=== PATIENT | male | born 1980 | race Hispanic/Latino ===

== ENCOUNTER 2016-09-24 12:17 | Emergency (ER) | payer OTHER ==
[~2016-09-24] VITALS: Ht 175.3 cm; Wt 88.6 kg
[~2016-09-24 12:17] MED LIST: AMLO5TAB2 PO; METO25TA6 PO; ONDA-53 PO; OXYC5TAB72 PO
[2016-09-24 12:22] VITALS: BP 158/100; PULSE 118; RESP 22; O2SAT 95
[2016-09-24] MEDS ORDERED: 0.9% Sodium Chloride 1,000 ML IV ONE (12:29)
[2016-09-24] MEDS ORDERED: Ondansetron 2 mg/mL 2 mL Inj IVPUSH ONE ×2 (12:30→12:55)
[2016-09-24] MEDS ORDERED: Thiamine Inj 100 MG, Folic Acid Inj 1 MG, Magnesium Sulfate 50% Inj 2 GM, Multivitamins... IV ONE ×5 (12:30)
--- NOTE | 2016-09-24 12:39 | ED.REPORT ---
HPI-General Illness Date of Service Sep 24, 2016 ED Provider: Cindy Martinez MD 35 y/o male with Hx of alcoholism and Pancreatitis presents to the ER with severe upper abdominal pain with radiation to the back, onset yesterday. Pt reports not having drank in 2 days. Pt claims to be in "withdrawal." Pt reports dizziness, chills, diarrhea, nausea, and 10 episodes of vomiting with "flecks" of red blood. Pt denies seizures, fever, cough, cold, and chest pain. Nursing Notes Stated Complaint: PANCREATITIS/WITHDRAWLS Chief Complaint: Male Abdominal Pain Nursing Notes Reviewed: Yes Allergies: Coded Allergies: No Known Allergies (Verified Allergy, Unknown, 09/24/16) Scheduled Amlodipine (Amlodipine) 5 Mg Tablet 5 MG PO DAILY Metoprolol Tartrate (Metoprolol Tartrate) 25 Mg Tablet 12.5 MG PO BID Scheduled PRN Ondansetron (Ondansetron) 4 Mg Tablet 4 MG PO PRN For Nausea oxyCODONE (oxyCODONE) 5 Mg Tablet 5-10 MG PO Q3 PRN PRN For Moderate Pain General Time Seen by MD: 12:28 Chief Complaint Abdominal pain Hx Obtained From: Patient Arrived By: Walk-in Onset Occurred: Yesterday Symptom Duration: Since onset Location: : Abdomen Quality: Painful Radiation: : Back Severity: Current: Severe Associated with: Reports: Abdominal pain, Dizziness, Nausea, Vomiting, Denies: Chest pain, Cough, Fever Exacerbated by: Drinking Context Related History: Reports Drug use/abuse suspected Similar Sx Previous: Yes Past Medical History Past Medical History Notes: Multiple ED visits for ETOH pancreatitis in 2015, Admit x2 in 01/2016 and 08/2016 for pancreatitis Past Medical History Multiple episodes of pancreatitis secondary to alcohol use Alcohol dependence and abuse Prior history of withdrawal Chronic mild left hydronephrosis, persistent since February 2012. Reports: Hypertension Reports: Pancreatitis Past Surgical History None reported Family History Noncontributory Smoking History Never Smoker Social History Relapse on 04/15/16 and 04/08/16 Alcohol Use: >5 per day Drug Use: Denies drug use Other Social History: Good social support, , Local resident Ambulatory Status Independent Review of Systems Full Review of Systems Constitutional: Reports: Chills, Denies: Fever Respiratory: Denies: Shortness of breath Cardiovascular: Denies: Chest pain GI: Reports: Abdominal pain, Diarrhea, Nausea, Vomiting (10 times) Musculoskeletal: Reports: Back pain Neurologic: Reports: Dizziness Complete sys rev & neg: except as marked. Physical Exam CIWA score 12 Vital Signs Vital Signs Date Time Temp Pulse Resp B/P Pulse Ox O2 Delivery O2 Flow Rate FiO2 09/24/16 12:22 36.6 118 22 158/100 95 Room Air Initial VS: Reviewed General/Constitutional: Well-developed, Well-nourished Head / Eyes: Atraumatic, Normocephalic, PERRL ENT: Conjunctiva normal, No scleral icterus Neck: Full range of motion Extremities: Vascular intact, Neuro intact Skin: Warm, Dry, No cyanosis Respiratory / Chest: Breath sounds NL, No respiratory distress, No rales, No rhonchi, No wheezing Cardiovascular: Regular rhythm, Heart sounds NL, Cap refill not delayed, Peripheral circulation NL Heart Rate / Rhythm: Positive: Tachycardia Abdomen: Atraumatic, Soft Tenderness/Guarding/Rebound: Positive: Tender LUQ... (mild) Neurologic: Oriented X3, Speech NL Tremor present Interpretation & Diagnostics Lab Results Interpretation Result Diagram: 09/24/16 1250 09/24/16 1250 Test 09/24/16 12:50 09/24/16 13:21 White Blood Count 7.8th/mm3 (3.8-10.1) Red Blood Count 4.41mil/mm3 (4.40-5.80) Hemoglobin 14.1g/dL (13.8-17.2) Hematocrit 41.0% (41.0-50.0) Mean Corpuscular Volume 93.0fL (81-100) Mean Corpuscular Hemoglobin 32.0pg (27.0-35.0) Mean Corpuscular Hemoglobin Concent 34.4% (32.0-37.0) Red Cell Distribution Width 12.1% (12.3-15.4) Platelet Count 214bil/L (150-400) Neutrophils (%) (Auto) 78.9% (40-74) Lymphocytes (%) (Auto) 13.8% (14-46) Monocytes (%) (Auto) 6.2% (4-12) Eosinophils (%) (Auto) 0.6% (0-5) Basophils (%) (Auto) 0.1% (0-3) Prothrombin Time 11.6sec (8.1-12.5) Prothromb Time International Ratio 1.08ratio Sodium Level 136mEq/L (134-144) Potassium Level 3.7mEq/L (3.5-5.2) Chloride Level 98mEq/L (97-108) Carbon Dioxide Level 22mmol/L (18-29) Blood Urea Nitrogen 10mg/dL (6-20) Creatinine 0.75mg/dL (0.76-1.27) Estimat Glomerular Filtration Rate 125mL/min (>59) Glucose Level 124mg/dL (60-99) Calcium Level 8.9mg/dL (8.5-10.1) Magnesium Level 1.9mg/dL (1.6-2.6) Total Bilirubin 1.2mg/dL (0.0-1.2) Aspartate Amino Transf (AST/SGOT) 156U/L (0-50) Alanine Aminotransferase (ALT/SGPT) 105U/L (0-44) Alkaline Phosphatase 88U/L (25-150) Total Protein 8.2g/dL (6.4-8.4) Albumin 4.1g/dL (3.4-5.0) Lipase 36U/L (13-60) Hold Urine Received (Received) General Lab Results Interp 1: Labs reviewed Re-Eval/Medical Decision Med Decision/Clinical Course Moderate alcohol withdrawal now 48 hours after last drink. acute alcoholic hepatitis but no evidence of pancreatitis and no evidence of acute bleeding. Does not meet criteria for needing hospitalization. No detox beds available. Has a stable home environment and apparently can help with Ativan taper. Home with Ativan taper Time of Eval: 13:31 Re-Evaluation/Progress Note: Pt was offered detox. Patient Status: Condition improved Re-Evaluation/Progress Note: discused options home with ativan taper Counseled Regarding: Diagnosis, Lab results Discharge & Departure Primary Impression: Alcoholism Additional Impressions: Alcoholic hepatitis Ascites presence: without ascites Qualified Code: K70.10 - Alcoholic hepatitis without ascites Alcohol withdrawal Complication of substance-induced condition: with unspecified complication Qualified Code: F10.239 - Alcohol dependence with withdrawal, unspecified Ruled Out: Pancreatitis Disposition: Home Discharge Condition All VS Reviewed: Yes Condition: Improved Patient Instructions: Alcohol Withdrawal (ED) Additional Instructions: To help you detox from your recent alcohol binge: Ativan 2mg every 8 hours for 1 day then 2mg every 12 hours for 1 day then 1mg (1/2 pill) every 8 hours for 1 day then 1mg every 12 hours for 1 day then 1mg and stop You will benefit from alcohol rehab as an inpatient. Please consider getting to AA meetings and [facility] Referrals: [facility] (PCP) Loc Attestation Portions of this note were transcribed by Tom Person and Nohemi Fritz. I, Dr. Martinez personally performed the history, physical exam and medical decision -making; I reviewed and confirmed the accuracy of the information in the transcribed note. Signed by: Loc Briceno, 09/24/16 and 1331 Cindy Martinez MD Sep 24, 2016 12:39 Tom Person Sep 24, 2016 12:56 Nohemi Fritz Sep 24, 2016 13:32
[2016-09-24 13:02] LABS: BASOPHILS % (AUTO) 0.1 % (0-3); EOSINOPHILS % (AUTO) 0.6 % (0-5); MONOCYTES % (AUTO) 6.2 % (4-12); NEUTROPHILS % (AUTO) 78.9 % (40-74); Platelet Count 214 bil/L (150-400)
[2016-09-24 13:17] LABS: INR 1.08 ratio
[2016-09-24 13:26] LABS: Magnesium 1.9 mg/dL (1.6-2.6)
[2016-09-24] MEDS ORDERED: LORA2TAB PO (16:01)
[2016-09-24 16:23] VITALS: BP 131/80; PULSE 88; RESP 15; O2SAT 99
[2016-09-24 16:54] VITALS: BP 123/79; PULSE 93; RESP 16; O2SAT 97
[2016-09-24 16:58] VITALS: BP 123/79; PULSE 93; O2SAT 97
== END 2016-09-24 16:58 | disposition home or self-care (01) ==
LOC: SED 12:17
DX: K70.10 Alcoholic hepatitis without ascites (principal); F10.239 Alcohol dependence with withdrawal, unspecified; R42 Dizziness and giddiness; R68.83 Chills (without fever); R19.7 Diarrhea, unspecified; R11.2 Nausea with vomiting, unspecified; I10 Essential (primary) hypertension
CPT/HCPCS: 36415; 80053; 82075; 83690; 83735; 85025; 85610; 90791; 96361; 96374; 96375; 96376; 99285; J2405; J3360; J3475; J7030

== ENCOUNTER 2016-10-13 08:57 | Emergency (ER) | payer OTHER ==
[~2016-10-13] VITALS: Ht 175.3 cm; Wt 86.4 kg
[~2016-10-13 08:57] MED LIST changes: +LORA2TAB PO
[2016-10-13 09:06] VITALS: BP 128/93; PULSE 81; RESP 18; O2SAT 99
--- NOTE | 2016-10-13 09:12 | ED.REPORT ---
HPI-Extremity Problem Lower Date of Service Oct 13, 2016 ED Provider: Deep Camargo MD The patient is a 35 year old male who presents to the emergency department complaining of a right great toe injury that occurred a few days ago. The patient states he kicked a "hard" ball while he was intoxicated. He is unsure if he felt pain immediately. The pain has worsened over the last few days. He is able to walk. His pain is worse with movement or weight bearing. He denies any other injuries or trauma. His mother has history of gout. He drinks alcohol regularly. His last drink was 3 days ago and he has noticed some alcohol withdrawal symptoms, including: nausea and vomiting. He denies severe abdominal pain, hematemesis, dark/tarry stools or bloody stools. Nursing Notes Stated Complaint: RT BIG TOE INJURY Chief Complaint: General Complaint Nursing Notes Reviewed: Yes Allergies: Coded Allergies: No Known Allergies (Verified Allergy, Unknown, 09/24/16) Scheduled Amlodipine (Amlodipine) 5 Mg Tablet 5 MG PO DAILY Metoprolol Tartrate (Metoprolol Tartrate) 25 Mg Tablet 12.5 MG PO BID Scheduled PRN Lorazepam (Lorazepam) 2 Mg Tablet 2 MG PO TID PRN PRN For Anxiety Ativan 2mg every 8 hours for 1 day then 2mg every 12 hours for 1 day then 1mg (1/2 pill) every 8 hours for 1 day then 1mg every 12 hours for 1 day then 1mg and stop Ondansetron (Ondansetron) 4 Mg Tablet 4 MG PO PRN For Nausea oxyCODONE (oxyCODONE) 5 Mg Tablet 5-10 MG PO Q3 PRN PRN For Moderate Pain General Time Seen by MD: 09:10 Chief Complaint Toe injury right 1 Hx Obtained From: Patient Arrived By: Walk-in Onset Occurred: 3 days ago Symptom Duration: Since onset Location: : Toe right 1 Quality: Painful Severity: Current: Moderate Severity: Maximum: Severe Exacerbated by: Range of motion, Movement Recent Healthcare: No recent doctor visit, No recent hospitalization Similar Sx Previous: No Past Medical History Past Medical History Notes: Multiple ED visits for ETOH pancreatitis in 2015, Admit x2 in 01/2016 and 08/2016 for pancreatitis Past Medical History Multiple episodes of pancreatitis secondary to alcohol use Alcohol dependence and abuse Prior history of withdrawal Chronic mild left hydronephrosis, persistent since February 2012. Reports: Hypertension Reports: Pancreatitis Past Surgical History None reported Family History Noncontributory Smoking History Never Smoker Social History Alcohol Use: >5 per day Drug Use: Denies drug use Other Social History: Good social support, , Local resident Ambulatory Status Independent Review of Systems Review of Systems Note: +right great toe pain Musculoskeletal: Denies: Back pain, Neck pain Complete sys rev & neg: except as marked. GI: Reports: Nausea, Vomiting, Denies: Bloody/tarry stool, Hematemesis, Hematochezia Physical Exam Initial Vital Signs Vital Signs (First) Date Time Temp Pulse Resp B/P Pulse Ox O2 Delivery O2 Flow Rate FiO2 10/13/16 09:06 36.8 81 18 128/93 99 Initial VS: Reviewed Head / Eyes: Atraumatic, Normocephalic, PERRL ENT: Mucous membranes moist, Conjunctiva normal, No scleral icterus Neck: Supple, Non-tender, Full range of motion Respiratory: Breath sounds normal, Clear to auscultation, No respiratory distress Cardiovascular: Regular rate & rhythm, Heart sounds normal, Intact distal pulses Abdomen / GI: Soft, Non-tender, No guarding, No rebound, No distention Lymphatic: No lymphadenopathy Upper Extremities: Vascular intact, Neuro intact, No swelling, No tenderness Skin: Warm, Dry, No cyanosis Neurologic: Alert, Oriented, Nonfocal Psychiatric: Mood/affect normal, Behavior normal, Normal thought content Lower Extremity / Pelvis / MS: Neurologic intact, Vascular intact Ankle / Foot: Neurologic intact, Vascular intact Right great toes: Dense redness and exquisite tenderness of first MTP joint. General/Constitutional: Awake, Alert, No acute distress Interpretation & Diagnostics X-Ray Interpretation Xray Interpretation: IMPRESSION: No fracture. No osseous lesion. If symptoms and/or clinical suspicion for pathology persists, further assessment with repeat radiographs or advanced imaging (e.g. CT, MRI or bone scan) may be helpful for further assessment. Dictated by: Isabelle Pratt MD, PhD on 10/13/2016 at 10:05 X-Ray Ordered: Foot right Interpretation / Wet Read by: Interpret - Radiologist Re-Eval/Medical Decision Source of Hx: Old records Re-Evaluation/Progress : Time of Eval: 09:58 Re-Evaluation/Progress Note: Rechecked the patient. Discussed x-ray results, diagnosis, and plan for discharge. All questions were addressed. Counseled Regarding: Diagnosis, Need for follow-up, When/why to return to ED Discharge & Departure Impression: Primary Impression: Acute gouty arthritis Additional Impression: Alcohol withdrawal Disposition: Home Discharge Condition All VS Reviewed: Yes Condition: Stable Patient Instructions: Acute Gouty Arthritis (ED) Additional Instructions: Thank you for entrusting us with your care today. Your x-ray today is negative, there is no evidence of any fractures. The most likely diagnosis is gout for which the colchicine should be exceedingly effective. In addition to that you could take ibuprofen 800 mg every 8 hours. Follow-up in the clinic in 2 days if not significantly improved. Of course, I recommend you not drink alcohol at all, as this will certainly exacerbate all of your medical problems. Followup with your regular doctor in the next few days if your pain is not improving. Return to the emergency department for any new or concerning symptoms. Referrals: [facility] (PCP) Scribe Attestation Portions of this note were transcribed by Ann Gambino. I, Dr. Camargo personally performed the history, physical exam and medical decision-making; I reviewed and confirmed the accuracy of the information in the transcribed note. Signed by:Loc Lowe, 10/13/2016and 1022. copies to: [facility] Deep Camargo MD Oct 13, 2016 09:12 Ann Gambino Oct 13, 2016 09:19
[2016-10-13] MEDS ORDERED: LORazepam 2 mg Tablet PO ONE (09:20)
--- NOTE | 2016-10-13 10:07 | DRSVH ---
PROCEDURE: X-RAY RIGHT FOOT COMPLETE, MINIMUM THREE VIEWS ([id number]) INDICATIONS: trauma TECHNIQUE: 3 views of the foot were acquired. COMPARISON: None. FINDINGS: Bones: No fractures or dislocations. No suspicious bony lesions. Soft tissues: No tibiotalar joint effusion. Achilles tendon appears normal. IMPRESSION: No fracture. No osseous lesion. If symptoms and/or clinical suspicion for pathology pers ists, further assessment with repeat radiographs or advanced imaging (e.g. CT, MRI or bone scan) may be helpful for further assessment. Dictated by: Isabelle Pratt MD, PhD on 10/13/2016 at 10:05 Approved by: Isabelle Pratt MD, PhD on 10/13/2016 at 10:06
[2016-10-13 10:46] VITALS: BP 136/97; PULSE 88; RESP 16; O2SAT 100
== END 2016-10-13 10:47 | disposition home or self-care (01) ==
LOC: SED 08:57
DX: M10.071 Idiopathic gout, right ankle and foot (principal); F10.239 Alcohol dependence with withdrawal, unspecified; I10 Essential (primary) hypertension; Z87.19 Personal history of other diseases of the digestive system

== ENCOUNTER 2016-10-17 10:45 | Emergency (ER) | payer OTHER ==
[~2016-10-17] VITALS: Ht 175.3 cm; Wt 86.4 kg
[2016-10-17 10:48] VITALS: BP 144/105; PULSE 99; RESP 16; O2SAT 95
--- NOTE | 2016-10-17 11:23 | ED.REPORT ---
HPI-Abd Pain M Under 40 Date of Service Oct 17, 2016 ED Provider: London Brownlee MD Pt is a 35 y/o male w/ a hx of alcohol abuse, recurrent alcoholic pancreatitis, alcoholic gastritis, gout, HTN, presenting to the ED c/o epigastric abdominal pain onset today. The patient drank a large amount (6x 10% beers) of alcohol last night and believes this episode of abdominal pain is similar to prior episodes of acute alcoholic pancreatitis. He drinks about 6 10% beers/day. He c/ o associated nausea, vomiting x5, small flakes of hematemesis, headache, shaking which he attributes to withdrawal. He denies CP, SOB, fever, chills, bloody stool. His pain is exacerbated by eating. He has experienced 1 seizure related to alcohol in Fall of 2015. He is also complaining of pain in his right toe which he attributes to gout. His gout is untreated at this time. Nursing Notes Stated Complaint: alcohol withdrawal/abd pain Chief Complaint: Male Abdominal Pain Nursing Notes Reviewed: Yes Allergies: Coded Allergies: No Known Allergies (Verified Allergy, Unknown, 09/24/16) Scheduled Amlodipine (Amlodipine) 5 Mg Tablet 5 MG PO DAILY Metoprolol Tartrate (Metoprolol Tartrate) 25 Mg Tablet 12.5 MG PO BID Scheduled PRN Lorazepam (Lorazepam) 2 Mg Tablet 2 MG PO TID PRN PRN For Anxiety Ativan 2mg every 8 hours for 1 day then 2mg every 12 hours for 1 day then 1mg (1/2 pill) every 8 hours for 1 day then 1mg every 12 hours for 1 day then 1mg and stop Ondansetron (Ondansetron) 4 Mg Tablet 4 MG PO PRN For Nausea oxyCODONE (oxyCODONE) 5 Mg Tablet 5-10 MG PO Q3 PRN PRN For Moderate Pain General Time Seen by MD: 10:52 Chief Complaint Abdominal pain Hx Obtained From: Patient Arrived By: Walk-in Sudden in Onset?: No Onset Occurred: 5 - 8 hours ago Symptom Duration: Since onset Progression since Onset: Gradually worsening Location: : Epigastric Quality: Painful Severity: Current: Moderate Severity: Maximum: Moderate Context Related History: Reports: Alcohol abuse Recent Healthcare: Previous diagnosis Similar Sx Previous: Yes Past Medical History Past Medical History Notes: Multiple ED visits for ETOH pancreatitis in 2015, Admit x2 in 01/2016 and 08/2016 for pancreatitis Past Medical History Multiple episodes of pancreatitis secondary to alcohol use Alcohol dependence and abuse Prior history of withdrawal Chronic mild left hydronephrosis, persistent since February 2012. Hypertension Alcoholic seizure x1 Past Surgical History None reported Family History Noncontributory Smoking History Never Smoker Social History Alcohol Use: >5 per day Drug Use: Denies drug use Other Social History: Good social support, , Local resident Ambulatory Status Independent Review of Systems Constitutional: Denies: Chills, Fever Respiratory: Denies: Non-productive cough, Shortness of breath Cardiovascular: Denies: Chest pain GI: Reports: Abdominal pain, Hematemesis, Nausea, Vomiting, Denies: Bloody/tarry stool Musculoskeletal: Reports: Extremity pain Complete sys rev & neg: except as marked. Neurologic: Reports: Headache, Shaking Physical Exam Initial Vital Signs Vital Signs (First) Date Time Temp Pulse Resp B/P Pulse Ox O2 Delivery O2 Flow Rate FiO2 10/17/16 10:48 36.4 99 16 144/105 95 Room Air Initial VS: Reviewed, Vital signs normal Head / Eyes: Atraumatic, Normocephalic, PERRL ENT: Mucous membranes moist, Conjunctiva normal, No scleral icterus Neck: Supple, Full range of motion Extremities: Vascular intact, Neuro intact, No swelling, No tenderness Skin: Warm, Dry, No cyanosis Psychiatric: Mood/affect normal, Behavior normal, Normal thought content General/Constitutional: Awake, Alert, Cooperative, Not toxic appearing Mildly agitated Respiratory / Chest: Atraumatic, Breath sounds NL, Breath sounds = bilat, No respiratory distress, No rales, No rhonchi, No wheezing, No retractions, No stridor, No chest tenderness, No chest wall deformity, No crepitus Cardiovascular: Regular rhythm, Heart sounds NL, No gallop, No murmurs, No rubs , Cap refill not delayed, Peripheral circulation NL Heart Rate / Rhythm: Positive: Tachycardia (mild) Abdomen: Atraumatic, Soft, No palpable mass Tenderness/Guarding/Rebound: Positive: Tender diffuse (mild), Tender epigastric (moderate) Back: Full range of motion, Painless range of motion Neurologic: Oriented X3, Speech NL, No motor deficits, No sensory deficits Mild tremor Interpretation & Diagnostics Lab Results Interpretation Result Diagram: 10/17/16 1200 10/17/16 1200 Test 10/17/16 12:00 10/17/16 12:05 10/17/16 13:08 White Blood Count 6.8th/mm3 (3.8-10.1) Red Blood Count 4.48mil/mm3 (4.40-5.80) Hemoglobin 14.3g/dL (13.8-17.2) Hematocrit 41.7% (41.0-50.0) Mean Corpuscular Volume 93.1fL (81-100) Mean Corpuscular Hemoglobin 31.9pg (27.0-35.0) Mean Corpuscular Hemoglobin Concent 34.3% (32.0-37.0) Red Cell Distribution Width 11.9% (12.3-15.4) Platelet Count 233bil/L (150-400) Neutrophils (%) (Auto) 73.0% (40-74) Lymphocytes (%) (Auto) 14.8% (14-46) Monocytes (%) (Auto) 10.7% (4-12) Eosinophils (%) (Auto) 1.3% (0-5) Basophils (%) (Auto) 0.1% (0-3) Sodium Level 140mEq/L (134-144) Potassium Level 4.0mEq/L (3.5-5.2) Chloride Level 99mEq/L (97-108) Carbon Dioxide Level 25mmol/L (18-29) Blood Urea Nitrogen 14mg/dL (6-20) Creatinine 0.96mg/dL (0.76-1.27) Estimat Glomerular Filtration Rate 94mL/min (>59) Glucose Level 121mg/dL (60-99) Calcium Level 9.2mg/dL (8.5-10.1) Total Bilirubin 0.5mg/dL (0.0-1.2) Aspartate Amino Transf (AST/SGOT) 56U/L (0-50) Alanine Aminotransferase (ALT/SGPT) 68U/L (0-44) Alkaline Phosphatase 80U/L (25-150) Total Protein 8.1g/dL (6.4-8.4) Albumin 4.2g/dL (3.4-5.0) Lipase 25U/L (13-60) Hold Doll Top Tube Received (Received) Hold Urine Received (Received) Re-Eval/Medical Decision Med Decision/Clinical Course Pt is a 35 y/o male w/ a hx of alcohol abuse, recurrent alcoholic pancreatitis, alcoholic gastritis, gout, HTN, presenting to the ED c/o epigastric abdominal pain onset today. The patient drank a large amount (6x 10% beers) of alcohol last night and believes this episode of abdominal pain is similar to prior episodes of acute alcoholic pancreatitis. He drinks about 6 10% beers/day. Upon arrival the patient is borderline tachycardic though otherwise afebrile with stable vital signs. As a precaution he was placed on Cipro protocol. We administered antiemetics and IV fluids. His tachycardia resolved. Labs notable as below: CBC: Unremarkable CMP: Mildly elevated transaminases, lipase normal, otherwise unremarkable Patient was seen and evaluated by emergency department social sciences chair. At this time no detox beds are available. I reviewed the patient's laboratory studies as above and at this time he has mildly elevated transaminases consistent with alcohol abuse though there is no evidence of pancreatitis. He has stable vital signs and is tolerating PO. Abdominal examination is benign and there are no findings at this time suggest an acute surgical intra-abdominal process. Patient has been provided with extensive community resources and at this time demonstrates no evidence of florid alcohol withdrawal. He has been advised to taper off his alcohol slowly when he is ready to stop drinking. I discussed the risks of quitting cold turkey including alcohol withdrawal/seizures. The patient was advised to return immediately for any new or worsening symptoms or signs of alcohol withdrawal. He was discharged in stable condition. He verbalized understanding and agreement with the follow-up and return precautions provided. Re-Evaluation/Progress #1: Time of Eval: 12:54 Re-Evaluation/Progress Note: Medically clear at this time. Will consult social work for alcohol rehab placement. Re-Evaluation/Progress #2: Time of Eval: 12:57 Re-Evaluation/Progress Note: He has no overt signs of withdrawal at this point and is appropriate for discharge. Informed pt of plan for treatment. Pt understands and agrees with plan for treatment. F/U instructions and RTER warnings given. All questions addressed. Consultation : Consulted With: painting trades worker Call Returned at: 12:54 Machine Operator Hop Worker: Will see patient, Agrees with eval, Agrees with plan Note: There are no detox beds available at this moment. Counseled Regarding: Diagnosis, Lab results, Need for follow-up, When/why to return to ED Patient Discharge & Departure Primary Impression: Alcohol abuse Additional Impressions: Abdominal pain Abdominal location: epigastric Qualified Code: R10.13 - Epigastric pain Nausea and vomiting Vomiting type: unspecified Vomiting Intractability: unspecified Qualified Code: R11.2 - Nausea with vomiting, unspecified History of pancreatitis Alcohol withdrawal Complication of substance-induced condition: with unspecified complication Qualified Code: F10.239 - Alcohol dependence with withdrawal, unspecified Disposition: Home Discharge Condition All VS Reviewed: Yes Condition: Stable Patient Instructions: Abuse of Alcohol (ED) Additional Instructions: Thank you for seeking care at emergency room. It is difficult for us to make definitive diagnoses in the ED but we believe that you are experiencing generalized abdominal pain. Our primary goal today in the ED was to evaluate you for any life-threatening conditions. Your evaluation was reassuring. There was no sign of pancreatitis. You should follow-up with your primary doctor in the next week. You should return to the ED immediately if you develop seizures, hallucinations , tremors, racing heart, anxiety, or any other concerning signs or symptoms. Thank you for letting us partake in your care today. Referrals: [facility] (PCP) Scribe Attestation Portions of this note were transcribed by Aden Price. I, Dr. Brownlee personally performed the history, physical exam and medical decision-making; I reviewed and confirmed the accuracy of the information in the transcribed note. Signed by Loc Guo, 10/17/16 1230 copies to: [facility] London Brownlee MD Oct 17, 2016 11:23 ADEN PRICE Oct 17, 2016 11:27
[2016-10-17] MEDS ORDERED: 0.9% Sodium Chloride 1,000 ML IV ONE ×2 (11:37)
[2016-10-17] MEDS ORDERED: Ondansetron 2 mg/mL 2 mL Inj IVPUSH ONE (11:40)
[2016-10-17] MEDS ORDERED: HYDROmorphone 0.5 mg/0.5 mL iSecure Syringe IVPUSH PRN (11:40)
[2016-10-17] MEDS ORDERED: Pantoprazole 4 mg/mL 10 mL Inj IVPUSH ONE (11:40)
[2016-10-17 12:07] LABS: BASOPHILS % (AUTO) 0.1 % (0-3); EOSINOPHILS % (AUTO) 1.3 % (0-5); MONOCYTES % (AUTO) 10.7 % (4-12); Mean Corpuscular Hemoglobin 31.9 pg (27.0-35.0); Mean Corpuscular Volume 93.1 fL (81-100); Platelet Count 233 bil/L (150-400)
[2016-10-17 12:51] VITALS: BP 132/92; PULSE 76; RESP 16; O2SAT 96
[2016-10-17 14:19] VITALS: BP 128/88; PULSE 85; RESP 16; O2SAT 98
== END 2016-10-17 14:20 | disposition home or self-care (01) ==
LOC: SED 10:45
DX: R10.13 Epigastric pain (principal); R11.2 Nausea with vomiting, unspecified; F10.239 Alcohol dependence with withdrawal, unspecified; I10 Essential (primary) hypertension; Z87.19 Personal history of other diseases of the digestive system; Z87.448 Personal history of other diseases of urinary system
CPT/HCPCS: 36415; 80053; 83690; 85025; 96361; 96374; 96375; 96376; 99285; J1170; J2405; J3360; J7030

== ENCOUNTER 2016-10-21 20:57 | Emergency (ER) | payer OTHER ==
[~2016-10-21] VITALS: Ht 175.3 cm; Wt 86.4 kg
[2016-10-21 21:23] VITALS: BP 121/78; PULSE 112; RESP 18; O2SAT 97
[2016-10-21 21:58] LABS: BASOPHILS % (AUTO) 0.3 % (0-3); EOSINOPHILS % (AUTO) 1.6 % (0-5); MONOCYTES % (AUTO) 6.8 % (4-12); Mean Corpuscular Hemoglobin 32.5 pg (27.0-35.0); Mean Corpuscular Volume 92.1 fL (81-100); NEUTROPHILS % (AUTO) 62.7 % (40-74); Platelet Count 299 bil/L (150-400)
[2016-10-21 22:18] LABS: Magnesium 1.5 mg/dL (1.6-2.6)
--- NOTE | 2016-10-22 | ED.REPORT ---
HPI-General Illness Date of Service Oct 22, 2016 ED Provider: Romie Donovan MD Pt is a 35 y.o. male with a hx of pancreatitis and ETOH abuse who presents to the ED c/o LUQ pain onset 8 hours prior to arrival. Pt reports associated nausea , vomiting, diarrhea, anxiety, and shaking. Pt reports that he is currently withdrawing from ETOH, today he only consumed 1 beer when her typically consumes 12. He states that he is attempting to get inpatient treatment through [facility]. He also states he is interested in going to [facility] if a bed is available. Pt reports a hx of alcoholic seizure. Nursing Notes Stated Complaint: PANCREATIC PAIN ETOH WITHDRAWAL Chief Complaint: Male Abdominal Pain Nursing Notes Reviewed: Yes Allergies: Coded Allergies: No Known Allergies (Verified Allergy, Unknown, 10/21/16) Scheduled Amlodipine (Amlodipine) 5 Mg Tablet 5 MG PO DAILY Metoprolol Tartrate (Metoprolol Tartrate) 25 Mg Tablet 12.5 MG PO BID Omeprazole (Omeprazole) 20 Mg Tablet.dr 20 MG PO BID Scheduled PRN Lorazepam (Lorazepam) 2 Mg Tablet 2 MG PO TID PRN PRN For Anxiety Ativan 2mg every 8 hours for 1 day then 2mg every 12 hours for 1 day then 1mg (1/2 pill) every 8 hours for 1 day then 1mg every 12 hours for 1 day then 1mg and stop Ondansetron (Ondansetron) 4 Mg Tablet 4 MG PO PRN For Nausea oxyCODONE (oxyCODONE) 5 Mg Tablet 5-10 MG PO Q3 PRN PRN For Moderate Pain General Time Seen by MD: 23:59 Chief Complaint Abdominal pain Hx Obtained From: Patient Arrived By: Walk-in Sudden in Onset?: Yes Onset Occurred: 5 - 8 hours ago Context of Onset: EtOH use Symptom Duration: Since onset Location: : Abdomen Quality: Painful Severity: Current: Severe Past Medical History Past Medical History Notes: Multiple ED visits for ETOH pancreatitis in 2015, Admit x2 in 01/2016 and 08/2016 for pancreatitis Past Medical History Multiple episodes of pancreatitis secondary to alcohol use Alcohol dependence and abuse Prior history of withdrawal Chronic mild left hydronephrosis, persistent since February 2012. Hypertension Alcoholic seizure x1 Past Surgical History None reported Family History Noncontributory Smoking History Never Smoker Social History Alcohol Use: >5 per day Drug Use: Denies drug use Other Social History: Good social support, , Local resident Ambulatory Status Independent Review of Systems ETOH withdrawal Full Review of Systems GI: Reports: Abdominal pain, Diarrhea, Nausea, Vomiting Neurologic: Reports: Shaking Psychiatric: Reports: Anxiety Complete sys rev & neg: except as marked. Physical Exam Vital Signs Vital Signs Date Time Temp Pulse Resp B/P Pulse Ox O2 Delivery O2 Flow Rate FiO2 10/22/16 03:32 36.9 100 18 132/90 95 Room Air 10/21/16 21:23 37.2 112 18 121/78 97 Initial VS: Reviewed Head / Eyes: Atraumatic, Normocephalic Extremities: Vascular intact, Neuro intact Neurologic: Alert, Oriented, Nonfocal Psychiatric: Mood/affect normal, Behavior normal, Normal thought content General/Constitutional: Awake, Alert, No acute distress, Well appearing, Well developed, Well hydrated, Well nourished, Not toxic appearing Tremulous Respiratory / Chest: Atraumatic, Breath sounds NL, Breath sounds = bilat, No respiratory distress, No rales, No rhonchi, No wheezing, No retractions, No stridor Cardiovascular: Regular rhythm, Heart sounds NL, No gallop, No murmurs, No rubs , Peripheral circulation NL Heart Rate / Rhythm: Positive: Tachycardia Abdomen: Atraumatic, Soft, No guarding, No rebound, No distention Tenderness/Guarding/Rebound: Positive: Tender epigastric Skin: Atraumatic, Color NL, Warm, Intact Color / Condition: Positive: Diaphoresis present Interpretation & Diagnostics Lab Results Interpretation Result Diagram: 10/21/16215010/21/16 215 Test 10/21/16 21:51 10/22/16 01:20 White Blood Count 7.5th/mm3 (3.8-10.1) Red Blood Count 4.67mil/mm3 (4.40-5.80) Hemoglobin 15.2g/dL (13.8-17.2) Hematocrit 43.0% (41.0-50.0) Mean Corpuscular Volume 92.1fL (81-100) Mean Corpuscular Hemoglobin 32.5pg (27.0-35.0) Mean Corpuscular Hemoglobin Concent 35.3% (32.0-37.0) Red Cell Distribution Width 11.8% (12.3-15.4) Platelet Count 299bil/L (150-400) Neutrophils (%) (Auto) 62.7% (40-74) Lymphocytes (%) (Auto) 28.5% (14-46) Monocytes (%) (Auto) 6.8% (4-12) Eosinophils (%) (Auto) 1.6% (0-5) Basophils (%) (Auto) 0.3% (0-3) Sodium Level 139mEq/L (134-144) Potassium Level 3.7mEq/L (3.5-5.2) Chloride Level 97mEq/L (97-108) Carbon Dioxide Level 24mmol/L (18-29) Blood Urea Nitrogen 13mg/dL (6-20) Creatinine 0.84mg/dL (0.76-1.27) Estimat Glomerular Filtration Rate 110mL/min (>59) Glucose Level 132mg/dL (60-99) Calcium Level 8.9mg/dL (8.5-10.1) Magnesium Level 1.5mg/dL (1.6-2.6) Total Bilirubin 0.4mg/dL (0.0-1.2) Aspartate Amino Transf (AST/SGOT) 100U/L (0-50) Alanine Aminotransferase (ALT/SGPT) 63U/L (0-44) Alkaline Phosphatase 85U/L (25-150) Total Protein 8.5g/dL (6.4-8.4) Albumin 4.3g/dL (3.4-5.0) Lipase 133U/L (13-60) Hold Doll Top Tube Received (Received) Hold Urine Received (Received) BMP / CMP Interpretation ALT (SGPT) elevated, AST (SGOT) elevated, Lipase elevated Re-Eval/Medical Decision Med Decision/Clinical Course 35-year-old with chronic alcoholism and intermittent alcoholic pancreatitis, presents now two days out from last alcohol ingestion with tremor and tachycardia in obvious withdrawal. He desires to go to crisis. Bed is available later this morning. He has been given Ativan IV and by mouth here with control of his symptoms. Zofran for nausea. Omeprazole to deal with his GI issues. No narcotics planned for his chronic low-grade pancreatitis. Transport via taxicab with prepacks for standard detox protocol. Source of Hx: Old records Time of Eval: 00:27 Re-Evaluation/Progress Note: Pt rechecked. Pt states that Crisis has a bed for him tomorrow morning at 0900. Time of Eval: 05:50 Re-Evaluation/Progress Note: Pt rechecked. Pt is tremulous, will administer Ativan. Discussed plan for discharge to Crisis, pt understands and agrees with plan. Counseled Regarding: Diagnosis, Lab results, Need for follow-up, When/why to return to ED Discharge & Departure Shift Change Sign-Out Response to Therapy: Improved Primary Impression: Alcohol withdrawal Additional Impression: Alcoholic pancreatitis Disposition: Home Discharge Condition All VS Reviewed: Yes Condition: Stable Referrals: [facility] (PCP) Loc Attestation Portions of this note were transcribed by Ailyn Fierro. I, Dr. Donovan personally performed the history, physical exam and medical decision-making; I reviewed and confirmed the accuracy of the information in the transcribed note. Signed by: Loc Freeman, 10/22/16 and [id number]. copies to: [facility] ; [facility] Romie Donovan MD Oct 22, 2016 00:00 AILYN FIERRO Oct 22, 2016 00:12
[2016-10-22] MEDS ORDERED: Multivitamin w/Vit K Inj 10 ML, Thiamine Inj 100 MG, Folic Acid Inj 1 MG, Magnesium Sul... IV ONE ×5 (00:12)
[2016-10-22] MEDS ORDERED: Pantoprazole 4 mg/mL 10 mL Inj IVPUSH ONE (00:15)
[2016-10-22 03:32] VITALS: BP 132/90; PULSE 100; RESP 18; O2SAT 95
[2016-10-22] MEDS ORDERED: LORazepam 2 mg Tablet PO ONE (05:50)
[2016-10-22] MEDS ORDERED: _Ondansetron ODT 4 mg Tablet PO PRN (05:55)
[2016-10-22] MEDS ORDERED: _LORazepam 2 MG Tablet PO SCH (05:55)
[2016-10-22] MEDS ORDERED: OMEP20TA86 PO (06:13)
[2016-10-22 06:54] VITALS: BP 140/94; PULSE 96; RESP 20; O2SAT 95
[2016-10-22 09:29] VITALS: PULSE 68; RESP 14; O2SAT 100
== END 2016-10-22 09:29 | disposition home or self-care (01) ==
LOC: SED 20:57
DX: F10.239 Alcohol dependence with withdrawal, unspecified (principal); K85.20 Alcohol induced acute pancreatitis without necrosis or infection; I10 Essential (primary) hypertension
CPT/HCPCS: 36415; 80053; 82075; 83690; 83735; 85025; 90791; 96361; 96372; 96374; 96375; 99284; J2060; J3475; J7030

== ENCOUNTER 2016-10-24 00:15 | Emergency (ER) | payer OTHER ==
[~2016-10-24] VITALS: Ht 175.3 cm; Wt 86.4 kg
[~2016-10-24 00:15] MED LIST changes: +OMEP20TA86 PO
[2016-10-24 00:18] VITALS: BP 139/97; PULSE 98; RESP 16; O2SAT 98
[2016-10-24] MEDS ORDERED: Ondansetron 2 mg/mL 2 mL Inj IVPUSH ONE (00:25)
[2016-10-24] MEDS ORDERED: 0.9% Sodium Chloride 1,000 ML IV ONE (00:25)
[2016-10-24] MEDS ORDERED: Pantoprazole 4 mg/mL 10 mL Inj IVPUSH ONE (00:25)
--- NOTE | 2016-10-24 00:26 | ED.REPORT ---
HPI-Abd Pain M Under 40 Date of Service Oct 24, 2016 ED Provider: Romie Donovan MD Patient is a 35 year old male with a history of alcohol abuse with alcoholic pancreatitis who presents to the ED from [facility] with worsening abdominal pain over the past 2 days. Patient states that he is unable to eat or drink due to the pain and nausea that he is experiencing. He reports radiation into his back. Patient was seen in the ED on 10/22/16 for alcohol withdrawal and was cleared for [facility]. The patient last an alcoholic beverage earlier that day. The patient had low-grade pancreatitis at that time, with a lipase of 133. He did not receive pain medication for this during his previous visit, but requests pain medication at this time. Patient also states that the prescribed Zofran and Ativan are not adequate for controlling his withdrawal symptoms. He has also been taking Ibuprofen and Amlodipine, but denies taking Omeprazole. He would like to return to [facility] after evaluation today and states that he is committed to becoming sober. Patient also states that his left arm has become tingly. He denies a fever. Nursing Notes Stated Complaint: ABDOMINAL PAIN Chief Complaint: Male Abdominal Pain Nursing Notes Reviewed: Yes Allergies: Coded Allergies: No Known Allergies (Verified Allergy, Unknown, 10/24/16) Scheduled Amlodipine (Amlodipine) 5 Mg Tablet 5 MG PO DAILY Metoprolol Tartrate (Metoprolol Tartrate) 25 Mg Tablet 12.5 MG PO BID Omeprazole (Omeprazole) 20 Mg Tablet.dr 20 MG PO BID Omeprazole (Omeprazole) 20 Mg Tablet.dr 20 MG PO BID Scheduled PRN Lorazepam (Lorazepam) 2 Mg Tablet 2 MG PO TID PRN PRN For Anxiety Ativan 2mg every 8 hours for 1 day then 2mg every 12 hours for 1 day then 1mg (1/2 pill) every 8 hours for 1 day then 1mg every 12 hours for 1 day then 1mg and stop Ondansetron (Ondansetron) 4 Mg Tablet 4 MG PO PRN For Nausea Ondansetron ODT (Ondansetron ODT) 8 Mg Tab.rapdis 8 MG PO QID PRN PRN For Nausea oxyCODONE (oxyCODONE) 5 Mg Tablet 5-10 MG PO Q3 PRN PRN For Moderate Pain General Time Seen by MD: 00:24 Chief Complaint Abdominal pain Hx Obtained From: Patient Arrived By: Walk-in Sudden in Onset?: No Onset Occurred: 3 days ago Symptom Duration: Since onset Progression since Onset: Gradually worsening Location: : Epigastric Quality: Painful Severity: Current: Moderate Severity: Maximum: Severe Recent Healthcare: No recent hospitalization, Recent doctor visit Similar Sx Previous: Yes Past Medical History Past Medical History Notes: Multiple ED visits for ETOH pancreatitis in 2015, Admit x2 in 01/2016 and 08/2016 for pancreatitis Past Medical History Multiple episodes of pancreatitis secondary to alcohol use Alcohol dependence and abuse Prior history of withdrawal with withdrawal seizure x1 Chronic mild left hydronephrosis, persistent since February 2012. Hypertension Past Surgical History None reported Family History Noncontributory Smoking History Never Smoker Social History Alcohol Use: >5 per day Drug Use: Denies drug use Other Social History: Good social support, , Local resident Ambulatory Status Independent Review of Systems Constitutional: Denies: Fever GI: Reports: Abdominal pain, Nausea Musculoskeletal: Reports: Back pain Complete sys rev & neg: except as marked. Neurologic: Reports: Numbness (left arm tingling) Psychiatric: Reports: Anxiety Physical Exam Initial Vital Signs Vital Signs (First) Date Time Temp Pulse Resp B/P Pulse Ox O2 Delivery O2 Flow Rate FiO2 10/24/16 00:18 36.4 98 16 139/97 98 Room Air Initial VS: Reviewed Head / Eyes: Atraumatic, Normocephalic, PERRL ENT: Conjunctiva normal, No scleral icterus Neck: Supple, Full range of motion Extremities: Vascular intact, Neuro intact Skin: Warm, Dry, No cyanosis Neurologic: Alert, Oriented, Nonfocal Psychiatric: Mood/affect normal, Behavior normal, Normal thought content General/Constitutional: Awake, Alert, No acute distress not tremulous Respiratory / Chest: Breath sounds NL, Breath sounds = bilat, No respiratory distress, No rales, No rhonchi, No wheezing Cardiovascular: Heart rate NL, Regular rhythm, No murmurs Abdomen: Soft Tenderness/Guarding/Rebound: Positive: Tender epigastric (midepigastrium) Back: did not examine Interpretation & Diagnostics Lab Results Interpretation Result Diagram: 10/24/16 0125 10/24/16 0125 Test 10/24/16 00:20 10/24/16 01:25 Urine Color Straw (YELLOW) Urine Appearance Clear (CLEAR,HAZY) Urine pH 6.5 (5.0-8.0) Urine Specific [place] 1.003 (1.003-1.035) Urine Protein Negativemg/dL (NEG,TRACE) Urine Glucose (UA) Negativemg/dL (NEGATIVE) Urine Ketones Negativemg/dL (NEGATIVE) Urine Occult Blood Negative (NEGATIVE) Urine Nitrite Negative (NEGATIVE) Urine Bilirubin Negative (NEGATIVE) Urine Urobilinogen Normalmg/dL (NORMAL) Urine Leukocyte Esterase Negative (NEGATIVE) Urine RBC 0-2/hpf (0-2) Urine WBC 0-5/hpf (0-5) Urine Epithelial Cells Occasional/hpf (NONE-MOD) Urine Crystals None seen (NONE SEEN) Urine Bacteria None/hpf (NONE-FEW) Urine Hyaline Casts None/lpf (NONE) Urine Granular Casts None seen (NONE SEEN) Urine Waxy Casts None seen (NONE SEEN) Urine Red Blood Cell Casts None seen (NONE SEEN) Urine White Blood Cell Casts None seen (NONE SEEN) Urine Mucus None seen (None Seen) Urine Trichomonas None seen (NONE SEEN) Urine Yeast None (NONE SEEN) Urine Culture Reflexed Not indicated White Blood Count 7.5th/mm3 (3.8-10.1) Red Blood Count 4.20mil/mm3 (4.40-5.80) Hemoglobin 13.6g/dL (13.8-17.2) Hematocrit 38.4% (41.0-50.0) Mean Corpuscular Volume 91.4fL (81-100) Mean Corpuscular Hemoglobin 32.4pg (27.0-35.0) Mean Corpuscular Hemoglobin Concent 35.4% (32.0-37.0) Red Cell Distribution Width 11.5% (12.3-15.4) Platelet Count 214bil/L (150-400) Neutrophils (%) (Auto) 68.6% (40-74) Lymphocytes (%) (Auto) 21.8% (14-46) Monocytes (%) (Auto) 6.8% (4-12) Eosinophils (%) (Auto) 2.4% (0-5) Basophils (%) (Auto) 0.1% (0-3) Sodium Level 138mEq/L (134-144) Potassium Level 3.4mEq/L (3.5-5.2) Chloride Level 103mEq/L (97-108) Carbon Dioxide Level 23mmol/L (18-29) Blood Urea Nitrogen 8mg/dL (6-20) Creatinine 0.66mg/dL (0.76-1.27) Estimat Glomerular Filtration Rate 145mL/min (>59) Glucose Level 106mg/dL (60-99) Calcium Level 8.7mg/dL (8.5-10.1) Magnesium Level 1.9mg/dL (1.6-2.6) Total Bilirubin 0.8mg/dL (0.0-1.2) Aspartate Amino Transf (AST/SGOT) 116U/L (0-50) Alanine Aminotransferase (ALT/SGPT) 72U/L (0-44) Alkaline Phosphatase 73U/L (25-150) Total Protein 7.9g/dL (6.4-8.4) Albumin 4.3g/dL (3.4-5.0) Lipase 33U/L (13-60) ECG Interpretation Time: 00:33 Interpreted by: ED physician Normal ECG Interpretation: Normal ECG w/ rate of... (82), No acute ischemic changes Re-Eval/Medical Decision Med Decision/Clinical Course 35-year-old in treatment for alcohol withdrawal, complaining of persistent abdominal pain. It low grade pancreatitis on presentation here several days ago, and is actually improved his lipase normal. His abdominal pain is likely secondary to alcoholic gastritis. No indication for narcotic pain relievers in a detox setting. Will extend and renew his Ativan for use at the detox center. Zofran for nausea. Omeprazole twice a day, which was apparently omitted at the Center despite the original order. He is discharged in stable condition. Source of Hx: Old records Re-Evaluation/Progress : Time of Eval: 02:34 Patient Status: Condition improved Re-Evaluation/Progress Note: Rechecked the patient, who was informed that his lipase was now normal. His symptoms are likely due to gastritis. Patient will be discharged with additional Zofran and Omeprazole. Patient states that he is anxious. His dose of Ativan will be increased. Patient understands and agrees with the plan to be discharged home. Discharge instructions and follow-up discussed. All questions were addressed. Return to the ED warnings given. Counseled Regarding: Diagnosis, Lab results, Need for follow-up, When/why to return to ED Patient Discharge & Departure Primary Impression: Alcoholic gastritis Additional Impressions: Alcohol withdrawal Complication of substance-induced condition: uncomplicated Qualified Code: F10.230 - Alcohol dependence with withdrawal, uncomplicated Abdominal pain Abdominal location: epigastric Qualified Code: R10.13 - Epigastric pain History of pancreatitis Disposition: Home Discharge Condition All VS Reviewed: Yes Condition: Stable Patient Instructions: Alcohol Withdrawal (ED) Additional Instructions: Your low-grade pancreatitis is resolving by the labs. Your pain is likely due to alcoholic gastritis. You need to be on omeprazole twice daily, and I have reordered that for you and relayed that to the staff. Continue Ativan taper, which we will increase the dose and extend. Zofran if needed for nausea up to four times daily. Referrals: [facility] (PCP) Loc Attestation Portions of this note were transcribed by Shea Markham. I, Dr. Donovan personally performed the history, physical exam and medical decision-making; I reviewed and confirmed the accuracy of the information in the transcribed note. Signed by: Loc Hurt, 10/24/2016 [id number] copies to: [facility] Romie Donovan MD Oct 24, 2016 00:26 Shea Markham Oct 24, 2016 01:03
[2016-10-24] MEDS ORDERED: 0.9% Sodium Chloride 1,000 ML IV SCH (01:05)
[2016-10-24 01:14] LABS: APPEARANCE,URINE CLEAR (CLEAR,HAZY); COLOR,URINE STRAW (YELLOW); OCCULT BLOOD,URINE NEGATIVE (NEGATIVE); PH,URINE 6.5 (5.0-8.0); UROBILINOGEN,URINE NORMAL (NORMAL)
[2016-10-24 01:42] LABS: BASOPHILS % (AUTO) 0.1 % (0-3); EOSINOPHILS % (AUTO) 2.4 % (0-5); MONOCYTES % (AUTO) 6.8 % (4-12); Mean Corpuscular Hemoglobin 32.4 pg (27.0-35.0); Mean Corpuscular Volume 91.4 fL (81-100); NEUTROPHILS % (AUTO) 68.6 % (40-74); Platelet Count 214 bil/L (150-400)
[2016-10-24 02:08] LABS: Magnesium 1.9 mg/dL (1.6-2.6)
[2016-10-24] MEDS ORDERED: Alum-Mag Hydrox-Simeth 30 mL Suspension PO ONE (02:20)
[2016-10-24] MEDS ORDERED: _LORazepam 2 MG Tablet PO SCH (02:40)
[2016-10-24] MEDS ORDERED: LORazepam 2 mg Tablet PO ONE (02:40)
[2016-10-24 02:49] VITALS: BP 129/87; PULSE 96; RESP 20; O2SAT 96
[2016-10-24] MEDS ORDERED: OMEP20TA86 PO (03:22)
[2016-10-24] MEDS ORDERED: ONDA8TAB10 PO (03:23)
[2016-10-24 05:09] VITALS: BP 129/87; PULSE 96; RESP 20; O2SAT 96
== END 2016-10-24 05:18 | disposition home or self-care (01) ==
LOC: SED 00:15
DX: K29.20 Alcoholic gastritis without bleeding (principal); F10.230 Alcohol dependence with withdrawal, uncomplicated; I10 Essential (primary) hypertension; F17.200 Nicotine dependence, unspecified, uncomplicated; Z87.19 Personal history of other diseases of the digestive system
CPT/HCPCS: 36415; 80053; 81000; 83690; 83735; 85025; 93005; 96361; 96374; 96375; 99285; J2405; J7030

== ENCOUNTER 2016-10-27 15:30 | Emergency (ER) | payer OTHER ==
[~2016-10-27 15:30] MED LIST changes: +ONDA8TAB10 PO
[2016-10-27 15:51] VITALS: BP 144/105; PULSE 103; RESP 22; O2SAT 95
[2016-10-27] MEDS ORDERED: 0.9% Sodium Chloride 1,000 ML IV ONE (16:26)
[2016-10-27] MEDS ORDERED: Ondansetron 2 mg/mL 2 mL Inj IVPUSH ONE (16:30)
[2016-10-27] MEDS ORDERED: Thiamine Inj 100 MG, Folic Acid Inj 1 MG, Magnesium Sulfate 50% Inj 2 GM, Multivitamins... IV ONE ×10 (16:30→17:50)
--- NOTE | 2016-10-27 16:48 | ED.REPORT ---
HPI-Abd Pain M Under 40 Date of Service Oct 27, 2016 ED Provider: Deep Camargo MD History of Present Illness: Patient is a 35 y.o. M which past medical history of chronic ETOH abuse 12 beers per day 12% ABV, multiple episodes of ETOH pancreatitis, HTN. Presents to ED with moderate to severe abdominal pain since 0800 this morning. Pain rated 8/10 located on left side and epigastrum with radiation to back. Assocaited symptoms of nausea, vomiting x 4 some blood in vomitg, chills, diarrhea no change in stool color, dysuria, headache. Patient stated that he has tried to eat today but has not been able to keep food down, is able to keep water down. Patient stated his last drink was approximatley 1200 today, is now feeling like he is going into withdrawal, symptoms of tremors, diaphroesis, chest pain, visual hallucinations, itching. Patient has tried taking tylenol 1,000 mg and Ibuprofen 600 mg without relief. Patient went to [facility] ED yesterday blood work done "numbers were high" and discharged with PO Ativan and zofran. Patient stated he is motivated to quit drinking but has been unable to do so on his own. He is scheduled to enter an inpatient alcohol dextox program this Thursday. Denies Fever, conspitation, auditory hallucinations, loss of visions, falls, syncope. Nursing Notes Stated Complaint: pancreatitis/withdrawal Chief Complaint: Substance Abuse Allergies: Coded Allergies: No Known Allergies (Verified Allergy, Unknown, 10/27/16) Scheduled Amlodipine (Amlodipine) 5 Mg Tablet 5 MG PO DAILY Metoprolol Tartrate (Metoprolol Tartrate) 25 Mg Tablet 12.5 MG PO BID Omeprazole (Omeprazole) 20 Mg Tablet.dr 20 MG PO BID Omeprazole (Omeprazole) 20 Mg Tablet.dr 20 MG PO BID Scheduled PRN Lorazepam (Lorazepam) 2 Mg Tablet 2 MG PO TID PRN PRN For Anxiety Ativan 2mg every 8 hours for 1 day then 2mg every 12 hours for 1 day then 1mg (1/2 pill) every 8 hours for 1 day then 1mg every 12 hours for 1 day then 1mg and stop Ondansetron (Ondansetron) 4 Mg Tablet 4 MG PO PRN For Nausea Ondansetron ODT (Ondansetron ODT) 8 Mg Tab.rapdis 8 MG PO QID PRN PRN For Nausea Ondansetron ODT (Zofran ODT) 4 Mg Tablet 4 MG PO Q4H PRN PRN For Nausea Ondansetron ODT (Zofran ODT) 4 Mg Tablet 4 MG PO Q4H PRN PRN For Nausea oxyCODONE (oxyCODONE) 5 Mg Tablet 5-10 MG PO Q3 PRN PRN For Moderate Pain General Time Seen by MD: 16:20 Chief Complaint Abdominal pain, Other (ETOH withdrawal) Hx Obtained From: Patient Arrived By: Walk-in Sudden in Onset?: No Onset Occurred: 5 - 8 hours ago Context of Onset: EtOH use Symptom Duration: Constant Location: : Epigastric: LUQ Quality: Aching, Itching, Painful, Stabbing Radiation: : Back Severity: Current: Pain level 8 out of 10 Severity: Maximum: Pain level 8 out of 10 Associated with: Reports: Anorexia, Chest pain, Chills, Diarrhea, Dysuria, Shortness of breath Exacerbated by: Drinking alcohol, Eating Context Related History: Reports: Alcohol abuse, Pancreatitis Recent Healthcare: No recent doctor visit, Prior workup (Yesterday visited ED at [facility], blood work done DC with given Zofran and ativan.) Similar Sx Previous: Yes Past Medical History Past Medical History Notes: Multiple ED visits for ETOH pancreatitis in 2015, Admit x2 in 01/2016 and 08/2016 for pancreatitis Past Medical History Multiple episodes of pancreatitis secondary to alcohol use Alcohol dependence and abuse Prior history of withdrawal with withdrawal seizure x1 Chronic mild left hydronephrosis, persistent since February 2012. Hypertension Reports: Depression Past Surgical History None reported Family History Noncontributory Smoking History Never Smoker Social History Alcohol Use: >5 per day Drug Use: Denies drug use Other Social History: Good social support, , Local resident Ambulatory Status Independent Review of Systems Constitutional: Reports: Chills, Fatigue Respiratory: Reports: Dyspnea on exertion Cardiovascular: Reports: Chest pain, Palpitations, Denies: Orthopnea, Syncope GI: Reports: Abdominal pain, Anorexia, Diarrhea, Nausea, Vomiting Male: Reports Dysuria, Reports Flank pain Complete sys rev & neg: except as marked. Physical Exam Initial Vital Signs Vital Signs (First) Date Time Temp Pulse Resp B/P Pulse Ox O2 Delivery O2 Flow Rate FiO2 10/27/16 15:51 37.2 103 22 144/105 95 Room Air General/Constitutional: Awake, Alert, Well appearing, Well nourished Distress / Hydration: Positive: Distress mild Respiratory / Chest: Atraumatic, Breath sounds NL Cardiovascular: Heart rate NL, Regular rhythm, Heart sounds NL Abdomen: Atraumatic, Soft Tenderness/Guarding/Rebound: Positive: Guarding voluntary, Tender RUQ... ( Moderate), Tender epigastric Trauma - Abdomen Specific: Negative: [place]'s sign, Doll Sparks's sign multiple spider angiomas present on chest and abdomen Interpretation & Diagnostics Lab Results Interpretation Result Diagram: 10/27/16 1657 10/27/16 1657 Test 10/27/16 16:57 10/27/16 18:05 White Blood Count 7.6th/mm3 (3.8-10.1) Red Blood Count 4.32mil/mm3 (4.40-5.80) Hemoglobin 13.9g/dL (13.8-17.2) Hematocrit 39.6% (41.0-50.0) Mean Corpuscular Volume 91.7fL (81-100) Mean Corpuscular Hemoglobin 32.2pg (27.0-35.0) Mean Corpuscular Hemoglobin Concent 35.1% (32.0-37.0) Red Cell Distribution Width 11.6% (12.3-15.4) Platelet Count 200bil/L (150-400) Neutrophils (%) (Auto) 75.2% (40-74) Lymphocytes (%) (Auto) 17.5% (14-46) Monocytes (%) (Auto) 6.0% (4-12) Eosinophils (%) (Auto) 1.1% (0-5) Basophils (%) (Auto) 0.1% (0-3) Prothrombin Time 11.7sec (8.1-12.5) Prothromb Time International Ratio 1.09ratio Activated Partial Thromboplast Time 27.7sec (22.8-33.0) Sodium Level 133mEq/L (134-144) Potassium Level 3.2mEq/L (3.5-5.2) Chloride Level 93mEq/L (97-108) Carbon Dioxide Level 23mmol/L (18-29) Blood Urea Nitrogen 8mg/dL (6-20) Creatinine 0.63mg/dL (0.76-1.27) Estimat Glomerular Filtration Rate 153mL/min (>59) Glucose Level 117mg/dL (60-99) Calcium Level 8.2mg/dL (8.5-10.1) Magnesium Level 1.4mg/dL (1.6-2.6) Total Bilirubin 0.6mg/dL (0.0-1.2) Aspartate Amino Transf (AST/SGOT) 83U/L (0-50) Alanine Aminotransferase (ALT/SGPT) 78U/L (0-44) Alkaline Phosphatase 84U/L (25-150) Ammonia 67ug/dL (18-53) Total Protein 8.1g/dL (6.4-8.4) Albumin 4.0g/dL (3.4-5.0) Lipase 20U/L (13-60) Hold Doll Top Tube Received (Received) Alcohol, Quantitative < 10mg/dL (0-10) Hold Urine Received (Received) Lab Results Interpretation: Recent seen at [facility] 10/26/16 for similar symptoms lipase 151 AST 111 ALT 122 By comparison patient's lipase and LFTs are improved from yesterday. Ammonia level is elevated from prior visits at 67 ECG Interpretation Time: 16:43 Interpreted by: ED physician Normal ECG Interpretation: Normal ECG w/ rate of... (85), Normal rate, Normal sinus rhythm, No acute ischemic changes, Normal QRS, Normal axis, No change from prior ECGs, Adequate tracing Re-Eval/Medical Decision Med Decision/Clinical Course Patient is a 35 y.o. M which past medical history of chronic ETOH abuse 12 beers per day 12% ABV, multiple episodes of ETOH pancreatitis, HTN. Presented to ED for 8-12 hours of epigastric pain, ETOH withdrawal, tremor, nausea, vomiting. Last vist to [facility] for ETOH pancreatitis 09/05/16 CT scan showed: Mild pancreatitis, Hepatic steatosis, thickening of the colon, no sign of gallstone, stable left hydronephrosis. Recent seen at [facility] 10/26/16 for similar symptoms lipase 151 (this is within the normal range for their laboratory) AST 111 ALT 122 DDx EOTH withdrawal, alocholic pancreatitis, gallstone pancreatitis, gastroenteritis. CBC, CMP, Lipase ordered, ABV, UA, tox screen ordered. Re-Evaluation/Progress : )( Re-Eval Abdomen: BS normoactive, No distention, Guarding Patient Status: Condition unchanged Patient Discharge & Departure Shift Change Sign-Out Response to Therapy: Unchanged Primary Impression: Withdrawal symptoms, alcohol Complication of substance-induced condition: uncomplicated Qualified Code: F10.230 - Alcohol dependence with withdrawal, uncomplicated Disposition: Home Patient Instructions: Alcohol Intoxication (GEN), Alcohol Withdrawal (DC) Referrals: [facility] (PCP) Attending Statement The patient was seen and examined together with Dr. Reyes on 10/27/16 and I have added additional information to the note above. copies to: [facility] ДМИТРИЙ REYES DO Oct 27, 2016 16:48 Deep Camargo MD Oct 27, 2016 19:52
[2016-10-27] MEDS: HYDROmorphone 0.5 mg/0.5 mL iSecure Syringe IVPUSH PRN ×3 (16:53→19:46)
[2016-10-27 17:00] VITALS: BP 147/97; PULSE 91; RESP 15; O2SAT 97
[2016-10-27 17:08] LABS: BASOPHILS % (AUTO) 0.1 % (0-3); EOSINOPHILS % (AUTO) 1.1 % (0-5); Mean Corpuscular Hemoglobin 32.2 pg (27.0-35.0); Mean Corpuscular Volume 91.7 fL (81-100); NEUTROPHILS % (AUTO) 75.2 % (40-74); Platelet Count 200 bil/L (150-400)
[2016-10-27 17:25] LABS: INR 1.09 ratio
[2016-10-27 17:30] LABS: Magnesium 1.4 mg/dL (1.6-2.6)
[2016-10-27 17:31] LABS: Ammonia 67 ug/dL (18-53)
[2016-10-27] MEDS ORDERED: 0.9% Sodium Chloride 1,000 ML IV SCH (17:50)
[2016-10-27 17:52] VITALS: BP 138/90; PULSE 86; RESP 17; O2SAT 95
[2016-10-27] MEDS ORDERED: Ondansetron 8 mg ODT Tablet PO PRN (19:05)
[2016-10-27] MEDS ORDERED: ONDA4TAB9 PO ×2 (20:02→20:20)
== END 2016-10-27 20:28 | disposition home or self-care (01) ==
LOC: SED 15:30
DX: F10.230 Alcohol dependence with withdrawal, uncomplicated (principal); R10.13 Epigastric pain; R10.32 Left lower quadrant pain; R10.11 Right upper quadrant pain; R11.2 Nausea with vomiting, unspecified; R51 Headache; R19.7 Diarrhea, unspecified; R30.0 Dysuria; I10 Essential (primary) hypertension
CPT/HCPCS: 36415; 80053; 82075; 82140; 83690; 83735; 85025; 85610; 85730; 90791; 93005; 96361; 96374; 96375; 96376; 99285; G0480; J1170; J2405; J3360; J3475; J7030

== ENCOUNTER 2016-11-03 08:31 | Inpatient (IN) | payer OTHER ==
[2016-11-03] VITALS (15 sets, daily range): BP systolic 116–153; BP diastolic 70–107; PULSE 83–109; RESP 13–19; O2SAT 95–99
[~2016-11-03] VITALS: Ht 175.3 cm; Wt 90.3 kg
[~2016-11-03 08:31] MED LIST changes: +ONDA4TAB9 PO
[2016-11-03] MEDS ORDERED: Ondansetron 2 mg/mL 2 mL Inj IVPUSH ONE (09:20)
[2016-11-03] MEDS ORDERED: 0.9% Sodium Chloride 1,000 ML IV ONE ×2 (09:20→09:30)
--- NOTE | 2016-11-03 09:20 | ED.REPORT ---
HPI-General Illness Date of Service Nov 03, 2016 ED Provider: London Brownlee MD 35 year old male with a history of alcohol abuse and alcoholic pancreatitis presents to the ER complaining of abdominal pain and vomiting secondary to alcohol abuse vs withdrawal onset at 01:00 this morning. He reports trace blood in his emesis. Patient states that the pain is similar to that associated with a recent bout of pancreatitis. Last drink was 18:00 yesterday, 1 beer. Typically he drinks six 24oz 8% ABV beers daily but has lately been attempting to detox in anticipation of checking in to crisis respite. Nursing Notes Stated Complaint: PANCREATITIS PAIN,ALCOHOL WITHDRAWAL,VOMITING Chief Complaint: Male Abdominal Pain Nursing Notes Reviewed: Yes Allergies: Coded Allergies: No Known Allergies (Verified Allergy, Unknown, 11/03/16) Scheduled Amlodipine (Amlodipine) 5 Mg Tablet 5 MG PO DAILY Scheduled PRN Ondansetron ODT (Zofran ODT) 4 Mg Tablet 4 MG PO Q4H PRN PRN For Nausea General Time Seen by MD: 09:18 Chief Complaint Abdominal pain, Vomiting Hx Obtained From: Patient Arrived By: Walk-in Sudden in Onset?: No Onset Occurred: 4 days ago Symptom Duration: Since onset Location: : Abdomen Quality: Painful Severity: Current: Moderate Severity: Maximum: Moderate Similar Sx Previous: Yes Past Medical History Past Medical History Notes: Multiple ED visits for ETOH pancreatitis in 2015, Admit x2 in 01/2016 and 08/2016 for pancreatitis Past Medical History Multiple episodes of pancreatitis secondary to alcohol use Alcohol dependence and abuse Prior history of withdrawal with withdrawal seizure x1 Chronic mild left hydronephrosis, persistent since February 2012. Hypertension Reports: Depression Past Surgical History None reported Family History Noncontributory Smoking History Never Smoker Social History Alcohol Use: >5 per day Drug Use: Denies drug use Other Social History: Good social support, , Local resident Ambulatory Status Independent Review of Systems Full Review of Systems Constitutional: Denies: Chills, Fever Respiratory: Denies: Non-productive cough, Shortness of breath Cardiovascular: Denies: Chest pain GI: Reports: Abdominal pain, Hematemesis, Nausea, Vomiting Male: Denies Dysuria, Denies Flank pain, Denies Hematuria Complete sys rev & neg: except as marked. Physical Exam Vital Signs Vital Signs Date Time Temp Pulse Resp B/P Pulse Ox O2 Delivery O2 Flow Rate FiO2 11/03/16 16:00 89 13 140/93 97 Room Air 11/03/16 15:00 88 15 132/95 97 Room Air 11/03/16 14:00 89 13 140/93 97 Room Air 11/03/16 13:00 91 19 135/88 99 Room Air 11/03/16 12:30 94 16 132/80 97 Room Air 11/03/16 12:00 91 15 130/70 96 Room Air 11/03/16 11:30 109 16 125/80 98 Room Air 11/03/16 11:00 88 16 116/77 96 Room Air 11/03/16 10:30 89 18 133/86 95 Room Air 11/03/16 08:53 36.2 105 15 139/107 97 Room Air Initial VS: Reviewed General/Constitutional: Well-developed, Well-nourished Head / Eyes: Atraumatic, Normocephalic Neck: Supple, Non-tender, Full range of motion Respiratory: Breath sounds normal, Clear to auscultation, No respiratory distress Cardiovascular: Regular rate & rhythm, Heart sounds normal, Intact distal pulses Extremities: Vascular intact, Neuro intact, No swelling, No tenderness Skin: Warm, Dry, No cyanosis Neurologic: Alert, Oriented, Nonfocal Psychiatric: Mood/affect normal, Behavior normal, Normal thought content Abdomen: Soft, No guarding, No rebound, No distention Tenderness/Guarding/Rebound: Positive: Tender epigastric Interpretation & Diagnostics Lab Results Interpretation Result Diagram: 11/03/1627 11/03/16 0927 Test 11/03/16 09:27 White Blood Count 5.8th/mm3 (3.8-10.1) Red Blood Count 4.73mil/mm3 (4.40-5.80) Hemoglobin 15.0g/dL (13.8-17.2) Hematocrit 42.6% (41.0-50.0) Mean Corpuscular Volume 90.1fL (81-100) Mean Corpuscular Hemoglobin 31.7pg (27.0-35.0) Mean Corpuscular Hemoglobin Concent 35.2% (32.0-37.0) Red Cell Distribution Width 11.9% (12.3-15.4) Platelet Count 233bil/L (150-400) Neutrophils (%) (Auto) 64.2% (40-74) Lymphocytes (%) (Auto) 22.1% (14-46) Monocytes (%) (Auto) 11.9% (4-12) Eosinophils (%) (Auto) 1.4% (0-5) Basophils (%) (Auto) 0.2% (0-3) Sodium Level 135mEq/L (134-144) Potassium Level 3.5mEq/L (3.5-5.2) Chloride Level 94mEq/L (97-108) Carbon Dioxide Level 21mmol/L (18-29) Blood Urea Nitrogen 10mg/dL (6-20) Creatinine 0.85mg/dL (0.76-1.27) Estimat Glomerular Filtration Rate 108mL/min (>59) Glucose Level 118mg/dL (60-99) Calcium Level 8.1mg/dL (8.5-10.1) Magnesium Level 1.6mg/dL (1.6-2.6) Total Bilirubin 1.1mg/dL (0.0-1.2) Aspartate Amino Transf (AST/SGOT) 122U/L (0-50) Alanine Aminotransferase (ALT/SGPT) 96U/L (0-44) Alkaline Phosphatase 90U/L (25-150) Total Protein 8.1g/dL (6.4-8.4) Albumin 4.2g/dL (3.4-5.0) Lipase 60U/L (13-60) Hold Doll Top Tube Received (Received) Re-Eval/Medical Decision Med Decision/Clinical Course 35 year old male with a history of alcohol abuse and alcoholic pancreatitis presents to the ER complaining of abdominal pain and vomiting secondary to alcohol abuse vs withdrawal onset at 01:00 this morning. He reports trace blood in his emesis. Patient states that the pain is similar to that associated with a recent bout of pancreatitis. Last drink was 18:00 yesterday, 1 beer. Typically he drinks six 24oz 8% ABV beers daily but has lately been attempting to detox in anticipation of checking in to crisis respite. Patient afebrile with stable vital signs and abdominal examination audible only for mild epigastric tenderness. Patient treated with the below medications: IV fluids Zofran Dilaudid GI cocktail Patient reported symptom improvement though he remained somewhat agitated and tremulous. Serial abdominal examinations remained benign. Placed on CIWA. Laboratory studies obtained as below: CBC normal Transaminases mildly elevated 90s to 120s Lipase WNL Renal function WNL No significant electrolyte abnormalities At this time, suspect alcoholic gastritis and alcohol withdrawal. No evidence of pancreatitis or acute surgical intra-abdominal process. I do not feel that further workup or imaging studies are indicated. Multiple attempts were made to place the patient in detox however we were unsuccessful. He cannot go to crisis respite until tomorrow. He requires ongoing doses of benzodiazepines and has been placed on CIWA protocol. Patient was admitted to hospitalist service for further management of his acute alcohol withdrawal. Time of Eval: 12:45 Re-Evaluation/Progress Note: Discussed lab results and plan of care. Consultation : Referral / Consult Name: Cira Mae MD Consulted With: Hospitalist Call Returned at: 15:39 Research/Program Director: Agrees with eval, Agrees with plan, Accepts admit Counseled Regarding: Diagnosis, Lab results, Need for admission Discharge & Departure Primary Impression: Alcohol abuse Additional Impressions: Alcohol withdrawal Complication of substance-induced condition: with unspecified complication Qualified Code: F10.239 - Alcohol dependence with withdrawal, unspecified Epigastric pain Alcoholic gastritis Jeanine-Richardson syndrome Disposition: ADMITTED TO HOSPITAL Discharge Condition All VS Reviewed: Yes Condition: Stable Referrals: [facility] (PCP) Crit Care Except Billable Proc Time Spent: 105-134 minutes Services Performed: Patient management by me, Time spent at bedside, Reviewing test results, Reviewing imaging, Discussing patient care, Documentation in record, Time with fam/surrogate Critical Care Notes: Management of acute alcohol withdrawal, attempts to place the patient in medical detox and conversations with admitting physician and medical social consultantGarrett Monterroso Attestation Portions of this note were transcribed by Jose Cruz. I, Dr. Brownlee, personally performed the history, physical exam and medical decision-making; I reviewed and confirmed the accuracy of the information in the transcribed note. Signed by: Loc Leon, 11/03/2016 and 15:40 copies to: [facility] London Brownlee MD Nov 03, 2016 09:20 JOSE CRUZ Nov 03, 2016 09:22
[2016-11-03] MEDS ORDERED: Thiamine Inj 100 MG, Folic Acid Inj 1 MG, Magnesium Sulfate 50% Inj 2 GM, Multivitamins... IV ONE ×5 (09:30)
[2016-11-03 09:36] LABS: BASOPHILS % (AUTO) 0.2 % (0-3); EOSINOPHILS % (AUTO) 1.4 % (0-5); MONOCYTES % (AUTO) 11.9 % (4-12); Mean Corpuscular Hemoglobin 31.7 pg (27.0-35.0); Mean Corpuscular Volume 90.1 fL (81-100); NEUTROPHILS % (AUTO) 64.2 % (40-74); Platelet Count 233 bil/L (150-400)
[2016-11-03] MEDS: HYDROmorphone 0.5 mg/0.5 mL iSecure Syringe IVPUSH PRN ×2 (09:37→16:10)
[2016-11-03 10:00] LABS: Magnesium 1.6 mg/dL (1.6-2.6)
[2016-11-03] MEDS ORDERED: Alum-Mag Hydrox-Simeth 30 mL Suspension PO ONE (12:50)
[2016-11-03] MEDS ORDERED: Alum-Mag Hydrox-Simeth 30 mL Suspension PO PRN ×2 (15:10→18:00)
[2016-11-03] MEDS ORDERED: Ondansetron 2 mg/mL 2 mL Inj IVPUSH PRN (15:10)
--- NOTE | 2016-11-03 17:50 | NUR ---
Admission Patient arrived on unit via gurney. Patient alert and oriented on arrival. No noticeable tremor, able to make needs known. Chest x ray, and ultra sound done immediately on arrival.
--- NOTE | 2016-11-03 18:27 | PCM.HPMED ---
Subjective Date of Service Nov 03, 2016 Primary Provider: Admitting Physician: Cira Mae MD Primary Care Physician: [facility] Attending Physician: Cira Mae MD Admit Status: From the Emergency Department, Full Admit, Remote Telemetry Chief Complaint: Upper abdominal pain History of Present Illness: This is a 35-year-old male who has a history of alcohol abuse along with a recent diagnosis of alcoholic pancreatitis which has been improving by enzymes. His lipase today is normal he is continuing to complain of some abdominal pain and nausea vomiting. He notes no bloody or black vomitus or bowel movements. He typically drinks 12 pack of 8% alcoholic beers daily but last drink was last night. ER M.D. he is also going through some alcohol withdrawal with anxiety tremors which did respond to oral benzodiazepine. He has not been able to keep anything down orally. He denies any fevers chills. He did have one loose light brown stool today. Review of Systems: All other review of systems are reviewed and are negative except for as in history of present illness. Allergies Coded Allergies: No Known Allergies (Verified Allergy, Unknown, 11/03/16) Home Medications Scheduled Amlodipine (Amlodipine) 5 Mg Tablet 5 MG PO DAILY Metoprolol Tartrate (Metoprolol Tartrate) 25 Mg Tablet 12.5 MG PO BID Omeprazole (Omeprazole) 20 Mg Tablet.dr 20 MG PO BID Omeprazole (Omeprazole) 20 Mg Tablet.dr 20 MG PO BID Scheduled PRN Lorazepam (Lorazepam) 2 Mg Tablet 2 MG PO TID PRN PRN For Anxiety Ativan 2mg every 8 hours for 1 day then 2mg every 12 hours for 1 day then 1mg (1/2 pill) every 8 hours for 1 day then 1mg every 12 hours for 1 day then 1mg and stop Ondansetron (Ondansetron) 4 Mg Tablet 4 MG PO PRN For Nausea Ondansetron ODT (Ondansetron ODT) 8 Mg Tab.rapdis 8 MG PO QID PRN PRN For Nausea Ondansetron ODT (Zofran ODT) 4 Mg Tablet 4 MG PO Q4H PRN PRN For Nausea Ondansetron ODT (Zofran ODT) 4 Mg Tablet 4 MG PO Q4H PRN PRN For Nausea oxyCODONE (oxyCODONE) 5 Mg Tablet 5-10 MG PO Q3 PRN PRN For Moderate Pain PMH Past Medical History Notes: Multiple ED visits for ETOH pancreatitis in 2015, Admit x2 in 01/2016 and 08/2016 for pancreatitis Past Medical History Multiple episodes of pancreatitis secondary to alcohol use Alcohol dependence and abuse Prior history of withdrawal with withdrawal seizure x1 Chronic mild left hydronephrosis, persistent since February 2012. Hypertension Reports: Depression Past Surgical History None reported Family History Denies any family history of alcohol abuse Social History Hx Alcohol Use: Yes (last drink last night ) Hx Substance Use: No Hx Tobacco Use: No Smoking Status: Never Smoker Living Arrangement: with Family Exam Vital Signs Vital Sign - Last Date Time Temp Pulse Resp B/P Pulse Ox O2 Delivery O2 Flow Rate FiO2 11/03/16 17:00 86 15 132/89 96 Room Air 11/03/16 08:53 36.2 Exam Constitutional: Middle-aged male in moderate pain distress Head: Normocephalic/atraumatic Eyes: PERRLA GC EOMI Mouth: No lesions Neck: No adenopathy Chest: Clear to auscultation Cor: Regular rate and rhythm S1-S2 without murmur Abdomen: Soft tender in the epigastrium no rebound no guarding bowel sounds are present Extremities: No pedal edema Psych: Appears slightly anxious Skin: No rashes Neuro alert and oriented 3, motor strength is intact bilaterally Lab and Diagnostics Labs Laboratory Tests 72 Hours Test 11/03/16 09:27 White Blood Count 5.8th/mm3 (3.8-10.1) Red Blood Count 4.73mil/mm3 (4.40-5.80) Hemoglobin 15.0g/dL (13.8-17.2) Hematocrit 42.6% (41.0-50.0) Mean Corpuscular Volume 90.1fL (81-100) Mean Corpuscular Hemoglobin 31.7pg (27.0-35.0) Mean Corpuscular Hemoglobin Concent 35.2% (32.0-37.0) Red Cell Distribution Width 11.9% (12.3-15.4) Platelet Count 233bil/L (150-400) Neutrophils (%) (Auto) 64.2% (40-74) Lymphocytes (%) (Auto) 22.1% (14-46) Monocytes (%) (Auto) 11.9% (4-12) Eosinophils (%) (Auto) 1.4% (0-5) Basophils (%) (Auto) 0.2% (0-3) Sodium Level 135mEq/L (134-144) Potassium Level 3.5mEq/L (3.5-5.2) Chloride Level 94mEq/L (97-108) Carbon Dioxide Level 21mmol/L (18-29) Blood Urea Nitrogen 10mg/dL (6-20) Creatinine 0.85mg/dL (0.76-1.27) Estimat Glomerular Filtration Rate 108mL/min (>59) Glucose Level 118mg/dL (60-99) Calcium Level 8.1mg/dL (8.5-10.1) Magnesium Level 1.6mg/dL (1.6-2.6) Total Bilirubin 1.1mg/dL (0.0-1.2) Aspartate Amino Transf (AST/SGOT) 122U/L (0-50) Alanine Aminotransferase (ALT/SGPT) 96U/L (0-44) Alkaline Phosphatase 90U/L (25-150) Total Protein 8.1g/dL (6.4-8.4) Albumin 4.2g/dL (3.4-5.0) Lipase 60U/L (13-60) Hold Doll Top Tube Received (Received) Result Diagram: 11/03/1692611/03/16926 Assessment & Plan # Acute alcohol withdrawal, present on admission Will place on alcohol CIWA protocol IV fluid hydration By mouth multiple vitamin with folate and by mouth thiamine Check urine drug screen # Epigastric pain, subacute, present on admission We will place on Protonix 40 mg by mouth twice a day for possible alcoholic gastritis Zofran when necessary Check chest x-ray and abdominal ultrasound to further investigate As mentioned lipase is normal Stool guaiacs # DVT prophylaxis Placed on SCDs We will not give subcutaneous anticoagulant given history of EtOH abuse and acute epigastric pain Check PT/PTT # CODE STATUS Patient is full code Pain Evaluation: Pain not Controlled VTE Prophylaxis: SCDs Resuscitation Status: CPR: Attempt Resuscitation Time spent 60 minutes Cira Mae MD Nov 03, 2016 18:27
--- NOTE | 2016-11-03 19:51 | DRSVH ---
PROCEDURE: US ABDOMEN ([id number]) INDICATIONS: epigastric pain TECHNIQUE: Real-time scanning was performed of the abdominal and retroperitoneal organs, with image documentatio n. COMPARISON: [facility], US, US ABDOMEN, 04/13/2016, 11:39. FINDINGS: Liver: Liver is increased in echogenicity compatible with fatty infiltration. Gallbladder: No gallstones, gallbladder wall thickening, or pericholecystic fluid. Biliary ducts: Intrahepatic bile ducts are non-dilated. Extrahepatic bile duct caliber measures 3-4 mm. Normal is 6-7 mm or less in diameter, or 10 mm or less post-cholecystectomy. Pancreas: Not well-visualized. Spleen: Spleen is normal in size and homogeneous in echotexture. Kidneys: Right kidney measures 12.1 cm long; left kidney measures 12.6 cm long. There is mild right renal pelviectasis. Mild left hydronephrosis is also redemonstrated. Aorta: Visualized aorta is normal in caliber at less than 3 cm. The proximal and mid aorta are not w ell seen. Iliacs: Proximal common iliac arteries are normal in caliber at less than 2.5 cm. IVC: Intrahepatic inferior vena cava is patent. Miscellaneous: No free abdominal fluid. IMPRESSION: 1. Increased hepatic echogenicity compatible with steatosis. 2. Mild left hydronephrosis redemonstrated as well as mild right renal pelviectasis. Dictated by: Bob Briseno M.D. on 11/03/2016 at 19:46 Approved by: Bob Briseno M.D. on 11/03/2016 at 19:50
[2016-11-03] MEDS: 0.9% Sodium Chloride 1,000 ML IV SCH (20:23)
--- NOTE | 2016-11-03 21:01 | DRSVH ---
PROCEDURE: X-RAY CHEST ONE VIEW, PORTABLE ([id number]) INDICATIONS: epigastric pain TECHNIQUE: One view of the chest was acquired. COMPARISON: [facility], , CHEST 1VW (PORTABLE), 07/03/2011, 15:40. [facility], CR, CHEST 1VW (PORTABLE), 06/24/2014, 12:21. FINDINGS: Surgical changes and devices: None. Lungs and pleura: No pleural effusions or pneumothorax. Lungs are clear. Mediastinum: Mediastinal contours appear normal. Heart size is normal. Bones and chest wall: No suspicious bony lesions. Overlying soft tissues appear unremarkable. IMPRESSION: 1. No acute cardiopulmonary disease. Dictated by: Bob Briseno M.D. on 11/03/2016 at 20:58 Approved by: Bob Briseno M.D. on 11/03/2016 at 20:59
--- NOTE | 2016-11-03 23:25 | NUR ---
Dayshift extension Admission interventions completed. Pt reports pain of 9/10 in abdomen r/t pancreatitis. Given IV Morphine. Pain reduced to 5/10. Pt continues to request pain relief with medication. Instructed pt about medication tx regimen. Pt cooperative with plan of care. Willing to wait for next dose availability even.
[2016-11-04] VITALS (8 sets, daily range): BP systolic 135–160; BP diastolic 91–107; PULSE 77–116; RESP 18; O2SAT 94–98
[2016-11-04 01:32] LABS: APPEARANCE,URINE CLEAR (CLEAR,HAZY); COLOR,URINE DARK YELLOW (YELLOW); OCCULT BLOOD,URINE NEGATIVE (NEGATIVE); PH,URINE 6.5 (5.0-8.0); UROBILINOGEN,URINE NORMAL (NORMAL)
[2016-11-04] MEDS: 0.9% Sodium Chloride 1,000 ML IV SCH ×3 (02:14→19:24)
[2016-11-04 06:28] LABS: BASOPHILS % (AUTO) 0.2 % (0-3); EOSINOPHILS % (AUTO) 3.9 % (0-5); MONOCYTES % (AUTO) 8.3 % (4-12); Mean Corpuscular Hemoglobin 32.1 pg (27.0-35.0); Mean Corpuscular Volume 91.7 fL (81-100); NEUTROPHILS % (AUTO) 55.4 % (40-74); Platelet Count 188 bil/L (150-400)
[2016-11-04] MEDS: Multivit-Miner-Folic Acid-Iron Tablet PO SCH (08:55)
[2016-11-04] MEDS: Pantoprazole 40 mg ER24 Tablet PO SCH ×2 (08:55→18:02)
--- NOTE | 2016-11-04 16:25 | PCM.PNMED ---
Subjective Date of Service Nov 04, 2016 Subjective reports right great toe gout pain. also reports abdominal pain and some tremors Vital Signs Vital Sign - Last Date Time Temp Pulse Resp B/P Pulse Ox O2 Delivery O2 Flow Rate FiO2 11/04/16 14:08 36.7 92 18 135/91 96 Room Air Intake and Output 11/03/16 11/03/16 11/04/16 Cumulative From/Thru 15:00 23:00 07:00 11/03/16 08:53 - 11/04/16 06:34 Intake Total 2000 ml 300 ml 2300 ml Output Total 950 ml 375 ml 1325 ml Balance 1050 ml -75 ml 975 ml Intake Oral 300 ml 300 ml IV Total 2000 ml 2000 ml Output Urine Total 950 ml 375 ml 1325 ml General: Alert, Oriented X3, Cooperative, No Acute Distress Head: Normal Eyes: Scleral Anicteric Mouth: Mucous Membr Moist/[place] Neck: Supple Chest & Lungs: Chest Wall Normal, Clear to auscultation & percussion Cardiovascular: Regular Rate/Rhythm Abdomen: Tender, Non-distended, Normoactive bowel tones, Soft Extremities: No cyanosis/clubbing/edma bilat, Other (mild erythema at the right MTP joint) Neurological: Grossly Neurologically Intact, Normal Speech, Other (mild resting tremor of hands) Lab and Diagnostics Result Diagram: 11/04/1659911/03/161937 Exam Vital Signs Vital Sign - Last Date Time Temp Pulse Resp B/P Pulse Ox O2 Delivery O2 Flow Rate FiO2 11/04/16 14:08 36.7 92 18 135/91 96 Room Air Intake and Output 11/03/16 11/03/16 11/04/16 Cumulative From/Thru 15:00 23:00 07:00 11/03/16 08:53 - 11/04/16 06:34 Intake Total 2000 ml 300 ml 2300 ml Output Total 950 ml 375 ml 1325 ml Balance 1050 ml -75 ml 975 ml Intake Oral 300 ml 300 ml IV Total 2000 ml 2000 ml Output Urine Total 950 ml 375 ml 1325 ml IVs and Medications Medications Reviewed: Medications were reviewed in detail Lab and Diagnostics Result Diagram: 11/04/1659911/03/161937 Assessment & Plan 35-year-old male who has a history of alcohol abuse along with a recent diagnosis of alcoholic pancreatitis which has been improving by enzymes presenting with abdominal pain and nausea vomiting. last drink was night before presentation. In ED with evidence of alcohol withdrawal with anxiety tremors which did respond to oral benzodiazepine # Acute alcohol withdrawal, present on admission. ongoing - c/w CIWA protocol - By multiple vitamin, folate and thiamine # Epigastric pain, subacute, present on admission - c/w Protonix 40 mg by mouth twice a day for possible alcoholic gastritis Zofran when necessary - Abd U/S 11/04/16: " Increased hepatic echogenicity compatible with steatosis." - lipase is normal - consider CT abd # Possible acute gout of right foot. poa - start Colchicine and f/u Dispo: 3-4 days VTE Prophylaxis: SCDs Resuscitation Status: CPR: Attempt Resuscitation Dillon Arevalo Nov 04, 2016 16:25
[2016-11-04] MEDS: Ondansetron 2 mg/mL 2 mL Inj IVPUSH PRN (19:24)
--- NOTE | 2016-11-04 19:39 | NUR ---
GOUT Pt c/o increasing pain over shift in proximal knuckle of R big toe. MD aware. Pain level increased to a maximum of 10/10. Visually toe getting dark red and swelling. New orders placed for Colchicine. Pain meds given PRN allowable schedule, pt reports no pain relief in foot. MD notified.
[2016-11-05] VITALS (7 sets, daily range): BP systolic 141–163; BP diastolic 79–107; PULSE 89–110; RESP 18–20; O2SAT 96–99
[2016-11-05] MEDS ORDERED: Ketorolac 15 mg/mL Inj IVPUSH ONE (01:10)
--- NOTE | 2016-11-05 01:48 | NUR ---
Gout/foot pain Pt complaining of increasing foot pain. Morphine minimally relieving pain. Md notified and gave order for toradol. Toradol and Tylenol given with excellent relief. Pain decrease from 10/10 to 3/10
[2016-11-05] MEDS: 0.9% Sodium Chloride 1,000 ML IV SCH ×3 (03:40→19:49)
[2016-11-05] MEDS: Ondansetron 2 mg/mL 2 mL Inj IVPUSH PRN ×4 (04:18→19:48)
[2016-11-05 07:54] LABS: BASOPHILS % (AUTO) 0.2 % (0-3); EOSINOPHILS % (AUTO) 3.6 % (0-5); MONOCYTES % (AUTO) 7.1 % (4-12); Mean Corpuscular Hemoglobin 32.6 pg (27.0-35.0); Mean Corpuscular Volume 91.5 fL (81-100); NEUTROPHILS % (AUTO) 60.8 % (40-74); Platelet Count 157 bil/L (150-400)
[2016-11-05 08:14] LABS: INR 1.08 ratio
[2016-11-05] MEDS: Pantoprazole 40 mg ER24 Tablet PO SCH ×2 (09:05→18:10)
[2016-11-05] MEDS: Multivit-Miner-Folic Acid-Iron Tablet PO SCH (09:05)
--- NOTE | 2016-11-05 10:08 | NUR ---
Social Work CD assessment and Screen Note: SW met with patient at bedside to discuss discharge plan. Patient is a 35 year old male admitted on 11/03/16 for alcohol withdrawal. Patient payer as [employer]. Patient states having no intermediate manager disability nor VA benefits. Patient follows up at [facility]. Patient states residing with parents in [place]. Patient pharmacy of choice as [facility]. Patient has no previous HHC or SNF history. Patient has no AD and declined completion on form. Patient states being independent with needs at baseline and states having no identified discharge needs at this time. SW discussed Alohol use with patient. Patient states that his drink of choice as "211 beer". Patient states he consumes 10-12 beers a day. Hx of substance use. Patient reports first alcohol use at the age of [age] years old. Patient states after breaking up with his fiance of 5 years he increased his alcohol intake. Patient states that alcohol helped him alleviate his pain from the break up and allowed him to escape. Patient states he and his ex-fiance broke up 8 months ago and he has resided with parents since break up. Hx of treatment programs: Patient affiliated with [facility]. Patient states he plans to attend the [facility] program in [facility] for AA abuse assistance. Patient states wanting assistance and will work with [facility] bottle caser to finalize treatment into the [facility] program. Hx of w/d symptoms and hx of sobriety: Patient states he experiences "shakes" and sweats as a result to no alcohol intake. Patient states he has been sober for 65 days in the past but relapsed. Family hx: Patient reports no family history of drug use. Patient states that his parents do not enjoy his frequent alcohol consumption and persuade him from refraining from such use Consequences for use: Patient states being recently fired from job as a result to frequent alcohol use. Suicide Risk: Patient denied any current or past suicidal ideations or thoughts of harming himself or others Motivation: Patient appears to be motivated for treatment. SW provided patient with contact information to [facility] for admittance independently to [facility] treatment program PLAN: Home with parents via POV and follow up at [facility] treatment program following discharge. SW to [facility]jas. Qamar SHANKAR
--- NOTE | 2016-11-05 14:33 | DRSVH ---
PROCEDURE: CT ABDOMEN AND PELVIS WITH CONTRAST ([id number]) INDICATIONS: abd pain TECHNIQUE: After the administration of oral and intravenous contrast, 5 mm thick sections acquired from the diap hragms to the symphysis. 5 mm thick coronal and sagittal reformats were performed. For radiation do se reduction, the following was used: automated exposure control, adjustment of mA and/or kV accordi ng to patient size. COMPARISON: [facility], CT, CT ABD PELVIS W CON, 09/05/2016, 10:39. [facility], CT, CT ABD PELVIS W CON, 02/14/2016, 12:14. [facility], CT, CT ABD PELVIS W CON, 12/2014, 20:44. FINDINGS: Image quality: Excellent. ABDOMEN: Lung bases: Lung bases are clear. Heart size is normal. Solid organs: Ill-defined low density within the right/left hepatic lobe junction is not significant ly changed, consistent with focal fatty infiltration. Liver and spleen are otherwise normal in size a nd enhancement. Gallbladder is within normal limits. Biliary system is non-dilated. No change in f ocal atrophy of the pancreatic body/neck junction. There is new mild prominence of the pancreatic darya t within the pancreatic tail, with a maximal diameter of roughly 4 mm. Pancreas otherwise enhances no rmally. No adrenal nodules. Kidneys are normal in size and enhancement, without hydronephrosis. Peritoneum and bowel: There is thickening of the gastric antrum, which may indicate nondistention, ve rsus peptic ulcer disease. Small bowel is within normal limits. Appendix is normal. Colon is nondiste nded. Mild diffuse thickening of the sigmoid colon is unchanged. No free fluid or air. Normal append ix. Nodes and vessels: No retroperitoneal or mesenteric adenopathy. Aorta and inferior vena cava are no rmal in caliber. Miscellaneous: No ventral hernias. PELVIS: Genitourinary: Bladder wall thickness is normal. Miscellaneous: No inguinal hernias or adenopathy. Bones: No suspicious bony lesions. No vertebral body compression fractures. IMPRESSION: 1. Mild nonspecific thickening of the gastric antrum, possibly related to peptic ulcer disease. This could be further assessed with endoscopy, if clinically indicated. 2. No change in ill-defined low-density within the right/left hepatic lobe junction, consistent with fatty infiltration. 3. Normal appendix. 4. No change in focal mid pancreatic atrophy. There is new mild prominence of the pancreatic duct wit hin the pancreatic tail, suggestive of underlying stricture, which could be benign or malignant. This could be further assessed with ERCP, if clinically indicated. 5. No change in mild diffuse sigmoid colon thickening. Dictated by: Ayana Cabral M.D. on 11/05/2016 at 14:13 Approved by: Ayana Cabral M.D. on 11/05/2016 at 14:31
--- NOTE | 2016-11-05 17:18 | PCM.PNMED ---
Subjective Date of Service Nov 05, 2016 Subjective reports continued abdominal pain. says toe pain much improved after Colchicine last night Exam Vital Signs Vital Sign - Last Date Time Temp Pulse Resp B/P Pulse Ox O2 Delivery O2 Flow Rate FiO2 11/05/16 14:38 36.6 93 18 141/97 97 Room Air Intake and Output 11/04/16 11/04/16 11/05/16 Cumulative From/Thru 15:00 23:00 07:00 11/03/16 08:53 - 11/05/16 06:43 Intake Total 640 ml 4602 ml 7542 ml Output Total 2000 ml 1725 ml 5050 ml Balance -1360 ml 2877 ml 2492 ml Intake Oral 640 ml 518 ml 1458 ml IV Total 4084 ml 6084 ml Output Urine Total 2000 ml 1725 ml 5050 ml Exam General: Alert, Oriented X3, Cooperative, No Acute Distress Head: Normal Eyes: Scleral Anicteric Mouth: Mucous Membr Moist/[place] Neck: Supple Chest & Lungs: Chest Wall Normal, Clear to auscultation bilat Cardiovascular: Regular Rate/Rhythm Abdomen: Tender, Non-distended, Normoactive bowel tones, Soft Extremities: No cyanosis/clubbing/edema bilat Neurological: Grossly Neurologically Intact, Normal Speech, Other (mild resting tremor of hands) IVs and Medications Medications Reviewed: Medications were reviewed in detail Lab and Diagnostics Result Diagram: 11/05/1630 11/05/16 0730 Assessment & Plan 35-year-old male who has a history of alcohol abuse along with a recent diagnosis of alcoholic pancreatitis which has been improving by enzymes presenting with abdominal pain and nausea vomiting. last drink was night before presentation. In ED with evidence of alcohol withdrawal with anxiety tremors which did respond to oral benzodiazepine # Acute alcohol withdrawal, present on admission. ongoing - c/w CIWA protocol # Epigastric pain, subacute, present on admission - c/w Protonix 40 mg by mouth twice a day for possible alcoholic gastritis Zofran when necessary - Abd U/S 11/04/16: " Increased hepatic echogenicity compatible with steatosis." - lipase is normal - check CT abd today and consider GI consult in am if pain persist # Possible acute gout of right foot. poa. improved - started Colchicine on 11/04/16 # Acute hypokalemia. - replete and f/u Dispo: 2-3 days VTE Prophylaxis: SCDs Resuscitation Status: CPR: Attempt Resuscitation Time spent 25 min Dillon Arevalo Nov 05, 2016 17:18
[2016-11-05] MEDS ORDERED: KCl 40 mEq/D5W 500 mL 40 MEQ in IV Premix 500 EACH IV ONE (17:20)
[2016-11-05] MEDS: Polyethylene Glycol (PEG) 17 Gm Powder PO PRN (18:10)
--- NOTE | 2016-11-05 18:30 | NUR ---
CIWA /abdominal pain: Patients CIWA is 5 now. He has recieved Valium x2 today and IV morphine 3 times today and he rates his pain at 8-10 on 1-10 scale before the med with his pain decreasing to 5 after receiving the pain med. Patient has tolerated his clear liquid diet and has been upgraded. he stated that his nausea is mild and he has received IV Zofran x2 with good relief.
[2016-11-06] VITALS (7 sets, daily range): BP systolic 139–156; BP diastolic 95–107; PULSE 88–95; RESP 18–19; O2SAT 95–97
[2016-11-06] MEDS: Ondansetron 2 mg/mL 2 mL Inj IVPUSH PRN ×4 (00:33→18:07)
[2016-11-06] MEDS: 0.9% Sodium Chloride 1,000 ML IV SCH ×3 (01:16→18:04)
--- NOTE | 2016-11-06 05:50 | NUR ---
CIWA Pt CIWA score was 19 this evening, Valium x 2, Morphine x2, and zofran x2, all with good results. Last CIWA score of 2. Pt resting watching TV. Pt pleasant and cooperative. Pt chose to remain on a liquid diet for the night due to nausea, states he will try breakfast this morning. Left room with call light at bedside.
[2016-11-06 06:41] LABS: BASOPHILS % (AUTO) 0.2 % (0-3); EOSINOPHILS % (AUTO) 2.2 % (0-5); MONOCYTES % (AUTO) 6.6 % (4-12); Mean Corpuscular Hemoglobin 32.2 pg (27.0-35.0); Mean Corpuscular Volume 90.8 fL (81-100); Platelet Count 148 bil/L (150-400)
[2016-11-06] MEDS: Pantoprazole 40 mg ER24 Tablet PO SCH ×2 (07:45→17:51)
[2016-11-06] MEDS: Multivit-Miner-Folic Acid-Iron Tablet PO SCH (07:46)
[2016-11-06 08:33] LABS: Magnesium 1.9 mg/dL (1.6-2.6)
--- NOTE | 2016-11-06 11:30 | PCM.PNMED ---
Subjective Date of Service Nov 06, 2016 Subjective Abdominal pain is his main complaint today. Not well controlled with current PRNs. Still most pronounced in right upper quadrant. Appetite is OK, but limited due to pain, so he eats small portions. Withdrawal symptoms still present, but well controlled with CIWA protocol, scoring between 11-14 overnight and this morning as per nursing. Exam Vital Signs Vital Sign - Last Date Time Temp Pulse Resp B/P Pulse Ox O2 Delivery O2 Flow Rate FiO2 11/06/16 11:02 37.1 88 18 139/95 96 Room Air Intake and Output 11/05/16 11/05/16 11/06/16 Cumulative From/Thru 14:59 22:59 06:59 11/03/16 08:53 - 11/06/16 05:23 Intake Total 2486 ml 01495 ml Output Total 2050 ml 7100 ml Balance 436 ml 2928 ml Intake Oral 1145 ml 2603 ml IV Total 1341 ml 7425 ml Output Urine Total 2050 ml 7100 ml # Bowel Movements 1 1 Exam General: Alert, Oriented X3, Cooperative, No Acute Distress Head: Normal Eyes: Scleral Anicteric Mouth: Mucous Membranes Moist/[place] Neck: Supple Chest & Lungs: Chest Wall Normal, Clear to auscultation bilat Cardiovascular: Regular Rate/Rhythm Abdomen: Tenderness of RUQ noted, without guarding. Non-distended, Normoactive bowel tones, Soft Extremities: No cyanosis/clubbing/edema bilat Neurological: Grossly Neurologically Intact, Normal Speech, Other (mild resting tremor of hands) IVs and Medications Medications Reviewed: Medications were reviewed in detail Lab and Diagnostics Result Diagram: 11/06/1660911/06/16609 Assessment & Plan 35-year-old male who has a history of alcohol abuse along with a recent diagnosis of alcoholic pancreatitis which has been improving by enzymes presenting with abdominal pain and nausea vomiting. last drink was night before presentation. In ED with evidence of alcohol withdrawal with anxiety tremors which did respond to oral benzodiazepine # Acute alcohol withdrawal, present on admission. ongoing - c/w CIWA protocol - Plan for DC to in patient rehabilitation once medically stable. # Epigastric pain, subacute, present on admission - c/w Protonix 40 mg by mouth twice a day for possible alcoholic gastritis Zofran when necessary - Abd U/S 11/04/16: " Increased hepatic echogenicity compatible with steatosis." - lipase is normal - check CT abd today and consider GI consult in am if pain persist # Possible acute gout of right foot. poa. improved - started Colchicine on 11/04/16 # Acute hypokalemia. - replete and f/u #Abdominal pain; - - Likely secondary to liver injury / inflammation related to alcohol toxicity - continue to monitor LFTs, Morphine PRN for pain, taper as tolerated. Dispo: 2-3 days Pain Evaluation: Adequate Pain Control VTE Prophylaxis: SCDs Resuscitation Status: CPR: Attempt Resuscitation Time spent 25 minutes Kai Varma DO Nov 06, 2016 11:30
[2016-11-07] VITALS (8 sets, daily range): BP systolic 131–170; BP diastolic 89–108; PULSE 76–93; RESP 16–18; O2SAT 95–98
[2016-11-07] MEDS: Ondansetron 2 mg/mL 2 mL Inj IVPUSH PRN ×4 (00:27→20:28)
[2016-11-07] MEDS: 0.9% Sodium Chloride 1,000 ML IV SCH ×4 (02:15→20:28)
--- NOTE | 2016-11-07 03:59 | NUR ---
Anxiety/CIWA Patient scoring 20 on the CIWA scale at the beginning of the shift, able to score down to a 5 on the CIWA scale, and then back up to a 20. After 0230 administration of diazepam, patient is able to rest calmly. Patient states that he is full of anxiety and has had racing thoughts throughout the night. Spending some time talking with the patient seemed to help calm him down. Will continue to monitor CIWA score and medicate as needed.
[2016-11-07 06:28] LABS: BASOPHILS % (AUTO) 0.1 % (0-3); EOSINOPHILS % (AUTO) 2.4 % (0-5); MONOCYTES % (AUTO) 6.1 % (4-12); Mean Corpuscular Hemoglobin 32.3 pg (27.0-35.0); NEUTROPHILS % (AUTO) 65.6 % (40-74); Platelet Count 170 bil/L (150-400)
[2016-11-07] MEDS: Pantoprazole 40 mg ER24 Tablet PO SCH ×2 (07:52→17:00)
[2016-11-07] MEDS: Multivit-Miner-Folic Acid-Iron Tablet PO SCH (07:52)
--- NOTE | 2016-11-07 10:26 | NUR ---
Mentation: Pt a/o x3, VSS, tele SR/ST 80s-100s, heart rate up to 150s with activity. CIWA score 8, pt c/o feeling a large amount of anxiety. Discussed plan of care and pt's plans for treatment, appears less anxious. Care ongoing.
--- NOTE | 2016-11-07 12:56 | PCM.PNMED ---
Subjective Date of Service Nov 07, 2016 Subjective Patient notes still experiencing significant abdominal pain overnight and through this morning, though he does note it is slightly improved from yesterday. He believes eating a very fatty meal containing biscuits and gravy may have set off his abdominal pain yesterday so he has been more cautious while eating today consuming smaller portions and less fatty foods. He believes this male offered some benefit. He still experiencing significant symptoms of withdrawal as well including elevated anxiety and tremulousness, this is also mildly improved from one day prior and well treated with current when necessary medications. He has no other acute complaints at this time. Exam Vital Signs Vital Sign - Last Date Time Temp Pulse Resp B/P Pulse Ox O2 Delivery O2 Flow Rate FiO2 11/07/16 08:50 36.4 83 16 131/89 96 Room Air Intake and Output 11/06/16 11/06/16 11/07/16 Cumulative From/Thru 15:00 23:00 07:00 11/03/16 08:53 - 11/07/16 06:28 Intake Total 620 ml 1891 ml 2436 ml 20138 ml Output Total 750 ml 700 ml 2000 ml 86902 ml Balance -130 ml 1191 ml 436 ml 4425 ml Intake Oral 620 ml 1120 ml 400 ml 4743 ml IV Total 771 ml 2036 ml 42445 ml Output Urine Total 750 ml 700 ml 2000 ml 89802 ml # Bowel Movements 0 1 General: Alert, Oriented X3, Cooperative, Mild Distress Eyes: EOMI Mouth: Mucous Membr Moist/[place] Chest & Lungs: Clear to auscultation & percussion Cardiovascular: Regular Rate/Rhythm Abdomen: Tender, Other (abdomen is diffusely tender most pronounced in left upper quadrant. Also appears mildly distended however no overt fluid wave is noted. No guarding is noted. No hepatomegaly noted on palpation or percussion. Bowel sounds are normoactive. ) Extremities: No cyanosis/clubbing/edma bilat Neurological: Grossly Neurologically Intact IVs and Medications Medications Reviewed: Medications were reviewed in detail Lab and Diagnostics Result Diagram: 11/07/1660911/07/16609 Assessment & Plan 35-year-old male who has a history of alcohol abuse along with a recent diagnosis of alcoholic pancreatitis which has been improving by enzymes presenting with abdominal pain and nausea vomiting. last drink was night before presentation. In ED with evidence of alcohol withdrawal with anxiety tremors which did respond to oral benzodiazepine # Acute alcohol withdrawal, present on admission. ongoing - c/w [facility] protocol - Plan for DC to in patient rehabilitation once medically stable. # Epigastric pain, subacute, present on admission - c/w Protonix 40 mg by mouth twice a day for possible alcoholic gastritis Zofran when necessary - Abd U/S 11/04/16: " Increased hepatic echogenicity compatible with steatosis." - lipase is normal, LFTs downward trending. - Consider pain medications which have been effective in controlling symptoms, may consider reimaging showed condition not improve as expected by tomorrow, or sooner should condition worsen. # Possible acute gout of right foot. poa. improved - started Colchicine on 11/04/16 # Acute hypokalemia. - repleted and continuing to follow #Abdominal pain; - See above epigastric pain - Likely secondary to liver injury / inflammation related to alcohol toxicity - continue to monitor LFTs continue to be downward trending, Morphine PRN for pain, taper as tolerated. Dispo: 2-3 days Pain Evaluation: Adequate Pain Control VTE Prophylaxis: SCDs Resuscitation Status: CPR: Attempt Resuscitation Time spent 30 minutes Kai Varma DO Nov 07, 2016 12:56
[2016-11-08] VITALS (8 sets, daily range): BP systolic 137–146; BP diastolic 84–95; PULSE 64–83; RESP 16–18; O2SAT 62–97
[2016-11-08] MEDS: Ondansetron 2 mg/mL 2 mL Inj IVPUSH PRN ×4 (00:37→21:44)
--- NOTE | 2016-11-08 06:13 | NUR ---
CIWA and discussion about treatment PT scoring anywhere between 8-15 this night with one score in the evening at 21. Able to get morning scores closer to 10 towards morning. Pt noted to hold his arm up out in front of him for scanning of armband barcode without any shaking but then asks when he can next have "valium" and states " i feel shaky". Then asked to hold both arms out and pt began shaking his arms with this. With further questions about CIWA pt stating "I have hallucinations and visual sensitivity and hear voice" Then asked about nausea and if zofran had helped. He states "no still very nauseous" Then asked "Are you itching at all from zofran?" He states yes itching ALL over. "are you allergic to zofran?" then he replies "its one of the withdrawel symptoms" and then follows up saying when can I have the valium for my withdrawels? its not healthy for me to be like this. Discussed in detail with pt his alcohol dependence and provided therapeutic listening, encouraged to seek help at discharge and to stop this repeating "cycle".Pt states "i plan on going to a treatment place in [place]". A previous note says he had told social work that he plans on going to [place].
[2016-11-08 08:16] LABS: BASOPHILS % (AUTO) 0.2 % (0-3); EOSINOPHILS % (AUTO) 3.2 % (0-5); MONOCYTES % (AUTO) 7.2 % (4-12); Mean Corpuscular Hemoglobin 32.3 pg (27.0-35.0); Mean Corpuscular Volume 91.8 fL (81-100); NEUTROPHILS % (AUTO) 63.2 % (40-74); Platelet Count 171 bil/L (150-400)
[2016-11-08] MEDS: 0.9% Sodium Chloride 1,000 ML IV SCH ×2 (08:29→14:43)
[2016-11-08] MEDS: Pantoprazole 40 mg ER24 Tablet PO SCH ×2 (08:51→16:53)
[2016-11-08] MEDS: Multivit-Miner-Folic Acid-Iron Tablet PO SCH (08:51)
--- NOTE | 2016-11-08 11:51 | NUR ---
Pain/Nausea/CIWA: Patient complained of abdominal pain 8/10 on pain scale. Oxycodone administered. Will follow. Complained of vomiting early this am, however nursing staff did not witness. Zofran administered. Will continue to follow. Patient asking for Valium for alcohol withdraw symptoms. CIWA score 6. Does not meet criteria for Valium. MD aware of concerns. Addendum: 11/08/16 at 1211 by TITI BANUELOS RN On reassessment, abdominal pain decrease to 3/10 on pain scale, Nausea relieved.
--- NOTE | 2016-11-08 13:55 | PCM.PNMED ---
Subjective Date of Service Nov 08, 2016 Subjective Patient continues to suffer from abdominal pain now essentially located only on the left upper quadrant. Its it is worsened with eating or even drinking water. I have noted he eats most of his meals and bed indefinitely in a more recumbent position, and he confirms this to be the case. As a nausea or vomiting however, and does limited amount of food he is able to eat. Anxiety is the main complaint he has during our interview. He admits it was present prior to even his alcohol dependency, believes there was an element of self- medication and is drinking. He sees drinking he has no means of control his anxiety states it is worse than it had been previous. . Exam Vital Signs Vital Sign - Last Date Time Temp Pulse Resp B/P Pulse Ox O2 Delivery O2 Flow Rate FiO2 11/08/16 13:24 36.7 64 18 146/84 95 Room Air Intake and Output 11/07/16 11/07/16 11/08/16 Cumulative From/Thru 15:00 23:00 07:00 11/03/16 08:53 - 11/08/16 06:31 Intake Total 2626 ml 2519 ml 21089 ml Output Total 2300 ml 2400 ml 93826 ml Balance 326 ml 119 ml 4870 ml Intake Oral 640 ml 520 ml 5903 ml IV Total 1986 ml 1999 ml 23913 ml Output Urine Total 2300 ml 2400 ml 80837 ml # Bowel Movements 0 1 General: Alert, Oriented X3, Cooperative, Mild Distress, Other (lying in bed eating a piece of chocolate cake) Mouth: Mucous Membr Moist/[place] Chest & Lungs: Chest Wall Normal Abdomen: Non-distended, Normoactive bowel tones, Other (no guarding noted but there is significant tenderness on deep palpation of left upper quadrant without organomegaly detected) Extremities: No cyanosis/clubbing/edma bilat Neurological: Grossly Neurologically Intact, Other (no tremor or other neurologic values noted during my examination) IVs and Medications Medications Reviewed: Medications were reviewed in detail Lab and Diagnostics Result Diagram: 11/08/16 0735 11/08/16 0735 X-Rays, CTs and MRIs CT Abdomen: IMPRESSION: 1. Mild nonspecific thickening of the gastric antrum, possibly related to peptic ulcer disease. This could be further assessed with endoscopy, if clinically indicated. 2. No change in ill-defined low-density within the right/left hepatic lobe junction, consistent with fatty infiltration. 3. Normal appendix. 4. No change in focal mid pancreatic atrophy. There is new mild prominence of the pancreatic duct within the pancreatic tail, suggestive of underlying stricture, which could be benign or malignant. This could be further assessed with ERCP, if clinically indicated. 5. No change in mild diffuse sigmoid colon thickening. Assessment & Plan 35-year-old male who has a history of alcohol abuse along with a recent diagnosis of alcoholic pancreatitis which has been improving by enzymes presenting with abdominal pain and nausea vomiting. last drink was night before presentation. In ED with evidence of alcohol withdrawal with anxiety tremors which did respond to oral benzodiazepine # Acute alcohol withdrawal, present on admission. ongoing - c/w [facility] protocol - Plan for DC to in patient rehabilitation once medically stable. # Epigastric pain, subacute, present on admission #Abdominal pain; - c/w Protonix 40 mg by mouth twice a day for possible alcoholic gastritis Zofran when necessary - Abd U/S 11/04/16: " Increased hepatic echogenicity compatible with steatosis." _ Abd CT on 11/05 also demonstrated "Mild nonspecific thickening of the gastric antrum, possibly related to peptic ulcer disease.", in addition to, "No change in focal mid pancreatic atrophy. There is new mild prominence of the pancreatic duct within the pancreatic tail, suggestive of underlying stricture," - The setting of alcohol abuse gastritis or gastric ulcer disease is a possibility especially in the setting of patient's mild anemia initially presumed to be due to vitamin deficiency alone. - We will initiate a proton pump inhibitor at this time, and evaluate what effect that has on controlling symptoms. - Should stool guaiacs returned positive for blood, his anemia proved progressive, symptoms not improve with above therapy, GI consultation will be considered. Additionally may discuss the pancreatic findings, located in the tail of pancreas which would also correlate with left-sided pain should patient' s pain prove refractive. - lipase is normal, LFTs downward trending. #Anxiety - Likely underlying mood disorder, that had been asked by alcohol dependence. - We will trial Neurontin 300 mg by mouth daily for treatment of anxiety, also offer additional benefit in alcohol withdrawal given its moderation of KALA receptors. # Possible acute gout of right foot. poa. improved - started Colchicine on 11/04/16 # Acute hypokalemia. - repleted and continuing to follow Dispo: 2 days Pain Evaluation: Adequate Pain Control VTE Prophylaxis: SCDs Resuscitation Status: CPR: Attempt Resuscitation Time spent 30 minutes Kai Varma DO Nov 08, 2016 13:55
[2016-11-08] MEDS ORDERED: Pantoprazole 40 mg ER24 Tablet PO SCH (16:30)
[2016-11-09 01:05] VITALS: BP 141/97; PULSE 84; RESP 16; O2SAT 94
--- NOTE | 2016-11-09 02:46 | NUR ---
Behavior Pt continues to try getting Valium. Explained to pt that gabapentin and oxycodone and tylenol is all that he can have. Stating that he wants to shower---supplies given and pt showered. Then saying he wants valium again, again reminded him that gabapentin is all that he can have. States "im having hallucinations and hearing voices so I need something to put me out". MD notified and advised to tell pt that if continues to have the hallucinations that he can have a psych evaluation in the morning. When nurse told pt this he became angry and again states " can't you give me something to just put me out? then adds "this is from the withdrawels". Provided therepeutic listening and again told pt what the plan was. At 0100-nurse was notified by mental health unit that pt was trying to call over there through the switchboard and stating that he is hallucinating and nobody is paying attention to him. When nurse went to check on pt he was asleep. Will continue to monitor.
[2016-11-09 05:54] VITALS: BP 158/109; PULSE 66; RESP 18; O2SAT 95
[2016-11-09 06:37] VITALS: PULSE 66
[2016-11-09 07:33] LABS: BASOPHILS % (AUTO) 0.2 % (0-3); MONOCYTES % (AUTO) 6.3 % (4-12); Mean Corpuscular Volume 92.1 fL (81-100); NEUTROPHILS % (AUTO) 60.4 % (40-74); Platelet Count 196 bil/L (150-400)
[2016-11-09] MEDS: Multivit-Miner-Folic Acid-Iron Tablet PO SCH (09:33)
[2016-11-09] MEDS: Pantoprazole 40 mg ER24 Tablet PO SCH ×2 (09:33→16:27)
[2016-11-09 09:59] VITALS: BP 135/95; PULSE 74; RESP 18; O2SAT 96
[2016-11-09] MEDS: Ondansetron 2 mg/mL 2 mL Inj IVPUSH PRN ×3 (10:13→23:02)
--- NOTE | 2016-11-09 10:27 | NUR ---
Pain/Nausea/Anxiety: Patient complained of abdominal pain 9/10 on pain scale. Oxycodone administered. On reassessment, patient states pain continues to be 9/10 "hasn't started working yet, the pills take too long, that's why I like the IV stuff". Will continue to reassess Zofran administered for complaints of nausea. Asking for something for anxiety. Reminded patient of conversation with this RN and MD yesterday regarding anxiety medications. Scheduled Neurontin had been administered. Encouraged patient to be OOB to chair or ambulating in hallways to help alleviate anxiety. Patient states that he needs to take a nap first because he did not sleep all last night.
--- NOTE | 2016-11-09 16:35 | NUR ---
Social Work: Readiness for d/c Data: Pt is on day 6 of hospitalization. EMR reviewed, pt discussed in rounds. states pt likely ready for d/c tomorrow, 11/10/16. Pt will d/c either home with family or to inpt treatment, either [place] or [facility] if bed is available on day of d/c. Carlos from [facility] is working on a bed date for pt. [employer] DES[employer]INE[employer] will continue to follow. Assessment: Pt who is independent at baseline. Plan: Pt will d/c either home with family or to inpt treatment, either [place] or [facility] if bed is available on day of d/c. ANTENNA DESIGN ENGINEER will continue to follow. VONNIE Rivers
--- NOTE | 2016-11-09 16:56 | PCM.PNMED ---
Subjective Date of Service Nov 09, 2016 Subjective Patient noted difficult time sleeping last night, every spent more morning in bed as a result. Note still feeling fatigued around noon during my examination. Nurse notes he seems to be sleeping comfortably however on awaking is continued to ask for pain medication for abdominal pain. He has been removed from [facility] protocol given 8 days of abstinence in this demonstrating stable vital signs though still describes some symptoms of alcohol withdrawal most namely anxiety, subjective tremor. Appetite is still adequate, he is unsure if proton pump inhibitor started yesterday for possible reflux is been helpful, certainly abdominal pain has become no worse. Exam Vital Signs Vital Sign - Last Date Time Temp Pulse Resp B/P Pulse Ox O2 Delivery O2 Flow Rate FiO2 11/09/16 09:59 36.8 74 18 135/95 96 Room Air Intake and Output 11/08/16 11/08/16 11/09/16 Cumulative From/Thru 15:00 23:00 07:00 11/03/16 08:53 - 11/09/16 06:11 Intake Total 2404 ml 800 ml 64200 ml Output Total 1355 ml 700 ml 14091 ml Balance 1049 ml 100 ml 6019 ml Intake Oral 1036 ml 800 ml 7739 ml IV Total 1368 ml 17597 ml Output Urine Total 1355 ml 700 ml 65454 ml # Voids 1 1 # Bowel Movements 0 1 Exam General: Alert, Oriented X3, Cooperative, in no acute Distress, lying in bed comfortably. Mouth: Mucous Membranes Moist/[place] Eyes: Pupils round reactive to light and accommodation. Chest & Lungs: Chest Wall Normal Abdomen: Non-distended, Normoactive bowel tones, no guarding noted but there is mild tenderness on deep palpation of left upper quadrant without organomegaly detected Extremities: No cyanosis/clubbing/edema bilaterally. Neurological: Grossly Neurologically Intact, no tremor or other neurologic values noted during my examination Skin: No diaphoresis, sweats, or other abnormality. IVs and Medications Medications Reviewed: Medications were reviewed in detail Lab and Diagnostics Result Diagram: 11/09/1661911/09/16619 X-Rays, CTs and MRIs CT Abdomen: IMPRESSION: 1. Mild nonspecific thickening of the gastric antrum, possibly related to peptic ulcer disease. This could be further assessed with endoscopy, if clinically indicated. 2. No change in ill-defined low-density within the right/left hepatic lobe junction, consistent with fatty infiltration. 3. Normal appendix. 4. No change in focal mid pancreatic atrophy. There is new mild prominence of the pancreatic duct within the pancreatic tail, suggestive of underlying stricture, which could be benign or malignant. This could be further assessed with ERCP, if clinically indicated. 5. No change in mild diffuse sigmoid colon thickening. Assessment & Plan 35-year-old male who has a history of alcohol abuse along with a recent diagnosis of alcoholic pancreatitis which has been improving by enzymes presenting with abdominal pain and nausea vomiting. last drink was night before presentation. In ED with evidence of alcohol withdrawal with anxiety tremors which did respond to oral benzodiazepine # Acute alcohol withdrawal, present on admission. ongoing - Given duration since last drink and normal vital signs, patient has been discontinued from formal [facility] protocol. He will continue to be monitored closely by nursing, routine vitals taken as well has a general evaluation for possible signs of refractory withdrawal. None however have been noted at this time, there was some concern given patient's familiarity with criteria for benzodiazepine administration that he was adjusting his responses accordingly to receive more of these medications. Nonetheless since discontinuation aside from anxiety he has demonstrated no evidence of a severe withdrawal and appears to have passed through the worst of acute detox.. - Plan for DC to in patient rehabilitation tomorrow if patient remains medically stable. . # Epigastric pain, subacute, present on admission #Abdominal pain; - c/w Protonix 40 mg by mouth twice a day for possible alcoholic gastritis, in addition to Zofran when necessary - Abd U/S 11/04/16: " Increased hepatic echogenicity compatible with steatosis." _ Abd CT on 11/05 also demonstrated "Mild nonspecific thickening of the gastric antrum, possibly related to peptic ulcer disease.", in addition to, "No change in focal mid pancreatic atrophy. There is new mild prominence of the pancreatic duct within the pancreatic tail, suggestive of underlying stricture," - The setting of alcohol abuse gastritis or gastric ulcer disease is a possibility especially in the setting of patient's mild anemia initially presumed to be due to vitamin deficiency alone. - We will initiate a proton pump inhibitor at this time, and evaluate what effect that has on controlling symptoms. - Should stool guaiacs returned positive for blood, his anemia proved progressive (currently hemoglobin levels are climbing), symptoms not improve with above therapy, GI consultation will be considered. Additionally may discuss the pancreatic findings, located in the tail of pancreas which would also correlate with left-sided pain should patient's pain prove refractive. - lipase is normal, LFTs downward trending. #Anxiety - Likely underlying mood disorder, that had been asked by alcohol dependence. - We will trial Neurontin 300 mg by mouth daily for treatment of anxiety, also offer additional benefit in alcohol withdrawal given its moderation of KALA receptors. # Possible acute gout of right foot. poa. improved - started Colchicine on 11/04/16 # Acute hypokalemia. - repleted and continuing to follow #Insomnia - Patient's daytime sleeping , in addition to minimal physical activity is certainly not helping his nighttime sleeping pattern. - Trial of melatonin will be provided tonight in an attempt to restore circadian rhythm and better nocturnal sleeping habits. - In addition is recommended patient attempt to get out of bed more during the day, and also sees watching television other stimulating activities hours before bedtime. Dispo: Likely discharge tomorrow to acute rehabilitation/alcohol treatment facility. Patient has noted areas bed and appears to have been successfully detoxed from medical standpoint. Pain Evaluation: Adequate Pain Control GI Prophylaxis: Proton Pump Inhibitor VTE Prophylaxis: SCDs Resuscitation Status: CPR: Attempt Resuscitation Time spent 30 minutes Kai Varma DO Nov 09, 2016 16:56
--- NOTE | 2016-11-09 18:03 | NUR ---
Activity: After much encouragement, patient was OOB to chair then ambulated two laps around hallway. Tolerated well. Continuing encouragement for activity.
[2016-11-09] MEDS: Polyethylene Glycol (PEG) 17 Gm Powder PO PRN (20:36)
[2016-11-09 22:16] VITALS: BP 120/80; PULSE 81; RESP 18; O2SAT 92
[2016-11-10] MEDS: Ondansetron 2 mg/mL 2 mL Inj IVPUSH PRN ×2 (05:19→10:45)
[2016-11-10 05:32] VITALS: BP 134/91; PULSE 68; RESP 18; O2SAT 96
[2016-11-10] MEDS: Polyethylene Glycol (PEG) 17 Gm Powder PO PRN (06:32)
[2016-11-10] MEDS: Multivit-Miner-Folic Acid-Iron Tablet PO SCH (07:33)
[2016-11-10] MEDS: Pantoprazole 40 mg ER24 Tablet PO SCH (07:34)
[2016-11-10] MEDS: 0.9% Sodium Chloride 1,000 ML IV SCH (07:46)
[2016-11-10 08:18] LABS: BASOPHILS % (AUTO) 0.4 % (0-3); EOSINOPHILS % (AUTO) 4.8 % (0-5); MONOCYTES % (AUTO) 9.3 % (4-12); Mean Corpuscular Hemoglobin 32.2 pg (27.0-35.0); NEUTROPHILS % (AUTO) 56.1 % (40-74); Platelet Count 202 bil/L (150-400)
--- NOTE | 2016-11-10 11:06 | PCM.DIMED ---
Discharge Instructions Date of Service Nov 10, 2016 Dates of Hospitalization Nov 03, 2016 at 16:35 Discharge Diagnosis Discharge Diagnosis # Acute alcohol withdrawal, present on admission. ongoing # Epigastric pain due to suspected peptic ulcer disease , subacute, present on admission #Abdominal pain; #Anxiety # Possible acute gout of right foot. poa. improved - started Colchicine on 11/04/16 # Acute hypokalemia. #Insomnia Diet Low fat, Low Sodium Activity Limited until seen by PCP Call your provider Fever or Chills, Shortness of breath, Bleeding, Chest pain, Vomitting, Excessive diarrhea, Weakness (unilateral) Patient Instructions You were hospitalized due to alcohol withdrawal. You had abdominal pain due suspected peptic ulcer disease. Please take omeprazole 20 mg daily . Please follow up with GI and PCP . You may need endoscopy if symptoms/pain persists .Drinking alcohol with make it worse . Please follow up with inpatient rehab for alcohol detox . Please continue colchicine for suspected gout attack. Follow-up plan Please follow up with PCP in 1 week Follow-up Provider: Count includes the [facility] Follow-up with PCP in: 1 week Dayo Dewitt MD Nov 10, 2016 11:06
[2016-11-10] MEDS ORDERED: GABA300C PO (11:08)
[2016-11-10] MEDS ORDERED: COLC0.6T52 PO (11:08)
[2016-11-10] MEDS ORDERED: MELA5TAB14 PO (11:08)
[2016-11-10] MEDS ORDERED: PANT20TA2 PO (11:08)
[2016-11-10] MEDS ORDERED: OXYC5TAB72 PO (11:08)
--- NOTE | 2016-11-10 11:41 | NUR ---
Social Work Discharge: SW met with patient at bedside to discuss discharge plan. Plan is home vs coordination at [place] or [facility] via [facility], . HEENA contacted and left voice mail message for [facility] rep Carlos advising him of discharge today and need for follow up at patient's home residence for further admission to facility. HEEAN also contacted [facility] and spoke to rep who states that no one available at this time due to holiday. Patient aware and in agreement to discharge home via transport assistance from brother and he to follow up with ed case manager Carlos via [facility] at home upon discharge. No other needs PLAN: Home via [facility] POV and follow up with [facility] Services ed case manager for treatment program Qamar SHANKAR
--- NOTE | 2016-11-10 14:09 | NUR ---
Discharge: Patient discharged to home @ approx 1400. IV d/c'd intact, personal belongings accompanied patient. Reviewed new prescriptions, d/c instructions, home medications and follow up appointment and alcohol rehab center. Verbalized understanding. Ambulated to main entrance. No apparent distress at time of discharge.
--- NOTE | 2016-11-10 14:28 | PCM.DC.MED ---
Discharge Summary Date of Service Nov 10, 2016 Dates of Hospitalization Date of Hospital Admission Nov 03, 2016 at 16:35 Date of Discharge: Nov 10, 2016 Providers: Admitting Physician: Cira Mae MD [facility] Attending Physician: Cira Mae MD Diagnosis at Time of Discharge Diagnosis at Time of Discharge # Acute alcohol withdrawal, present on admission. ongoing # Epigastric pain due to suspected peptic ulcer disease , subacute, present on admission #Abdominal pain; #Anxiety # Possible acute gout of right foot. poa. improved - started Colchicine on 11/04/16 # Acute hypokalemia. #Insomnia Consultations none Procedures XRay, CTs & MRIs CT Abdomen: IMPRESSION: 1. Mild nonspecific thickening of the gastric antrum, possibly related to peptic ulcer disease. This could be further assessed with endoscopy, if clinically indicated. 2. No change in ill-defined low-density within the right/left hepatic lobe junction, consistent with fatty infiltration. 3. Normal appendix. 4. No change in focal mid pancreatic atrophy. There is new mild prominence of the pancreatic duct within the pancreatic tail, suggestive of underlying stricture, which could be benign or malignant. This could be further assessed with ERCP, if clinically indicated. 5. No change in mild diffuse sigmoid colon thickening. Brief History as per HPI performed by Dr Dillard on 11/03/16 This is a 35-year-old male who has a history of alcohol abuse along with a recent diagnosis of alcoholic pancreatitis which has been improving by enzymes. His lipase today is normal he is continuing to complain of some abdominal pain and nausea vomiting. He notes no bloody or black vomitus or bowel movements. He typically drinks 12 pack of 8% alcoholic beers daily but last drink was last night. ER M.D. he is also going through some alcohol withdrawal with anxiety tremors which did respond to oral benzodiazepine. He has not been able to keep anything down orally. He denies any fevers chills. He did have one loose light brown stool today. Hospital Course 35-year-old male who has a history of alcohol abuse along with a recent diagnosis of alcoholic pancreatitis which has been improving by enzymes presenting with abdominal pain and nausea vomiting. last drink was night before presentation. In ED with evidence of alcohol withdrawal with anxiety tremors which did respond to oral benzodiazepine # Acute alcohol withdrawal, present on admission. Resolved - Given duration since last drink and normal vital signs, patient has been discontinued from formal [facility] protocol. He will continue to be monitored closely by nursing, routine vitals taken as well has a general evaluation for possible signs of refractory withdrawal. None however have been noted at this time, there was some concern given patient's familiarity with criteria for benzodiazepine administration that he was adjusting his responses accordingly to receive more of these medications. Nonetheless since discontinuation aside from anxiety he has demonstrated no evidence of a severe withdrawal and appears to have passed through the worst of acute detox.. - Plan for DC to in patient rehabilitation. Inpatient rehabilitation closed today due to holiday. Will be discharged home. He will report inpatient rehabilitation tomorrow #Abdominal pain due to suspected PUD,chronic - treated with Protonix 40 mg by mouth twice a day for possible alcoholic gastritis, - Abd U/S 11/04/16: " Increased hepatic echogenicity compatible with steatosis." _ Abd CT on 11/05 also demonstrated "Mild nonspecific thickening of the gastric antrum, possibly related to peptic ulcer disease.", in addition to, "No change in focal mid pancreatic atrophy. There is new mild prominence of the pancreatic duct within the pancreatic tail, suggestive of underlying stricture," - The setting of alcohol abuse gastritis or gastric ulcer disease is a possibility especially in the setting of patient's mild anemia initially presumed to be due to vitamin deficiency alone. - We will initiate a proton pump inhibitor at this time, symptoms controlled. -Reinforced the need to stop drinking -May need referral to GI for endoscopy if symptoms worsen/continue #Anxiety - Likely underlying mood disorder, that had been asked by alcohol dependence. - We will trial Neurontin 300 mg by mouth daily for treatment of anxiety, also offer additional benefit in alcohol withdrawal given its moderation of KALA receptors. # Possible acute gout of right foot. poa. improved - started Colchicine on 11/04/16 # Acute hypokalemia. Resolved #Insomnia - Patient's daytime sleeping , in addition to minimal physical activity is certainly not helping his nighttime sleeping pattern. - Trial of melatonin will be provided tonight in an attempt to restore circadian rhythm and better nocturnal sleeping habits. - In addition is recommended patient attempt to get out of bed more during the day, and also sees watching television other stimulating activities hours before bedtime. Dispo: Discharged home, to inpatient rehabilitation tomorrow Exam Vital Signs (Last) Date Time Temp Pulse Resp B/P Pulse Ox O2 Delivery O2 Flow Rate FiO2 11/10/16 05:32 36.5 68 18 134/91 96 Room Air Exam General: Alert, Oriented X3, Cooperative, in no acute Distress, lying in bed comfortably. Mouth: Mucous Membranes Moist/[place] Eyes: Pupils round reactive to light and accommodation. Chest & Lungs: Chest Wall Normal Abdomen: Non-distended, Normoactive bowel tones, no guarding noted but there is mild tenderness on deep palpation of left upper quadrant without organomegaly detected Extremities: No cyanosis/clubbing/edema bilaterally. Neurological: Grossly Neurologically Intact, no tremor or other neurologic values noted during my examination Skin: No diaphoresis, sweats, or other abnormality. Test 11/03/16 09:27 11/04/16 01:01 11/05/16 07:30 11/06/16 06:10 Hold Doll Top Tube Received (Received) Urine Color Dark yellow (YELLOW) Urine Appearance Clear (CLEAR,HAZY) Urine pH 6.5 (5.0-8.0) Urine Specific [place] 1.020 (1.003-1.035) Urine Protein Negativemg/dL (NEG,TRACE) Urine Glucose (UA) Negativemg/dL (NEGATIVE) Urine Ketones Negativemg/dL (NEGATIVE) Urine Occult Blood Negative (NEGATIVE) Urine Nitrite Negative (NEGATIVE) Urine Bilirubin Negative (NEGATIVE) Urine Urobilinogen Normalmg/dL (NORMAL) Urine Leukocyte Esterase Negative (NEGATIVE) Urine RBC 0-2/hpf (0-2) Urine WBC 0-5/hpf (0-5) Urine Epithelial Cells Occasional/hpf (NONE-MOD) Urine Crystals None seen (NONE SEEN) Urine Bacteria None/hpf (NONE-FEW) Urine Hyaline Casts None/lpf (NONE) Urine Granular Casts None seen (NONE SEEN) Urine Waxy Casts None seen (NONE SEEN) Urine Red Blood Cell Casts None seen (NONE SEEN) Urine White Blood Cell Casts None seen (NONE SEEN) Urine Mucus None seen (None Seen) Urine Trichomonas None seen (NONE SEEN) Urine Yeast None (NONE SEEN) Urine Culture Reflexed Not indicated Urine Opiates Screen Negative Urine Methadone Screen Negative Urine Barbiturates Screen Negative Urine Amphetamines Screen Negative Urine Benzodiazepines Screen Positive Urine Cocaine Metabolite Screen Negative Urine Cannabinoids Screen Negative Prothrombin Time 11.6sec (8.1-12.5) Prothromb Time International Ratio 1.08ratio Activated Partial Thromboplast Time 28.6sec (22.8-33.0) Lipase 49U/L (13-60) Magnesium Level 1.9mg/dL (1.6-2.6) Test 11/10/16 07:35 White Blood Count 5.6th/mm3 (3.8-10.1) Red Blood Count 4.35mil/mm3 (4.40-5.80) Hemoglobin 14.0g/dL (13.8-17.2) Hematocrit 39.6% (41.0-50.0) Mean Corpuscular Volume 91.0fL (81-100) Mean Corpuscular Hemoglobin 32.2pg (27.0-35.0) Mean Corpuscular Hemoglobin Concent 35.4% (32.0-37.0) Red Cell Distribution Width 12.5% (12.3-15.4) Platelet Count 202bil/L (150-400) Neutrophils (%) (Auto) 56.1% (40-74) Lymphocytes (%) (Auto) 28.0% (14-46) Monocytes (%) (Auto) 9.3% (4-12) Eosinophils (%) (Auto) 4.8% (0-5) Basophils (%) (Auto) 0.4% (0-3) Sodium Level 138mEq/L (134-144) Potassium Level 3.7mEq/L (3.5-5.2) Chloride Level 99mEq/L (97-108) Carbon Dioxide Level 22mmol/L (18-29) Blood Urea Nitrogen 6mg/dL (6-20) Creatinine 0.69mg/dL (0.76-1.27) Estimat Glomerular Filtration Rate 138mL/min (>59) Glucose Level 93mg/dL (60-99) Calcium Level 9.2mg/dL (8.5-10.1) Total Bilirubin 0.6mg/dL (0.0-1.2) Aspartate Amino Transf (AST/SGOT) 82U/L (0-50) Alanine Aminotransferase (ALT/SGPT) 62U/L (0-44) Alkaline Phosphatase 73U/L (25-150) Total Protein 7.6g/dL (6.4-8.4) Albumin 3.9g/dL (3.4-5.0) Discharge Medications Discharge Medications Amlodipine (Amlodipine) 5 Mg Tablet 5 MG PO DAILY Prescribed by: CAROLYN BOYCE MD Colchicine (Colcrys) 0.6 Mg Tablet 0.6 MG PO BID Prescribed by: DAYO DEWITT MD Gabapentin (Neurontin) 300 Mg Capsule 300 MG PO TID Prescribed by: DAYO DEWITT MD Pantoprazole DR (Pantoprazole DR) 20 Mg Tablet.dr 20 MG PO DAILY Prescribed by: DAYO DEWITT MD As needed Melatonin (Melatonin) 5 Mg Tablet 5 MG PO HS PRN PRN Insomnia Prescribed by: DAYO DEWITT MD Ondansetron ODT (Zofran ODT) 4 Mg Tablet 4 MG PO Q4H PRN PRN For Nausea Prescribed by: ДМИТРИЙ REYES DO oxyCODONE (oxyCODONE) 5 Mg Tablet 5 MG PO Q6H PRN PRN For Moderate Pain Prescribed by: DAYO DEWITT MD Followup Plan Disposition: he will be admitted to inpatient rehab tomorrow,home today Follow-up plan Please follow up with PCP in 1 week Discharge Diet: Low fat, Low Sodium Discharge Activity: Limited until seen by PCP Patient Instructions You were hospitalized due to alcohol withdrawal. You had abdominal pain due suspected peptic ulcer disease. Please take omeprazole 20 mg daily . Please follow up with GI and PCP . You may need endoscopy if symptoms/pain persists .Drinking alcohol with make it worse . Please follow up with inpatient rehab for alcohol detox . Please continue colchicine for suspected gout attack. Follow-up Provider: [facility] Follow-up with PCP in: 1 week Time spent 35 minutes coordinating discharge copies to: [facility] Dayo Dewitt MD Nov 10, 2016 14:28
== END 2016-11-10 13:53 | disposition home or self-care (01) | DRG 897 ==
LOC: SED 08:31 → MPC 16:35
PROVIDERS: ADMIT Specialist; ATTEND Specialist
DX: F10.239 Alcohol dependence with withdrawal, unspecified (principal); K27.7 Chronic peptic ulcer, site unspecified, without hemorrhage or perforation; R10.13 Epigastric pain; M10.9 Gout, unspecified; E87.6 Hypokalemia; F41.9 Anxiety disorder, unspecified; G47.00 Insomnia, unspecified

== ENCOUNTER 2016-11-25 09:07 | Inpatient (IN) | payer OTHER ==
[~2016-11-25] VITALS: Ht 175.3 cm; Wt 92.4 kg
[2016-11-25] VITALS (7 sets, daily range): BP systolic 122–157; BP diastolic 78–112; PULSE 76–105; RESP 13–20; O2SAT 94–99
[~2016-11-25 09:07] MED LIST changes: +COLC0.6T52 PO; +GABA300C PO; -LORA2TAB PO; +MELA5TAB14 PO; -METO25TA6 PO; -OMEP20TA86 PO; -ONDA-53 PO; -ONDA8TAB10 PO; +PANT20TA2 PO
--- NOTE | 2016-11-25 09:36 | ED.REPORT ---
HPI-General Illness Date of Service Nov 25, 2016 ED Provider: Molina Marcelino MD The patient is a 36 year old male with history of alcohol abuse, pancreatitis due to alcohol use, peptic ulcer disease, and hypertension who presents to the emergency department complaining of abdominal pain. He was admitted to the hospital from 11/03-11/10 for alcohol withdrawal and abuse. He was discharged home with omeprazole 20 mg daily and a followup with GI. They also recommended inpatient rehab for alcohol detox. He relapsed on alcohol about 10 days ago. He normally drinks about 12 beers (8%) per day. His last drink was 3 days ago and he had about 8 beers that day. Over the last 2 days he has experienced withdrawal symptoms that include "sharp" abdominal pain, nausea, vomiting, decreased PO intake, diarrhea, and hallucinations. The abdominal pain is located to his epigastric region and radiates to the left side and through to his back. His last episode of vomiting was this morning around 0200 and he noticed bright red blood in his emesis. He took Tylenol this morning at 0200 with no improvement. His last bowel movement was 2 days ago. He denies bloody stools, melena, fever, chest pain, shortness of breath or cough. He has history of previous alcohol withdrawal seizures. He denies history of DTs. He smokes marijuana occasionally but denies any other illicit drug use. Nursing Notes Stated Complaint: PANCRETITIS PAIN/ALCOHOL WITHDRAWAL Chief Complaint: Substance Abuse Nursing Notes Reviewed: Yes Allergies: Coded Allergies: No Known Allergies (Verified Allergy, Unknown, 11/25/16) Scheduled Amlodipine (Amlodipine) 5 Mg Tablet 5 MG PO DAILY Esomeprazole Magnesium (Esomeprazole Magnesium) 20 Mg Capsule.dr 20 MG PO DAILY Gabapentin (Neurontin) 300 Mg Capsule 300 MG PO TID Scheduled PRN Ondansetron ODT (Zofran ODT) 4 Mg Tablet 4 MG PO Q4H PRN PRN For Nausea oxyCODONE (oxyCODONE) 5 Mg Tablet 5 MG PO Q6H PRN PRN For Moderate Pain General Time Seen by MD: 09:17 Chief Complaint Abdominal pain Hx Obtained From: Patient Arrived By: Walk-in Sudden in Onset?: Yes Onset Occurred: 2 days ago Symptom Duration: Since onset Location: : Abdomen Quality: Painful, Sharp Radiation: : Back Severity: Current: Pain level 9 out of 10 Severity: Maximum: Severe Recent Healthcare: Recent doctor visit, Recent hospitalization Similar Sx Previous: Yes Past Medical History Past Medical History Notes: Past Medical History Multiple episodes of pancreatitis secondary to alcohol use Alcohol dependence and abuse Prior history of withdrawal with withdrawal seizure x1 Chronic mild left hydronephrosis, persistent since February 2012. Hypertension Reports: Depression Past Surgical History None reported Family History Noncontributory Smoking History Unknown if Ever Smoker Social History Alcohol Use: >5 per day Drug Use: Denies drug use Other Social History: Good social support, , Local resident Ambulatory Status Independent Review of Systems Full Review of Systems Constitutional: Denies: Fever Respiratory: Denies: Non-productive cough, Shortness of breath Cardiovascular: Denies: Chest pain GI: Reports: Abdominal pain, Anorexia, Diarrhea, Hematemesis, Nausea, Vomiting , Denies: Bloody/tarry stool, Constipation, Hematochezia, Melena Musculoskeletal: Reports: Back pain Psychiatric: Reports: Hallucinations, auditory, Hallucinations, visual Complete sys rev & neg: except as marked. Physical Exam Vital Signs Vital Signs Date Time Temp Pulse Resp B/P Pulse Ox O2 Delivery O2 Flow Rate FiO2 11/25/16 15:08 77 14 128/98 94 Room Air 11/25/16 12:10 95 13 137/91 96 Room Air 11/25/16 09:46 95 18 155/110 97 Room Air 11/25/16 09:11 36.2 105 18 157/112 99 Room Air Initial VS: Reviewed Head / Eyes: Atraumatic, Normocephalic, PERRL ENT: Mucous membranes moist, Conjunctiva normal, No scleral icterus Neck: Supple, Non-tender, Full range of motion Lymphatic: No lymphadenopathy Extremities: Vascular intact, Neuro intact, No swelling, No tenderness Skin: Warm, Dry, No cyanosis Psychiatric: Mood/affect normal, Behavior normal, Normal thought content General/Constitutional: Awake, Alert, Cooperative Respiratory / Chest: Atraumatic, Breath sounds NL, Breath sounds = bilat, No respiratory distress, No rales, No rhonchi, No wheezing Cardiovascular: Regular rhythm, Heart sounds NL, No murmurs, No rubs, Peripheral circulation NL, Pulses = bilaterally, No gross BP differential Heart Rate / Rhythm: Positive: Tachycardia Abdomen: Soft, No guarding, No rebound, BS normoactive, No distention, No hernia, No palpable mass, No pulsatile mass Tenderness/Guarding/Rebound: Positive: Tender epigastric (moderate) Rectum / Perineum: Patient refused exam Neurologic: Oriented X3, Speech NL Movement Abnormality: Positive: Tremor Interpretation & Diagnostics Lab Results Interpretation Result Diagram: 11/25/16 1010 11/25/16 1029 Test 11/25/16 10:10 11/25/16 10:20 11/25/16 10:29 White Blood Count 5.3th/mm3 (3.8-10.1) Red Blood Count 4.62mil/mm3 (4.40-5.80) Hemoglobin 14.7g/dL (13.8-17.2) Hematocrit 41.9% (41.0-50.0) Mean Corpuscular Volume 90.7fL (81-100) Mean Corpuscular Hemoglobin 31.8pg (27.0-35.0) Mean Corpuscular Hemoglobin Concent 35.1% (32.0-37.0) Red Cell Distribution Width 12.1% (12.3-15.4) Platelet Count 221bil/L (150-400) Neutrophils (%) (Auto) 55.2% (40-74) Lymphocytes (%) (Auto) 29.0% (14-46) Monocytes (%) (Auto) 12.9% (4-12) Eosinophils (%) (Auto) 2.5% (0-5) Basophils (%) (Auto) 0.2% (0-3) Lactic Acid Level 1.2mmol/L (0.4-2.0) Urine Color Yellow (YELLOW) Urine Appearance Clear (CLEAR,HAZY) Urine pH 7.0 (5.0-8.0) Urine Specific [place] 1.010 (1.003-1.035) Urine Protein Negativemg/dL (NEG,TRACE) Urine Glucose (UA) Negativemg/dL (NEGATIVE) Urine Ketones Negativemg/dL (NEGATIVE) Urine Occult Blood Negative (NEGATIVE) Urine Nitrite Negative (NEGATIVE) Urine Bilirubin Negative (NEGATIVE) Urine Urobilinogen Normalmg/dL (NORMAL) Urine Leukocyte Esterase Negative (NEGATIVE) Urine RBC 0-2/hpf (0-2) Urine WBC 0-5/hpf (0-5) Urine Epithelial Cells Occasional/hpf (NONE-MOD) Urine Crystals None seen (NONE SEEN) Urine Bacteria None/hpf (NONE-FEW) Urine Hyaline Casts None/lpf (NONE) Urine Granular Casts None seen (NONE SEEN) Urine Waxy Casts None seen (NONE SEEN) Urine Red Blood Cell Casts None seen (NONE SEEN) Urine White Blood Cell Casts None seen (NONE SEEN) Urine Mucus None seen (None Seen) Urine Trichomonas None seen (NONE SEEN) Urine Yeast None (NONE SEEN) Urinalysis Comment None Urine Culture Reflexed Not indicated Urine Opiates Screen Negative Urine Methadone Screen Negative Urine Barbiturates Screen Negative Urine Amphetamines Screen Negative Urine Benzodiazepines Screen Positive Urine Cocaine Metabolite Screen Negative Urine Cannabinoids Screen Positive Prothrombin Time 11.1sec (8.1-12.5) Prothromb Time International Ratio 1.04ratio Sodium Level 137mEq/L (134-144) Potassium Level 3.2mEq/L (3.5-5.2) Chloride Level 98mEq/L (97-108) Carbon Dioxide Level 22mmol/L (18-29) Blood Urea Nitrogen 5mg/dL (6-20) Creatinine 0.65mg/dL (0.76-1.27) Estimat Glomerular Filtration Rate 147mL/min (>59) Glucose Level 110mg/dL (60-99) Calcium Level 8.5mg/dL (8.5-10.1) Magnesium Level 1.6mg/dL (1.6-2.6) Total Bilirubin 0.9mg/dL (0.0-1.2) Aspartate Amino Transf (AST/SGOT) 87U/L (0-50) Alanine Aminotransferase (ALT/SGPT) 54U/L (0-44) Alkaline Phosphatase 73U/L (25-150) Total Protein 7.6g/dL (6.4-8.4) Albumin 4.3g/dL (3.4-5.0) Lipase 12U/L (13-60) ECG Interpretation ECG Interpretation: Sinus rhythm with a rate of [address] T changes Time: 11:36 Interpreted by: ED physician CT Abd / Pelvis Interpretation IMPRESSION: 1. No inflammatory changes or free fluid noted adjacent to the pancreas on the current study. 2. 2 cm focus of subtle decreased enhancement in the uncinate process of the pancreas. Recommend MRI of the pancreas to exclude malignancy. 3. Focal atrophy involving the body of the pancreas is stable compared to prior examinations. 4. Hepatic steatosis. Dictated by: Isabelle Prtat MD, PhD on 11/25/2016 at 13:34 Study type: Abdominal CT IV contrast Interpretation / Wet Read by: Interpret - Radiologist, Discussed w radiologist Re-Eval/Medical Decision Med Decision/Clinical Course 36-year-old male history of alcohol abuse and chronic pancreatitis presenting with abdominal pain and alcohol which all. Last drink was 2 days ago. He normally drinks 12 8% beers per day. History of withdrawal seizures in the past. He is tremulous here. Improved with 2 mg Ativan though persisted. Lipase is normal. CT abdomen and pelvis shows decreased contrast uptake in the pancreas no evidence of pancreatitis though cannot rule out malignancy. Radiology recommends MR pancreatic protocol. Patient will be admitted for alcohol withdrawal and abdominal pain. He was given a banana bag and started develop hives therefore stopped. Started on CIWA protocol. Source of Hx: Old records Time of Eval: 10:46 Re-Evaluation/Progress Note: Rechecked the patient. Time of Eval: 11:41 Re-Evaluation/Progress Note: The patient has developed some hives to his right upper extremity. He denies throat swelling, tongue swelling, difficulty swallowing or difficulty breathing. Will administer Benadryl and discontinue current meds. Time of Eval: 13:53 Re-Evaluation/Progress Note: Rechecked the patient. Discussed plan for admission. All questions were addressed. Consultation #1: Call Returned at: 13:52 Note: Spoke with the radiologist about the patient's CT. Recommends ordering an MR. Consultation #2: Referral / Consult Name: Kai Varma DO Consulted With: Hospitalist Requested Call at: 13:53 Call Returned at: 14:25 Hand Picker: Will see patient, Agrees with eval, Agrees with plan, Accepts admit Counseled Regarding: Diagnosis, Lab results, Need for admission Discharge & Departure Primary Impression: Alcohol withdrawal Complication of substance-induced condition: uncomplicated Qualified Code: F10.230 - Alcohol dependence with withdrawal, uncomplicated Disposition: ADMITTED TO HOSPITAL Discharge Condition All VS Reviewed: Yes Condition: Stable Referrals: [facility] (PCP) Crit Care Except Billable Proc Time Spent: 30-74 minutes Services Performed: Patient management by me, Time spent at bedside, Reviewing test results, Reviewing imaging, Discussing patient care, Documentation in record Scribe Attestation Portions of this note were transcribed by Ann Gambino. I, Dr. Marcelino personally performed the history, physical exam and medical decision-making; I reviewed and confirmed the accuracy of the information in the transcribed note. Signed by: Loc Lowe, 11/25/2016 at 1430. copies to: [facility] Molina Marcelino MD Nov 25, 2016 09:36 Ann Gambino Nov 25, 2016 09:43
[2016-11-25] MEDS ORDERED: 0.9% Sodium Chloride 1,000 ML IV ONE (09:41)
[2016-11-25] MEDS ORDERED: Thiamine Inj 100 MG, Folic Acid Inj 1 MG, Magnesium Sulfate 50% Inj 2 GM, Multivitamins... IV ONE ×5 (09:45)
[2016-11-25 10:18] LABS: BASOPHILS % (AUTO) 0.2 % (0-3); EOSINOPHILS % (AUTO) 2.5 % (0-5); MONOCYTES % (AUTO) 12.9 % (4-12); Mean Corpuscular Hemoglobin 31.8 pg (27.0-35.0); Mean Corpuscular Volume 90.7 fL (81-100); NEUTROPHILS % (AUTO) 55.2 % (40-74); Platelet Count 221 bil/L (150-400)
[2016-11-25] MEDS: Ondansetron 2 mg/mL 2 mL Inj IVPUSH PRN ×2 (10:20→15:06)
[2016-11-25 10:49] LABS: APPEARANCE,URINE CLEAR (CLEAR,HAZY); COLOR,URINE YELLOW (YELLOW)
[2016-11-25 10:53] LABS: OCCULT BLOOD,URINE NEGATIVE (NEGATIVE); UROBILINOGEN,URINE NORMAL (NORMAL)
[2016-11-25 11:14] LABS: INR 1.04 ratio
[2016-11-25 11:22] LABS: Magnesium 1.6 mg/dL (1.6-2.6)
[2016-11-25] MEDS ORDERED: LidocaineVisc 2%:Antacid 1:1 10 mL Syringe PO ONE (12:40)
--- NOTE | 2016-11-25 13:52 | DRSVH ---
PROCEDURE: CT ABDOMEN AND PELVIS WITH CONTRAST ([id number]) INDICATIONS: abd pain h/o pancreatitis TECHNIQUE: After the administration of intravenous contrast, 5 mm thick sections acquired from the diaphragm to the symphysis. 5 mm coronal and sagittal reformats were acquired. For radiation dose reduction, the following was used: automated exposure control, adjustment of mA and/or kV according to patient siz e. COMPARISON: [facility], CT, CT ABD PELVIS W CON, 06/24/2015, 20:44. [facility], CT, ABD/PELVIS W/CON (PNL), 07/09/2011, 11:52. [facility], CT, CT ABD PELVIS W CON, 11/05/2016, 13:47. [facility], CT, CT ABD PELVIS W CON, 02/14/2016, 12:14. FINDINGS: Image quality: Excellent. ABDOMEN: Lung bases: Lung bases are clear. Heart size is normal. Solid organs: Liver and spleen are normal in size and enhancement. Fatty attrition of the liver is n oted. Gallbladder is within normal limits. Biliary system is non dilated. Small focus of slightly de creased postcontrast enhancement measuring approximately 2 cm in diameter noted in the posterior dennis in of the uncinate process of the pancreas (series 2, image 32). Atrophy in the mid body of the pancr eas is stable compared to prior examinations. Slight prominence of the pancreatic duct in the tail of pancreas is stable compared to prior examinations. No inflammatory changes or free fluid noted adjac ent to the pancreas. No adrenal nodules. Kidneys demonstrate normal size and enhancement, without hy dronephrosis. Peritoneum and bowel: Bowel loops demonstrate normal wall thickness and caliber. No free fluid or a ir. Scattered diverticula noted in the colon without evidence of diverticulitis. The appendix is norm al. Nodes and vessels: No retroperitoneal or mesenteric adenopathy by size criteria. Aorta and inferior vena cava are normal in size. Miscellaneous: No ventral hernias. PELVIS: Genitourinary: Bladder wall thickness is normal. Miscellaneous: No inguinal hernias or adenopathy. Bones: No suspicious bony lesions. No vertebral body compression fractures. IMPRESSION: 1. No inflammatory changes or free fluid noted adjacent to the pancreas on the current study. 2. 2 cm focus of subtle decreased enhancement in the uncinate process of the pancreas. Recommend MRI of the pancreas to exclude malignancy. 3. Focal atrophy involving the body of the pancreas is stable compared to prior examinations. 4. Hepatic steatosis. Dictated by: Isabelle Pratt MD, PhD on 11/25/2016 at 13:34 Approved by: Isabelle Pratt MD, PhD on 11/25/2016 at 13:51
[2016-11-25] MEDS ORDERED: HYDROmorphone 0.5 mg/0.5 mL iSecure Syringe IVPUSH PRN (14:05)
--- NOTE | 2016-11-25 14:25 | NUR ---
Admit pt arrived to [facility] from ED in wheelchair. VS: BP 144/93, P 81, Sp02 99%, RR 20. CIWA score 14 for moderate hand tremors, mod to severe RAMSEY 8/10, nausea, anxiety; administered 10 Valium per protocol. Patient stated he had left upper quadrant pain 8/10, administered 0.5mg Dilaudid. Last drink was on Thursday at 0400. pt had a seizure during withdrawals in September, seizure pads in place. Fall risk signs in place and bed alarm. Pt is alert and oriented X3 at time of assessment. Wait for banana from pharmacy. Med rec complete
[2016-11-25] MEDS ORDERED: ESOM20CA39 PO (15:23)
[2016-11-25] MEDS: Thiamine Inj 100 MG in 0.9% Sodium Chloride 100 ML IV SCH (16:00)
[2016-11-25] MEDS ORDERED: HYDROmorphone 1 mg/mL Inj IVPUSH PRN (16:30)
[2016-11-25] MEDS: HYDROmorphone 0.5 mg/0.5 mL iSecure Syringe IVPUSH PRN (17:28)
[2016-11-25] MEDS: 0.9% Sodium Chloride 1,000 ML IV SCH (17:29)
[2016-11-25] MEDS: Heparin 5,000 Unit/mL Inj SUBQ SCH (17:46)
--- NOTE | 2016-11-25 17:50 | PCM.HPMED ---
Subjective Date of Service Nov 25, 2016 Primary Provider: Admitting Physician: Kai Varma DO Primary Care Physician: [facility] Attending Physician: Kai Varma DO Admit Status: From the Emergency Department Chief Complaint: "abdominal pain" History of Present Illness: Mr. Guero Ling is a 36 year old man with history of alcohol withdrawal seizures , chronic pancreatitis, depression, and gout who presented today to the emergency department for 2 days of vomiting, left upper quadrant abdominal pain , shaking, and decreased appetite. The abdominal pain is mainly in his left upper quadrant and radiates around to the back. It is a severe pain. He gets better with pain medication. His vomiting had bright red blood and he states that it was a small amount of blood. He intentionally stopped drinking alcohol about 2-1/2 days ago. He had been drinking a 12 pack of 8% alcohol beer daily for the past 9 months since his left him. He has not had anything to eat for the past 2 days. He is starting to hear his name being called and is shaking. His right great toe hurts and it is red and swollen. He has been coordinating with [facility] services to be placed in an inpatient rehabilitation for alcohol withdrawal. He reports that he has been seeing a therapist and is ready to make changes and address an underlying depression. He reports that he had a seizure in September 2016 after he stopped drinking alcohol. In the emergency department, he was given 2 mg of lorazepam and a GI cocktail. CT abdomen and pelvis showed a 2 cm focus of subtle decreased enhancement in the uncinate process of the pancreas with the recommendation of the MRI of the pancreas to exclude malignancy; focal atrophy involving the body of the pancreas is stable compared to prior exams; and hepatic steatosis. After he was given morphine, he broke out in hives on his right arm without tongue or throat swelling. He was given Benadryl with improvement. Review of Systems: A comprehensive review of systems was conducted with the patient and found to be negative except as above in the History of Present Illness. Allergies Coded Allergies: No Known Allergies (Verified Allergy, Unknown, 11/25/16) Home Medications Amlodipine 5 mg once daily Esomeprazole 20 mg once daily Gabapentin 300 mg 3 times a day Zofran 4 mg every 4 hours as needed for nausea Oxycodone 5 mg every 6 hours as needed for pain PMH Chronic pancreatitis Alcohol dependence Alcohol withdrawal seizure once Chronic left hydronephrosis Hypertension Depression Gout Surgical History Patient denies any surgeries. Family History Father and brothers alcoholism Social History Hx Alcohol Use: Yes (12 pack of beer per day, last drink 2.5 days ago) Hx Substance Use: No Hx Tobacco Use: No Smoking Status: Never Smoker Exam Vital Signs Vital Sign - Last Date Time Temp Pulse Resp B/P Pulse Ox O2 Delivery O2 Flow Rate FiO2 11/25/16 16:24 76 11/25/16 16:23 36.4 20 144/93 99 Room Air Exam General: Mild distress secondary to abdominal discomfort, well-developed, well- nourished, appropriately interactive HEENT: Normocephalic, atraumatic. External ears without defect. Pupils equal, round, and reactive to light and accommodation. Anicteric sclerae, moist conjunctivae, and no lid lag. Oropharynx free of erythema and cobble stoning with moist mucosa. Neck: Supple with full range of motion. No jugular venous distension. No bruits. No lymphadenopathy or thyromegaly. Cardiovascular: Regular rate and rhythm with no murmurs, rubs, or gallops appreciated Pulmonary: Clear to auscultation bilaterally with no crackles, wheezes, or rhonchi. Normal respiratory effort with no use of accessory muscles. Abdomen: Bilateral upper quadrant tenderness. Bowel tones present. Soft, nondistended. No hepatosplenomegaly or masses appreciated. Extremities: Right metatarsal phalangeal joint with erythema, edema, and tenderness to palpation. No clubbing, cyanosis, edema, or lymphadenopathy appreciated. Skin: Normal temperature, turgor, and texture; no rash, ulcers, or subcutaneous nodules appreciated. Neurological: Bilateral tremor. Cranial nerves grossly intact. Normal muscle strength, tone, and bulk. Reflexes, coordination, and sensory function within normal limits. No known gait impairment. Psychiatric: Restless and anxious. Normal affect. Alert and oriented to person , place, and time. Lab and Diagnostics Result Diagram: 11/25/16 1010 11/25/16 1029 X-Rays, CTs and MRIs PROCEDURE: CT ABDOMEN AND PELVIS WITH CONTRAST IMPRESSION: 1. No inflammatory changes or free fluid noted adjacent to the pancreas on the current study. 2. 2 cm focus of subtle decreased enhancement in the uncinate process of the pancreas. Recommend MRI of the pancreas to exclude malignancy. 3. Focal atrophy involving the body of the pancreas is stable compared to prior examinations. 4. Hepatic steatosis. Approved by: Isabelle Pratt MD, PhD on 11/25/2016 at 13:51 Assessment & Plan Mr. Guero Ling is a 36 year old man with history of alcohol withdrawal seizures , chronic pancreatitis, depression, and gout who presented today to the emergency department for 2 days of vomiting, left upper quadrant abdominal pain , shaking, and decreased appetite. 1. Alcohol withdrawal, acute, present on admission. Active -Patient intentionally stopped drinking alcohol 2 days ago. -He reports shaking and hearing his name being called. He has a history of alcohol withdrawal seizure. -Liver enzymes mildly elevated -CIWA protocol, fall risk protocol, and seizure precautions in place. -Monitor on telemetry -Famotidine for GI prophylaxis -Thiamine replacement initiated. -Daily multivitamin starting tomorrow morning. -Diazepam 10 mg by mouth 3 times a day and diazepam 5-10 mg IV pushes as needed per CIIA protocol. Will monitor patient and likely decrease to diazepam 5 mg 3 times a day tomorrow. 2. Acute on chronic pancreatitis, present on admission. Active -Likely secondary to patient's alcohol dependence -CT scan showed a 2 cm focus of subtle decreased enhancement in the uncinate process of the pancreas and recommended an MRI of the pancreas to exclude malignancy. -Lipase was not elevated -Hydromorphone 0.5 mg IV every 4 hours as needed for pain -Ondansetron 4-8 mg every 4 hours as needed for nausea and vomiting -Diet: nothing by mouth and normal saline at 150 mL per hour. If patient's appetite returns, will slowly increase his diet as tolerated. -Monitor patient's pain control, temperature, white blood cell count, and lipase 3. Acute on chronic gout, present on admission. Active. -Colchicine 0.6 mg twice a day 4. Hypertension, chronic. -Resumed patient's home medication of amlodipine 5 mg once daily -Continue to monitor Other chronic conditions: GERD, hold as omeprazole as patient is receiving famotidine while in the hospital Chronic pain, resumed patient's home medication of oxycodone 5 mg by mouth every 6 hours as needed for pain and gabapentin 300 mg 3 times a day Bowel regimen Senna and MiraLAX as needed for constipation. VTE Prophylaxis: Sub-Q Heparin (Unfractionated), SCDs Resuscitation Status: CPR: Attempt Resuscitation Time spent 45 minutes Attending Statement I have seen and evaluated patient at bedside in addition to directly supervising care provided by resident physician. I agree with above documentation. Blanca Anand DO Nov 25, 2016 16:31 Kai Varma DO Nov 26, 2016 08:07
[2016-11-26] VITALS (8 sets, daily range): BP systolic 120–141; BP diastolic 81–98; PULSE 70–93; RESP 18–20; O2SAT 96–100
[2016-11-26] MEDS: 0.9% Sodium Chloride 1,000 ML IV SCH ×4 (00:07→20:57)
[2016-11-26] MEDS: Heparin 5,000 Unit/mL Inj SUBQ SCH ×3 (00:08→17:48)
[2016-11-26] MEDS: HYDROmorphone 0.5 mg/0.5 mL iSecure Syringe IVPUSH PRN ×3 (02:30→10:43)
[2016-11-26] MEDS: Ondansetron 2 mg/mL 2 mL Inj IVPUSH PRN ×3 (05:45→20:34)
--- NOTE | 2016-11-26 05:50 | NUR ---
CIWA Patient has maintained a 12 or less over night for ciwa score and was able sleep most of the night. Continues to c/o abdominal pain and nausea, treated with dilaudid and zofran. Continuing to monitor.
[2016-11-26 06:05] LABS: BASOPHILS % (AUTO) 0.2 % (0-3); EOSINOPHILS % (AUTO) 3.1 % (0-5); MONOCYTES % (AUTO) 9.5 % (4-12); Mean Corpuscular Hemoglobin 31.9 pg (27.0-35.0); Mean Corpuscular Volume 92.9 fL (81-100); NEUTROPHILS % (AUTO) 59.7 % (40-74); Platelet Count 170 bil/L (150-400)
[2016-11-26] MEDS: Multivit-Miner-Folic Acid-Iron Tablet PO SCH (08:28)
[2016-11-26] MEDS: Polyethylene Glycol (PEG) 17 Gm Powder PO PRN (08:42)
[2016-11-26] MEDS: Thiamine Inj 100 MG in 0.9% Sodium Chloride 100 ML IV SCH (10:43)
--- NOTE | 2016-11-26 13:21 | PCM.PNMED ---
Subjective Date of Service Nov 26, 2016 Subjective Mr. Guero Lign is a 36 year old man with history of alcohol withdrawal seizures , chronic pancreatitis, depression, and gout who presented today to the emergency department for 2 days of vomiting, left upper quadrant abdominal pain , shaking, and decreased appetite. Overnight: CIWA score 12 or less Mr. Ling states that this morning he continues to have abdominal pain. He has tremors, diaphoresis, nausea, and anxiety. Exam Vital Signs Vital Sign - Last Date Time Temp Pulse Resp B/P Pulse Ox O2 Delivery O2 Flow Rate FiO2 11/26/16 12:40 70 11/26/16 10:33 36.6 20 141/98 97 Room Air Intake and Output 11/25/16 11/25/16 11/26/16 Cumulative From/Thru 15:00 23:00 07:00 11/25/16 09:11 - 11/26/16 06:30 Intake Total 1500 ml 0 ml 1895 ml 3395 ml Output Total 0 ml 2000 ml 2000 ml Balance 1500 ml 0 ml -105 ml 1395 ml Intake Oral 0 ml 350 ml 350 ml IV Total 1500 ml 1545 ml 3045 ml Output Urine Total 0 ml 2000 ml 2000 ml # Bowel Movements 0 0 Exam General: No acute distress, well-developed, well-nourished, appropriately interactive HEENT: Normocephalic, atraumatic. External ears without defect. Pupils equal, round, and reactive to light and accommodation. Anicteric sclerae, moist conjunctivae, and no lid lag. Oropharynx free of erythema and cobble stoning with moist mucosa. Neck: Supple with full range of motion. No jugular venous distension. No bruits. No lymphadenopathy or thyromegaly. Cardiovascular: Regular rate and rhythm with no murmurs, rubs, or gallops appreciated Pulmonary: Clear to auscultation bilaterally with no crackles, wheezes, or rhonchi. Normal respiratory effort with no use of accessory muscles. Abdomen: Bilateral upper quadrant tenderness. Bowel tones present. Soft, nondistended. No hepatosplenomegaly or masses appreciated. Extremities: Right metatarsal phalangeal joint with erythema, edema, and tenderness to palpation. No clubbing, cyanosis, edema, or lymphadenopathy appreciated. Skin: Normal temperature, turgor, and texture; no rash, ulcers, or subcutaneous nodules appreciated. Neurological: Bilateral tremor. Cranial nerves grossly intact. Normal muscle strength, tone, and bulk. Reflexes, coordination, and sensory function within normal limits. No known gait impairment. Psychiatric: Restless and anxious. Normal affect. Alert and oriented to person , place, and time. IVs and Medications Medications Reviewed: Medications were reviewed in detail Lab and Diagnostics Result Diagram: 11/26/16 0500 11/26/16 0530 X-Rays, CTs and MRIs PROCEDURE: CT ABDOMEN AND PELVIS WITH CONTRAST IMPRESSION: 1. No inflammatory changes or free fluid noted adjacent to the pancreas on the current study. 2. 2 cm focus of subtle decreased enhancement in the uncinate process of the pancreas. Recommend MRI of the pancreas to exclude malignancy. 3. Focal atrophy involving the body of the pancreas is stable compared to prior examinations. 4. Hepatic steatosis. Approved by: Isabelle Pratt MD, PhD on 11/25/2016 at 13:51 Assessment & Plan Mr. Guero Ling is a 36 year old man with history of alcohol withdrawal seizures , chronic pancreatitis, depression, and gout who presented today to the emergency department for 2 days of vomiting, left upper quadrant abdominal pain , shaking, and decreased appetite. 1. Alcohol withdrawal, acute, present on admission. Active -Patient intentionally stopped drinking alcohol 2 days ago. -He reports shaking and hearing his name being called. He has a history of alcohol withdrawal seizure. -Liver enzymes mildly increased today -CIWA protocol, fall risk protocol, and seizure precautions in place. -Monitor on telemetry -Famotidine for GI prophylaxis -Thiamine replacement initiated. -Daily multivitamin starting tomorrow morning. -Diazepam decreased to 5 mg by mouth 3 times a day and diazepam 5-10 mg IV pushes as needed per CIWA protocol. 2. Acute on chronic pancreatitis, present on admission. Active -Likely secondary to patient's alcohol dependence -CT scan showed a 2 cm focus of subtle decreased enhancement in the uncinate process of the pancreas and recommended an MRI of the pancreas to exclude malignancy. -Lipase continues to not be elevated -Ondansetron 4-8 mg every 4 hours as needed for nausea and vomiting -Diet: clear liquids Will slowly increase his diet as tolerated. -Monitor patient's pain control, temperature, white blood cell count, and lipase -MRCP today. 3. Acute on chronic gout, present on admission. Active. -Colchicine 0.6 mg twice a day 4. Hypertension, chronic. -Resumed patient's home medication of amlodipine 5 mg once daily -Continue to monitor Other chronic conditions: GERD, hold as omeprazole as patient is receiving famotidine while in the hospital Chronic pain, resumed patient's home medication of oxycodone 5 mg by mouth every 6 hours as needed for pain and gabapentin 300 mg 3 times a day Bowel regimen Senna and MiraLAX as needed for constipation. VTE Prophylaxis: Sub-Q Heparin (Unfractionated), SCDs VTE Mechanical Devices: Intermittant Pneumatic CD Resuscitation Status: CPR: Attempt Resuscitation Time spent 20 minutes Attending Statement I have seen and evaluated patient at bedside in addition to directly supervising care provided by resident physician. I agree with above documentation. Blanca Anand DO Nov 26, 2016 13:21 Kai Varma DO Nov 26, 2016 14:18
--- NOTE | 2016-11-26 14:45 | NUR ---
IV \/Mentation/ Diet Patient right hand IV was noted to be red and slightly puffy. Pt reports tenderness. IV removed and new IV restarted by IV therapy on left forearm. Primary RN attempted X2 with no success. Mentation: Pt cooperative with care. CLAUDIA this afternoon 17. Seizure precautions in place. Pt call light within reach. Diet to be advanced as tolerated. Pt has hyperactive bowels. Clear liquids tolerated OK, pt reported stomach discomfort, however still wanted to try some jello. MRI results of abdomen pending.
--- NOTE | 2016-11-26 15:37 | NUR ---
Social Work-assessment/CD assessment: Data:EMR Reviewed. Pt is a 36 y/o male who was admitted on 11/25/16 for alcohol withdrawal per H&P. Pt's insurance is [employer] and PCP is [facility]. EMR reviewed. Pt's readmission score is 4-high risk. SW met with pt to discuss discharge planning and complete CD assessment. Pt has been residing with his parents and is independent at baseline. SW discussed DPOA/ advanced directive, pt confirms that he has not completed this paperwork and is not interested in any information. SW discussed pt's current ETOH use, pt states that he has already [facility] and states that he is just waiting on a beddate. Pt states he is hoping to go to [facility] at discharge and has already spoken and completed screening. Pt states that he has already spoke with his [facility] worker also. SW encouraged pt to continue to work on this. Pt declining any other resources. SW will continue to follow. Plan:Pt to likely discharge home or to [facility] if bed available. Pt has already done pre screening with [facility]. Pt already has assessment done with [facility] and is awaiting a beddate. SW will continue to follow. VONNIE Cadet
--- NOTE | 2016-11-26 16:12 | DRSVH ---
PROCEDURE: MRI ABDOMEN WITH AND WITHOUT CONTRAST ([id number]) INDICATIONS: WORSENING TRANSAMINITIS TECHNIQUE: Coronal HASTE, axial 2D FLASH in- and [id number]; axial breath-hold T2 FSE. Dynamic axial VIBE dur ing the administration of contrast; post-contrast coronal VIBE or 2D FLASH with fat saturation from t he hepatic dome to the iliac crests. Optional diffusion weighted imaging and ADC may be performed. COMPARISON: [facility], CT, CT ABD PELVIS W CON, 11/25/2016, 12:50. FINDINGS: Image quality: Excellent. Lung bases: No basal pleural effusions. Heart size is normal. Solid organs: Liver and spleen are normal in size and enhancement. A 3 mm diameter cystic lesion is present within the right hepatic lobe. Gallbladder is unremarkable. Biliary system is non dilated. No adrenal nodules. Both kidneys demonstrate normal size and enhancement, without hydronephrosis. The body of the pancreas demonstrates mild to moderate fatty atrophy. There is an ill-defined 2.0 x 3 .9 cm mass at the head of the pancreas best visualized on the arterial axial views (series 18, image 25). This corresponds with the CT findings from the comparison study dated 11/25/16. This lesion demon strates homogeneous enhancement on the portal venous and delayed phase images. There is no intrahepatic biliary ductal dilatation. The common bile duct is not well characterized. T here is limited visualization of the pancreatic duct which has a normal appearance. Nodes and vessels: No retroperitoneal or mesenteric adenopathy by size criteria. Aorta and inferior vena cava are normal in size. Bowel and peritoneum: Unenhanced bowel loops are normal in caliber. No free fluid. Bones and soft tissues: No ventral hernias. Bone marrow is normal in overall signal. IMPRESSION: 1. Ill-defined mass at the pancreatic head visualized only on arterial phase. This lesion demonstrate s homogeneous enhancement to the pancreas on the portal venous and delayed phase images. There is als o moderate atrophy in the body of the pancreas. Differential considerations include normal appearing pancreatic tissue in the setting of fatty atrophy of the pancreatic body. Given the patient age, fatt y atrophy of the pancreas is unlikely. 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 Given the location adjacent to the first portion of the duodenum, gastroenterology co nsult and possible EUS is recommended. 2. No findings to suggest biliary or pancreatic ductal obstruction. Dictated by: Sadia Garza M.D. on 11/26/2016 at 15:45 Approved by: Sadia Garza M.D. on 11/26/2016 at 16:10
--- NOTE | 2016-11-26 18:10 | NUR ---
MENTATION/PAIN P-Patient requesting pain medication and anxiety medication. I- Patient assessed and appears calm, without tremors, LOC x3, and no visible signs of pain. Patient informed next pain and anxiety medication due in two hours. E-Patient appears to accept above information. MD made aware and wishes to continue plan of care.
[2016-11-26] MEDS: diphenhydrAMINE 25 mg Capsule PO PRN (20:57)
[2016-11-27] VITALS (7 sets, daily range): BP systolic 120–159; BP diastolic 82–107; PULSE 73–85; RESP 18; O2SAT 93–98
[2016-11-27] MEDS: Heparin 5,000 Unit/mL Inj SUBQ SCH ×3 (00:46→16:52)
[2016-11-27] MEDS: 0.9% Sodium Chloride 1,000 ML IV SCH ×4 (03:41→23:33)
[2016-11-27 05:33] LABS: BASOPHILS % (AUTO) 0.2 % (0-3); EOSINOPHILS % (AUTO) 2.8 % (0-5); MONOCYTES % (AUTO) 8.6 % (4-12); Mean Corpuscular Volume 90.5 fL (81-100); NEUTROPHILS % (AUTO) 59.8 % (40-74); Platelet Count 205 bil/L (150-400)
[2016-11-27] MEDS: diphenhydrAMINE 25 mg Capsule PO PRN (05:40)
[2016-11-27] MEDS: Multivit-Miner-Folic Acid-Iron Tablet PO SCH (08:14)
[2016-11-27] MEDS: Thiamine Inj 100 MG in 0.9% Sodium Chloride 100 ML IV SCH (09:08)
[2016-11-27] MEDS: Polyethylene Glycol (PEG) 17 Gm Powder PO PRN ×2 (09:17→20:19)
[2016-11-27] MEDS: Ondansetron 2 mg/mL 2 mL Inj IVPUSH PRN ×2 (10:08→17:19)
--- NOTE | 2016-11-27 14:16 | PCM.PNMED ---
Subjective Date of Service Nov 27, 2016 Subjective Mr. Guero Ling is a 36 year old man with history of alcohol withdrawal seizures , chronic pancreatitis, depression, and gout who presented today to the emergency department for 2 days of vomiting, left upper quadrant abdominal pain , shaking, and decreased appetite. Overnight: CIWA score 5-8 This morning, Mr. Ling reports that he continues to have abdominal pain which is not relieved with pain medication. He states that his pain gets worse after eating and the pain medication only last 2 hours. He continues to have visual hallucinations, nausea, tremor, and trouble sleeping. Exam Vital Signs Vital Sign - Last Date Time Temp Pulse Resp B/P Pulse Ox O2 Delivery O2 Flow Rate FiO2 11/27/16 06:58 85 11/27/16 05:23 36.6 120/82 97 Room Air 11/27/16 01:22 18 Intake and Output 11/26/16 11/26/16 11/27/16 Cumulative From/Thru 15:00 23:00 07:00 11/25/16 09:11 - 11/27/16 06:25 Intake Total 2207 ml 2250 ml 7852 ml Output Total 800 ml 600 ml 3400 ml Balance 1407 ml 1650 ml 4452 ml Intake Oral 600 ml 400 ml 1350 ml IV Total 1607 ml 1850 ml 6502 ml Output Urine Total 800 ml 600 ml 3400 ml # Voids 1 1 # Bowel Movements 0 0 Exam General: No acute distress, well-developed, well-nourished, appropriately interactive HEENT: Normocephalic, atraumatic. External ears without defect. Pupils equal, round, and reactive to light and accommodation. Anicteric sclerae, moist conjunctivae, and no lid lag. Neck: Supple with full range of motion. Cardiovascular: Regular rate and rhythm with no murmurs, rubs, or gallops appreciated Pulmonary: Clear to auscultation bilaterally with no crackles, wheezes, or rhonchi. Normal respiratory effort with no use of accessory muscles. Abdomen: Diffuse abdominal tenderness. Bowel tones present. Soft, nondistended. No hepatosplenomegaly or masses appreciated. Extremities: Right metatarsal phalangeal joint with erythema, edema, and tenderness to palpation. No clubbing, cyanosis, or edema. Skin: Normal temperature, turgor, and texture; no rash, ulcers, or subcutaneous nodules appreciated. Neurological: Bilateral tremor. Cranial nerves grossly intact. Normal muscle strength, tone, and bulk. Reflexes, coordination, and sensory function within normal limits. No known gait impairment. Psychiatric: Normal mood and affect. Alert and oriented to person, place, and time. IVs and Medications Medications Reviewed: Medications were reviewed in detail Lab and Diagnostics Result Diagram: 11/27/1652411/27/16524 X-Rays, CTs and MRIs PROCEDURE: CT ABDOMEN AND PELVIS WITH CONTRAST IMPRESSION: 1. No inflammatory changes or free fluid noted adjacent to the pancreas on the current study. 2. 2 cm focus of subtle decreased enhancement in the uncinate process of the pancreas. Recommend MRI of the pancreas to exclude malignancy. 3. Focal atrophy involving the body of the pancreas is stable compared to prior examinations. 4. Hepatic steatosis. Approved by: Isabelle Pratt MD, PhD on 11/25/2016 at 13:51 PROCEDURE: MRI ABDOMEN WITH AND WITHOUT CONTRAST IMPRESSION: 1. Ill-defined mass at the pancreatic head visualized only on arterial phase. This lesion demonstrates homogeneous enhancement to the pancreas on the portal venous and delayed phase images. There is also moderate atrophy in the body of the pancreas. Differential considerations include normal appearing pancreatic tissue in the setting of fatty atrophy of the pancreatic body. Given the patient age, fatty atrophy of the pancreas is unlikely. Thus, these findings are suspicious for a hypervascular pancreatic head mass. Given the location adjacent to the first portion of the duodenum, gastroenterology consult and possible EUS is recommended. 2. No findings to suggest biliary or pancreatic ductal obstruction. Approved by: Sadia Garza M.D. on 11/26/2016 at 16:10 Assessment & Plan Mr. Guero Ling is a 36 year old man with history of alcohol withdrawal seizures , chronic pancreatitis, depression, and gout who presented today to the emergency department for 2 days of vomiting, left upper quadrant abdominal pain , shaking, and decreased appetite. 1. Alcohol withdrawal, acute, present on admission. Active -Patient intentionally stopped drinking alcohol 2 days ago. -He reports shaking and hearing his name being called. He has a history of alcohol withdrawal seizure. -Liver enzymes mildly increased today -CIWA protocol, fall risk protocol, and seizure precautions in place. -Monitor on telemetry -Famotidine for GI prophylaxis -Thiamine replacement initiated. -Daily multivitamin starting tomorrow morning. -Diazepam 5 mg by mouth 2 times a day and discontinued diazepam 5-10 mg IV pushes as needed per [facility] protocol. 2. Pancreatic mass, present on admission. Active -CT scan showed a 2 cm focus of subtle decreased enhancement in the uncinate process of the pancreas. MRI showed a hypervascular pancreatic mass at the head of the pancreas. -Lipase was not elevated -Ondansetron 4-8 mg every 4 hours as needed for nausea and vomiting -Will slowly increase his diet as tolerated. -Monitor patient's pain control, temperature, white blood cell count, and lipase -Gastroenterology consulted and following. Their time and recommendations are appreciated. Recommend outpatient follow up for EUS. 3. Acute on chronic gout, present on admission. Active. -Colchicine 0.6 mg twice a day -Indomethacin added 4. Hypertension, chronic. -Resumed patient's home medication of amlodipine 5 mg once daily -Continue to monitor Other chronic conditions: GERD, hold as omeprazole as patient is receiving famotidine while in the hospital Chronic pain, resumed patient's home medication of oxycodone 5 mg by mouth every 6 hours as needed for pain and gabapentin 300 mg 3 times a day Bowel regimen Senna and MiraLAX as needed for constipation. VTE Prophylaxis: Sub-Q Heparin (Unfractionated), SCDs VTE Mechanical Devices: Intermittant Pneumatic CD Resuscitation Status: CPR: Attempt Resuscitation Time spent 30 minutes Attending Statement I have seen and evaluated patient at bedside in addition to directly supervising care provided by resident physician. I agree with above documentation. Blanca Anand DO Nov 27, 2016 09:55 Kai Varma DO Nov 28, 2016 07:51
--- NOTE | 2016-11-27 14:59 | PCM.CHPMED ---
Subjective Date of Service: Nov 27, 2016 Provider requesting consult: Blanca Anand DO Primary Physician: Admitting Physician: Kai Varma DO Primary Care Physician: [facility] Attending Physician: Kai Varma DO Chief Complaint: Chief Complaint: REASON FOR GI CONSULT: Acute on chronic pancreatitis with abnormal imaging findings suspicious for pancreatic malignancy History of Present Illness: GASTROENTEROLOGY CONSULTATION NOTE Mr. Ling is a pleasant 36 year old gentleman with history of alcohol- associated chronic pancreatitis, alcohol withdrawal-associated seizures, depression, and gout, that presented to [facility] 11/26 with a two-day history of nausea, vomiting, LUQ pain with radiation to back, tremors, and decreased appetite and intake. He was admitted for evaluation and treatment of alcohol withdrawal with seizure precaution, acute on chronic pancreatitis, and gout. Initial imaging included an MRCP that revealed an ill-defined mass of pancreatic head suspicious for a hypervascular pancreatic head mass, in addition to the pancreatic body atrophy. GI was consulted to evaluate this abnormal finding, and determine the best course of care for this patient. He states that he has been experiencing pancreatitis since he was approx aged 31 , but recently x9 months prior to this admission, he has increased his daily alcohol intake to 1-2 12pks high-alcohol content beers. He states that he has been extremely depressed since his fiancee left him, and he was using alcohol as a coping mechanism. States he has tried to quit in the past, and experienced a seizure. He also notes a history of gout, and his right first MTP joint is painful and swollen. He endorses that he is ready to quit alcohol. Last alcohol intake 2 days prior to admission date. Currently on CIWA with seizure precautions. Denies any tobacco use; states his n/v is currently controlled with medication. Abdominal pain of epigastric/LUQ region with radiation to back still present, but less severe compared to admission. PMH Past Medical History Chronic pancreatitis Alcohol dependence Alcohol withdrawal seizure once Chronic left hydronephrosis Hypertension Depression Gout Surgical History Denies any history of procedures Home Medications Amlodipine 5 mg once daily Esomeprazole 20 mg once daily Gabapentin 300 mg 3 times a day Zofran 4 mg every 4 hours as needed for nausea Oxycodone 5 mg every 6 hours as needed for pain Allergies: Coded Allergies: No Known Allergies (Verified Allergy, Unknown, 11/25/16) Family History Family History Strong family history alcohol use disorder Social History Occupation: [employer] Alcohol Use: Yes (12 pack of beer per day, last drink 2.5 days ago)Hx Substance Use: NoHx Tobacco Use: No Smoking Status: Never Smoker Exam Vital Signs Vital Sign - Last Date Time Temp Pulse Resp B/P Pulse Ox O2 Delivery O2 Flow Rate FiO2 11/27/16 09:50 36.7 84 18 131/91 93 Room Air Intake and Output 11/26/16 11/26/16 11/27/16 Cumulative From/Thru 15:00 23:00 07:00 11/25/16 09:11 - 11/27/16 06:25 Intake Total 2207 ml 2250 ml 7852 ml Output Total 800 ml 600 ml 3400 ml Balance 1407 ml 1650 ml 4452 ml Intake Oral 600 ml 400 ml 1350 ml IV Total 1607 ml 1850 ml 6502 ml Output Urine Total 800 ml 600 ml 3400 ml # Voids 1 1 # Bowel Movements 0 0 General: Alert, Oriented X3, Cooperative, No Acute Distress Eyes: EOMI, Scleral Anicteric Nose: Mucous Membr Moist/Farina Mouth: Mucous Membr Moist/Farina Chest & Lungs: Clear to auscultation & percussion, No adventitious breath sounds Cardiovascular: Regular Rate/Rhythm, No Murmurs/Rubs/Gallops Pulses: Radial (Equal and bilateral) Abdomen: Tender (Epigastric/LUQ), Non-distended, Soft Musculoskeletal: Unremarkable (Ambulates without assistance), Normal Range of Motion Extremities: No cyanosis/clubbing/edma bilat Neurological: Grossly Neurologically Intact, Cranial Nerves 2-12 Intact, Normal Speech Lab and Diagnostics Result Diagram: 11/27/1652411/27/16 0525 Assessment & Plan Assessment GASTROENTEROLOGY CONSULTATION NOTE Mr. Ling is a pleasant 36 year old gentleman with history of alcohol- associated chronic pancreatitis, alcohol withdrawal-associated seizures, depression, and gout, that presented to [facility] 11/26 with a two-day history of nausea, vomiting, LUQ pain with radiation to back, tremors, and decreased appetite and intake. He was admitted for evaluation and treatment of alcohol withdrawal with seizure precaution, acute on chronic pancreatitis, and gout. Initial imaging included an MRCP that revealed an ill-defined mass of pancreatic head suspicious for a hypervascular pancreatic head mass, in addition to the pancreatic body atrophy. GI was consulted to evaluate this abnormal finding, and determine the best course of care for this patient. CT A/P w/con 11/25: 2cm focus of decreased enhancement of uncinate process of pancreas, stable focal atrophy of pancreatic body, hepatic steatosis; no free fluid or inflammation was noted to be adjacent to pancreas. MRCP 11/26: Ill-defined mass measuring 2.0x3.9cm at pancreatic head suspicious for hypervascular pancreatic malignancy, moderate atrophy of pancreatic body; no findings to suggest biliary or pancreatic duct obstruction; 3mm cystic lesion of right hepatic lobe also noted. Assessments - Acute on chronic pancreatitis secondary to alcohol use - Alcohol withdrawal associated seizures - Abnormal imaging of pancreas suggestive of malignancy Plan - Advance diet as tolerated; if pain persists, switch back to clears or NPO - Increase fluids to 200cc/hr - CA 19-9 ordered - Agree with need for EUS, this can be completed as outpatient when patient is stable and w/d sx are resolved Outpatient Recommendations - Prompt FU with PCP for further evaluation and FU CA 19-9 if not resulted by time of discharge - EUS - Alcohol cessation/abstinence Lengthy conversation was had with patient regarding the importance of alcohol cessation. Patient states he is worried about malignancy, and endorses that he is ready to stop drinking. Thank you for this interesting consult. If you have any additional questions or concerns, please do not hesitate to contact us. Total time: 45 minutes Problems: Pain Evaluation: Adequate Pain Control VTE Prophylaxis: Sub-Q Heparin (Unfractionated), SCDs VTE Mechanical Devices: Intermittant Pneumatic CD Resuscitation Status: CPR: Attempt Resuscitation Attending Statement Pt seen and examined with resident physician agree with her history and physical he does not have pancreatitis by criteria as he only has pain no imaging or elevated lipase. The mass seen in the pancreatic needs to be evaluated, however this can be done as an outpatient after his ETOH withdrawal and acute gout attack are treated. Details of imaging test and plan discussed with patient and he was agreeable. Recommended outpatient referral to [place] for further evaluation as we do not have pancreatic surgeons here. Ariella Banuelos DO Nov 27, 2016 14:59 Brett Ferrari MD Nov 27, 2016 22:34
[2016-11-27] MEDS: Indomethacin 25 mg Capsule PO PRN (16:04)
--- NOTE | 2016-11-27 16:40 | NUR ---
Pain/CIWA Pt c/o of pain in right great toe and abdomen, given oxycodone with moderate relief, later pt received Indocin to help with pain in great toe. Will continue to monitor. CIWA has been 6-7 most of the day, when entering room pt starts to have hand tremors, but when asked questions and redirection, tremors stop. Will continue to monitor.
--- NOTE | 2016-11-27 16:50 | NUR ---
Care Care turned over to Miguel Gimenez RN at this time.
[2016-11-28] MEDS: Heparin 5,000 Unit/mL Inj SUBQ SCH ×3 (00:30→17:50)
[2016-11-28] MEDS: 0.9% Sodium Chloride 1,000 ML IV SCH ×5 (01:16→21:16)
[2016-11-28] MEDS: Indomethacin 25 mg Capsule PO PRN ×3 (01:51→21:19)
[2016-11-28 04:57] VITALS: BP 138/95; PULSE 59; RESP 18; O2SAT 98
[2016-11-28] MEDS: diphenhydrAMINE 25 mg Capsule PO PRN ×2 (06:11→17:50)
[2016-11-28 08:10] LABS: BASOPHILS % (AUTO) 0.2 % (0-3); MONOCYTES % (AUTO) 7.5 % (4-12); Mean Corpuscular Hemoglobin 31.5 pg (27.0-35.0); Mean Corpuscular Volume 89.9 fL (81-100); NEUTROPHILS % (AUTO) 63.9 % (40-74); Platelet Count 177 bil/L (150-400)
[2016-11-28] MEDS: Ondansetron 2 mg/mL 2 mL Inj IVPUSH PRN ×2 (11:44→21:05)
--- NOTE | 2016-11-28 13:25 | NUR ---
Patient provided AKHIL for referral to [facility]. Alise Oliveros LMSW, ACM
[2016-11-28 14:40] VITALS: BP 123/83; PULSE 77; RESP 19; O2SAT 98
--- NOTE | 2016-11-28 15:26 | NUR ---
Patient currently being seen by Shelbi Liz from [facility]. Alise Oliveros, LILLIAN, ACM
--- NOTE | 2016-11-28 15:57 | PCM.PNMED ---
Subjective Date of Service Nov 28, 2016 Subjective Mr. Guero Ling is a 36 year old man with history of alcohol withdrawal seizures , chronic pancreatitis, depression, and gout who presented today to the emergency department for 2 days of vomiting, left upper quadrant abdominal pain , shaking, and decreased appetite. Last CIWA scores 6 and 7. Today, he reports anxiety about the pancreatic mass. He has not reached out to family or friends yet. He also has a history of depression but denies current suicidal ideation. He continues to have abdominal pain that is mildly improved. He continues to have right great toe pain that is worse than his abdominal pain. Exam Vital Signs Vital Sign - Last Date Time Temp Pulse Resp B/P Pulse Ox O2 Delivery O2 Flow Rate FiO2 11/28/16 14:40 36.8 77 19 123/83 98 Room Air Intake and Output 11/27/16 11/27/16 11/28/16 Cumulative From/Thru 15:00 23:00 07:00 11/25/16 09:11 - 11/28/16 06:36 Intake Total 2456 ml 750 ml 74790 ml Output Total 650 ml 1150 ml 5200 ml Balance 1806 ml -400 ml 5858 ml Intake Oral 820 ml 750 ml 2920 ml IV Total 1636 ml 8138 ml Output Urine Total 650 ml 1150 ml 5200 ml # Voids 1 # Bowel Movements 1 1 Exam General: No acute distress, well-developed, well-nourished, appropriately interactive HEENT: Normocephalic, atraumatic. External ears without defect. Pupils equal, round, and reactive to light and accommodation. Anicteric sclerae, moist conjunctivae, and no lid lag. Neck: Supple with full range of motion. Cardiovascular: Regular rate and rhythm with no murmurs, rubs, or gallops appreciated Pulmonary: Clear to auscultation bilaterally with no crackles, wheezes, or rhonchi. Normal respiratory effort with no use of accessory muscles. Abdomen: Diffuse abdominal tenderness. Bowel tones present. Soft, nondistended. No hepatosplenomegaly or masses appreciated. Extremities: Right metatarsal phalangeal joint with mild erythema and edema with tenderness to palpation. No clubbing, cyanosis, or edema. Skin: Normal temperature, turgor, and texture; no rash, ulcers, or subcutaneous nodules appreciated. Neurological: Cranial nerves grossly intact. Normal muscle strength, tone, and bulk. Reflexes, coordination, and sensory function within normal limits. No known gait impairment. Psychiatric: Normal mood and affect. Alert and oriented to person, place, and time. IVs and Medications Medications Reviewed: Medications were reviewed in detail Lab and Diagnostics Result Diagram: 11/28/16 0755 11/28/16 0755 X-Rays, CTs and MRIs PROCEDURE: CT ABDOMEN AND PELVIS WITH CONTRAST IMPRESSION: 1. No inflammatory changes or free fluid noted adjacent to the pancreas on the current study. 2. 2 cm focus of subtle decreased enhancement in the uncinate process of the pancreas. Recommend MRI of the pancreas to exclude malignancy. 3. Focal atrophy involving the body of the pancreas is stable compared to prior examinations. 4. Hepatic steatosis. Approved by: Isabelle Pratt MD, PhD on 11/25/2016 at 13:51 PROCEDURE: MRI ABDOMEN WITH AND WITHOUT CONTRAST IMPRESSION: 1. Ill-defined mass at the pancreatic head visualized only on arterial phase. This lesion demonstrates homogeneous enhancement to the pancreas on the portal venous and delayed phase images. There is also moderate atrophy in the body of the pancreas. Differential considerations include normal appearing pancreatic tissue in the setting of fatty atrophy of the pancreatic body. Given the patient age, fatty atrophy of the pancreas is unlikely. Thus, these findings are suspicious for a hypervascular pancreatic head mass. Given the location adjacent to the first portion of the duodenum, gastroenterology consult and possible EUS is recommended. 2. No findings to suggest biliary or pancreatic ductal obstruction. Approved by: Sadia Garza M.D. on 11/26/2016 at 16:10 Assessment & Plan Mr. Guero Ling is a 36 year old man with history of alcohol withdrawal seizures , chronic pancreatitis, depression, and gout who presented today to the emergency department for 2 days of vomiting, left upper quadrant abdominal pain , shaking, and decreased appetite. 1. Alcohol withdrawal, acute, present on admission. Active -Patient intentionally stopped drinking alcohol 2 days prior to admission. -He has a history of an alcohol withdrawal seizure. -Liver enzymes mildly increased -Monitor on telemetry -Famotidine for GI prophylaxis -Thiamine replacement initiated. -Daily multivitamin -Diazepam 5 mg by mouth 2 times a day today -Patient is being assessed by an inpatient rehabilitation program today 2. Pancreatic mass, present on admission. Active -CT scan showed a 2 cm focus of subtle decreased enhancement in the uncinate process of the pancreas. MRI showed a hypervascular pancreatic mass at the head of the pancreas. -Lipase was not elevated, CA19-9 was within normal limits -Ondansetron 4-8 mg every 4 hours as needed for nausea and vomiting -Monitor patient's pain control, temperature, white blood cell count, and lipase -Gastroenterology consulted and following. Their time and recommendations are appreciated. Recommend outpatient follow up for EUS and evaluation by a pancreatic specialist in [place] prior to patient's inpatient rehabilitation for alcohol dependence. Will attempt to coordinate referral by PCP for GI in [place] and inpatient rehabilitation program. 3. Acute on chronic gout, present on admission. Active. -Colchicine 0.6 mg twice a day -Indomethacin 25 mg three times a day as needed for moderate pain -Increased home oxycodone dose to 5-10 mg every 6 hours as needed for severe pain 4. Hypertension, chronic. -Resumed patient's home medication of amlodipine 5 mg once daily -Continue to monitor 5. Depression and anxiety, acute on chronic -Increased gabapentin to 600 mg 3 times a day. Other chronic conditions: GERD, hold as omeprazole as patient is receiving famotidine while in the hospital Chronic pain, resumed patient's home medication of oxycodone as needed for pain and gabapentin Bowel regimen Senna and MiraLAX as needed for constipation. Disposition: Likely, discharge tomorrow to inpatient rehabilitation with close follow up with GI in [place], coordinated by his PCP, for further assessment of pancreatic mass. VTE Prophylaxis: Sub-Q Heparin (Unfractionated), SCDs VTE Mechanical Devices: Intermittant Pneumatic CD Resuscitation Status: CPR: Attempt Resuscitation Time spent 25 minutes Attending Statement I have seen and evaluated patient at bedside in addition to directly supervising care provided by resident physician. I agree with above documentation. Blanca Anand DO Nov 28, 2016 15:57 Kai Varma DO Nov 29, 2016 15:38
--- NOTE | 2016-11-28 18:26 | NUR ---
Pain Patient is alert and oriented X3. Stable mod. Able to make needs known. Stable vital signs. C/o pain and anxiety. patient aware last pain medication given 4 hours ago and states," pain 8/10". No visible sign and symptoms of pain noted, patient is watching TV and finished his dinner. Notified patient next pain medication due in 2 hours and agrees. No tremors noted. c/o itching, PRN Benadryl given as ordered with effective results. [facility] here at bed side in the afternoon and per patient she will be back. Offered non pharmacological methods. Doctor at bed side and aware r/t abdominal pain and anxiety. Call light with in reach for safety. Continue to monitor abdominal and right toe pain, vital signs, safety, and mood.
[2016-11-28] MEDS: Polyethylene Glycol (PEG) 17 Gm Powder PO PRN (21:19)
[2016-11-28 21:41] VITALS: BP 120/81; PULSE 69; RESP 18; O2SAT 93
[2016-11-29] MEDS: Heparin 5,000 Unit/mL Inj SUBQ SCH ×3 (00:30→17:18)
[2016-11-29] MEDS: 0.9% Sodium Chloride 1,000 ML IV SCH ×2 (01:49→05:58)
--- NOTE | 2016-11-29 04:46 | NUR ---
PAIN At start of shift, pt rated pain in abdomen and Right great toe "9". PRN and scheduled po pain medications administered. Upon reassessment, pt states pain decreased. Later in night, pt states, "I don't have pain in my toe right now, only when it flares up, it's really bad." Pt continues to have c/o abdominal pain, states, "it goes from one side of my stomach to the other." Pt has denied any nausea or emesis. Continue to monitor. Call light in reach. Intentional rounding.
[2016-11-29 05:53] VITALS: BP 131/90; PULSE 79; RESP 18; O2SAT 98
[2016-11-29] MEDS: Ondansetron 2 mg/mL 2 mL Inj IVPUSH PRN ×5 (05:59→22:10)
[2016-11-29] MEDS: Indomethacin 25 mg Capsule PO PRN ×3 (06:08→22:32)
[2016-11-29] MEDS: diphenhydrAMINE 25 mg Capsule PO PRN ×2 (06:20→17:18)
[2016-11-29 09:10] VITALS: BP 147/88; PULSE 62; RESP 16; O2SAT 98
--- NOTE | 2016-11-29 09:33 | PCM.PNMED ---
Subjective Date of Service Nov 29, 2016 Subjective Still having some discomfort in toe, perhaps slightly improved, certain not wrose. Also endorses shakes this morning, he believes his related ti withdrawal. Some abdominal pain also noted, this is stable and unchanged from yesterday. Talked with a different rehab program yesterday over phone, believes this group will accept him which he is optimistic about. Denies fever/chills. Denies nausea/vomiting, eating/drinking well. No dizziness, blurry vision or headache. Exam Vital Signs Vital Sign - Last Date Time Temp Pulse Resp B/P Pulse Ox O2 Delivery O2 Flow Rate FiO2 11/29/16 09:10 36.3 62 16 147/88 98 Room Air Intake and Output 11/28/16 11/28/16 11/29/16 Cumulative From/Thru 15:00 23:00 07:00 11/25/16 09:11 - 11/29/16 06:26 Intake Total 2294 ml 1600 ml 2275 ml 46059 ml Output Total 2360 ml 2075 ml 9635 ml Balance 2294 ml -760 ml 200 ml 7592 ml Intake Oral 1600 ml 600 ml 5120 ml IV Total 2294 ml 1675 ml 59065 ml Output Urine Total 2360 ml 2075 ml 9635 ml # Voids 1 # Bowel Movements 1 Exam General: No acute distress, well-developed, well-nourished, appropriately interactive HEENT: PERRLA, EOMI Cardiovascular: Regular rate and rhythm with no murmurs, rubs, or gallops appreciated Abdomen: Diffuse abdominal tenderness. Bowel tones present. Soft, nondistended. No hepatosplenomegaly or masses appreciated. Extremities: No clubbing, cyanosis, or edema. Skin: Normal temperature, turgor, and texture; no rash, ulcers, or subcutaneous nodules appreciated. (+)erythema of right great toes, slightly improved from previous. Neurological: Cranial nerves grossly intact. Normal muscle strength, tone, and bulk. Reflexes, coordination, and sensory function within normal limits. No known gait impairment. Psychiatric: Normal mood and affect. Alert and oriented to person, place, and time. IVs and Medications Medications Reviewed: Medications were reviewed in detail Lab and Diagnostics Result Diagram: 11/28/16 0755 11/28/16 0755 X-Rays, CTs and MRIs PROCEDURE: CT ABDOMEN AND PELVIS WITH CONTRAST IMPRESSION: 1. No inflammatory changes or free fluid noted adjacent to the pancreas on the current study. 2. 2 cm focus of subtle decreased enhancement in the uncinate process of the pancreas. Recommend MRI of the pancreas to exclude malignancy. 3. Focal atrophy involving the body of the pancreas is stable compared to prior examinations. 4. Hepatic steatosis. Approved by: Isabelle Pratt MD, PhD on 11/25/2016 at 13:51 PROCEDURE: MRI ABDOMEN WITH AND WITHOUT CONTRAST IMPRESSION: 1. Ill-defined mass at the pancreatic head visualized only on arterial phase. This lesion demonstrates homogeneous enhancement to the pancreas on the portal venous and delayed phase images. There is also moderate atrophy in the body of the pancreas. Differential considerations include normal appearing pancreatic tissue in the setting of fatty atrophy of the pancreatic body. Given the patient age, fatty atrophy of the pancreas is unlikely. Thus, these findings are suspicious for a hypervascular pancreatic head mass. Given the location adjacent to the first portion of the duodenum, gastroenterology consult and possible EUS is recommended. 2. No findings to suggest biliary or pancreatic ductal obstruction. Approved by: Sadia Garza M.D. on 11/26/2016 at 16:10 Assessment & Plan Mr. Guero Ling is a 36 year old man with history of alcohol withdrawal seizures , chronic pancreatitis, depression, and gout who presented today to the emergency department for 2 days of vomiting, left upper quadrant abdominal pain , shaking, and decreased appetite. 1. Alcohol withdrawal, acute, present on admission. Active -Patient intentionally stopped drinking alcohol 2 days prior to admission. -He has a history of an alcohol withdrawal seizure. -Liver enzymes mildly increased -Monitor on telemetry -Famotidine for GI prophylaxis -Thiamine replacement initiated. -Daily multivitamin -Diazepam 5 mg by mouth 2 times a day today due to continued trembling, however plan to provide one additional tomorrow AM then DC. -Patient is being assessed by another rehab program, awaiting recommendation following yesterdays interview. 2. Pancreatic mass, present on admission. Active -CT scan showed a 2 cm focus of subtle decreased enhancement in the uncinate process of the pancreas. MRI showed a hypervascular pancreatic mass at the head of the pancreas. -Lipase was not elevated, CA19-9 was within normal limits -Ondansetron 4-8 mg every 4 hours as needed for nausea and vomiting -Monitor patient's pain control, temperature, white blood cell count, and lipase -Gastroenterology consulted and following. Their time and recommendations are appreciated. Recommend outpatient follow up for EUS and evaluation by a pancreatic specialist in [place] prior to patient's inpatient rehabilitation for alcohol dependence. Will attempt to coordinate referral by PCP for GI in [place] on discharge. 3. Acute on chronic gout, present on admission. Active. -Colchicine 0.6 mg twice a day -Indomethacin 25 mg three times a day as needed for moderate pain -Increased home oxycodone dose decreased to to 5 mg every 6 hours as needed for severe pain 4. Hypertension, chronic. -Resumed patient's home medication of amlodipine 5 mg once daily -Continue to monitor 5. Depression and anxiety, acute on chronic -Continue Gabapentin to 600 mg 3 times a day, appears to be offering some benefit. Other chronic conditions: GERD, hold as omeprazole as patient is receiving famotidine while in the hospital Chronic pain, resumed patient's home medication of oxycodone as needed for pain and gabapentin Bowel regimen Senna and MiraLAX as needed for constipation. Disposition: Discharge tomorrow with hopeful coordination of rehabilitation with close follow up with GI in [place], coordinated by his PCP, for further assessment of pancreatic mass. Pain Evaluation: Adequate Pain Control VTE Prophylaxis: Sub-Q Heparin (Unfractionated), SCDs VTE Mechanical Devices: Intermittant Pneumatic CD Resuscitation Status: CPR: Attempt Resuscitation Time spent 20 minutes Kai Varma DO Nov 29, 2016 09:33
[2016-11-29 12:21] LABS: BASOPHILS % (AUTO) 0.1 % (0-3); EOSINOPHILS % (AUTO) 1.6 % (0-5); MONOCYTES % (AUTO) 5.9 % (4-12); Mean Corpuscular Hemoglobin 31.3 pg (27.0-35.0); Mean Corpuscular Volume 88.7 fL (81-100); NEUTROPHILS % (AUTO) 74.3 % (40-74); Platelet Count 195 bil/L (150-400)
[2016-11-29 13:37] VITALS: BP 142/92; PULSE 88; RESP 20; O2SAT 95
--- NOTE | 2016-11-29 13:57 | NUR ---
MEDICATION/PLAN P-Need to taper pain medications in anticipation of discharge. I- MD has decreased Oxycodone to 5mg Q6, Valium Q12 no more CIWA. E- Patient is not happy about medication change but shows no sign of ETOH withdrawal.
--- NOTE | 2016-11-29 14:23 | NUR ---
Social Work-readiness for discharge: Data:EMR reviewed. PT is on day 4 of hospitalization for alcohol per H&P. Pt is not medically stable anticipate tomorrow or the next day. Per RN notes, pt has been up independent in his room. Pt met with Shelbi from [facility] yesterday. Shelbi informed SW that pt will have to discharge home and then follow up outpt for bed date. Shelbi states she will call pt and provide update. Shelbi states pt is interested in information about medicaid transport. SW provided pt with printout about medicaid transport. No other discharge needs identified. SW will continue to follow if needs arise. Assessment:Pt who is independent at baseline. Plan:Pt to discharge home when medically stable via POV. No other discharge needs identified. SW will continue to follow if needs arise. VONNIE Cadet
[2016-11-29] MEDS: Polyethylene Glycol (PEG) 17 Gm Powder PO PRN (17:25)
[2016-11-29 21:04] VITALS: BP 115/76; PULSE 74; RESP 18; O2SAT 96
[2016-11-30] MEDS: Heparin 5,000 Unit/mL Inj SUBQ SCH ×4 (01:03→23:31)
[2016-11-30] MEDS: Ondansetron 2 mg/mL 2 mL Inj IVPUSH PRN ×5 (04:34→23:51)
[2016-11-30 05:23] VITALS: BP 125/85; PULSE 57; RESP 16; O2SAT 97
--- NOTE | 2016-11-30 06:37 | NUR ---
Pain Pt complains of pain on his right toe due to gout. Administered PRN roxicodone and indometacin for goutry pain. Pt denies chest pain, sob. Pt would complain of mild nausea, zofran administered PRN. HS meds administered as scheduled. VSS, and pt has been afebrile overnight.
[2016-11-30] MEDS: Indomethacin 25 mg Capsule PO PRN ×2 (08:35→23:25)
[2016-11-30 11:07] VITALS: BP 130/97; PULSE 72; RESP 18; O2SAT 95
[2016-11-30] MEDS: diphenhydrAMINE 25 mg Capsule PO PRN ×2 (11:12→23:25)
--- NOTE | 2016-11-30 11:16 | NUR ---
Pain/anxiety/itching Pt c/o abdominal pain 04/30, "feels itchy all over". Pt reports is feeling very anxious about "tumor on pancreas". RX offered for pain and itch. PO Benadryl and Roxicodone given as ordered. Call light within [facility], will continue to monitor. Addendum: 11/30/16 at 1232 by CRISTAL FORD RN pt reports pain and itching have decreased however is "feeling nauseated" Requesting IV Zofran. Pt advised too soon for next dose of zofran Maalox offered and administered. Call light with in [facility], will continue to monitor
[2016-11-30] MEDS: Alum-Mag Hydrox-Simeth 30 mL Suspension PO PRN (12:14)
--- NOTE | 2016-11-30 14:26 | PCM.PNMED ---
Subjective Date of Service Nov 30, 2016 Subjective Mr. Guero Ling is a 36 year old man with history of alcohol withdrawal seizures , chronic pancreatitis, depression, and gout who presented today to the emergency department for 2 days of vomiting, left upper quadrant abdominal pain , shaking, and decreased appetite. Overnight: He continued to have right great toe pain and nausea. Today, he reports continued anxiety about the pancreatic mass. He reports a strong desire to abstain from alcohol after discharge from the hospital. He reports continued pain in his abdomen and right great toe but both have improved over his hospital stay. He also has diffuse itching. He does not have nausea or vomiting. Exam Vital Signs Vital Sign - Last Date Time Temp Pulse Resp B/P Pulse Ox O2 Delivery O2 Flow Rate FiO2 11/30/16 11:07 37.1 72 18 130/97 95 Room Air Intake and Output 11/29/16 11/29/16 11/30/16 Cumulative From/Thru 15:00 23:00 07:00 11/25/16 09:11 - 11/30/16 05:23 Intake Total 1000 ml 1075 ml 940 ml 94324 ml Output Total 500 ml 16385 ml Balance 1000 ml 575 ml 940 ml 21211 ml Intake Oral 1075 ml 940 ml 7135 ml IV Total 1000 ml 75158 ml Output Urine Total 500 ml 29826 ml # Voids 5 7 13 # Bowel Movements 0 1 Exam General: Anxious, well-developed, well-nourished, appropriately interactive HEENT: Normocephalic, atraumatic. Pupils equal, round, and reactive to light and accommodation. Anicteric sclerae, moist conjunctivae, and no lid lag. Neck: Supple with full range of motion. Cardiovascular: Regular rate and rhythm with no murmurs, rubs, or gallops appreciated Pulmonary: Clear to auscultation bilaterally with no crackles, wheezes, or rhonchi. Abdomen: Diffuse abdominal tenderness. Bowel tones present. Soft, nondistended. No hepatosplenomegaly or masses appreciated. Extremities: Tender right metatarsal phalangeal joint with mild erythema and edema. Skin: Normal temperature, turgor, and texture; no rash, ulcers, or subcutaneous nodules appreciated. Neurological: No tremor. Cranial nerves grossly intact. Normal muscle strength , tone, and bulk. Psychiatric: Anxious and tearful. Normal affect. Alert and oriented to person, place, and time. IVs and Medications Medications Reviewed: Medications were reviewed in detail Lab and Diagnostics Result Diagram: 11/29/16 0910 11/30/16 0900 X-Rays, CTs and MRIs PROCEDURE: CT ABDOMEN AND PELVIS WITH CONTRAST IMPRESSION: 1. No inflammatory changes or free fluid noted adjacent to the pancreas on the current study. 2. 2 cm focus of subtle decreased enhancement in the uncinate process of the pancreas. Recommend MRI of the pancreas to exclude malignancy. 3. Focal atrophy involving the body of the pancreas is stable compared to prior examinations. 4. Hepatic steatosis. Approved by: Isabelle Pratt MD, PhD on 11/25/2016 at 13:51 PROCEDURE: MRI ABDOMEN WITH AND WITHOUT CONTRAST IMPRESSION: 1. Ill-defined mass at the pancreatic head visualized only on arterial phase. This lesion demonstrates homogeneous enhancement to the pancreas on the portal venous and delayed phase images. There is also moderate atrophy in the body of the pancreas. Differential considerations include normal appearing pancreatic tissue in the setting of fatty atrophy of the pancreatic body. Given the patient age, fatty atrophy of the pancreas is unlikely. Thus, these findings are suspicious for a hypervascular pancreatic head mass. Given the location adjacent to the first portion of the duodenum, gastroenterology consult and possible EUS is recommended. 2. No findings to suggest biliary or pancreatic ductal obstruction. Approved by: Sadia Garza M.D. on 11/26/2016 at 16:10 Assessment & Plan Mr. Guero Ling is a 36 year old man with history of alcohol withdrawal seizures , chronic pancreatitis, depression, and gout who presented today to the emergency department for 2 days of vomiting, left upper quadrant abdominal pain , shaking, and decreased appetite. 1. Alcohol withdrawal, acute, present on admission. Active -Patient intentionally stopped drinking alcohol 2 days prior to admission. -He has a history of an alcohol withdrawal seizure. -Liver enzymes mildly elevated -Monitor on telemetry -Famotidine for GI prophylaxis -Thiamine replacement was given -Daily multivitamin -Diazepam 5 mg by mouth once daily today.Will keep patient overnight to continue to monitor him 24 hours off of benzodiazepines as patient is high risk due to history of an alcohol withdrawal seizure. -Patient has pending placement at rehab on Thursday. 2. Pancreatic mass, present on admission. Active -CT scan showed a 2 cm focus of subtle decreased enhancement in the uncinate process of the pancreas. MRI showed a hypervascular pancreatic mass at the head of the pancreas. -Lipase was not elevated, CA19-9 was within normal limits -Ondansetron 4-8 mg every 4 hours as needed for nausea and vomiting -Monitor patient's pain control, temperature, white blood cell count, and lipase -Gastroenterology consulted and followed. Their time and recommendations were appreciated. Recommended outpatient follow up for EUS and evaluation by a pancreatic specialist in [place] prior to patient's inpatient rehabilitation for alcohol dependence. Will attempt to coordinate referral by PCP for GI in [place] on discharge. 3. Acute on chronic gout, present on admission. Active. -Colchicine 0.6 mg twice a day -Indomethacin 25 mg three times a day as needed for moderate pain -Oxycodone dose decreased to 5 mg every 6 hours as needed for severe pain 4. Hypertension, chronic. -Resumed patient's home medication of amlodipine 5 mg once daily -Continue to monitor 5. Depression and anxiety, acute on chronic -Continue Gabapentin to 600 mg 3 times a day, appears to be offering some benefit. Other chronic conditions: GERD, hold as omeprazole as patient is receiving famotidine while in the hospital Chronic pain, resumed patient's home medication of oxycodone as needed for pain and gabapentin Bowel regimen Senna and MiraLAX as needed for constipation. Disposition: Discharge tomorrow with hopeful coordination of rehabilitation with close follow up with GI in [place], coordinated by his PCP, for further assessment of pancreatic mass. VTE Prophylaxis: Sub-Q Heparin (Unfractionated), SCDs VTE Mechanical Devices: Intermittant Pneumatic CD Resuscitation Status: CPR: Attempt Resuscitation Time spent 30 minutes Attending Statement I have seen and evaluated patient at bedside in addition to directly supervising care provided by resident physician. I agree with above documentation. Blanca Anand DO Nov 30, 2016 12:45 Kai Varma DO Nov 30, 2016 16:38
[2016-11-30] MEDS: Polyethylene Glycol (PEG) 17 Gm Powder PO PRN (15:37)
[2016-11-30 22:30] VITALS: BP 116/76; PULSE 69; RESP 16; O2SAT 96
[2016-12-01] MEDS: Ondansetron 2 mg/mL 2 mL Inj IVPUSH PRN ×3 (03:30→14:09)
[2016-12-01 05:42] VITALS: BP 114/73; PULSE 64; RESP 16; O2SAT 97
--- NOTE | 2016-12-01 07:19 | NUR ---
Pain Pt c/o upper abdominal pain 8/10, Oxycodone 5mg q6hx2 given per pt requests, Gabapentin and Indomethacin 25mg, warm pack for additional pain control. Pain down to 4/10 and pt sleeping comfortably overnight.
[2016-12-01] MEDS: diphenhydrAMINE 25 mg Capsule PO PRN ×2 (08:40→14:08)
[2016-12-01] MEDS: Heparin 5,000 Unit/mL Inj SUBQ SCH (08:40)
[2016-12-01] MEDS: Polyethylene Glycol (PEG) 17 Gm Powder PO PRN (08:41)
[2016-12-01] MEDS: Indomethacin 25 mg Capsule PO PRN ×2 (08:41→14:08)
[2016-12-01 10:09] LABS: BASOPHILS % (AUTO) 0.3 % (0-3); EOSINOPHILS % (AUTO) 2.7 % (0-5); MONOCYTES % (AUTO) 9.1 % (4-12); Mean Corpuscular Hemoglobin 31.2 pg (27.0-35.0); Mean Corpuscular Volume 88.9 fL (81-100); NEUTROPHILS % (AUTO) 65.8 % (40-74); Platelet Count 204 bil/L (150-400)
--- NOTE | 2016-12-01 10:51 | PCM.DIMED ---
Discharge Instructions Date of Service Dec 01, 2016 Dates of Hospitalization Nov 25, 2016 at 15:23 Discharge Diagnosis Discharge Diagnosis 1. Alcohol withdrawal 2. Pancreatic mass 3. Acute on chronic gout 4. Hypertension, chronic. 5. Depression and anxiety Diet No restrictions Activity Limited until seen by PCP Patient Instructions Avoid being around alcohol to help with your sobriety. [facility]. Continue therapy. Continue gabapentin 600 mg three times per day. Continue colchicine 0.6 mg twice per day until your gout flare improves and at that point, you can continue 0.6 mg once daily to prevent another gout flare. You can also take indomethacin 25 mg every 8 hours as needed for moderate pain. Follow up with your primary care provider in order to discuss the status of your referral to a gastroenterology (pancreas) specialist in [place] for further evaluation of the pancreatic mass. We have contacted your primary care office and they are working on the referral. You can continue to take ondansetron 4 mg every 4 hours as needed for nausea/vomiting. I also recommend discussing possibly starting a medication for depression and anxiety. You have an appointment on 12/05/[address] Hay at 10: 30 AM at the [facility] to follow up for your hospital stay. Follow-up Provider: Yahir Hay MD Follow-up with PCP in: Other (12/05/16 at 10:30 AM) [facility] Follow-up in: Other (as soon as possible for pancreatic mass) Blanca Anand DO Nov 30, 2016 09:56 Blanca Anand DO Nov 30, 2016 09:56
[2016-12-01] MEDS ORDERED: COLC0.6T52 PO (10:57)
[2016-12-01] MEDS ORDERED: INDO25CA PO (10:57)
[2016-12-01] MEDS ORDERED: GABA600T2 PO (10:57)
[2016-12-01] MEDS ORDERED: ONDA4TAB9 PO (10:57)
[2016-12-01] MEDS: Alum-Mag Hydrox-Simeth 30 mL Suspension PO PRN (11:35)
--- NOTE | 2016-12-01 13:38 | NUR ---
Social Work-discharge: Data:EMR reviewed. Pt is on day 6 of hospitalization for ETOH withdrawal per H&P. Pt is medically stable for discharge. HEENA spoke with pt who states he is hopeful to go to [facility]. HEENA called and spoke with Donell who states pt will need to complete pre-screening. HEENA called [facility] from pt's room and provided him with phone to complete screening. HEENA called back and spoke with Donell, Donell states they will need clinicals faxed over. HEENA had pt sign AK[facility]IL and faxed this with information to [facility]. HEENA received a call back from [facility] who state they are willing to accept pt today and can accept him at 1600 this afternoon. [facility] would like RX sent to [facility]. HEENA faxed discharge information to [facility] and RX to [facility] in [place]. HEENA arranged transport via [facility] at 1545. HEENA updated MD, pt, and RN, all agreeable. All updated and agreeable to plan. Assessment:pt who would benefit from [facility]. Plan:Pt to discharge to [facility] today via [facility] at 1545. All discharge information has been faxed and RX has been sent to [facility]. All updated and agreeable to plan. VONNIE Cadet
[2016-12-01 14:15] VITALS: BP 114/81; PULSE 79; RESP 18; O2SAT 95
--- NOTE | 2016-12-01 15:46 | NUR ---
Discharge Pt discharged at this time. All belongings gathered and returned to pt. IV D/Cd intact. VSS. No complains of increased pain. Discharge packet printed and reviewed with pt. Hard copies of scripts given to pt to transfer to [facility]. Pt taken from [facility] by MELINDA in wheelchair, to front entrance to await ride [facility].
--- NOTE | 2016-12-01 18:42 | PCM.DC.MED ---
Discharge Summary Date of Service Dec 01, 2016 Dates of Hospitalization Date of Hospital Admission Nov 25, 2016 at 15:23 Date of Discharge: Dec 01, 2016 Providers: Admitting Physician: Kai Varma DO Primary Care Physician: [facility] Attending Physician: Kai Varma DO Diagnosis at Time of Discharge Diagnosis at Time of Discharge 1. Alcohol withdrawal 2. Pancreatic mass 3. Acute on chronic gout 4. Hypertension, chronic. 5. Depression and anxiety Procedures XRay, CTs & MRIs PROCEDURE: CT ABDOMEN AND PELVIS WITH CONTRAST IMPRESSION: 1. No inflammatory changes or free fluid noted adjacent to the pancreas on the current study. 2. 2 cm focus of subtle decreased enhancement in the uncinate process of the pancreas. Recommend MRI of the pancreas to exclude malignancy. 3. Focal atrophy involving the body of the pancreas is stable compared to prior examinations. 4. Hepatic steatosis. Approved by: Isabelle Pratt MD, PhD on 11/25/2016 at 13:51 PROCEDURE: MRI ABDOMEN WITH AND WITHOUT CONTRAST IMPRESSION: 1. Ill-defined mass at the pancreatic head visualized only on arterial phase. This lesion demonstrates homogeneous enhancement to the pancreas on the portal venous and delayed phase images. There is also moderate atrophy in the body of the pancreas. Differential considerations include normal appearing pancreatic tissue in the setting of fatty atrophy of the pancreatic body. Given the patient age, fatty atrophy of the pancreas is unlikely. Thus, these findings are suspicious for a hypervascular pancreatic head mass. Given the location adjacent to the first portion of the duodenum, gastroenterology consult and possible EUS is recommended. 2. No findings to suggest biliary or pancreatic ductal obstruction. Approved by: Sadia Garza M.D. on 11/26/2016 at 16:10 Brief History From the history and physical performed by Dr. Blanca Anand on 11/25/2016: Mr. Guero Ling is a 36 year old man with history of alcohol withdrawal seizures , chronic pancreatitis, depression, and gout who presented today to the emergency department for 2 days of vomiting, left upper quadrant abdominal pain , shaking, and decreased appetite. The abdominal pain is mainly in his left upper quadrant and radiates around to the back. It is a severe pain. He gets better with pain medication. His vomiting had bright red blood and he states that it was a small amount of blood. He intentionally stopped drinking alcohol about 2-1/2 days ago. He had been drinking a 12 pack of 8% alcohol beer daily for the past 9 months since his left him. He has not had anything to eat for the past 2 days. He is starting to hear his name being called and is shaking. His right great toe hurts and it is red and swollen. He has been coordinating with [facility] services to be placed in an inpatient rehabilitation for alcohol withdrawal. He reports that he has been seeing a therapist and is ready to make changes and address an underlying depression. He reports that he had a seizure in September 2016 after he stopped drinking alcohol. In the emergency department, he was given 2 mg of lorazepam and a GI cocktail. CT abdomen and pelvis showed a 2 cm focus of subtle decreased enhancement in the uncinate process of the pancreas with the recommendation of the MRI of the pancreas to exclude malignancy; focal atrophy involving the body of the pancreas is stable compared to prior exams; and hepatic steatosis. After he was given morphine, he broke out in hives on his right arm without tongue or throat swelling. He was given Benadryl with improvement. Hospital Course Mr. Guero Ling is a 36 year old man with history of alcohol withdrawal seizures , chronic pancreatitis, depression, and gout who presented today to the emergency department for 2 days of vomiting, left upper quadrant abdominal pain , shaking, and decreased appetite. 1. Alcohol withdrawal, acute, present on admission. Improved. -Patient intentionally stopped drinking alcohol 2 days prior to admission. -He has a history of an alcohol withdrawal seizure. -Liver enzymes mildly elevated -Monitored on telemetry -Famotidine given for GI prophylaxis -Thiamine replacement was given -Diazepam taper given. Watched patient overnight to monitor him 24 hours off of benzodiazepines as patient was high risk due to history of an alcohol withdrawal seizure. -Patient discharged and went directly to [facility] for further rehabilitation. 2. Pancreatic mass, present on admission. Active. -CT scan showed a 2 cm focus of subtle decreased enhancement in the uncinate process of the pancreas. MRI showed a hypervascular pancreatic mass at the head of the pancreas. -Lipase was not elevated, CA19-9 was within normal limits -Ondansetron was give 4-8 mg every 4 hours as needed for nausea and vomiting -Gastroenterology consulted and followed. Their time and recommendations were appreciated. They recommended outpatient follow up for EUS and evaluation by a pancreatic specialist in [place]. 3. Acute on chronic gout, present on admission. Active. -Colchicine 0.6 mg twice a day started on 11/25/16 -Indomethacin 25 mg three times a day as needed for moderate pain -Recommend possibly decreasing colchicine 0.6 mg once daily if patient's symptoms improve 4. Hypertension, chronic. -Resumed patient's home medication of amlodipine 5 mg once daily -Continue to monitor 5. Depression and anxiety, acute on chronic -Increased Gabapentin to 600 mg 3 times a day -Consider possibly adding a SSRI to patient's medication regimen Exam Vital Signs (Last) Date Time Temp Pulse Resp B/P Pulse Ox O2 Delivery O2 Flow Rate FiO2 12/01/16 14:15 36.7 79 18 114/81 95 Room Air Exam General: Anxious, well-developed, well-nourished, appropriately interactive HEENT: Normocephalic, atraumatic. Pupils equal, round, and reactive to light and accommodation. Anicteric sclerae, moist conjunctivae, and no lid lag. Neck: Supple with full range of motion. Cardiovascular: Regular rate and rhythm with no murmurs, rubs, or gallops appreciated Pulmonary: Clear to auscultation bilaterally with no crackles, wheezes, or rhonchi. Abdomen: Diffuse abdominal tenderness. Bowel tones present. Soft, nondistended. No hepatosplenomegaly or masses appreciated. Extremities: Tender right metatarsal phalangeal joint with trace edema. Skin: Normal temperature, turgor, and texture; no rash, ulcers, or subcutaneous nodules appreciated. Neurological: No tremor. Cranial nerves grossly intact. Normal muscle strength , tone, and bulk. Psychiatric: Anxious. Normal affect. Alert and oriented to person, place, and time. Test 11/25/16 10:10 11/25/16 10:20 11/25/16 10:29 11/25/16 18:40 Lactic Acid Level 1.2mmol/L (0.4-2.0) Urine Color Yellow (YELLOW) Urine Appearance Clear (CLEAR,HAZY) Urine pH 7.0 (5.0-8.0) Urine Specific [place] 1.010 (1.003-1.035) Urine Protein Negativemg/dL (NEG,TRACE) Urine Glucose (UA) Negativemg/dL (NEGATIVE) Urine Ketones Negativemg/dL (NEGATIVE) Urine Occult Blood Negative (NEGATIVE) Urine Nitrite Negative (NEGATIVE) Urine Bilirubin Negative (NEGATIVE) Urine Urobilinogen Normalmg/dL (NORMAL) Urine Leukocyte Esterase Negative (NEGATIVE) Urine RBC 0-2/hpf (0-2) Urine WBC 0-5/hpf (0-5) Urine Epithelial Cells Occasional/hpf (NONE-MOD) Urine Crystals None seen (NONE SEEN) Urine Bacteria None/hpf (NONE-FEW) Urine Hyaline Casts None/lpf (NONE) Urine Granular Casts None seen (NONE SEEN) Urine Waxy Casts None seen (NONE SEEN) Urine Red Blood Cell Casts None seen (NONE SEEN) Urine White Blood Cell Casts None seen (NONE SEEN) Urine Mucus None seen (None Seen) Urine Trichomonas None seen (NONE SEEN) Urine Yeast None (NONE SEEN) Urinalysis Comment None Urine Culture Reflexed Not indicated Urine Opiates Screen Negative Urine Methadone Screen Negative Urine Barbiturates Screen Negative Urine Amphetamines Screen Negative Urine Benzodiazepines Screen Positive Urine Cocaine Metabolite Screen Negative Urine Cannabinoids Screen Positive Prothrombin Time 11.1sec (8.1-12.5) Prothromb Time International Ratio 1.04ratio Magnesium Level 1.6mg/dL (1.6-2.6) Ammonia 93ug/dL (18-53) Vitamin B12 Level 472pg/mL (211-946) Test 11/26/16 05:30 11/27/16 14:35 12/01/16 06:46 12/01/16 09:57 Lipase 12U/L (13-60) CA 19-9 Antigen 11U/mL (0-35) Sodium Level 139mEq/L (134-144) Potassium Level 4.3mEq/L (3.5-5.2) Chloride Level 102mEq/L (97-108) Carbon Dioxide Level 22mmol/L (18-29) Blood Urea Nitrogen 9mg/dL (6-20) Creatinine 0.87mg/dL (0.76-1.27) Estimat Glomerular Filtration Rate 105mL/min (>59) Glucose Level 101mg/dL (60-99) Calcium Level 9.1mg/dL (8.5-10.1) Total Bilirubin 0.4mg/dL (0.0-1.2) Aspartate Amino Transf (AST/SGOT) 66U/L (0-50) Alanine Aminotransferase (ALT/SGPT) 54U/L (0-44) Alkaline Phosphatase 66U/L (25-150) Total Protein 7.7g/dL (6.4-8.4) Albumin 4.1g/dL (3.4-5.0) White Blood Count 7.1th/mm3 (3.8-10.1) Red Blood Count 4.78mil/mm3 (4.40-5.80) Hemoglobin 14.9g/dL (13.8-17.2) Hematocrit 42.5% (41.0-50.0) Mean Corpuscular Volume 88.9fL (81-100) Mean Corpuscular Hemoglobin 31.2pg (27.0-35.0) Mean Corpuscular Hemoglobin Concent 35.1% (32.0-37.0) Red Cell Distribution Width 12.7% (12.3-15.4) Platelet Count 204bil/L (150-400) Neutrophils (%) (Auto) 65.8% (40-74) Lymphocytes (%) (Auto) 21.4% (14-46) Monocytes (%) (Auto) 9.1% (4-12) Eosinophils (%) (Auto) 2.7% (0-5) Basophils (%) (Auto) 0.3% (0-3) Discharge Medications Discharge Medications Amlodipine (Amlodipine) 5 Mg Tablet 5 MG PO DAILY Prescribed by: CAROLYN BOYCE MD Colchicine (Colcrys) 0.6 Mg Tablet 0.6 MG PO BID Prescribed by: BLANCA ANAND DO Esomeprazole Magnesium (Esomeprazole Magnesium) 20 Mg Capsule.dr 20 MG PO DAILY (Reported) Gabapentin (Gabapentin) 600 Mg Tablet 600 MG PO TID Prescribed by: BLANCA ANAND DO As needed Indomethacin (Indomethacin) 25 Mg Capsule 25 MG PO TID PRN PRN For Moderate Pain Prescribed by: BLANCA ANAND DO Ondansetron ODT (Zofran ODT) 4 Mg Tablet 4 MG PO Q4H PRN PRN For Nausea Prescribed by: BLANCA ANAND DO oxyCODONE (oxyCODONE) 5 Mg Tablet 5 MG PO Q6H PRN PRN For Moderate Pain Prescribed by: MARILEE DUQUE MD Followup Plan Discharge Diet: No restrictions Discharge Activity: Limited until seen by PCP Patient Instructions Avoid being around alcohol to help with your sobriety. You are being transferred to [facility]. Continue therapy. Continue gabapentin 600 mg three times per day. Continue colchicine 0.6 mg twice per day until your gout flare improves and at that point, you can continue 0.6 mg once daily to prevent another gout flare. You can also take indomethacin 25 mg every 8 hours as needed for moderate pain. Follow up with your primary care provider in order to discuss the status of your referral to a gastroenterology (pancreas) specialist in [place] for further evaluation of the pancreatic mass. We have contacted your primary care office and they are working on the referral. You can continue to take ondansetron 4 mg every 4 hours as needed for nausea/vomiting. I also recommend discussing possibly starting a medication for depression and anxiety. You have an appointment on 12/05/[address] Hay at 10: 30 AM at the [facility] in [facility] to follow up for your hospital stay. Follow-up Provider: Yahir Hay MD Follow-up with PCP in: Other (12/05/16 at 10:30 AM) [facility] Follow-up in: Other (as soon as possible for pancreatic mass) Time spent 35 min Attending Statement The patient was seen and examined together with Resident/House-staff on 12/01/16 and I agree with the history, exam and plan as outlined in the note above. Blanca Anand DO Dec 01, 2016 18:42 Dillon Arevalo Dec 02, 2016 18:04
== END 2016-12-01 16:01 | disposition home or self-care (01) | DRG 896 ==
LOC: SED 09:07 → MPC 15:23 → OBSVTOIN 15:23 → MPC 16:07
PROVIDERS: ADMIT Family Medicine; ATTEND Family Medicine
DX: F10.239 Alcohol dependence with withdrawal, unspecified (principal); K85.20 Alcohol induced acute pancreatitis without necrosis or infection; K86.0 Alcohol-induced chronic pancreatitis; F10.20 Alcohol dependence, uncomplicated; M10.9 Gout, unspecified; I10 Essential (primary) hypertension; G89.29 Other chronic pain; F32.9 Major depressive disorder, single episode, unspecified; F41.9 Anxiety disorder, unspecified; K86.89 Other specified diseases of pancreas

== ENCOUNTER 2016-12-20 10:53 | Emergency (ER) | payer OTHER ==
[~2016-12-20] VITALS: Ht 175.3 cm; Wt 86.4 kg
[~2016-12-20 10:53] MED LIST changes: +ESOM20CA39 PO; -GABA300C PO; +GABA600T2 PO; +INDO25CA PO; -MELA5TAB14 PO; -PANT20TA2 PO
[2016-12-20 10:56] VITALS: BP 158/116; PULSE 106; RESP 18; O2SAT 97
--- NOTE | 2016-12-20 11:08 | ED.REPORT ---
HPI-General Illness Date of Service Dec 20, 2016 ED Provider: Cindy Martinez MD Pt is a 36 y.o. male who is a frequent ED visitor for pancreatitis secondary to alcohol use with a hx of ETOH abuse who presents to the ED c/o abdominal pain onset 3 days ago. Pt reports associated vomiting, black stool, and chest pain. He denies hematemesis. Pt states that he was recently 16 days sober from ETOH then relapsed and went on a "week-long binge". He reports being sober for the past 2 days and is now experiencing withdrawal symptoms. Pt had an endoscopic ultrasound of his pancreas performed at yesterday, it showed chronic pancreatitis with no masses or cysts. Nursing Notes Stated Complaint: CHRONIC PANCREATITIS PAIN,ALCOHOL WITHDRAWAL,CP Chief Complaint: Male Abdominal Pain Nursing Notes Reviewed: Yes Allergies: Coded Allergies: No Known Allergies (Verified Allergy, Unknown, 11/25/16) Scheduled Amlodipine (Amlodipine) 5 Mg Tablet 5 MG PO DAILY Colchicine (Colcrys) 0.6 Mg Tablet 0.6 MG PO BID Esomeprazole Magnesium (Esomeprazole Magnesium) 20 Mg Capsule.dr 20 MG PO DAILY Gabapentin (Gabapentin) 600 Mg Tablet 600 MG PO TID Scheduled PRN Indomethacin (Indomethacin) 25 Mg Capsule 25 MG PO TID PRN PRN For Moderate Pain Lorazepam (Lorazepam) 2 Mg Tablet 2 MG PO TID PRN PRN For Anxiety Ondansetron ODT (Zofran ODT) 4 Mg Tablet 4 MG PO Q4H PRN PRN For Nausea oxyCODONE (oxyCODONE) 5 Mg Tablet 5 MG PO Q6H PRN PRN For Moderate Pain General Time Seen by MD: 11:02 Chief Complaint Abdominal pain Hx Obtained From: Patient Arrived By: Walk-in Sudden in Onset?: Yes Onset Occurred: 3 days ago Symptom Duration: Since onset Location: : Abdomen Quality: Painful Severity: Current: Moderate Severity: Maximum: Severe Recent Healthcare: Recent hospitalization Similar Sx Previous: Yes Past Medical History Past Medical History Multiple episodes of pancreatitis secondary to alcohol use Alcohol dependence and abuse Prior history of withdrawal with withdrawal seizure x1 Chronic mild left hydronephrosis, persistent since February 2012. Hypertension Reports: Depression Past Surgical History None reported Family History Noncontributory Smoking History Never Smoker Social History Alcohol Use: >5 per day Drug Use: Denies drug use Other Social History: Good social support, Frequent ED visitor, , Local resident Ambulatory Status Independent Review of Systems ETOH withdrawal Full Review of Systems Cardiovascular: Reports: Chest pain GI: Reports: Abdominal pain, Bloody/tarry stool (black), Nausea, Vomiting, Denies: Hematemesis Complete sys rev & neg: except as marked. Physical Exam Vital Signs Vital Signs Date Time Temp Pulse Resp B/P Pulse Ox O2 Delivery O2 Flow Rate FiO2 12/20/16 13:45 86 16 147/90 98 Room Air 12/20/16 12:32 87 17 146/93 98 Room Air 12/20/16 11:52 98 20 142/96 98 Room Air 12/20/16 10:56 36.8 106 18 158/116 97 Room Air Initial VS: Reviewed Head / Eyes: Atraumatic, Normocephalic Extremities: Vascular intact, Neuro intact Skin: Warm, Dry, No cyanosis Neurologic: Alert, Oriented, Nonfocal Psychiatric: Mood/affect normal, Behavior normal, Normal thought content General/Constitutional: Awake, Alert, Well appearing, Well developed, Well hydrated, Well nourished, Not toxic appearing Respiratory / Chest: Atraumatic, Breath sounds NL, Breath sounds = bilat, No respiratory distress Cardiovascular: Heart rate NL, Regular rhythm, Heart sounds NL, Peripheral circulation NL Abdomen: Atraumatic, Soft, Non-tender, No distention Interpretation & Diagnostics 12/19/16 Endoscopic US of Pancreas at : Hyperechoic foci with shadowing of pancreas consistent with pancreatitis No masses, cysts, or tumors. This ultrasound was done in response to abdominal MRI that suggested possible pancreatic lesion. IMPRESSION: 1. Ill-defined mass at the pancreatic head visualized only on arterial phase. This lesion demonstrates homogeneous enhancement to the pancreas on the portal venous and delayed phase images. There is also moderate atrophy in the body of the pancreas. Differential considerations include normal appearing pancreatic tissue in the setting of fatty atrophy of the pancreatic body. Given the patient age, fatty atrophy of the pancreas is unlikely. Thus, these findings are suspicious for a hypervascular pancreatic head mass. Given the location adjacent to the first portion of the duodenum, gastroenterology consult and possible EUS is recommended. 2. No findings to suggest biliary or pancreatic ductal obstruction. Dictated by: Sadia Garza M.D. on 11/26/2016 at 15:45 Lab Results Interpretation Result Diagram: 12/20/16 1120 12/20/16 1120 Test 12/20/16 10:20 12/20/16 11:20 Hold Doll Top Tube Received (Received) White Blood Count 10.0th/mm3 (3.8-10.1) Red Blood Count 4.80mil/mm3 (4.40-5.80) Hemoglobin 15.0g/dL (13.8-17.2) Hematocrit 41.8% (41.0-50.0) Mean Corpuscular Volume 87.1fL (81-100) Mean Corpuscular Hemoglobin 31.3pg (27.0-35.0) Mean Corpuscular Hemoglobin Concent 35.9% (32.0-37.0) Red Cell Distribution Width 11.8% (12.3-15.4) Platelet Count 271bil/L (150-400) Neutrophils (%) (Auto) 78.8% (40-74) Lymphocytes (%) (Auto) 16.7% (14-46) Monocytes (%) (Auto) 4.2% (4-12) Eosinophils (%) (Auto) 0.1% (0-5) Basophils (%) (Auto) 0% (0-3) Sodium Level 137mEq/L (134-144) Potassium Level 3.7mEq/L (3.5-5.2) Chloride Level 98mEq/L (97-108) Carbon Dioxide Level 20mmol/L (18-29) Blood Urea Nitrogen 8mg/dL (6-20) Creatinine 0.69mg/dL (0.76-1.27) Estimat Glomerular Filtration Rate 137mL/min (>59) Glucose Level 127mg/dL (60-99) Calcium Level 9.4mg/dL (8.5-10.1) Total Bilirubin 0.8mg/dL (0.0-1.2) Aspartate Amino Transf (AST/SGOT) 38U/L (0-50) Alanine Aminotransferase (ALT/SGPT) 36U/L (0-44) Alkaline Phosphatase 86U/L (25-150) Total Protein 8.9g/dL (6.4-8.4) Albumin 4.6g/dL (3.4-5.0) Lipase 66U/L (13-60) ECG Interpretation ECG Interpretation: No ischemia Time: 11:17 Interpreted by: ED physician Normal ECG Interpretation: Normal ECG w/ rate of... (92), Normal rate, Normal sinus rhythm Re-Eval/Medical Decision Med Decision/Clinical Course If she certainly Presents after alcohol binge with similar similar complaints to previously withdrawal symptoms and acute abdominal pain. He is actually been sober now for 3 days is doing quite well with his overall detox. He is given a dose of IV Valium in the emergency department. A banana bag and labs are drawn. He is not giving any narcotics. He has a slightly elevated lipase, which is consistent with all previous findings. Endoscopic ultrasound of the pancreas that was done yesterday at the [facility] does not suggest masses or tumors and is consistent with chronic pancreatitis. He is sent home with additional Ativan to help with withdrawal symptoms. He is not interested in crisis respite at this point. Continues to complain of abdominal pain we discussed the chronic pancreatitis portion and the fact that I am still not able to give him narcotics for chronic pain. Source of Hx: Old records Time of Eval: 13:49 Patient Status: No relief Re-Evaluation/Progress Note: Pt rechecked. Pt is still in pain, but will not be administered Narcotics and instead will be given 2 extra-strength Tylenol/ Discussed lab results and plan for discharge. Counseled Regarding: Diagnosis, Lab results, Need for follow-up, When/why to return to ED Discharge & Departure Primary Impression: Chronic pancreatitis Pancreatitis type: alcohol induced Qualified Code: K86.0 - Alcohol-induced chronic pancreatitis Additional Impressions: Alcoholism Chronic pain Disposition: Home Discharge Condition All VS Reviewed: Yes Patient Instructions: Abuse of Alcohol (ED), Alcohol Withdrawal (ED), Pancreatitis (ED) Additional Instructions: Thank you for entrusting us with your care today. You were seen here today for your chronic pancreatitis and alcohol withdrawal. Ibuprofen will make your abdominal pain worse and you should not consume Aspirin. You can take 2 extra strength Tylenol twice a day for pain at most. I will prescribe you Ativan I recommend you follow-up with your primary care provider regarding your chronic pancreatitis to discuss further treatment options. I wish you the best of luck with your recovery! Referrals: [facility] (PCP) Scribe Attestation Portions of this note were transcribed by Ailyn Fierro. I, Dr. Martinez personally performed the history, physical exam and medical decision-making; I reviewed and confirmed the accuracy of the information in the transcribed note. Signed by: Loc Freeman, 12/20/16 and 1354 copies to: [facility] Cindy Martinez MD Dec 20, 2016 11:08 AILYN FIERRO Dec 20, 2016 11:16
[2016-12-20] MEDS ORDERED: Thiamine Inj 100 MG, Folic Acid Inj 1 MG, Magnesium Sulfate 50% Inj 2 GM, Multivitamins... IV ONE ×5 (11:10)
[2016-12-20 11:50] LABS: BASOPHILS % (AUTO) 0 % (0-3); EOSINOPHILS % (AUTO) 0.1 % (0-5); MONOCYTES % (AUTO) 4.2 % (4-12); Mean Corpuscular Hemoglobin 31.3 pg (27.0-35.0); Mean Corpuscular Volume 87.1 fL (81-100); NEUTROPHILS % (AUTO) 78.8 % (40-74); Platelet Count 271 bil/L (150-400)
[2016-12-20 11:52] VITALS: BP 142/96; PULSE 98; RESP 20; O2SAT 98
[2016-12-20] MEDS: Ondansetron 2 mg/mL 2 mL Inj IVPUSH PRN ×2 (11:59→13:51)
[2016-12-20 12:32] VITALS: BP 146/93; PULSE 87; RESP 17; O2SAT 98
[2016-12-20 13:45] VITALS: BP 147/90; PULSE 86; RESP 16; O2SAT 98
[2016-12-20] MEDS ORDERED: LORA2TAB PO (13:59)
[2016-12-20 14:23] VITALS: BP 134/83; PULSE 76; RESP 15; O2SAT 98
== END 2016-12-20 14:30 | disposition home or self-care (01) ==
LOC: SED 10:58
DX: K86.0 Alcohol-induced chronic pancreatitis (principal); F10.239 Alcohol dependence with withdrawal, unspecified; G89.29 Other chronic pain; R07.9 Chest pain, unspecified; I10 Essential (primary) hypertension; Z87.448 Personal history of other diseases of urinary system
CPT/HCPCS: 36415; 80053; 83690; 85025; 90791; 93005; 96365; 96375; 99285; J2405; J3360; J3475; J7030

== ENCOUNTER 2016-12-30 09:44 | Emergency (ER) | payer OTHER ==
[~2016-12-30 09:44] MED LIST changes: +LORA2TAB PO
[2016-12-30 10:06] VITALS: BP 155/114; PULSE 108; RESP 20; O2SAT 97
--- NOTE | 2016-12-30 10:42 | ED.REPORT ---
HPI-Overdose/Alcohol Toxicity Date of Service Dec 30, 2016 ED Provider: Yasmany Del Rosario DO History of Present Illness: wants to go to detox for alcohol, chronic pancreatitis pain. primary care is syed. drinking for 7 days. per his report. Nursing Notes Stated Complaint: ALCOHOL WD,ABD PAIN Chief Complaint: Substance Abuse Nursing Notes Reviewed: Yes Allergies: Coded Allergies: No Known Allergies (Verified Allergy, Unknown, 11/25/16) Scheduled Amlodipine (Amlodipine) 5 Mg Tablet 5 MG PO DAILY Colchicine (Colcrys) 0.6 Mg Tablet 0.6 MG PO BID Esomeprazole Magnesium (Esomeprazole Magnesium) 20 Mg Capsule.dr 20 MG PO DAILY Gabapentin (Gabapentin) 600 Mg Tablet 600 MG PO TID Scheduled PRN Indomethacin (Indomethacin) 25 Mg Capsule 25 MG PO TID PRN PRN For Moderate Pain Lorazepam (Lorazepam) 2 Mg Tablet 2 MG PO TID PRN PRN For Anxiety Ondansetron ODT (Zofran ODT) 4 Mg Tablet 4 MG PO Q4H PRN PRN For Nausea oxyCODONE (oxyCODONE) 5 Mg Tablet 5 MG PO Q6H PRN PRN For Moderate Pain General Time Seen by Provider: 11:20 Chief Complaint Intoxicated, alcohol Hx Obtained From: Patient Risk-Overdose/Alcohol Tox )( Suicide Risk Stratification : Alcohol use: Substance abuseNo: Access to firearms, Close associate suicide, Family Hx of Suicide, Previous attempt, Prior psych admission RF Statements: Risk factors reviewed Past Medical History Past Medical History Multiple episodes of pancreatitis secondary to alcohol use Alcohol dependence and abuse Prior history of withdrawal with withdrawal seizure x1 Chronic mild left hydronephrosis, persistent since February 2012. Hypertension Denies: Asthma Reports: Depression Past Surgical History chronic pancreatisic Family History Noncontributory Smoking History Never Smoker Social History Alcohol Use: >5 per day Drug Use: Denies drug use Other Social History: Good social support, Frequent ED visitor, Local resident Occupation lives with parents, no work or school 12/30/2016 Ambulatory Status Independent Review of Systems Basic Review of Systems : No dysuria, No frequency Allergy / Immune: No allergy Physical Exam Initial Vital Signs Vital Signs (First) Date Time Temp Pulse Resp B/P Pulse Ox O2 Delivery O2 Flow Rate FiO2 12/30/16 10:06 37 108 20 155/114 97 Room Air Initial VS: Reviewed, Vital signs abnormal Head / Eyes: Atraumatic, Normocephalic, PERRL Lymphatic: No lymphadenopathy Skin: Warm, Dry, No cyanosis General/Constitutional: Awake, Alert, No acute distress, Well appearing, Well developed, Well hydrated Respiratory / Chest: Atraumatic, Breath sounds NL, Breath sounds = bilat, No respiratory distress Cardiovascular: Heart rate NL, Regular rhythm, Heart sounds NL Abdomen: Atraumatic, Soft, Non-tender, McBurney's non-tender Neurologic: Oriented X3, Speech NL, No motor deficits Psychiatric: Affect NL, Mood NL, Not suicidal Interpretation & Diagnostics Lab Results Interpretation Result Diagram: 12/30/16 1105 12/30/16 1105 Test 12/30/16 11:05 12/30/16 11:47 White Blood Count 7.1th/mm3 (3.8-10.1) Red Blood Count 4.76mil/mm3 (4.40-5.80) Hemoglobin 14.9g/dL (13.8-17.2) Hematocrit 42.7% (41.0-50.0) Mean Corpuscular Volume 89.7fL (81-100) Mean Corpuscular Hemoglobin 31.3pg (27.0-35.0) Mean Corpuscular Hemoglobin Concent 34.9% (32.0-37.0) Red Cell Distribution Width 12.4% (12.3-15.4) Platelet Count 236bil/L (150-400) Neutrophils (%) (Auto) 67.5% (40-74) Lymphocytes (%) (Auto) 22.4% (14-46) Monocytes (%) (Auto) 8.4% (4-12) Eosinophils (%) (Auto) 1.5% (0-5) Basophils (%) (Auto) 0.1% (0-3) Sodium Level 138mEq/L (134-144) Potassium Level 3.8mEq/L (3.5-5.2) Chloride Level 99mEq/L (97-108) Carbon Dioxide Level 22mmol/L (18-29) Blood Urea Nitrogen 9mg/dL (6-20) Creatinine 0.93mg/dL (0.76-1.27) Estimat Glomerular Filtration Rate 97mL/min (>59) Glucose Level 105mg/dL (60-99) Calcium Level 9.4mg/dL (8.5-10.1) Total Bilirubin 0.6mg/dL (0.0-1.2) Aspartate Amino Transf (AST/SGOT) 47U/L (0-50) Alanine Aminotransferase (ALT/SGPT) 42U/L (0-44) Alkaline Phosphatase 64U/L (25-150) Total Protein 8.7g/dL (6.4-8.4) Albumin 4.4g/dL (3.4-5.0) Lipase 12U/L (13-60) Hold Doll Top Tube Received (Received) Hold Urine Received (Received) Lab Results Interpretation: u tox positive for benzo's and TCA Re-Eval/Medical Decision Med Decision/Clinical Course 36 year old male with long hx of etoh abuse. REquesting detox at crisis center, Crisis center declines to accept him at this time due to not good isaiah. Patient is uspset and no one is willing to take care of him. Wants medication any meds, pain med, benzo's. Advised patient that primary care is the best place to obtain that type of medication. Not happy with response. Patient with signs of personality disorder and ETOH abuse. No sign of active WD at this time. Discharge & Departure Impression: Primary Impression: Alcohol abuse Patient Instructions: Abuse of Alcohol (ED) Additional Instructions: At this point in time, there are no beds available at Crisis. Your labs are looking great. Your white count is normal and your lipase is low! I understand you have chronic pain, this is best addressed in primary care. Your anxiety is also something that is best addressed in primary care. Please call for a follow up appointment. At this time your vitals are normal. Referrals: Yahir Hay MD (PCP) EDSupervising Provider for APC: Jose Angel Heredia MD copies to: Yahir Hay MD, Timothy S DO Dec 30, 2016 10:42 Anne Ledezma Dec 30, 2016 11:21
[2016-12-30 10:44] VITALS: BP 138/93; PULSE 90; RESP 16; O2SAT 98
[2016-12-30 11:36] LABS: BASOPHILS % (AUTO) 0.1 % (0-3); EOSINOPHILS % (AUTO) 1.5 % (0-5); MONOCYTES % (AUTO) 8.4 % (4-12); Mean Corpuscular Hemoglobin 31.3 pg (27.0-35.0); Mean Corpuscular Volume 89.7 fL (81-100); NEUTROPHILS % (AUTO) 67.5 % (40-74); Platelet Count 236 bil/L (150-400)
[2016-12-30 11:44] VITALS: BP 126/92; PULSE 88; RESP 14; O2SAT 96
[2016-12-30 13:06] VITALS: BP 125/85; PULSE 94; RESP 14; O2SAT 98
[2016-12-30 13:45] VITALS: BP 123/84; PULSE 104; RESP 18; O2SAT 97
== END 2016-12-30 12:31 | disposition home or self-care (01) ==
LOC: SED 09:44
DX: F10.10 Alcohol abuse, uncomplicated (principal); I10 Essential (primary) hypertension

== ENCOUNTER 2017-02-12 19:09 | Emergency (ER) | payer OTHER ==
[~2017-02-12] VITALS: Ht 180.3 cm; Wt 81.4 kg
[2017-02-12 19:16] VITALS: BP 148/104; PULSE 139; RESP 16; O2SAT 97
[2017-02-12] MEDS ORDERED: Pantoprazole 4 mg/mL 10 mL Inj IVPUSH ONE (19:20)
[2017-02-12] MEDS ORDERED: Thiamine Inj 100 MG in 0.9% Sodium Chloride 50 ML IV ONE (19:20)
[2017-02-12] MEDS ORDERED: 0.9% Sodium Chloride 1,000 ML IV ONE (19:20)
--- NOTE | 2017-02-12 19:20 | ED.REPORT ---
HPI-Abd Pain M 40 and Over Date of Service February 12, 2017 ED Provider: Dr. Floyd 36 y/o male with a hx of alcohol abuse and pancreatitis presents to the ED complaining of severe abdominal pain. The pt reports experiencing alcohol withdrawal, onset today. The pt last had a drink 2 days ago. Associated sx include nausea, vomiting, headache, tremors, depression, anxiety and suicidal thoughts w/ plans to slit wrists. Pt has no hx of suicide. Pt an added stress of remembering his leaving him 1 year ago. Frequent ED and hospital user. History of chronic abd pain related to pancreatitis. States has relapsed for about 3 weeks. would like to go to sobering PCP Dr. Hay Nursing Notes Stated Complaint: ALCOHOL WITHDRAWAL,PANCREATITIS PAIN Chief Complaint: Substance Abuse Nursing Notes Reviewed: Yes Allergies: Coded Allergies: No Known Allergies (Verified Allergy, Unknown, 02/12/17) Scheduled Amlodipine (Amlodipine) 5 Mg Tablet 5 MG PO DAILY Colchicine (Colcrys) 0.6 Mg Tablet 0.6 MG PO BID Esomeprazole Magnesium (Esomeprazole Magnesium) 20 Mg Capsule.dr 20 MG PO DAILY Gabapentin (Gabapentin) 600 Mg Tablet 600 MG PO TID Scheduled PRN Indomethacin (Indomethacin) 25 Mg Capsule 25 MG PO TID PRN PRN For Moderate Pain Lorazepam (Lorazepam) 2 Mg Tablet 2 MG PO TID PRN PRN For Anxiety Ondansetron ODT (Zofran ODT) 4 Mg Tablet 4 MG PO Q4H PRN PRN For Nausea oxyCODONE (oxyCODONE) 5 Mg Tablet 5 MG PO Q6H PRN PRN For Moderate Pain General Time Seen by MD: 19:20 Chief Complaint Abdominal pain Hx Obtained From: Patient Arrived By: Walk-in Sudden in Onset?: Yes Onset Occurred: 2 days ago Symptom Duration: Since onset Location: : Diffuse Quality: Painful Severity: Current: Moderate Associated with: Reports: Nausea, Vomiting Similar Sx Previous: Yes Past Medical History Past Medical History Multiple episodes of pancreatitis secondary to alcohol use Alcohol dependence and abuse Prior history of withdrawal with withdrawal seizure x1 Chronic mild left hydronephrosis, persistent since February 2012. Hypertension Reports: Depression Past Surgical History Pancreatic mass removal Family History Noncontributory Smoking History Never Smoker Social History Alcohol Use: >5 per day Drug Use: Denies drug use Other Social History: Good social support, Frequent ED visitor, Local resident Occupation lives with parents, no work or school 12/30/2016 Ambulatory Status Independent Review of Systems Constitutional: Denies: Fever GI: Reports: Abdominal pain, Nausea, Vomiting Complete sys rev & neg: except as marked. Neurologic: Reports: Headache, Shaking Psychiatric: Reports: Anxiety, Depression, Stress, Suicidal ideation Physical Exam Initial Vital Signs Vital Signs (First) Date Time Temp Pulse Resp B/P Pulse Ox O2 Delivery O2 Flow Rate FiO2 02/12/17 19:16 36.6 139 16 148/104 97 Room Air Initial VS: Reviewed Head / Eyes: Atraumatic, Normocephalic, PERRL ENT: Mucous membranes moist, Conjunctiva normal, No scleral icterus Neck: Supple, Non-tender, Full range of motion Extremities: Vascular intact, Neuro intact, No swelling, No tenderness Skin: Warm, Dry, No cyanosis Neurologic: Alert, Oriented (Mildly tremulous) General/Constitutional: Awake, Alert Respiratory / Chest: Breath sounds NL, Breath sounds = bilat, No respiratory distress, No rales, No rhonchi, No wheezing Cardiovascular: Regular rhythm, Heart sounds NL, No gallop, No murmurs, No rubs , Peripheral circulation NL Heart Rate / Rhythm: Positive: Tachycardia (slightly) Abdomen: Soft Tenderness/Guarding/Rebound: Positive: Tender epigastric Back: Atraumatic, Full range of motion Psychiatric: No hallucinations Abnormal Thinking / Perception: Positive: Suicidal, no plan (without intent) Interpretation & Diagnostics Lab Results Interpretation Result Diagram: 02/12/17200902/12/172009 Test 02/12/17 20:10 02/12/17 20:27 02/12/17 22:37 White Blood Count 6.6th/mm3 (3.8-10.1) Red Blood Count 4.60mil/mm3 (4.40-5.80) Hemoglobin 14.6g/dL (13.8-17.2) Hematocrit 39.6% (41.0-50.0) Mean Corpuscular Volume 86.1fL (81-100) Mean Corpuscular Hemoglobin 31.7pg (27.0-35.0) Mean Corpuscular Hemoglobin Concent 36.9% (32.0-37.0) Red Cell Distribution Width 13.4% (12.3-15.4) Platelet Count 270bil/L (150-400) Neutrophils (%) (Auto) 71.0% (40-74) Lymphocytes (%) (Auto) 21.4% (14-46) Monocytes (%) (Auto) 5.2% (4-12) Eosinophils (%) (Auto) 2.0% (0-5) Basophils (%) (Auto) 0.2% (0-3) Prothrombin Time 11.5sec (8.1-12.5) Prothromb Time International Ratio 1.07ratio Sodium Level 137mEq/L (134-144) Potassium Level 3.7mEq/L (3.5-5.2) Chloride Level 100mEq/L (97-108) Carbon Dioxide Level 18mmol/L (18-29) Blood Urea Nitrogen 13mg/dL (6-20) Creatinine 0.78mg/dL (0.76-1.27) Estimat Glomerular Filtration Rate 119mL/min (>59) Glucose Level 106mg/dL (60-99) Lactic Acid Level 1.9mmol/L (0.4-2.0) Calcium Level 8.6mg/dL (8.5-10.1) Magnesium Level 1.7mg/dL (1.6-2.6) Total Bilirubin 1.0mg/dL (0.0-1.2) Aspartate Amino Transf (AST/SGOT) 63U/L (0-50) Alanine Aminotransferase (ALT/SGPT) 48U/L (0-44) Alkaline Phosphatase 70U/L (25-150) Total Protein 7.9g/dL (6.4-8.4) Albumin 3.9g/dL (3.4-5.0) Lipase 22U/L (13-60) Alcohols < 10mg/dL (0-10) Urine Color Yellow (YELLOW) Urine Appearance Clear (CLEAR,HAZY) Urine pH 5.5 (5.0-8.0) Urine Specific [place] 1.018 (1.003-1.035) Urine Protein Negativemg/dL (NEG,TRACE) Urine Glucose (UA) Negativemg/dL (NEGATIVE) Urine Ketones Negativemg/dL (NEGATIVE) Urine Occult Blood Negative (NEGATIVE) Urine Nitrite Negative (NEGATIVE) Urine Bilirubin Negative (NEGATIVE) Urine Urobilinogen Normalmg/dL (NORMAL) Urine Leukocyte Esterase Negative (NEGATIVE) Urine RBC 0-2/hpf (0-2) Urine WBC 0-5/hpf (0-5) Urine Epithelial Cells Occasional/hpf (NONE-MOD) Urine Crystals None seen (NONE SEEN) Urine Bacteria None/hpf (NONE-FEW) Urine Hyaline Casts None/lpf (NONE) Urine Granular Casts None seen (NONE SEEN) Urine Waxy Casts None seen (NONE SEEN) Urine Red Blood Cell Casts None seen (NONE SEEN) Urine White Blood Cell Casts None seen (NONE SEEN) Urine Mucus None seen (None Seen) Urine Trichomonas None seen (NONE SEEN) Urine Yeast None (NONE SEEN) Urine Culture Reflexed Not indicated ECG Interpretation ECG Interpretation: `Sinus tachycardia. rate 111 Time: 20:15 Interpreted by: ED physician Re-Eval/Medical Decision Med Decision/Clinical Course 36-year-old male with alcoholism and chronic pancreatitis. Presents with alcohol withdrawal, evidenced by tachycardia and CIWA scores above 10. We gave IV fluids, a bananna bag and Diazepam titrated to CIWA. While he is still tachycardic, it is much improved. We did initally treat with opiated but have stopped these. He is not actively suicidal though endorses some SI. Does not seem to have an acute problem requiring hospitalization. Hope to get him to detox in the am Source of Hx: Old records Time of Eval: 00:09 Re-Evaluation/Progress Note: Pt has improved with Valium. Requesting bed at detox. Counseled Regarding: Diagnosis, Lab results Discharge & Departure Shift Change Sign-Out Patient Care Transferred: Yes Discussed Complaint(s): Yes Laboratory Evaluation: Back, reviewed by me Response to Therapy: Improved To Dr Donovan at 0300 Primary Impression: Alcohol withdrawal Complication of substance-induced condition: uncomplicated Qualified Code: F10.230 - Alcohol dependence with withdrawal, uncomplicated Additional Impression: Chronic pancreatitis Pancreatitis type: alcohol induced Qualified Code: K86.0 - Alcohol-induced chronic pancreatitis Vital Signs - All Vital Signs Date Time Temp Pulse Resp B/P Pulse Ox O2 Delivery O2 Flow Rate FiO2 02/12/17 23:53 116 14 153/83 97 Room Air 02/12/17 20:39 116 19 147/84 96 Room Air 02/12/17 19:16 36.6 139 16 148/104 97 Room Air )( All Prior VS Reviewed: Yes Referrals: Yahir Hay MD (PCP) Scribe Attestation Portions of this note were transcribed by Brooklyn George and Nohemi Fritz. I, , personally performed the history, physical exam and medical decision- making;I reviewed and confirmed the accuracy of the information in the transcribed note. Signed by Brooklyn George and Noehmi Fritz, Scribe. 02/13/17 0016 copies to: Yahir Hay MD, Donald L MD February 12, 2017 19:20 Brooklyn George February 12, 2017 20:54 Nohemi Fritz February 13, 2017 00:14
[2017-02-12] MEDS: HYDROmorphone 0.5 mg/0.5 mL iSecure Syringe IVPUSH PRN ×3 (20:06→23:52)
[2017-02-12] MEDS: Ondansetron 2 mg/mL 2 mL Inj IVPUSH PRN ×3 (20:06→23:52)
[2017-02-12 20:22] LABS: BASOPHILS % (AUTO) 0.2 % (0-3); MONOCYTES % (AUTO) 5.2 % (4-12); Mean Corpuscular Hemoglobin 31.7 pg (27.0-35.0); Mean Corpuscular Volume 86.1 fL (81-100); Platelet Count 270 bil/L (150-400)
[2017-02-12 20:38] LABS: INR 1.07 ratio
[2017-02-12 20:39] VITALS: BP 147/84; PULSE 116; RESP 19; O2SAT 96
[2017-02-12 20:45] LABS: Magnesium 1.7 mg/dL (1.6-2.6)
[2017-02-12 22:58] LABS: APPEARANCE,URINE CLEAR (CLEAR,HAZY); COLOR,URINE YELLOW (YELLOW); OCCULT BLOOD,URINE NEGATIVE (NEGATIVE); PH,URINE 5.5 (5.0-8.0); UROBILINOGEN,URINE NORMAL (NORMAL)
[2017-02-12 23:53] VITALS: BP 153/83; PULSE 116; RESP 14; O2SAT 97
[2017-02-13] MEDS ORDERED: Multivitamin w/Vit K Inj 10 ML, Thiamine Inj 100 MG, Folic Acid Inj 1 MG, Magnesium Sul... IV ONE ×5 (00:15)
[2017-02-13 02:00] VITALS: BP 158/105; PULSE 99; RESP 15; O2SAT 98
[2017-02-13] MEDS: HYDROmorphone 0.5 mg/0.5 mL iSecure Syringe IVPUSH PRN (02:03)
[2017-02-13] MEDS: Ondansetron 2 mg/mL 2 mL Inj IVPUSH PRN (02:04)
[2017-02-13 04:00] VITALS: BP 148/86; PULSE 95; RESP 16; O2SAT 95
[2017-02-13 05:34] VITALS: BP 148/88; PULSE 90; RESP 16; O2SAT 96
[2017-02-13] MEDS ORDERED: Alum-Mag Hydrox-Simeth 30 mL Suspension PO ONE (06:30)
[2017-02-13 07:24] VITALS: BP 154/86; PULSE 91; RESP 9; O2SAT 98
[2017-02-13 08:48] VITALS: BP 145/84; PULSE 85; RESP 12; O2SAT 96
[2017-02-13 10:27] VITALS: BP 135/89; PULSE 79; RESP 11; O2SAT 96
== END 2017-02-13 10:28 | disposition home or self-care (01) ==
LOC: SED 19:09
DX: F10.230 Alcohol dependence with withdrawal, uncomplicated (principal); K86.0 Alcohol-induced chronic pancreatitis; I10 Essential (primary) hypertension; F32.9 Major depressive disorder, single episode, unspecified
CPT/HCPCS: 36415; 80053; 81000; 83605; 83690; 83735; 85025; 85610; 93005; 96361; 96365; 96366; 96375; 96376; 99285; G0480; J1170; J2405; J3360; J3475; J7030

== ENCOUNTER 2017-02-18 14:35 | Emergency (ER) | payer OTHER ==
[~2017-02-18] VITALS: Ht 175.3 cm; Wt 84.1 kg
[2017-02-18 14:52] VITALS: BP 146/103; PULSE 115; RESP 14; O2SAT 97
[2017-02-18 15:54] LABS: BASOPHILS % (AUTO) 0.1 % (0-3); EOSINOPHILS % (AUTO) 2.3 % (0-5); MONOCYTES % (AUTO) 7.5 % (4-12); Mean Corpuscular Volume 91.9 fL (81-100); Platelet Count 246 bil/L (150-400)
[2017-02-18 16:18] LABS: Magnesium 2.1 mg/dL (1.6-2.6)
--- NOTE | 2017-02-18 16:26 | ED.REPORT ---
HPI-Psychiatric Illness Date of Service February 18, 2017 ED Provider: Doc,Ed MD 36 yo male with history of alcohol use disorder, chronic pancreatitis, gout, and depression who presents to the ED for symptoms of alcohol withdrawal and desire for detox. Patient admits to excess drinking of 12 packs of 8% beers daily, last drink was at 0100am this morning. When he woke up this morning, he feels sick with increasing anxiety, depression, tremor, LUQ abdominal pain, nausea, blood-tinged emesis, chest pain, and hallucinations. He reports to feel very depressed with suicidal ideation in the last couple days due to stress of his leaving him a year ago. He wanted to , but had no specific plan to kill himself. He denies suicidal thought currently, but admits to severe depression and would like psychiatric help. Patient has been in the ER multiple times for similar complaint. He has been wanting to go to a rehab center without success. The last time he was at a rehab was 6 years ago and he was able to stay sober for about 3 months before he went back to [facility]. He saw his PCP, Dr. Hay, today in the clinic and was recommended to go to the ER for alcohol withdrawal symptoms and suicidal ideation. Nursing Notes Stated Complaint: ALCOHOL WITHDRAWL, NERVOUS BREAK DOWN Chief Complaint: Substance Abuse Nursing Notes Reviewed: Yes Allergies: Coded Allergies: No Known Allergies (Verified Allergy, Unknown, 02/12/17) Scheduled Amlodipine (Amlodipine) 5 Mg Tablet 5 MG PO DAILY Colchicine (Colcrys) 0.6 Mg Tablet 0.6 MG PO BID Esomeprazole Magnesium (Esomeprazole Magnesium) 20 Mg Capsule.dr 20 MG PO DAILY Gabapentin (Gabapentin) 600 Mg Tablet 600 MG PO TID Scheduled PRN Indomethacin (Indomethacin) 25 Mg Capsule 25 MG PO TID PRN PRN For Moderate Pain Lorazepam (Lorazepam) 2 Mg Tablet 2 MG PO TID PRN PRN For Anxiety Ondansetron ODT (Zofran ODT) 4 Mg Tablet 4 MG PO Q4H PRN PRN For Nausea oxyCODONE (oxyCODONE) 5 Mg Tablet 5 MG PO Q6H PRN PRN For Moderate Pain General Time Seen by MD: 16:25 Chief Complaint Anxious, Depressed, Hallucinations, auditory, Hallucinations, visual, Suicidal ideation Hx Obtained From: Patient Onset Occurred: Just prior to arrival Context of Onset: EtOH use Symptom Duration: Since onset Progression Since Onset: Unchanged, Constant Location: : Abdomen: Chest Quality: Pressure, Sharp Severity: Current: Moderate Severity: Maximum: Moderate Associated with: Reports: Agitation, Anorexia, Anxiety, Depression, Incontinence, Loss of appetite Pertinent Negative: Pt denies other symptoms Exacerbated by: Alcohol use, Family stress, Recent stress, Relationship stress Pertinent Negative: Relieved by nothing Recent Healthcare: Recent doctor visit Similar Sx Previous: Yes Risk-Psychiatric Illness Suicide Risk Stratification Suicide Risk Factors - Adult: : Alcohol use: Substance abuse RF Statements: Risk factors reviewed Past Medical History Past Medical History Multiple episodes of pancreatitis secondary to alcohol use Alcohol dependence and abuse Prior history of withdrawal with withdrawal seizure x1 Chronic mild left hydronephrosis, persistent since February 2012. Hypertension Reports: Depression Past Surgical History Pancreatic mass removal Family History Father and brother with alcohol use disorder Smoking History Never Smoker Social History Alcohol Use: >5 per day Drug Use: Denies drug use Other Social History: Good social support, Frequent ED visitor, Lives alone, Local resident Occupation lives with parents, no work or school 12/30/2016 Ambulatory Status Independent Review of Systems Constitutional: Reports: Fatigue, Malaise, Denies: Chills Respiratory: Denies: Dyspnea on exertion, Pleuritic pain, Shortness of breath, Wheezing Cardiovascular: Reports: Chest pain, Denies: Dyspnea on exertion GI: Reports: Abdominal pain, Anorexia, Diarrhea, Hematemesis, Nausea, Vomiting , Denies: Dysphagia, Hematochezia, Melena Neurologic: Reports: Abnormal movement, Confusion, Dizziness, Focal weakness, Headache, Problem walking, Shaking, Weakness Psychiatric: Reports: Agitation, Anxiety, Confusion, Depression, Hallucinations , auditory, Hallucinations, visual, Suicidal ideation, Unable to control self Complete sys rev & neg: except as marked. Physical Exam Initial Vital Signs Vital Signs (First) Date Time Temp Pulse Resp B/P Pulse Ox O2 Delivery O2 Flow Rate FiO2 02/18/17 14:52 36.3 115 14 146/103 97 Room Air Initial VS: Reviewed (tachycardia and hypertensive) Head / Eyes: Atraumatic, Normocephalic, PERRL Respiratory: Breath sounds normal, Clear to auscultation, No respiratory distress Cardiovascular: Heart sounds normal, Intact distal pulses General/Constitutional: Awake, Alert, Cooperative, Not toxic appearing Distress / Hydration: Positive: Distress mild Behavior: Positive: Anxious, Restless Neurologic: Oriented X3, Speech NL, No motor deficits, No sensory deficits Movement Abnormality: Positive: Tremor Psychiatric: Not suicidal Abnormal Mood/Affect: Positive: Anxious, Depressed, Irritable, Labile Abnormal Thinking / Perception: Positive: Hallucinations, auditory, Hallucinations, visual, Insight abnormal, Judgment abnormal, Suicidal, no plan Head / Eyes: Atraumatic, Normocephalic, PERRL, EOMI ENT: Atraumatic, Airway patent Mouth: Positive: Mucous membranes dry Abdomen: Soft, No guarding, No rebound, BS normoactive, No distention Tenderness/Guarding/Rebound: Positive: Tender LUQ... (Moderate), Tender epigastric Neck: Atraumatic, Supple Neck / Muscle Tenderness: Positive: Sternocleidomastoid R... (Moderate) Interpretation & Diagnostics Lab Results Interpretation Result Diagram: 02/18/17 1542 02/18/17 1542 Test 02/18/17 15:42 White Blood Count 7.0th/mm3 (3.8-10.1) Red Blood Count 4.47mil/mm3 (4.40-5.80) Hemoglobin 14.3g/dL (13.8-17.2) Hematocrit 41.1% (41.0-50.0) Mean Corpuscular Volume 91.9fL (81-100) Mean Corpuscular Hemoglobin 32.0pg (27.0-35.0) Mean Corpuscular Hemoglobin Concent 34.8% (32.0-37.0) Red Cell Distribution Width 14.6% (12.3-15.4) Platelet Count 246bil/L (150-400) Neutrophils (%) (Auto) 74.0% (40-74) Lymphocytes (%) (Auto) 15.8% (14-46) Monocytes (%) (Auto) 7.5% (4-12) Eosinophils (%) (Auto) 2.3% (0-5) Basophils (%) (Auto) 0.1% (0-3) Sodium Level 141mEq/L (134-144) Potassium Level 3.9mEq/L (3.5-5.2) Chloride Level 100mEq/L (97-108) Carbon Dioxide Level 23mmol/L (18-29) Blood Urea Nitrogen 9mg/dL (6-20) Creatinine 0.81mg/dL (0.76-1.27) Estimat Glomerular Filtration Rate 114mL/min (>59) Glucose Level 104mg/dL (60-99) Calcium Level 9.3mg/dL (8.5-10.1) Magnesium Level 2.1mg/dL (1.6-2.6) Total Bilirubin 0.7mg/dL (0.0-1.2) Aspartate Amino Transf (AST/SGOT) 174U/L (0-50) Alanine Aminotransferase (ALT/SGPT) 85U/L (0-44) Alkaline Phosphatase 71U/L (25-150) Total Protein 8.6g/dL (6.4-8.4) Albumin 4.2g/dL (3.4-5.0) Lipase 17U/L (13-60) Hold Doll Top Tube Received (Received) Alcohols < 10mg/dL (0-10) Re-Eval/Medical Decision Med Decision/Clinical Course 36-year-old male with a long history of alcohol abuse, he is not in clinically significant withdrawal. The initial seen as listed by nursing staff is inaccurate. He is exhibiting no tremulousness, he does have mild tachycardia which responded appropriately to IV fluids without associated hypertension. He is calm, he makes good eye contact, his abdominal exam is benign without rebound or guarding in any of the 4 quadrants on my exam. He has vague statements of suicide which he has expressed before. He is seen by social work. He agrees and contracts for safety. Arrangements are made for next a [facility] appointment. There is no indication for either IV or oral benzodiazepines at this point. There is no indication for IV or oral narcotic pain medications. The patient will be seen by substance abuse counselor. Return and follow-up precautions are given. 36 year old male with long hx of etoh abuse, requesting detox at crisis center. Last drink is at 0100am today. Breathalyzer is negative. CIWA protocol initiated. His initial CIWA score was 25, mostly due to stated hallucinations, but patient is otherwise alert and oriented with no obvious signs of withdrawal on exam besides mild upper extremity tremors. Will start IVF and banana bag. Will check CBC, CMP, and lipase for recurrent pancreatitis. Source of Hx: Old records Counseled Regarding: Diagnosis, Lab results, Need for follow-up Discharge & Departure Impression: Primary Impression: Abdominal pain Additional Impressions: Alcohol abuse Alcoholic hepatitis )( Condition at Discharge: No danger to self Disposition: Home Discharge Condition All VS Reviewed: Yes Condition: Stable Additional Instructions: Use the social work resources provided to follow-up in [facility]. Call crisis respite for the next available detox bed as needed. Use the substance abuse resources provided as well. Take Zofran as needed for nausea and vomiting. Return to ER if you have severe signs of alcohol withdrawal, feels suicidal, or other concerns. Referrals: Yahir Hay MD (PCP) [facility] Crisis Respite Attending Statement The patient was seen and examined together with Dr. Young on 02/18/17 and I agree with the history, exam and plan as outlined in the note above. Yasmany Del Rosario DO February 18, 2017 16:26 Yo Young DO February 18, 2017 18:25
[2017-02-18] MEDS ORDERED: 0.9% Sodium Chloride 1,000 ML IV ONE (17:03)
[2017-02-18] MEDS ORDERED: Thiamine Inj 100 MG, Folic Acid Inj 1 MG, Magnesium Sulfate 50% Inj 2 GM, Multivitamins... IV ONE ×5 (17:05)
[2017-02-18] MEDS ORDERED: Ondansetron 2 mg/mL 2 mL Inj IVPUSH PRN (17:05)
[2017-02-18] MEDS ORDERED: Ondansetron 2 mg/mL 2 mL Inj IVPUSH ONE (17:05)
[2017-02-18] MEDS ORDERED: LidocaineVisc 2%:Antacid 1:1 10 mL Syringe PO ONE (18:20)
[2017-02-18] MEDS ORDERED: LORazepam 1 mg Tablet PO ONE (18:30)
[2017-02-18 18:38] VITALS: BP 130/90; PULSE 95; RESP 14; O2SAT 96
[2017-02-18] MEDS ORDERED: ONDA4TAB9 PO (18:41)
[2017-02-18] MEDS ORDERED: Alum-Mag Hydrox-Simeth 30 mL Suspension PO ONE (19:50)
[2017-02-18 19:59] VITALS: BP 127/72; PULSE 87; RESP 16; O2SAT 96
== END 2017-02-18 20:01 | disposition home or self-care (01) ==
LOC: SED 14:35
DX: R10.9 Unspecified abdominal pain (principal); K70.10 Alcoholic hepatitis without ascites; I10 Essential (primary) hypertension; Z79.899 Other long term (current) drug therapy
CPT/HCPCS: 36415; 80053; 82075; 83690; 83735; 85025; 96361; 96365; 96366; 96375; 99284; G0480; J2405; J3475; J7030

== ENCOUNTER 2017-04-24 16:08 | Inpatient (IN) | payer OTHER ==
[~2017-04-24] VITALS: Ht 175.3 cm; Wt 90.5 kg
[2017-04-24 16:14] VITALS: BP 164/116; PULSE 129; RESP 16; O2SAT 99
--- NOTE | 2017-04-24 16:48 | ED.REPORT ---
HPI-General Illness Date of Service Apr 24, 2017 ED Provider: Cindy Martinez MD The pt is a 36 y/o male w/ a hx of pancreatitis, HTN, depression, and alcohol abuse presenting to the ED complaining of R shoulder pain onset 10 days ago. The pt was on a roof and slipped which caused the injury. He also reports feeling like his pancreas is inflamed and has not had ETOH in the last three days causing him to feel shaky and vomit. The pt was last seen in the ED due to alcohol withdrawal 3 months ago. Nursing Notes Stated Complaint: RT SHOULDER INJURY,ETOH WITHDRAWAL,PANCREATIC PAIN Chief Complaint: Male Abdominal Pain Nursing Notes Reviewed: Yes Allergies: Coded Allergies: No Known Allergies (Verified Allergy, Unknown, 04/24/17) Scheduled Amlodipine (Amlodipine) 5 Mg Tablet 5 MG PO DAILY Colchicine (Colcrys) 0.6 Mg Tablet 0.6 MG PO BID Esomeprazole Magnesium (Esomeprazole Magnesium) 20 Mg Capsule.dr 20 MG PO DAILY Gabapentin (Gabapentin) 600 Mg Tablet 600 MG PO TID Scheduled PRN Indomethacin (Indomethacin) 25 Mg Capsule 25 MG PO TID PRN PRN For Moderate Pain Lorazepam (Lorazepam) 2 Mg Tablet 2 MG PO TID PRN PRN For Anxiety Ondansetron ODT (Zofran ODT) 4 Mg Tablet 4 MG PO Q4H PRN PRN For Nausea Ondansetron ODT (Zofran ODT) 4 Mg Tablet 4 MG PO Q4H PRN PRN For Nausea oxyCODONE (oxyCODONE) 5 Mg Tablet 5 MG PO Q6H PRN PRN For Moderate Pain General Time Seen by MD: 16:46 Chief Complaint Other (R shoulder pain ) Hx Obtained From: Patient Arrived By: Walk-in Sudden in Onset?: Yes Onset Occurred: More than a week ago... (10 days ago ) Symptom Duration: Since onset Recent Healthcare: No recent doctor visit, No recent hospitalization Similar Sx Previous: Yes Past Medical History Past Medical History Multiple episodes of pancreatitis secondary to alcohol use Alcohol dependence and abuse Prior history of withdrawal with withdrawal seizure x1 Chronic mild left hydronephrosis, persistent since February 2012. Hypertension Reports: Depression Past Surgical History Pancreatic mass removal Family History Father and brother with alcohol use disorder Smoking History Never Smoker Social History Alcohol Use: >5 per day Drug Use: Denies drug use Other Social History: Good social support, Frequent ED visitor, Lives alone, Local resident Occupation lives with parents, no work or school 12/30/2016 Ambulatory Status Independent Review of Systems Pancreas feeling "inflamed"; Shakiness; Full Review of Systems GI: Reports: Vomiting Musculoskeletal: Reports: Joint pain (R shoulder ) Complete sys rev & neg: except as marked. Physical Exam Vital Signs Vital Signs Date Time Temp Pulse Resp B/P Pulse Ox O2 Delivery O2 Flow Rate FiO2 04/24/17 16:14 36.6 129 16 164/116 99 Room Air Initial VS: Reviewed Head / Eyes: Atraumatic, Normocephalic, PERRL ENT: Mucous membranes moist, Conjunctiva normal, No scleral icterus Neck: Supple, Non-tender, Full range of motion Respiratory: Breath sounds normal, Clear to auscultation, No respiratory distress Cardiovascular: Regular rate & rhythm, Heart sounds normal, Intact distal pulses Neurologic: Alert, Oriented, Nonfocal Psychiatric: Mood/affect normal, Behavior normal, Normal thought content General/Constitutional: Awake, Alert Tremulous Skin: No rash, Warm Color / Condition: Positive: Diaphoresis present (mild ) Large healing hematoma under R pectoral muscle into axilla and extending to R arm Interpretation & Diagnostics Lab Results Interpretation Test 04/24/17 17:45 04/24/17 18:00 X-Ray Interpretation Xray Interpretation: IMPRESSION: No displaced rib fractures visualized. If further characterization is warranted, CT of the chest may be helpful. Dictated by: Sadia Garza M.D. on 04/24/2017 at 17:28 Approved by: Sadia Garza M.D. on 04/24/2017 at 17:29 Study Performed: PROCEDURE: X-RAY RIGHT RIBS INCLUDEING PA CHEST, MINUMUM THREE VIEWS ([id number]) Interpretation / Wet Read by: Interpret - Radiologist Discharge & Departure Shift Change Sign-Out Patient Care Transferred: Yes Discussed Complaint(s): Yes Laboratory Evaluation: Ordered, not yet done History of alcohol withdrawal. No drinking for 3 days. Mild withdrawal symptoms. Labs pending. He is concerned that his chronic pancreatitis is worse. Large hematoma to the right upper chest shoulder upper arm. No evidence of significant underlying rib or shoulder injuries. Care is turned to Dr. Floyd to further evaluate labs and help with final disposition Primary Impression: Abdominal pain Additional Impressions: Chest wall hematoma Alcohol abuse Disposition: Home Discharge Condition All VS Reviewed: Yes Condition: Stable Referrals: Yahir Hay MD (PCP) Care Transferred to: Dr. Floyd Care Transferred at: 18:05 Scribe Attestation Portions of this note were transcribed by Lobito Dodson. I, Dr. Martinez personally performed the history, physical exam and medical decision-making; I reviewed and confirmed the accuracy of the information in the transcribed note. copies to: Yahir Hay MD, Shawna L MD Apr 24, 2017 16:48 Lobito Dodson Apr 24, 2017 17:40
[2017-04-24] MEDS ORDERED: LORazepam 2 mg Tablet PO ONE (17:05)
[2017-04-24] MEDS ORDERED: Thiamine Inj 100 MG, Folic Acid Inj 1 MG, Magnesium Sulfate 50% Inj 2 GM, Multivitamins... IV ONE ×5 (17:05)
--- NOTE | 2017-04-24 17:30 | DRSVH ---
PROCEDURE: X-RAY RIGHT RIBS INCLUDEING PA CHEST, MINUMUM THREE VIEWS ([id number]) INDICATIONS: trauma TECHNIQUE: 2 views of the right ribs were acquired, along with a single view chest. COMPARISON: None. FINDINGS: Surgical changes and devices: None. Bones and chest wall: No fractures or dislocations. No suspicious bony lesions. Overlying soft tis sues appear unremarkable. Lungs and pleura: No pleural effusions or pneumothorax. Lungs appear clear. Mediastinum: Mediastinal contours appear normal. Heart size is normal. IMPRESSION: No displaced rib fractures visualized. If further characterization is warranted, CT of th e chest may be helpful. Dictated by: Sadia Garza M.D. on 04/24/2017 at 17:28 Approved by: Sadia Garza M.D. on 04/24/2017 at 17:29
[2017-04-24 18:05] LABS: BASOPHILS % (AUTO) 0.1 % (0-3); MONOCYTES % (AUTO) 8.3 % (4-12); Mean Corpuscular Hemoglobin 32.5 pg (27.0-35.0); NEUTROPHILS % (AUTO) 74.8 % (40-74); Platelet Count 244 bil/L (150-400)
[2017-04-24 18:22] LABS: APPEARANCE,URINE CLEAR (CLEAR,HAZY); COLOR,URINE YELLOW (YELLOW); OCCULT BLOOD,URINE NEGATIVE (NEGATIVE); UROBILINOGEN,URINE NORMAL (NORMAL)
[2017-04-24 18:30] LABS: Magnesium 1.9 mg/dL (1.6-2.6)
[2017-04-24 19:24] VITALS: BP 150/103; PULSE 104; RESP 14; O2SAT 99
[2017-04-24] MEDS: HYDROmorphone 0.5 mg/0.5 mL iSecure Syringe IVPUSH PRN ×4 (19:25→21:29)
[2017-04-24] MEDS: Ondansetron 2 mg/mL 2 mL Inj IVPUSH PRN ×2 (19:25→19:55)
[2017-04-24] MEDS ORDERED: 0.9% Sodium Chloride 1,000 ML IV ONE ×3 (19:45→22:10)
[2017-04-24 19:55] VITALS: BP 148/99; PULSE 101; RESP 20; O2SAT 94
--- NOTE | 2017-04-24 20:37 | DRSVH ---
PROCEDURE: CT ABDOMEN AND PELVIS WITH CONTRAST ([id number]) INDICATIONS: pancreatitis TECHNIQUE: After the administration of intravenous contrast, 5 mm thick sections acquired from the diaphragm to the symphysis. 5 mm coronal and sagittal reformats were acquired. For radiation dose reduction, the following was used: automated exposure control, adjustment of mA and/or kV according to patient sikendy munoz. COMPARISON: [facility], CT, ABDOMEN/PELVIS WITH CONTRAST, 03/08/2017, 16:30. FINDINGS: Image quality: Excellent. ABDOMEN: Lung bases: Lung bases are clear. Heart size is normal. Solid organs: The liver is diffusely hypodense suggesting hepatic steatosis. The spleen demonstrates normal size and enhancement. Gallbladder is unremarkable. Biliary system is non dilated. No adrena l nodules. Kidneys demonstrate normal size and enhancement, without hydronephrosis. Decreased enhancement and peripancreatic fat stranding is present in the pancreatic body. This is new when compared with the prior CT dated 03/08/17. As before, there is atrophy in this region likely ass ociated with prior pancreatitis. Peritoneum and bowel: Bowel loops demonstrate normal wall thickness and caliber. The appendix is thi n walled and gas filled. There are scattered sigmoid diverticula. No evidence for diverticulitis. No free fluid or air. Nodes and vessels: No retroperitoneal or mesenteric adenopathy by size criteria. Aorta and inferior vena cava are normal in size. Miscellaneous: No ventral hernias. PELVIS: Genitourinary: Bladder wall thickness is normal. Miscellaneous: No inguinal hernias or adenopathy. Bones: No suspicious bony lesions. No vertebral body compression fractures. IMPRESSION: 1. Mild peripancreatic fat stranding and decreased attenuation within the body of the pancreas, consi stent with acute pancreatitis. The lack of enhancement within the body may be associated with atrophy from prior episodes of pancreatitis; however pancreatic necrosis could also cause this appearance. 2. No other acute intra-abdominal findings. Normal appendix. Dictated by: Sadia Garza M.D. on 04/24/2017 at 20:25 Approved by: Sadia Garza M.D. on 04/24/2017 at 20:35
--- NOTE | 2017-04-24 22:06 | PCM.HPMED ---
Subjective Date of Service Apr 24, 2017 Primary Provider: Admitting Physician: Roberta Villarreal DO Primary Care Physician: Yahir Hay MD Attending Physician: Roberta Villarreal DO Admit Status: From the Emergency Department Chief Complaint: Abdominal pain History of Present Illness: 36-year-old male with a history of alcoholic hepatitis and pancreatitis, reported mass on pancreas that was biopsied at , and history of seizures on alcohol withdrawal presents to emergency department with 2 days of abdominal pain located in the left upper quadrant with associated nausea and vomiting 4 today. Patient states that over the last 2 weeks he is consuming a large amount of alcohol, reported as 10 beers of 8% alcohol daily during this time period, which he stopped 2 days ago when the abdominal pain started. The last 2 days he has also complained about anxiety, insomnia, anorexia, and diarrhea. Patient also recently had a traumatic fall on the left shoulder and complains of some associated chest pain associated with that nothing substernal. Patient states his last withdrawal was in November 2016, and he is currently going through a divorce for which he blames his drinking. He states his previous seizures followed a similar course, and occurred within 3-5 days of cessation. His previous pancreatic mass was seen in November on MRI described as mild as with atrophy in the body the pancreas. He was seen at and underwent biopsy which he reports was negative benign, and his CA 19-9 was normal. Unable to find any records or mention of [facility] and [employer]. In the emergency department the patient was treated with 1 L normal saline and CT of the abdomen demonstrated findings consistent with acute pancreatitis. Lipase was 165, and there are symmetric elevations in LFTs. Hematocrit was greater than 40 and BUN is less than 20. Review of Systems: Complete review of systems performed; pertinent positives and negatives per history of present illness, all other systems reviewed and are negative Allergies Coded Allergies: No Known Allergies (Verified Allergy, Unknown, 04/24/17) Home Medications Amlodipine (Amlodipine) 5 Mg Tablet 5 MG PO DAILY Colchicine (Colcrys) 0.6 Mg Tablet 0.6 MG PO BID Esomeprazole Magnesium (Esomeprazole Magnesium) 20 Mg Capsule.dr 20 MG PO DAILY Gabapentin (Gabapentin) 600 Mg Tablet 600 MG PO TID Indomethacin (Indomethacin) 25 Mg Capsule 25 MG PO TID PRN PRN For Moderate Pain Lorazepam (Lorazepam) 2 Mg Tablet 2 MG PO TID PRN PRN For Anxiety Ondansetron ODT (Zofran ODT) 4 Mg Tablet 4 MG PO Q4H PRN PRN For Nausea Ondansetron ODT (Zofran ODT) 4 Mg Tablet 4 MG PO Q4H PRN PRN For Nausea oxyCODONE (oxyCODONE) 5 Mg Tablet 5 MG PO Q6H PRN PRN For Moderate Pain Patient only reports ibuprofen PMH Multiple episodes of pancreatitis secondary to alcohol use Alcohol dependence and abuse Prior history of withdrawal with withdrawal seizure x1 Chronic mild left hydronephrosis, persistent since February 2012. Hypertension Reports: Depression Surgical History Pancreatic mass removal Family History Father and brother with alcohol use disorder Mother-HTN, obese Social History Hx Alcohol Use: Yes Hx Substance Use: No Hx Tobacco Use: No Smoking Status: Never Smoker Living Arrangement: with Family (parents) Exam Vital Signs Vital Sign - Last Date Time Temp Pulse Resp B/P Pulse Ox O2 Delivery O2 Flow Rate FiO2 04/24/17 19:55 101 20 148/99 94 Room Air 04/24/17 16:14 36.6 Exam General: Age-appropriate male in moderate discomfort HEENT: PERRLA, EOMI, nonicteric, membranes dry Lymph: No lymphadenopathy Cardio: Regular rhythm, tachycardia, no murmurs rubs or gallops Respiratory: CTA bilaterally, no wheezes, no crackles Abdomen: Guarded, positive bowel sounds, tender, especially the right upper quadrant Extremities: No edema, 5/5 strength, sensation intact Psych: Appropriate mood and affect Neuro: CN II through XII grossly intact, sensation intact throughout Skin: No rash Lab and Diagnostics Result Diagram: 04/24/17 1745 04/24/17 174 X-Rays, CTs and MRIs Rib x-ray IMPRESSION: No displaced rib fractures visualized. If further characterization is warranted, CT of the chest may be helpful. Dictated by: Sadia Garza M.D. on 04/24/2017 at 17:[address] 1. Mild peripancreatic fat stranding and decreased attenuation within the body of the pancreas, consistent with acute pancreatitis. The lack of enhancement within the body may be associated with atrophy from prior episodes of pancreatitis; however pancreatic necrosis could also cause this appearance 2. No other acute intra-abdominal findings. Normal appendix. Dictated by: Sadia Garza M.D. on 04/24/2017 at 20:25 Assessment & Plan 36-year-old male with a history of alcoholic hepatitis and pancreatitis, reported mass on pancreas that was biopsied at , and history of seizures on alcohol withdrawal presents to emergency department with 2 days of abdominal pain located in the left upper quadrant with associated nausea and vomiting [address] evidence of acute pancreatitis Acute pancreatitis; present on admission; ongoing -Patient presents with abdominal pain, CT findings, and lipase of 165 -Patient has recurrent pancreatitis do to alcohol abuse and history of pancreatic mass that was removed -Received 3 L normal saline -Maintenance of 125 mL/HR -Zofran for nausea or -Morphine for pain -Lipids ordered Alcohol dependence with withdrawal and history of seizures; present on admission ; ongoing -Patient goes on multiple week long binges with resultant pancreatitis and withdrawal history of seizure -Current symptoms of agitation, tremor, headache consistent with symptoms of withdrawal -Banana bag and thiamine 200 mg IV once -Thiamine 100 mg daily by mouth as received -Phenobarbital 130 mg once -[facility] protocol initiated Acute alcoholic hepatitis; present on admission; ongoing -Reports recent binging but no drinking within 2 days -Mild LFT elevation in a nonalcoholic ratio -Fluids as above -If LFTs do not start resolving by tomorrow recommend hepatitis panel Hypertension -continue Amlodipine -Current BP is 141/93 Mild hyperglycemia; present on admission; ongoing -Continue to monitor -We will order A1c Anxiety-hold home Ativan as he is receiving diazepam Disposition: Patient is being admitted to inpatient status with expected length of stay greater than two midnights due to to severity of presentation, duration of treatment, and risks of adverse events disposition Full code Pain Evaluation: Adequate Pain Control VTE Prophylaxis: Sub-Q Heparin (Unfractionated) Resuscitation Status: CPR: Attempt Resuscitation Attending Statement The patient was seen and examined together with house staff on 04/24/2017 and I agree with the history, exam and plan as outlined in the note above. Antonio Mancini DO Apr 24, 2017 22:06 Roberta Villarreal DO Apr 25, 2017 04:02
[2017-04-24] MEDS ORDERED: Alum-Mag Hydrox-Simeth 30 mL Suspension PO PRN (22:10)
[2017-04-24] MEDS ORDERED: PHENobarbital 65 mg/mL Inj IV ONE (22:20)
[2017-04-24 23:06] VITALS: BP 141/93; PULSE 102; RESP 20; O2SAT 97
[2017-04-24] MEDS ORDERED: SODIUM CHLORIDE 0.9% IV ONE (23:30)
[2017-04-24] MEDS ORDERED: THIAMINE IV ONE (23:30)
[2017-04-25] VITALS (8 sets, daily range): BP systolic 123–142; BP diastolic 81–98; PULSE 86–106; RESP 16–20; O2SAT 96–98
[2017-04-25] MEDS: Ondansetron 2 mg/mL 2 mL Inj IVPUSH PRN ×5 (00:11→20:34)
[2017-04-25] MEDS ORDERED: IBUP1CAP11 PO (00:59)
[2017-04-25] MEDS: Heparin 5,000 Unit/mL Inj SUBQ SCH ×3 (01:05→16:16)
[2017-04-25] MEDS: 0.9% Sodium Chloride 1,000 ML IV SCH ×4 (02:26→20:22)
[2017-04-25 04:05] LABS: BASOPHILS % (AUTO) 0.2 % (0-3); MONOCYTES % (AUTO) 7.1 % (4-12); Mean Corpuscular Hemoglobin 32.9 pg (27.0-35.0); Mean Corpuscular Volume 91.8 fL (81-100); NEUTROPHILS % (AUTO) 66.1 % (40-74); Platelet Count 188 bil/L (150-400)
[2017-04-25 04:43] LABS: Phosphorus 2.6 mg/dL (2.5-4.9)
--- NOTE | 2017-04-25 06:28 | NUR ---
Admit/CIWA/Pain Pt admitted to room 2021 at around 2300, pt A&Ox3, DOMINGO, able to answer questions appropriately and transfer from bed to bed w/ SBA. Med rec done by pt interview, he stated he had stopped most of the medications listed from prior visit. Vitals stable w/ some HTN and tachycardia in 100s. See vitals. CIWAs 7-15 overnight, medicated w/ Valium PRN per protocol. Pt reporting symptoms of intermittent nausea, headache, tremors, diaphoresis among others documented on CIWA intervention. Seizure precautions in place, lidia alarm on for safety. Pt given PRN Zofran w/ good effect, also kept NPO per orders. Pt medicated w/ PRN morphine for 6-9/10 abdominal pain. Frequency adjusted per MD for better pain control.
[2017-04-25] MEDS: Multivit-Miner-Folic Acid-Iron Tablet PO SCH (08:39)
--- NOTE | 2017-04-25 12:30 | PCM.PNMED ---
Subjective Date of Service Apr 25, 2017 Subjective Patient is having ongoing abdominal pain. This is anterior but does radiate to the back. Some nausea but no emesis. He is still feeling very shaky but denies hallucinations. He is diaphoretic. Hewas last drink was approximately 36 hours ago. He denies any history of withdrawal seizure. No overnight events noted. Exam Vital Signs Vital Sign - Last Date Time Temp Pulse Resp B/P Pulse Ox O2 Delivery O2 Flow Rate FiO2 04/25/17 10:46 93 04/25/17 08:26 36.4 18 142/98 98 Room Air Intake and Output 04/24/17 04/24/17 04/25/17 Cumulative From/Thru 14:59 22:59 06:59 04/24/17 16:14 - 04/25/17 06:32 Intake Total 1015 ml 2714 ml 3729 ml Output Total 2445 ml 2445 ml Balance 1015 ml 269 ml 1284 ml Intake Oral 200 ml 200 ml IV Total 1015 ml 2514 ml 3529 ml Output Urine Total 2445 ml 2445 ml Exam Alert and oriented -3, no distress. Fluent speech, flushed face Anicteric sclera. Lungs are clear with normal rate and effort Heart is regular without murmur gallop or rub Abdomen soft nontender, flat somewhat tender in the epigastric region without guarding or rebound. Extremities are free of edema. Skin is free of rash or lesions. IVs and Medications Medications Reviewed: Medications were reviewed in detail Lab and Diagnostics Result Diagram: 04/25/17 0340 04/25/17 0340 X-Rays, CTs and MRIs Rib x-ray IMPRESSION: No displaced rib fractures visualized. If further characterization is warranted, CT of the chest may be helpful. Dictated by: Sadia Garza M.D. on 04/24/2017 at 17:[address] 1. Mild peripancreatic fat stranding and decreased attenuation within the body of the pancreas, consistent with acute pancreatitis. The lack of enhancement within the body may be associated with atrophy from prior episodes of pancreatitis; however pancreatic necrosis could also cause this appearance 2. No other acute intra-abdominal findings. Normal appendix. Dictated by: Sadia Garza M.D. on 04/24/2017 at 20:25 Assessment & Plan 36-year-old male with a history of alcoholic hepatitis and pancreatitis, reported mass on pancreas that was biopsied at , and history of seizures on alcohol withdrawal presents to emergency department with 2 days of abdominal pain located in the left upper quadrant with associated nausea and vomiting [address] evidence of acute pancreatitis Acute alcohol-induced pancreatitis; present on admission; ongoing -Patient presents with abdominal pain, CT findings, and lipase of 165 -Patient has recurrent pancreatitis do to alcohol abuse and history of pancreatic mass that was removed -Received 3 L normal saline -Maintenance of 125 mL/HR -Zofran for nausea or -Morphine for pain -Lipids ordered No change medical plan. Alcohol withdrawal syndrome; present on admission; ongoing and stable -Patient goes on multiple week long binges with resultant pancreatitis and withdrawal history of seizure -Current symptoms of agitation, tremor, headache consistent with symptoms of withdrawal -Banana bag and thiamine 200 mg IV once -Thiamine 100 mg daily by mouth as received -Phenobarbital 130 mg once -[facility] protocol initiated Acute alcoholic hepatitis; present on admission; ongoing and stable -Reports recent binging but no drinking within 2 days -Mild LFT elevation in a nonalcoholic ratio -Fluids as above -If LFTs do not start resolving by tomorrow recommend hepatitis panel Hypertension, PA ON stable -continue Amlodipine -Current BP is 141/93 Mild hyperglycemia; present on admission; ongoing improved -Continue to monitor -We will order A1c Anxiety-hold home Ativan as he is receiving diazepam Disposition: Patient is being admitted to inpatient status with expected length of stay greater than two midnights due to to severity of presentation, duration of treatment, and risks of adverse events disposition Full code Anticipate another 1-2 days of inpatient management. All laboratories and imaging were reviewed. There are no consultants involved in the case. His medications include IV morphine and lorazepam. VTE Prophylaxis: Sub-Q Heparin (Unfractionated) Resuscitation Status: CPR: Attempt Resuscitation Tyree Salinas MD Apr 25, 2017 12:30
--- NOTE | 2017-04-25 18:29 | NUR ---
CIWA/Pain pt CIWA score 11-13 through the day, medicated appropriately per CIWA protocol, unable to do frequent assessment due to patient resting with eyes closed after Valium administration. Also c/o abdominal pain through the day, medicated with 2mg Morphine each time. Pt resting with eyes closed with reassessment. Ongoing care.
[2017-04-26] VITALS (9 sets, daily range): BP systolic 122–148; BP diastolic 76–104; PULSE 94–115; RESP 15–18; O2SAT 97–98
--- NOTE | 2017-04-26 00:19 | NUR ---
Report, Patient resting in bed, Valium and Morphine given earlier this shift, resting and calm, CIWA recheck <10 after Valium, report off to Jessica SHIRLEY, all questions answered.
[2017-04-26] MEDS: Ondansetron 2 mg/mL 2 mL Inj IVPUSH PRN ×6 (00:26→23:17)
[2017-04-26] MEDS: Heparin 5,000 Unit/mL Inj SUBQ SCH ×3 (00:27→16:28)
[2017-04-26] MEDS: 0.9% Sodium Chloride 1,000 ML IV SCH ×3 (03:40→21:01)
--- NOTE | 2017-04-26 06:41 | NUR ---
CIWA/Tele Assumed care of patient at 0000. Pt stated," I'm having those withdrawal feelings again." Pt scored 11 and 12 on CIWA this shift;received Valium 10mg x2 which was helpful per patient. Pt also c/o abd pain 8-9/10 and nausea given MS 2mg x 2 along with Zofran 8mg x 2 IVP. No seizure activity noted. Tele: Sinus Tachy Hr 101 per multi care technician. Care continues.
[2017-04-26] MEDS: Multivit-Miner-Folic Acid-Iron Tablet PO SCH (08:10)
--- NOTE | 2017-04-26 11:12 | PCM.PNMED ---
Subjective Date of Service Apr 26, 2017 Subjective Patient has a little improvement in his abdominal pain but is very hungry. He is still feeling anxious and tremulous. He has minimal nausea and no vomiting since yesterday. No diarrhea. No difficulty with urination. He denies any hallucinations or confusion. No overnight events noted. Exam Vital Signs Vital Sign - Last Date Time Temp Pulse Resp B/P Pulse Ox O2 Delivery O2 Flow Rate FiO2 04/26/17 10:32 98 04/26/17 07:49 36.9 16 122/76 98 Room Air Intake and Output 04/25/17 04/25/17 04/26/17 Cumulative From/Thru 15:00 23:00 07:00 04/24/17 16:14 - 04/26/17 06:45 Intake Total 100 ml 2989 ml 6818 ml Output Total 2600 ml 700 ml 5745 ml Balance -2500 ml 2289 ml 1073 ml Intake Oral 100 ml 0 ml 300 ml IV Total 2989 ml 6518 ml Output Urine Total 2600 ml 700 ml 5745 ml Exam Alert and oriented -3, no distress. Fluent speech, a little shaky. Anicteric sclera. Lungs are clear with normal rate and effort Heart is regular without murmur gallop or rub Abdomen soft nontender, flat Extremities are free of edema. Skin is free of rash or lesions. IVs and Medications Medications Reviewed: Medications were reviewed in detail Lab and Diagnostics Result Diagram: 04/25/17 0340 04/25/17 0340 X-Rays, CTs and MRIs Rib x-ray IMPRESSION: No displaced rib fractures visualized. If further characterization is warranted, CT of the chest may be helpful. Dictated by: Sadia Garza M.D. on 04/24/2017 at 17:[address] 1. Mild peripancreatic fat stranding and decreased attenuation within the body of the pancreas, consistent with acute pancreatitis. The lack of enhancement within the body may be associated with atrophy from prior episodes of pancreatitis; however pancreatic necrosis could also cause this appearance 2. No other acute intra-abdominal findings. Normal appendix. Dictated by: Sadia Garza M.D. on 04/24/2017 at 20:25 Assessment & Plan 36-year-old male with a history of alcoholic hepatitis and pancreatitis, reported mass on pancreas that was biopsied at , and history of seizures on alcohol withdrawal presents to emergency department with 2 days of abdominal pain located in the left upper quadrant with associated nausea and vomiting [address] evidence of acute pancreatitis Acute alcohol-induced pancreatitis; present on admission; ongoing and improving. -Patient presents with abdominal pain, CT findings, and lipase of 165 -Patient has recurrent pancreatitis do to alcohol abuse and history of pancreatic mass that was removed -Received 3 L normal saline -Maintenance of 125 mL/HR -Zofran for nausea or -Morphine for pain -Lipids ordered No change medical plan. Advance to full liquid diet. Alcohol withdrawal syndrome; present on admission; ongoing and stable. CIWA of around 11. -Patient goes on multiple week long binges with resultant pancreatitis and withdrawal history of seizure -Current symptoms of agitation, tremor, headache consistent with symptoms of withdrawal -Banana bag and thiamine 200 mg IV once -Thiamine 100 mg daily by mouth as received -Phenobarbital 130 mg once -CIWA protocol initiated, will continue. Acute alcoholic hepatitis; present on admission; ongoing and stable -Reports recent binging but no drinking within 2 days -Mild LFT elevation in a nonalcoholic ratio -Fluids as above -If LFTs do not start resolving by tomorrow recommend hepatitis panel Hypertension, POA and stable -continue Amlodipine -Current BP is 141/93 Mild hyperglycemia; present on admission; ongoing improved -Continue to monitor -We will order A1c Anxiety-hold home Ativan as he is receiving diazepam Disposition: Patient is being admitted to inpatient status with expected length of stay greater than two midnights due to to severity of presentation, duration of treatment, and risks of adverse events disposition Full code Anticipate another 1-2 days of inpatient management. All laboratories and imaging were reviewed. There are no consultants involved in the case. His medications include IV morphine and lorazepam. VTE Prophylaxis: Sub-Q Heparin (Unfractionated) Resuscitation Status: CPR: Attempt Resuscitation Tyree Salinas MD Apr 26, 2017 11:12
--- NOTE | 2017-04-26 14:00 | NUR ---
Mentation/CIWA/Pain/Activity Patient is a/o, cooperative. CIWA 11 and 10. Gave 10mg valium x2 so far today. C/O left abdominal and right shoulder pain 06/30, requesting Morphine. Have given 2 mg Morphine IV x2 this far today. MD is aware of this pain and request for pain meds. Gave Zophran x2 this shift as well. Advanced to full liquid diet-- so far tolerating well. Independent in bed, with urinal, but instructed to call for assistance to stand. Showered today independently while awake and alert and did well. Continuing with POC.
--- NOTE | 2017-04-26 14:51 | NUR ---
Social Work: Attempted initial assessment / cd assessment Data: Pt is a 36 y/o male admitted for rt shoulder injury ETOH withdrawal. Pt's PCP is Dr Hay, pt's insurance is [employer]. EMR reviewed, readmit score is 4, high. Pt discussed in rounds. RN states pt's CIWA this AM was 11. RESEARCH EPIDEMIOLOGIST attempted to meet with pt at bedside, pt requested RESEARCH EPIDEMIOLOGIST come back tomorrow. RESEARCH EPIDEMIOLOGIST will attempt again tomorrow. Assessment: Pt who is independent at baseline, alcohol abuse. Plan: Pt will likely d/c home via POV when medically stable. RESEARCH EPIDEMIOLOGIST will attempt initial assessment and CD assessment again tomorrow. VONNIE Rivers
[2017-04-27] VITALS (11 sets, daily range): BP systolic 119–158; BP diastolic 77–107; PULSE 100–118; RESP 16–20; O2SAT 95–98
[2017-04-27] MEDS: Heparin 5,000 Unit/mL Inj SUBQ SCH ×4 (01:36→23:59)
[2017-04-27] MEDS: Ondansetron 2 mg/mL 2 mL Inj IVPUSH PRN ×4 (04:21→21:05)
--- NOTE | 2017-04-27 04:26 | PCM.PNMED ---
Subjective Date of Service Apr 27, 2017 Subjective Received call from nurse stating patient is complaining about recurrent gout pain in his first right toe. Pain began this evening, nurse reports it does not yet appear red or swollen. Patient had colchicine on medication reconciliation which he says he has not taken in several months for gout prophylaxis. Given the physiologic stress possibly precipitating gout flare, history of gout flare, medication previously prescribed, I ordered abortive colchicine doses, to be followed up by the day team. Exam Vital Signs Vital Sign - Last Date Time Temp Pulse Resp B/P Pulse Ox O2 Delivery O2 Flow Rate FiO2 04/27/17 04:05 37.2 100 16 158/107 97 Room Air Intake and Output 04/26/17 04/26/17 04/27/17 Cumulative From/Thru 15:00 23:00 07:00 04/24/17 16:14 - 04/27/17 04:05 Intake Total 2436 ml 9254 ml Output Total 1475 ml 7220 ml Balance 961 ml 2034 ml Intake Oral 1433 ml 1733 ml IV Total 1003 ml 7521 ml Output Urine Total 1475 ml 7220 ml # Bowel Movements 1 1 Lab and Diagnostics Result Diagram: 04/25/17 0340 04/25/17 0340 X-Rays, CTs and MRIs Rib x-ray IMPRESSION: No displaced rib fractures visualized. If further characterization is warranted, CT of the chest may be helpful. Dictated by: Sadia Garza M.D. on 04/24/2017 at 17:[address] 1. Mild peripancreatic fat stranding and decreased attenuation within the body of the pancreas, consistent with acute pancreatitis. The lack of enhancement within the body may be associated with atrophy from prior episodes of pancreatitis; however pancreatic necrosis could also cause this appearance 2. No other acute intra-abdominal findings. Normal appendix. Dictated by: Sadia Garza M.D. on 04/24/2017 at 20:25 Assessment & Plan 36-year-old male with a history of alcoholic hepatitis and pancreatitis, reported mass on pancreas that was biopsied at , and history of seizures on alcohol withdrawal presents to emergency department with 2 days of abdominal pain located in the left upper quadrant with associated nausea and vomiting [address] evidence of acute pancreatitis Acute alcohol-induced pancreatitis; present on admission; ongoing and improving. -Patient presents with abdominal pain, CT findings, and lipase of 165 -Patient has recurrent pancreatitis do to alcohol abuse and history of pancreatic mass that was removed -Received 3 L normal saline -Maintenance of 125 mL/HR -Zofran for nausea or -Morphine for pain -Lipids ordered No change medical plan. Advance to full liquid diet. Alcohol withdrawal syndrome; present on admission; ongoing and stable. CIWA of around 11. -Patient goes on multiple week long binges with resultant pancreatitis and withdrawal history of seizure -Current symptoms of agitation, tremor, headache consistent with symptoms of withdrawal -Banana bag and thiamine 200 mg IV once -Thiamine 100 mg daily by mouth as received -Phenobarbital 130 mg once -CIWA protocol initiated, will continue. Acute alcoholic hepatitis; present on admission; ongoing and stable -Reports recent binging but no drinking within 2 days -Mild LFT elevation in a nonalcoholic ratio -Fluids as above -If LFTs do not start resolving by tomorrow recommend hepatitis panel Hypertension, POA and stable -continue Amlodipine -Current BP is 141/93 Mild hyperglycemia; present on admission; ongoing improved -Continue to monitor -We will order A1c Anxiety-hold home Ativan as he is receiving diazepam Disposition: Patient is being admitted to inpatient status with expected length of stay greater than two midnights due to to severity of presentation, duration of treatment, and risks of adverse events disposition Full code Anticipate another 1-2 days of inpatient management. All laboratories and imaging were reviewed. There are no consultants involved in the case. His medications include IV morphine and lorazepam. VTE Prophylaxis: Sub-Q Heparin (Unfractionated) Resuscitation Status: CPR: Attempt Resuscitation Jude Dixon DO Apr 27, 2017 04:26
[2017-04-27 04:36] LABS: Mean Corpuscular Hemoglobin 32.6 pg (27.0-35.0)
[2017-04-27] MEDS: 0.9% Sodium Chloride 1,000 ML IV SCH ×3 (05:08→23:22)
[2017-04-27] MEDS: Polyethylene Glycol (PEG) 17 Gm Powder PO PRN (05:08)
--- NOTE | 2017-04-27 06:18 | NUR ---
Pain/Ciwa/BP Pt alert and oriented x3. He is appropriate with staff. Anxious at times. Hypertensive tonight. Noted BP down after dose of Valium and Morphine. Amlodipine given with some effectiveness noted. Pt c/o abd pain, headache, shoulder pain and right big toe gout pain. Md made aware. Colchicine dose given this am. CIWA 9-10. Pt requests pain meds as soon as its due. He reports pain down to 6/10 from 9/10. Zofran for nausea but no vomiting noted. He has been drinking full liquid tolerating well without any issues. Miralax given for report of bloating/constipation. No bm noted at this time. Pt up independently in room and voiding per urinal.
[2017-04-27] MEDS: Multivit-Miner-Folic Acid-Iron Tablet PO SCH (08:02)
[2017-04-27] MEDS ORDERED: Lactated Ringer's 1,000 ML IV ONE (10:40)
--- NOTE | 2017-04-27 15:48 | NUR ---
Social Work: Initial Assessment D: Per EMR review, pt is a 36 year old male admitted for RT shoulder injury with ETOH Withdrawal, pancreatitis. Pt is [employer] [place] insurance with no LTC or VA Benefits. PCP is Yahir Hay MD. NOK is Rita Ling, mother, . Advanced directives information declined by pt. Readmit score is high, 4/8. Pt discussed in am rounds. Pt is not yet medically stable with CIWA of 12. MD placed order for CD assessment. GIS MAPPING TECHNICIAN acknowledges CD order (see CD assessment note) Capacity for self-care discussed; no concerns at this time except for the pt's ETOH use. GIS MAPPING TECHNICIAN met with the patient at bedside. Sw role explained, contact information and d/c planning checklist provided. Pt lives in [place] with his parents. He is I at baseline, uses no DME and relies on public transportation. Pt has never had HH or skilled rehab. Pt states that he intends to discharge back home to his parents when he is medically; pt's brother will transport. A: Pt who is I at baseline. P: Anticipate pt to discharge back home when medically stable; GIS MAPPING TECHNICIAN to continue to follow to asses for further d/c needs. VONNIE Muniz Addendum: 04/27/17 at 1606 by NAYELI MCRAE SS Amended: Links added.
--- NOTE | 2017-04-27 16:06 | NUR ---
Social Work: Chemical Dependency Assessment Current Situation: Pt on day 3 of stay for ETOH use and right shoulder injury. Pt with a CIWA score of 12. placed case management referral for CD assessment. CHANNEL MARKETING MANAGER met with pt at bedside. Pt states he has been drinking heavily after a recent relapse several months ago. Pt states that he drinks approximately 8 12 oz cans of beer daily. Pt is not currently enrolled in any CD services and states that he experienced a ETOH related seizure in September. Pt also endorses flu-like symptoms during withdrawal. CD History: Pt reports a distant history engaging in in-patient CD treatment back in 2010 at [facility]. The patient states he does not wish to engage in treatment in the future and will only participate in AA meetings. MH History: Pt denies any MH diagnosis and/or treatment. Pt denies suicidal ideation, current or past. Natural Supports: Pt states that his parents are his biggest supports. Disposition: Pt does not wish to participate in a bedside CDP assessment with [facility] and states that he has no interest in participating in outpatient CD treatment. Pt accepted outpatient resources and states that he will look at them if he changes his mind about treatment. Pt states that he will resume going to AA meetings and that he intends ti discharge home with his parents. VONNIE Muniz
[2017-04-27] MEDS ORDERED: MethylprednisoLONE Sodium Succinate 40 mg/mL Inj IVPUSH ONE (16:10)
--- NOTE | 2017-04-27 16:14 | PCM.PNMED ---
Subjective Date of Service Apr 27, 2017 Subjective Yesterday patient continued to be nauseated and non-bloody emesis x1. Patient did well overnight. Did complain of pain in his big toe with hx of gout. Night team started colchicine. ROS is positive for persistent abdominal pain without cp, sob, or fever. Exam Vital Signs Vital Sign - Last Date Time Temp Pulse Resp B/P Pulse Ox O2 Delivery O2 Flow Rate FiO2 04/27/17 09:20 36.4 106 16 141/97 96 Room Air Intake and Output 04/26/17 04/26/17 04/27/17 Cumulative From/Thru 15:00 23:00 07:00 04/24/17 16:14 - 04/27/17 05:11 Intake Total 2436 ml 1492 ml 70157 ml Output Total 1475 ml 7220 ml Balance 961 ml 1492 ml 3526 ml Intake Oral 1433 ml 1733 ml IV Total 1003 ml 1492 ml 9013 ml Output Urine Total 1475 ml 7220 ml # Bowel Movements 1 1 Exam General: tired age appropriate, male HEENT: PERRLA, EOMI, nonicteric, membranes moist Lymph: No lymphadenopathy Cardio: Regular rate and rhythm no murmurs rubs or gallops Respiratory: CTA bilaterally, no wheezes, no crackles Abdomen: Soft, positive bowel sounds, nontender, nondistended Extremities: No edema, 5/5 strength, sensation intact; no swelling over the large toe Psych: Appropriate mood and affect Neuro: CN II through XII grossly intact, sensation intact throughout Skin: No rash IVs and Medications Medications Reviewed: Medications were reviewed in detail Lab and Diagnostics Result Diagram: 04/27/17 0415 04/27/17 0415 X-Rays, CTs and MRIs Rib x-ray IMPRESSION: No displaced rib fractures visualized. If further characterization is warranted, CT of the chest may be helpful. Dictated by: Sadia Garza M.D. on 04/24/2017 at 17:[address] 1. Mild peripancreatic fat stranding and decreased attenuation within the body of the pancreas, consistent with acute pancreatitis. The lack of enhancement within the body may be associated with atrophy from prior episodes of pancreatitis; however pancreatic necrosis could also cause this appearance 2. No other acute intra-abdominal findings. Normal appendix. Dictated by: Sadia Garza M.D. on 04/24/2017 at 20:25 Assessment & Plan 36-year-old male with a history of alcoholic hepatitis and pancreatitis, reported mass on pancreas that was biopsied at , and history of seizures on alcohol withdrawal presents to emergency department with 2 days of abdominal pain located in the left upper quadrant with associated nausea and vomiting [address] evidence of acute pancreatitis Acute alcohol-induced pancreatitis; present on admission; ongoing and improving. -Patient presents with abdominal pain, CT findings, and lipase of 165 -Patient has recurrent pancreatitis do to alcohol abuse and history of pancreatic mass that was removed -Received 3 L normal saline -Maintenance of 125 mL/HR; giving LR 250ml/hr for 1 bag -Zofran for nausea or -Morphine for pain -Advancing to softs as tolerated; general if tolerated tomorrow Alcohol withdrawal syndrome; present on admission; ongoing and stable. CIWA of around 11. -Patient goes on multiple week long binges with resultant pancreatitis and withdrawal history of seizure -Current symptoms of agitation, tremor, headache consistent with symptoms of withdrawal -Banana bag and thiamine 200 mg IV once on admit -Thiamine 100 mg daily by mouth as received -Phenobarbital 130 mg given once on admission -Continue CIWA protocol Acute alcoholic hepatitis; present on admission; ongoing and stable -Reports recent binging but no drinking within 2 days -Mild LFT elevation in a nonalcoholic ratio -Fluids as above -LR 250ml/hr x 1 this am as patient looks dry and LFT's increasing -hepatitis panel ordered Gout; not-present on admission; ongoing -Patient has right pain around his big toe -Night started on colchicine -Solu-Medrol 60 mg once Hypertension, POA and stable -continue Amlodipine Mild hyperglycemia; present on admission; ongoing improved -Continue to monitor -A1c-5.4 Anxiety-hold home Ativan as he is receiving diazepam Disposition: Likely 1-2 days before discharge ready VTE Prophylaxis: Sub-Q Heparin (Unfractionated) Resuscitation Status: CPR: Attempt Resuscitation Attending Statement The patient was seen and examined together with Dr. Dr. Mancini on April 27 and I agree with the history, exam findings, and plan as outlined in the note above. I did participate in all aspects of the services provided today, including documentation and the plan of care. We will treat the patient with IV steroids for his right great toe gout, continue alcohol withdrawal protocol, and symptomatic treatment of alcohol- induced pancreatitis. Antonio Mancini DO Apr 27, 2017 10:44 Tyree Salinas MD Apr 28, 2017 14:09
--- NOTE | 2017-04-27 18:57 | NUR ---
Tachcardia Pt A/O x3. Complains of gout pain to the right big toe, MD notified. Started on Colchicine per his home dosage. Also, given Solu-Medrol this evening. HR is tachy at 115, HR increased to 145 with any activity, MD notified. Started on tele monitor, remaines tachy in the 100's.
--- NOTE | 2017-04-27 22:45 | NUR ---
Pain States steroid effective for gout pain and foot almost pain-free now. Requesting morphine for c/o right shoulder pain and abdmonal pain. Given and effective.
[2017-04-28] VITALS (9 sets, daily range): BP systolic 111–135; BP diastolic 69–97; PULSE 84–114; RESP 16–20; O2SAT 93–97
[2017-04-28] MEDS: Ondansetron 2 mg/mL 2 mL Inj IVPUSH PRN ×4 (01:25→20:02)
[2017-04-28 02:08] LABS: Hepatitis A Antibody IgM Negative (Negative); Hepatitis B Core Antibody IgM Negative (Negative)
[2017-04-28 03:59] LABS: BASOPHILS % (AUTO) 0 % (0-3); EOSINOPHILS % (AUTO) 0 % (0-5); MONOCYTES % (AUTO) 1.2 % (4-12); Mean Corpuscular Hemoglobin 32.9 pg (27.0-35.0); Mean Corpuscular Volume 91.6 fL (81-100); NEUTROPHILS % (AUTO) 89.3 % (40-74); Platelet Count 222 bil/L (150-400)
--- NOTE | 2017-04-28 05:08 | NUR ---
Pain/mentation/CIWA Receiving morphine for c/o abdominal pain from pancreatitis, and right shoulder pain from fall off roof. States this is effective. States toe pain from gout is much improved and almost gone. CIWA 9-16. Valium has been effective in helping manage withdrawal symptoms. Received Zofran for nausea with good effect. Requested Miralax for c/o constipation.
[2017-04-28] MEDS: 0.9% Sodium Chloride 1,000 ML IV SCH ×3 (06:37→22:29)
[2017-04-28] MEDS: Heparin 5,000 Unit/mL Inj SUBQ SCH ×3 (07:31→23:21)
[2017-04-28] MEDS: Multivit-Miner-Folic Acid-Iron Tablet PO SCH (09:17)
--- NOTE | 2017-04-28 15:33 | PCM.PNMED ---
Subjective Date of Service Apr 28, 2017 Subjective Patient continues to feel one down and sick to his stomach. Continues also nausea in the little bit of vomiting the pain in his abdomen has decreased significantly. He is complaining of auditory and visual hallucinations. Also states that Valium does not work as well as the Ativan. He wishes to pursue AA after his discharge, insofar as refuse additional social work services. Discussed with him about the needs to use all available services. Exam Vital Signs Vital Sign - Last Date Time Temp Pulse Resp B/P Pulse Ox O2 Delivery O2 Flow Rate FiO2 04/28/17 12:04 36.4 84 20 118/80 93 Room Air Intake and Output 04/27/17 04/27/17 04/28/17 Cumulative From/Thru 15:00 23:00 07:00 04/24/17 16:14 - 04/28/17 06:59 Intake Total 480 ml 3276 ml 2101 ml 15633 ml Output Total 1480 ml 2800 ml 2400 ml 31615 ml Balance -1000 ml 476 ml -299 ml 2703 ml Intake Oral 480 ml 1154 ml 700 ml 4067 ml IV Total 2122 ml 1401 ml 18365 ml Output Urine Total 1480 ml 2800 ml 2400 ml 54891 ml # Bowel Movements 1 Exam General: Age-appropriate male HEENT: PERRLA, EOMI, nonicteric, membranes moist Lymph: No lymphadenopathy Cardio: Regular rate and rhythm no murmurs rubs or gallops Respiratory: CTA bilaterally, no wheezes, no crackles Abdomen: Soft, positive bowel sounds, tender to deep palpation, nondistended Extremities: No edema, 5/5 strength, sensation intact; no swelling over the large toe Psych: Appropriate mood and affect Neuro: CN II through XII grossly intact, sensation intact throughout Skin: No rash IVs and Medications Medications Reviewed: Medications were reviewed in detail Lab and Diagnostics Result Diagram: 04/28/1734404/28/17344 X-Rays, CTs and MRIs Rib x-ray IMPRESSION: No displaced rib fractures visualized. If further characterization is warranted, CT of the chest may be helpful. Dictated by: Sadia Garza M.D. on 04/24/2017 at 17:[address] 1. Mild peripancreatic fat stranding and decreased attenuation within the body of the pancreas, consistent with acute pancreatitis. The lack of enhancement within the body may be associated with atrophy from prior episodes of pancreatitis; however pancreatic necrosis could also cause this appearance 2. No other acute intra-abdominal findings. Normal appendix. Dictated by: Sadia Garza M.D. on 04/24/2017 at 20:25 Assessment & Plan 36-year-old male with a history of alcoholic hepatitis and pancreatitis, reported mass on pancreas that was biopsied at , and history of seizures on alcohol withdrawal presents to emergency department with 2 days of abdominal pain located in the left upper quadrant with associated nausea and vomiting [address] evidence of acute pancreatitis Acute alcohol-induced pancreatitis; present on admission; ongoing and improving. -Patient presents with abdominal pain, CT findings, and lipase of 165 -Patient has recurrent pancreatitis do to alcohol abuse and history of pancreatic mass that was removed -Received 3 L normal saline -Maintenance of 125 mL/HR; giving LR 250ml/hr for 1 bag -Zofran for nausea -Morphine for pain -Advancing general Alcohol withdrawal syndrome; present on admission; ongoing and stable. CIWA of around 11. -Patient goes on multiple week long binges with resultant pancreatitis and withdrawal history of seizure -Current symptoms of agitation, tremor, headache consistent with symptoms of withdrawal -Banana bag and thiamine 200 mg IV once on admit -Thiamine 100 mg daily by mouth as received -Phenobarbital 130 mg given once on admission -Continue CIWA protocol Acute alcoholic hepatitis; present on admission; ongoing -Reports recent binging but no drinking within 2 days -Mild LFT elevation in a nonalcoholic ratio -Fluids as above -LR 250ml/hr x 1 this am as patient looks dry and LFT's increasing -hepatitis panel negative -Continue CMP; currently bilirubin and alkaline phosphatase are negative -Ultrasound of right upper quadrant today -If increased tomorrow will obtain echo Gout; not-present on admission; resolved -Patient has right pain around his big toe -Night started on colchicine -Solu-Medrol 60 mg once yesterday Hypertension, POA and stable -continue Amlodipine Mild hyperglycemia; present on admission; ongoing improved -Continue to monitor -A1c-5.4 Anxiety-hold home Ativan as he is receiving diazepam Disposition: Likely 1-2 days before discharge ready Pain Evaluation: Adequate Pain Control VTE Prophylaxis: Sub-Q Heparin (Unfractionated) Resuscitation Status: CPR: Attempt Resuscitation Attending Statement The patient was seen and examined together with on 04/28/2017 and I agree with the history, exam findings, and plan as outlined in the note above. I did participate in all aspects of the services provided today, including documentation and the plan of care. [We will continue treat him for alcohol withdrawal as well as pancreatitis. He is improving. We will continue to monitor his liver function tests closely. Antonio Mancini DO Apr 28, 2017 15:33 Tyree Salinas MD Apr 28, 2017 16:08
[2017-04-28] MEDS: Polyethylene Glycol (PEG) 17 Gm Powder PO PRN (16:56)
--- NOTE | 2017-04-28 18:56 | DRSVH ---
PROCEDURE: US ABDOMEN, LIMITED ([id number]) INDICATIONS: RUQ pain and increasing LFT's TECHNIQUE: Real-time focused scanning was performed of the abdomen, with image documentation. COMPARISON: None. FINDINGS: The liver is normal in size at 17.6 cm. There is diffusely increased echogenicity. This inf iltrative processes most likely fatty infiltration. Gallbladder is normal in appearance. Wall thickne ss is normal. No pericholecystic fluid is found. No stones or sludge is found. Extrahepatic biliary t ree is normal in size. Common bile duct measures 4.6 mm. Pancreas is obscured by bowel gas. IMPRESSION: 1. Ultrasonic liver changes consistent with fatty infiltration of the liver. 2. Gallbladder and biliary tree are considered normal. Dictated by: Carlos Flores M.D. on 04/28/2017 at 18:54 Approved by: Carlos Flores M.D. on 04/28/2017 at 18:55
--- NOTE | 2017-04-28 19:11 | NUR ---
pain and CIWA pt c/o pain in abd of 8-9/10. States it decreases to 5-7/10 with morphine. pt up walking around the floor independently for several laps this evening. sleeping comfortably off and on throughout shift. When wakes up, asks for something for his withdrawls. States he is embarassed for his drinking but will discuss it freely when asked. Tolerating diet, c/o nausea prior to eating for breakfast and lunch, premedicated with zofran and able to eat 100% of meal. CIWA scores 10-12 during shift.
[2017-04-29] MEDS: Ondansetron 2 mg/mL 2 mL Inj IVPUSH PRN ×2 (02:21→08:12)
[2017-04-29 03:08] VITALS: BP 142/91; PULSE 82; RESP 17; O2SAT 96
[2017-04-29 03:43] LABS: BASOPHILS % (AUTO) 0 % (0-3); EOSINOPHILS % (AUTO) 1.6 % (0-5); MONOCYTES % (AUTO) 7.4 % (4-12); Mean Corpuscular Volume 94.1 fL (81-100); NEUTROPHILS % (AUTO) 63.2 % (40-74); Platelet Count 194 bil/L (150-400)
[2017-04-29 04:15] LABS: Magnesium 1.7 mg/dL (1.6-2.6); Phosphorus 3.3 mg/dL (2.5-4.9)
[2017-04-29] MEDS: 0.9% Sodium Chloride 1,000 ML IV SCH ×2 (05:55→13:48)
--- NOTE | 2017-04-29 06:01 | NUR ---
CIWA/ Pain Pt Scoring 10-13 on CIWA overnight. Pt appears to be resting comfortably- eating snacks and texting on phone- when assessed by staff pt reports visual and auditory hallucinations, frequently requesting Valium. Valium given per protocol. Pt also c/o 8-10/10 Right shoulder and "pancreas" pain. Morphine given intermittent overnight- pt appears comfortable- sleeping intermittently.
[2017-04-29 07:51] VITALS: BP 126/82; PULSE 82; RESP 16; O2SAT 96
[2017-04-29] MEDS: Multivit-Miner-Folic Acid-Iron Tablet PO SCH (08:14)
[2017-04-29] MEDS: Heparin 5,000 Unit/mL Inj SUBQ SCH (08:15)
[2017-04-29 10:03] VITALS: PULSE 84
[2017-04-29 12:25] VITALS: BP 113/73; PULSE 70; RESP 16; O2SAT 96
--- NOTE | 2017-04-29 14:35 | PCM.DIMED ---
Discharge Instructions Date of Service Apr 29, 2017 Dates of Hospitalization Apr 24, 2017 at 21:51 Discharge Diagnosis Discharge Diagnosis Acute alcohol-induced pancreatitis, improved. Alcohol withdrawal syndrome; improved. Acute alcoholic hepatitis, improved Gout; resolved. Hypertension, stable. Diet Discharge Diet: No restrictions Activity Discharge Activity: No restrictions Call your provider Call your provider for: Fever or Chills, Other (abdominal pain) Patient Instructions Patient Instructions See your doctor within the next week No alcohol 90 meetings in 90 days Get a sponsor. Consider a counselor for talk therapy Follow-up Provider: PIA WOODS MD Follow-up with PCP in: 1 week Tyree Salinas MD Apr 29, 2017 14:35
[2017-04-29] MEDS ORDERED: AMLO5TAB2 PO (14:37)
[2017-04-29] MEDS ORDERED: OXYC-474 PO (14:37)
[2017-04-29] MEDS ORDERED: DIAZ5TAB PO (14:37)
--- NOTE | 2017-04-29 14:42 | PCM.DC.MED ---
Discharge Summary Date of Service Apr 29, 2017 Dates of Hospitalization Date of Hospital Admission Apr 24, 2017 at 21:51 Date of Discharge: Apr 29, 2017 Providers: Admitting Physician: Roberta Villarreal DO Primary Care Physician: Yahir Hay MD Attending Physician: Tyree Salinas MD Diagnosis at Time of Discharge Diagnosis at Time of Discharge Acute alcohol-induced pancreatitis, improved. Alcohol withdrawal syndrome; improved. Acute alcoholic hepatitis, improved Gout; resolved. Hypertension, stable. Consultations None Procedures XRay, CTs & MRIs Rib x-ray IMPRESSION: No displaced rib fractures visualized. If further characterization is warranted, CT of the chest may be helpful. Dictated by: Sadia Garza M.D. on 04/24/2017 at 17:[address] 1. Mild peripancreatic fat stranding and decreased attenuation within the body of the pancreas, consistent with acute pancreatitis. The lack of enhancement within the body may be associated with atrophy from prior episodes of pancreatitis; however pancreatic necrosis could also cause this appearance 2. No other acute intra-abdominal findings. Normal appendix. Dictated by: Sadia Garza M.D. on 04/24/2017 at 20:25 Brief History 36-year-old male with a history of alcoholic hepatitis and pancreatitis, reported mass on pancreas that was biopsied at , and history of seizures on alcohol withdrawal presents to emergency department with 2 days of abdominal pain located in the left upper quadrant with associated nausea and vomiting 4 today. Patient states that over the last 2 weeks he is consuming a large amount of alcohol, reported as 10 beers of 8% alcohol daily during this time period, which he stopped 2 days ago when the abdominal pain started. The last 2 days he has also complained about anxiety, insomnia, anorexia, and diarrhea. Patient also recently had a traumatic fall on the left shoulder and complains of some associated chest pain associated with that nothing substernal. Patient states his last withdrawal was in November 2016, and he is currently going through a divorce for which he blames his drinking. He states his previous seizures followed a similar course, and occurred within 3-5 days of cessation. His previous pancreatic mass was seen in November on MRI described as mild as with atrophy in the body the pancreas. He was seen at and underwent biopsy which he reports was negative benign, and his CA 19-9 was normal. Unable to find any records or mention of [facility] and [employer]. In the emergency department the patient was treated with 1 L normal saline and CT of the abdomen demonstrated findings consistent with acute pancreatitis. Lipase was 165, and there are symmetric elevations in LFTs. Hematocrit was greater than 40 and BUN is less than 20. Hospital Course 36-year-old male with a history of alcoholic hepatitis and pancreatitis, reported mass on pancreas that was biopsied at , and history of seizures on alcohol withdrawal presents to emergency department with 2 days of abdominal pain located in the left upper quadrant with associated nausea and vomiting [address] evidence of acute pancreatitis Acute alcohol-induced pancreatitis; present on admission; ongoing and improving. -Patient presents with abdominal pain, CT findings, and lipase of 165 -Patient has recurrent pancreatitis do to alcohol abuse and history of pancreatic mass that was removed -Received 3 L normal saline -Maintenance of 125 mL/HR; giving LR 250ml/hr for 1 bag -Zofran for nausea -Morphine for pain -Advancing general Alcohol withdrawal syndrome; present on admission; ongoing and stable. CIWA of around 11. -Patient goes on multiple week long binges with resultant pancreatitis and withdrawal history of seizure -Current symptoms of agitation, tremor, headache consistent with symptoms of withdrawal -Banana bag and thiamine 200 mg IV once on admit -Thiamine 100 mg daily by mouth as received -Phenobarbital 130 mg given once on admission -Continue CIWA protocol Acute alcoholic hepatitis; present on admission; ongoing -Reports recent binging but no drinking within 2 days -Mild LFT elevation in a nonalcoholic ratio -Fluids as above -LR 250ml/hr x 1 this am as patient looks dry and LFT's increasing -hepatitis panel negative -Continue CMP; currently bilirubin and alkaline phosphatase are negative -Ultrasound of right upper quadrant today -If increased tomorrow will obtain echo Gout; not-present on admission; resolved -Patient has right pain around his big toe -Night started on colchicine -Solu-Medrol 60 mg once yesterday Hypertension, POA and stable -continue Amlodipine Mild hyperglycemia; present on admission; ongoing improved -Continue to monitor -A1c-5.4 Anxiety-hold home Ativan as he is receiving diazepam S4 course. This patient was admitted for acute cold fall as well as alcohol induced hepatitis and pancreatitis. He was initially treated with CIWA protocol with benzodiazepine symptom triggered detoxification. The patient was also treated all rest improved fairly rapidly. He was able to advance his diet. He is recalcitrant alcoholic. Much of the time was spent discussing plan with him his possible future approach to alcohol cessation. On the day of discharge she was much improved. He had minimal or no anxiety. He also did have an episode of gout of the right great toe on the hospital which was treated with cortisone injection parenterally 1 and completely resolved. Exam Vital Signs (Last) Date Time Temp Pulse Resp B/P Pulse Ox O2 Delivery O2 Flow Rate FiO2 04/29/17 12:25 36.6 70 16 113/73 96 Room Air Exam Patient was seen and examined on the day of discharge Test 04/24/17 17:45 04/24/17 18:00 04/25/17 03:40 04/27/17 04:15 Urine Color Yellow (YELLOW) Urine Appearance Clear (CLEAR,HAZY) Urine pH 5.0 (5.0-8.0) Urine Specific [place] 1.020 (1.003-1.035) Urine Protein Tracemg/dL (NEG,TRACE) Urine Glucose (UA) Negativemg/dL (NEGATIVE) Urine Ketones Tracemg/dL (NEGATIVE) Urine Occult Blood Negative (NEGATIVE) Urine Nitrite Negative (NEGATIVE) Urine Bilirubin Negative (NEGATIVE) Urine Urobilinogen Normalmg/dL (NORMAL) Urine Leukocyte Esterase Negative (NEGATIVE) Urine RBC 0-2/hpf (0-2) Urine WBC 0-5/hpf (0-5) Urine Epithelial Cells Occasional/hpf (NONE-MOD) Urine Crystals None seen (NONE SEEN) Urine Bacteria Few/hpf (NONE-FEW) Urine Hyaline Casts None/lpf (NONE) Urine Granular Casts Rare (NONE SEEN) Urine Waxy Casts None seen (NONE SEEN) Urine Red Blood Cell Casts None seen (NONE SEEN) Urine White Blood Cell Casts None seen (NONE SEEN) Urine Mucus None seen (None Seen) Urine Trichomonas None seen (NONE SEEN) Urine Yeast None (NONE SEEN) Urinalysis Comment None Urine Culture Reflexed Not indicated Hold Doll Top Tube Received (Received) Hemoglobin A1c 5.4% (4.8-5.6) Lipase 60U/L (13-60) Hepatitis A IgM Antibody Negative (Negative) Hepatitis B Surface Antigen Negative (Negative) Hepatitis B Core IgM Antibody Negative (Negative) Hepatitis C Antibody <0.1s/co ratio (0.0-0.9) Hepatitis C Comment Comment (.) Test 04/29/17 03:35 White Blood Count 6.7th/mm3 (3.8-10.1) Red Blood Count 3.91mil/mm3 (4.40-5.80) Hemoglobin 12.9g/dL (13.8-17.2) Hematocrit 36.8% (41.0-50.0) Mean Corpuscular Volume 94.1fL (81-100) Mean Corpuscular Hemoglobin 33.0pg (27.0-35.0) Mean Corpuscular Hemoglobin Concent 35.1% (32.0-37.0) Red Cell Distribution Width 12.5% (12.3-15.4) Platelet Count 194bil/L (150-400) Neutrophils (%) (Auto) 63.2% (40-74) Lymphocytes (%) (Auto) 27.7% (14-46) Monocytes (%) (Auto) 7.4% (4-12) Eosinophils (%) (Auto) 1.6% (0-5) Basophils (%) (Auto) 0% (0-3) Sodium Level 140mEq/L (134-144) Potassium Level 3.7mEq/L (3.5-5.2) Chloride Level 101mEq/L (97-108) Carbon Dioxide Level 21mmol/L (18-29) Blood Urea Nitrogen 7mg/dL (6-20) Creatinine 0.64mg/dL (0.76-1.27) Estimat Glomerular Filtration Rate 150mL/min (>59) Glucose Level 144mg/dL (60-99) Lactic Acid Level 1.7mmol/L (0.4-2.0) Calcium Level 8.6mg/dL (8.5-10.1) Phosphorus Level 3.3mg/dL (2.5-4.9) Magnesium Level 1.7mg/dL (1.6-2.6) Total Bilirubin 0.4mg/dL (0.0-1.2) Aspartate Amino Transf (AST/SGOT) 115U/L (0-50) Alanine Aminotransferase (ALT/SGPT) 117U/L (0-44) Alkaline Phosphatase 93U/L (25-150) Total Protein 7.1g/dL (6.4-8.4) Albumin 3.6g/dL (3.4-5.0) Procalcitonin 0.10ng/mL (0.00-0.08) Discharge Medications Discharge Medications Amlodipine (Amlodipine) 5 Mg Tablet 5 MG PO DAILY Prescribed by: TYREE SALINAS MD Gabapentin (Gabapentin) 600 Mg Tablet 600 MG PO TID Prescribed by: JACI ALEJO DO As needed Diazepam (Valium) 5 Mg Tablet 5 MG PO TID PRN PRN anxiety Prescribed by: TYREE SALINAS MD Ibuprofen/Diphenhydramine (Ibuprofen PM) 1 Each Capsule 2 CAPSULE PO HS PRN PRN For Insomnia (Reported) Oxycodone (Roxicodone) 5 Mg Tablet 5 MG PO Q4H PRN PRN For Pain Prescribed by: TYREE SALINAS MD Followup Plan Disposition: Home Follow-up plan The patient is asked to attend 90 meetings in 90 days He is asked to get a sponsor. He is asked to consider therapy Absolutely no more alcohol. Discharge Diet: No restrictions Discharge Activity: No restrictions Patient Instructions See your doctor within the next week No alcohol 90 meetings in 90 days Get a sponsor. Consider a counselor for talk therapy Follow-up Provider: PIA HAY MD Follow-up with PCP in: 1 week Time spent 40 minutes Tyree Salinas MD Apr 29, 2017 14:42
--- NOTE | 2017-04-29 15:27 | NUR ---
DISCHARGE Patient discharged home at 1520, will call for ride when outside. Patient denies pain, nausea, and shortness of breath at this time. Medications reviewed and new Rx's given, patient verbalized understanding. Care notes on medication and ETOH withdraw provided, patient state he has all his belongings, IV catheter removed intact and patient state he will follow up with PCP in one week. Education done on alcohol withdrawal and addiction treatment.
--- NOTE | 2017-04-29 16:10 | NUR ---
Social Work: Discharge D: Pt discussed in multidisciplinary rounds. Pt is likely medically stable for discharge today. MD and team identify no sw needs for the patient. Pt has been I during admission. Pt is I at baseline and participates in his own selfcare. DERRICK OPERATOR met with the patient at bedside to confirm discharge plan to go home with his parents. The pt confirms this and states he has no concerns or needs. A: Pt who is I at baseline and lives at home with his parents. P: Pt to discharge home via POV and no sw needs. VONNIE Muniz
== END 2017-04-29 15:30 | disposition home or self-care (01) | DRG 896 ==
LOC: SED 16:08 → PCC 21:51
PROVIDERS: ADMIT Internal Medicine; ATTEND Hospitalist
DX: F10.230 Alcohol dependence with withdrawal, uncomplicated (principal); K85.20 Alcohol induced acute pancreatitis without necrosis or infection; K70.10 Alcoholic hepatitis without ascites; Y90.9 Presence of alcohol in blood, level not specified; F41.9 Anxiety disorder, unspecified; M10.9 Gout, unspecified; I10 Essential (primary) hypertension

== ENCOUNTER 2017-05-18 21:33 | Inpatient (IN) | payer OTHER ==
[~2017-05-18] VITALS: Ht 175.3 cm; Wt 89.3 kg
[~2017-05-18 21:33] MED LIST changes: -COLC0.6T52 PO; +DIAZ5TAB PO; -ESOM20CA39 PO; +IBUP1CAP11 PO; -INDO25CA PO; -LORA2TAB PO; -ONDA4TAB9 PO; +OXYC-474 PO; -OXYC5TAB72 PO
[2017-05-18 22:00] VITALS: BP 123/83; PULSE 115; RESP 20; O2SAT 99
--- NOTE | 2017-05-18 23:23 | ED.REPORT ---
HPI-General Illness Date of Service May 18, 2017 ED Provider: Romie Donovan MD A 36 year old male with a history or alcohol abuse with withdrawal seizure x1, recurrent pancreatitis and hypertension presents to the ED requesting medical clearance for detox. The pt called today and arranged for a bed at [facility], but requires medical clearance before being accepted. The pt is also complaining of abdominal pain, nausea and vomiting related to his pancreatitis. He last consumed alcohol five hours ago. Nursing Notes Stated Complaint: ALCOHOL WITHDRAWAL,PANCREAS PAIN Chief Complaint: Substance Abuse Nursing Notes Reviewed: Yes Allergies: Coded Allergies: No Known Allergies (Verified Allergy, Unknown, 05/19/17) Scheduled Amlodipine (Amlodipine) 5 Mg Tablet 5 MG PO DAILY Gabapentin (Gabapentin) 600 Mg Tablet 600 MG PO TID Scheduled PRN Diazepam (Valium) 5 Mg Tablet 5 MG PO TID PRN PRN anxiety Ibuprofen/Diphenhydramine (Ibuprofen PM) 1 Each Capsule 2 CAPSULE PO HS PRN PRN For Insomnia Oxycodone (Roxicodone) 5 Mg Tablet 5 MG PO Q4H PRN PRN For Pain General Time Seen by MD: 23:22 Chief Complaint Medical clearance Hx Obtained From: Patient Arrived By: Walk-in Sudden in Onset?: No Symptom Duration: Since onset Recent Healthcare: Recent doctor visit, Recent hospitalization Similar Sx Previous: Yes Past Medical History Past Medical History Multiple episodes of pancreatitis secondary to alcohol use Alcohol dependence and abuse Prior history of withdrawal with withdrawal seizure x1 Chronic mild left hydronephrosis, persistent since February 2012. Hypertension Reports: Depression Past Surgical History Pancreatic mass removal Family History Father and brother with alcohol use disorder Smoking History Never Smoker Social History Alcohol Use: >5 per day Drug Use: Denies drug use Other Social History: Good social support, Frequent ED visitor, Lives alone, Local resident Occupation lives with parents, no work or school 12/30/2016 Ambulatory Status Independent Review of Systems Full Review of Systems Respiratory: Denies: Non-productive cough, Shortness of breath Cardiovascular: Denies: Chest pain GI: Reports: Abdominal pain, Nausea, Vomiting Musculoskeletal: Denies: Back pain, Neck pain Skin: Denies Rash Complete sys rev & neg: except as marked. Physical Exam Vital Signs Vital Signs Date Time Temp Pulse Resp B/P Pulse Ox O2 Delivery O2 Flow Rate FiO2 05/19/17 03:02 98 18 133/92 96 Room Air 05/19/17 01:31 22 140/101 97 Room Air 05/18/17 22:00 37.0 115 20 123/83 99 Room Air Initial VS: Reviewed General/Constitutional: Awake, Alert Head / Eyes: Atraumatic, Normocephalic, PERRL, EOMI ENT: Atraumatic, Airway patent, Mucous membranes moist Neck: Atraumatic, Supple, Full range of motion Respiratory / Chest: Atraumatic, Breath sounds NL, Breath sounds = bilat, No respiratory distress Cardiovascular: Heart rate NL, Regular rhythm, Heart sounds NL Abdomen: Atraumatic, Soft mild tenderness in epigastrium Back: Atraumatic, Full range of motion Upper Extremities Upper Extremity / MS: Atraumatic, Full range of motion Lower Extremity / Pelvis / MS: Atraumatic, Full range of motion Skin: Color NL, No rash, Warm, Dry Neurologic: Oriented X3, Speech NL, No motor deficits, No sensory deficits Psychiatric: Affect NL, Mood NL Interpretation & Diagnostics Lab Results Interpretation Result Diagram: 05/19/17 0041 05/19/17 0041 Test 05/19/17 00:41 05/19/17 00:42 05/19/17 03:00 White Blood Count 7.1th/mm3 (3.8-10.1) Red Blood Count 4.78mil/mm3 (4.40-5.80) Hemoglobin 15.4g/dL (13.8-17.2) Hematocrit 43.0% (41.0-50.0) Mean Corpuscular Volume 90.0fL (81-100) Mean Corpuscular Hemoglobin 32.2pg (27.0-35.0) Mean Corpuscular Hemoglobin Concent 35.8% (32.0-37.0) Red Cell Distribution Width 12.0% (12.3-15.4) Platelet Count 263bil/L (150-400) Neutrophils (%) (Auto) 63.6% (40-74) Lymphocytes (%) (Auto) 29.1% (14-46) Monocytes (%) (Auto) 5.5% (4-12) Eosinophils (%) (Auto) 1.6% (0-5) Basophils (%) (Auto) 0.1% (0-3) Prothrombin Time 10.6sec (8.1-12.5) Prothromb Time International Ratio 0.99ratio Sodium Level 138mEq/L (134-144) Potassium Level 3.8mEq/L (3.5-5.2) Chloride Level 98mEq/L (97-108) Carbon Dioxide Level 17mmol/L (18-29) Blood Urea Nitrogen 8mg/dL (6-20) Creatinine 0.63mg/dL (0.76-1.27) Estimat Glomerular Filtration Rate 152mL/min (>59) Glucose Level 115mg/dL (60-99) Calcium Level 9.1mg/dL (8.5-10.1) Magnesium Level 2.2mg/dL (1.6-2.6) Total Bilirubin 0.7mg/dL (0.0-1.2) Aspartate Amino Transf (AST/SGOT) 148U/L (0-50) Alanine Aminotransferase (ALT/SGPT) 99U/L (0-44) Alkaline Phosphatase 109U/L (25-150) Total Protein 9.3g/dL (6.4-8.4) Albumin 4.6g/dL (3.4-5.0) Lipase 214U/L (13-60) Alcohols 159mg/dL (0-10) Hold Doll Top Tube Received (Received) Urine Color Yellow (YELLOW) Urine Appearance Hazy (CLEAR,HAZY) Urine pH 6.0 (5.0-8.0) Urine Specific [place] 1.015 (1.003-1.035) Urine Protein Tracemg/dL (NEG,TRACE) Urine Glucose (UA) Negativemg/dL (NEGATIVE) Urine Ketones 15mg/dL (NEGATIVE) Urine Occult Blood Negative (NEGATIVE) Urine Nitrite Negative (NEGATIVE) Urine Bilirubin Negative (NEGATIVE) Urine Urobilinogen Normalmg/dL (NORMAL) Urine Leukocyte Esterase Negative (NEGATIVE) Urine RBC 0-2/hpf (0-2) Urine WBC 0-5/hpf (0-5) Urine Epithelial Cells Occasional/hpf (NONE-MOD) Urine Crystals None seen (NONE SEEN) Urine Bacteria None/hpf (NONE-FEW) Urine Hyaline Casts None/lpf (NONE) Urine Granular Casts None seen (NONE SEEN) Urine Waxy Casts None seen (NONE SEEN) Urine Red Blood Cell Casts None seen (NONE SEEN) Urine White Blood Cell Casts None seen (NONE SEEN) Urine Mucus None seen (None Seen) Urine Trichomonas None seen (NONE SEEN) Urine Yeast None (NONE SEEN) Urinalysis Comment None Urine Culture Reflexed Not indicated Urine Opiates Screen Negative Urine Methadone Screen Negative Urine Barbiturates Screen Negative Urine Amphetamines Screen Negative Urine Benzodiazepines Screen Positive Urine Cocaine Metabolite Screen Negative Urine Cannabinoids Screen Negative Re-Eval/Medical Decision Med Decision/Clinical Course 36-year-old chronic alcohol abuse presents with abdominal pain and withdrawal symptoms. He proves to have recurrent pancreatitis. He is probably not a good candidate yet for crisis, although that would remain a reasonable discharge venue, once he is medically stable. Begun here with Ativan IV. Nothing by mouth status and IV fluids. Source of Hx: Old records Time of Eval: 01:16 Patient Status: Condition improved Re-Evaluation/Progress Note: Pt rechecked, who is resting comfortably. The diagnosis and plan for admission are discussed. The pt understands and agrees with the plan. All questions are addressed at this time. Consultation #1: Call Returned at: 01:00 Note: Spoke with [facility] regarding pt's case. [facility] does not have a bed tonight. Consultation #2: Referral / Consult Name: Dontrell Wilcox MD Consulted With: Hospitalist Call Returned at: 01:47 Special Events Coordinator: Agrees with eval, Agrees with plan, Accepts admit Note: Spoke with Dr. Wilcox, hospitalist, regarding pt's case. Dr. Wilcox agrees with the evaluation and agrees to admit the pt. Counseled Regarding: Diagnosis, Lab results, Need for admission Discharge & Departure Primary Impression: Alcoholic pancreatitis Chronicity: acute Acute pancreatitis complication: unspecified Qualified Code: K85.20 - Alcohol induced acute pancreatitis without necrosis or infection Additional Impressions: Alcoholic hepatitis Ascites presence: without ascites Qualified Code: K70.10 - Alcoholic hepatitis without ascites Alcoholism Alcohol withdrawal Complication of substance-induced condition: with unspecified complication Qualified Code: F10.239 - Alcohol dependence with withdrawal, unspecified Disposition: ADMITTED TO HOSPITAL Discharge Condition All VS Reviewed: Yes Condition: Stable Referrals: Yahir Hay MD (PCP) Scribe Attestation Portions of this note were transcribed by Magnolia Mckeon. I, Dr. Donovan personally performed the history, physical exam and medical decision-making; I reviewed and confirmed the accuracy of the information in the transcribed note. copies to: Yahir Hay MD, Christopher W MD May 18, 2017 23:23 MAGNOLIA MCKEON May 18, 2017 23:30
[2017-05-18] MEDS ORDERED: Pantoprazole 40 mg ER24 Tablet PO ONE (23:25)
[2017-05-19] VITALS (11 sets, daily range): BP systolic 111–140; BP diastolic 61–101; PULSE 95–103; RESP 12–22; O2SAT 96–99
[2017-05-19 00:45] LABS: BASOPHILS % (AUTO) 0.1 % (0-3); EOSINOPHILS % (AUTO) 1.6 % (0-5); MONOCYTES % (AUTO) 5.5 % (4-12); Mean Corpuscular Hemoglobin 32.2 pg (27.0-35.0); NEUTROPHILS % (AUTO) 63.6 % (40-74); Platelet Count 263 bil/L (150-400)
[2017-05-19 01:10] LABS: Magnesium 2.2 mg/dL (1.6-2.6)
[2017-05-19 01:14] LABS: INR 0.99 ratio
[2017-05-19] MEDS ORDERED: 0.9% Sodium Chloride 1,000 ML IV ONE (01:20)
[2017-05-19] MEDS ORDERED: Alum-Mag Hydrox-Simeth 30 mL Suspension PO PRN (01:55)
[2017-05-19] MEDS ORDERED: Haloperidol 5 mg/mL Inj IVPUSH ONE (02:40)
[2017-05-19] MEDS ORDERED: 0.9% Sodium Chloride 50 ML ONE (03:09)
--- NOTE | 2017-05-19 03:25 | PCM.HPMED ---
Subjective Date of Service May 19, 2017 Primary Provider: Admitting Physician: Primary Care Physician: Yahir Hay MD Attending Physician: Admit Status: From the Emergency Department, Full Admit, [facility] Telemetry Chief Complaint: Abdominal pain History of Present Illness: Guero Ling is a 36-year-old male with Alcoholic hepatitis and recurrent pancreatitis, reported mass on pancreas that was biopsied at , and history of seizures on alcohol withdrawal presents to emergency department with requesting medical clearance for detox. The patient was arranging for a bed at [facility], but requires medical clearance before being accepted. Patient has been complaining of abdominal pain , epigastric located, crampy in character with radiation to the back. Associated symptoms includes nausea and vomiting. He last consumed alcohol five hours prior to presentation He was recently admitted 04/24-04/29 for similar issues and has a episode of Alcohol induced pancreatitis as well. Unfortunately he continues to drink alcohol despite counselling Case discussed with Dr Donovan, Lipase 214. Admission planned for [facility] protocol and treatment for acute pancreatitis Review of Systems: Pertinent positives as noted in HPI. All other systems were reviewed and are negative Allergies Coded Allergies: No Known Allergies (Verified Allergy, Unknown, 05/19/17) Home Medications From recent Discharge Summary Amlodipine (Amlodipine) 5 Mg Tablet 5 MG PO DAILY Prescribed by: NGA ARTEAGA MD Gabapentin (Gabapentin) 600 Mg Tablet 600 MG PO TID Prescribed by: JACI ALEJO DO As needed Diazepam (Valium) 5 Mg Tablet 5 MG PO TID PRN PRN anxiety Prescribed by: NGA ARTEAGA MD Ibuprofen/Diphenhydramine (Ibuprofen PM) 1 Each Capsule 2 CAPSULE PO HS PRN PRN For Insomnia (Reported) Oxycodone (Roxicodone) 5 Mg Tablet 5 MG PO Q4H PRN PRN For Pain Prescribed by: NGA ARTEAGA MD PMH Multiple episodes of pancreatitis secondary to alcohol use Alcohol dependence and abuse Prior history of withdrawal with withdrawal seizure x1 Chronic mild left hydronephrosis, persistent since February 2012. Hypertension Depression . Surgical History Pancreatic mass removal Family History Father and brother with alcohol use disorder Mother-HTN, obese Social History Hx Alcohol Use: Yes Hx Substance Use: No Hx Tobacco Use: No Smoking Status: Never Smoker Living Arrangement: with Family (with parents) Exam Vital Signs Vital Sign - Last Date Time Temp Pulse Resp B/P Pulse Ox O2 Delivery O2 Flow Rate FiO2 8/29/17 01:31 22 140/101 97 Room Air 05/18/17 22:00 37.0 115 Exam General: Alert, Oriented X3, Cooperative, Mild Distress Eyes: PERRLA, Scleral Anicteric Mouth: Mouth Normal, Mucous Membranes dry Neck: Supple, no Thyromegaly, trachea central. Chest & Lungs: Clear to auscultation & percussion, No adventitious breath sounds, no crackles, no wheeze Cardiovascular: Normal S1, Normal S2, No Murmurs/Rubs/Gallops, Regular Rate/ Rhythm, (No JVD, no peripheral edema) Pulses: Radial (present and equal), Dorsalis Pedi (present and equal) Abdomen: Soft, mild epigastric tenderness on deep palpation, Non-distended, Normoactive bowel tones. Musculoskeletal: Unremarkable. Normal range of motion, no swollen or erythematous joints Extremities: No edema, no cyanosis, no clubbing. Skin: No rashes. Warm and dry, no erythematous areas Neurological: Grossly neurologically intact, Normal Speech, Sensation Intact Lymphatic: Lymph nodes Cervical and Axillary not palpable. Lab and Diagnostics Labs Laboratory Tests Test 05/19/17 00:41 05/19/17 00:42 White Blood Count 7.1th/mm3 (3.8-10.1) Red Blood Count 4.78mil/mm3 (4.40-5.80) Hemoglobin 15.4g/dL (13.8-17.2) Hematocrit 43.0% (41.0-50.0) Mean Corpuscular Volume 90.0fL (81-100) Mean Corpuscular Hemoglobin 32.2pg (27.0-35.0) Mean Corpuscular Hemoglobin Concent 35.8% (32.0-37.0) Red Cell Distribution Width 12.0% (12.3-15.4) Platelet Count 263bil/L (150-400) Neutrophils (%) (Auto) 63.6% (40-74) Lymphocytes (%) (Auto) 29.1% (14-46) Monocytes (%) (Auto) 5.5% (4-12) Eosinophils (%) (Auto) 1.6% (0-5) Basophils (%) (Auto) 0.1% (0-3) Prothrombin Time 10.6sec (8.1-12.5) Prothromb Time International Ratio 0.99ratio Sodium Level 138mEq/L (134-144) Potassium Level 3.8mEq/L (3.5-5.2) Chloride Level 98mEq/L (97-108) Carbon Dioxide Level 17mmol/L (18-29) Blood Urea Nitrogen 8mg/dL (6-20) Creatinine 0.63mg/dL (0.76-1.27) Estimat Glomerular Filtration Rate 152mL/min (>59) Glucose Level 115mg/dL (60-99) Calcium Level 9.1mg/dL (8.5-10.1) Magnesium Level 2.2mg/dL (1.6-2.6) Total Bilirubin 0.7mg/dL (0.0-1.2) Aspartate Amino Transf (AST/SGOT) 148U/L (0-50) Alanine Aminotransferase (ALT/SGPT) 99U/L (0-44) Alkaline Phosphatase 109U/L (25-150) Total Protein 9.3g/dL (6.4-8.4) Albumin 4.6g/dL (3.4-5.0) Lipase 214U/L (13-60) Alcohols 159mg/dL (0-10) Hold Doll Top Tube Received (Received) Result Diagram: 05/19/174005/19/17 004 Assessment & Plan 36-year-old male with a history of alcoholic hepatitis and pancreatitis, reported mass on pancreas that was biopsied at , and history of seizures on alcohol withdrawal presents to emergency department with requesting medical clearance for detox but was found to have recurrent Pancreatitis 1. Acute alcohol-induced pancreatitis. Recurrent. Present on admission Recurrent pancreatitis due to alcohol abuse and history of pancreatic mass that was removed. Meeting [place] criteria for diagnosis - Maintenance with LR 125 mL/hr - pain control with Morphine IV as needed 2 Alcohol withdrawal syndrome; Present on admission; ongoing Patient goes on multiple week long binges with resultant pancreatitis and withdrawal history of seizure -Banana bag and thiamine 200 mg IV then Thiamine 100 mg daily -Continue CIWA protocol (Valium out will use Ativan instead) 3 Acute alcoholic hepatitis,chronic No indications for Prednisolone based on Discriminant function score - abstinence from alcohol encouraged to halt progression of liver disease 4 Hypertension,Chronic Some elevation will likely related to alcohol withdrawal as well - continue Amlodipine - consider Clonidine PO if indicated in the short term - Acetaminophen as needed for mild pain/fever/headache - Bowel regimen as needed - Antiemetic as needed Patient admitted under inpatient status with expected length of stay > 2 midnights for severity of present symptoms, complexities of treatment plan and risk for adverse event . Resuscitation Status: CPR: Attempt Resuscitation Dontrell Wilcox MD May 19, 2017 02:16 Patient admitted under inpatient status with expected length of stay > 2 midnights for severity of present symptoms, complexities of treatment plan and risk for adverse event . Resuscitation Status: CPR: Attempt Resuscitation Dontrell Wilcox MD May 19, 2017 02:16
[2017-05-19 03:28] LABS: APPEARANCE,URINE HAZY (CLEAR,HAZY); COLOR,URINE YELLOW (YELLOW); OCCULT BLOOD,URINE NEGATIVE (NEGATIVE); UROBILINOGEN,URINE NORMAL (NORMAL)
[2017-05-19] MEDS: Lactated Ringer's 1,000 ML IV SCH ×3 (03:47→14:41)
[2017-05-19] MEDS ORDERED: Thiamine Inj 100 MG, Folic Acid Inj 1 MG, Magnesium Sulfate 50% Inj 2 GM, Multivitamins... IV ONE ×5 (03:55)
--- NOTE | 2017-05-19 05:14 | NUR ---
P) Admit Pt. admitted to [facility] from ER at approx. 0430, CIWA 14-15, stated headache is 9/10 and stomach is 10/10, shortly after getting into bed pt. fell asleep,refused to allow skin check as he was "too cold" and would not answer admit questions, as a result all history questions were provided by the MEAT DEPARTMENT MANAGER or forwarded from last admit. Pupils reactive and eyes very light sensitive, abdomen tender, cardiac rhythm sinus. I) Seizure pads in place, meds per 's orders, close monitoring. e0 Resting quietly with eyes closed.
[2017-05-19] MEDS: Multivit-Miner-Folic Acid-Iron Tablet PO SCH (08:39)
[2017-05-19] MEDS: Heparin 5,000 Unit/mL Inj SUBQ SCH ×2 (08:40→17:38)
[2017-05-19 12:52] LABS: APPEARANCE,URINE CLEAR (CLEAR,HAZY); COLOR,URINE YELLOW (YELLOW); PH,URINE 5.5 (5.0-8.0)
[2017-05-19 12:53] LABS: OCCULT BLOOD,URINE NEGATIVE (NEGATIVE); UROBILINOGEN,URINE NORMAL (NORMAL)
[2017-05-19] MEDS: Ondansetron 2 mg/mL 2 mL Inj IVPUSH PRN ×3 (13:05→23:14)
--- NOTE | 2017-05-19 15:52 | NUR ---
Social Work: Initial Assessment/Multidisciplinary Rounds D: Per EMR review, pt is a 36 year old male admitted for alcoholic pancreatitis, alcohol withdrawal. Pt is [employer] [place] insurance with no LTC or VA Benefits. PCP is Yahir Hay MD. NOK is Rita Ling, mother, . Advanced directives information declined by pt. Readmit score is high, 12/27. Pt is a readmission and is well known to case management and [facility] staff. Pt was just discharged on 04/29 after similar admitting diagnosis/reason. Pt discussed in am rounds. Pt is not yet medically stable with CIWA of 14-15. placed order for CD assessment. DISINTEGRATOR acknowledges CD order; CD assessment has not yet been completed at this time. Pt states that he had been trying to get to Crisis [facility] but needed hospitlization. Pt will likely not require this at discharge. Capacity for self-care discussed with provider; no concerns at this time except for the pt's ETOH use. Pt lives in [place] with his parents. He is I at baseline, uses no DME and relies on public transportation. Pt has never had HH or skilled rehab. Pt states that he intends to discharge back home to his parents when he is medically; pt's brother to transport. A: Pt who is I at baseline. P: Anticipate pt to discharge back home when medically stable; DISINTEGRATOR to continue to follow to asses for further d/c needs and to meet with patient to complete CD assessment and provide resources. VONNIE Muniz
--- NOTE | 2017-05-19 18:31 | NUR ---
Zofran helpful for c/o nausea. Remains NPO. IVFs infusing, voiding adequate amounts jacoby urine. UA sent. Oriented, has been pleasant and mildly anxious, complaining of ongoing nausea, tremors, anxiety and headache. Morphine effective for intermittent c/o abd discomfort. Has slept most of the day. SR/ST on tele, no ectopy reported. Refused a.m. PO vitamins. No visitors.
[2017-05-20] MEDS: Heparin 5,000 Unit/mL Inj SUBQ SCH ×3 (01:20→17:17)
[2017-05-20] MEDS: Lactated Ringer's 1,000 ML IV SCH ×4 (01:36→23:18)
[2017-05-20 03:57] VITALS: BP 133/88; PULSE 93; RESP 16; O2SAT 96
[2017-05-20] MEDS: Ondansetron 2 mg/mL 2 mL Inj IVPUSH PRN ×4 (06:14→21:16)
--- NOTE | 2017-05-20 06:45 | NUR ---
A/Ox3, makes needs known. No seizure activity this shift, last CIWA 12. Pt reports moderate headache, nausea, 1 episode of visual hallucinations, UE tremor noted at rest. Ativan given with effective results. MS given x2 for 8/10 headache/abdominal pain. Tolerated small amounts of water and one jello.
[2017-05-20 07:40] VITALS: BP 122/89; PULSE 102; RESP 18; O2SAT 97
--- NOTE | 2017-05-20 07:44 | DRSVH ---
PROCEDURE: US ABDOMEN INDICATIONS: pancreatitis,acute TECHNIQUE: Real-time scanning was performed of the abdominal and retroperitoneal organs, with image documentatio n. COMPARISON: [facility], CT, CT ABD PELVIS W CON, 04/24/2017, 20:07. [facility] al, CT, CT ABD PELVIS W CON, 11/25/2016, 12:50. [facility], US, US ABDOMEN, 11/03/2016, 18 :42. FINDINGS: Liver length: 19.36 cm Gallbladder Wall Thickness: 1.80 mm CHD: 3.90 mm CBD: 4 mm Spleen length: 12.57 cm Right kidney length: 12.06 cm Left kidney length: 13.23 cm Aorta(Proximal): 2.55 cm Aorta(Mid): 1.94 cm Aorta(Distal): 1.81 cm RCIA: 1.30 cm LCIA: 1.36 cm Liver: Liver is diffusely increased in echogenicity. No focal hepatic abnormalities identified. Nor mal hepatic size. Gallbladder: Normal gallbladder. Biliary ducts: Intrahepatic bile ducts are non-dilated. Extrahepatic bile duct caliber is normal. Normal is 6-7 mm or less in diameter, or 10 mm or less post-cholecystectomy. Pancreas: Visualized portions of the pancreas are sonographically normal. Spleen: Spleen is normal in size and homogeneous in echotexture. Kidneys: Kidneys are normal in size and echotexture. No hydronephrosis or nephrolithiasis. No kang d masses. Prominence of the left renal pelvis redemonstrated as was seen on recent CT scan. Aorta: Visualized aorta is normal in caliber at less than 3 cm. Iliacs: Proximal common iliac arteries are normal in caliber at less than 2.5 cm. IVC: Intrahepatic inferior vena cava is patent. Miscellaneous: No free abdominal fluid. IMPRESSION: Increased hepatic echogenicity noted likely related to fatty infiltration of the liver b ut other sources of hepatocellular disease cannot be excluded. Recommend clinical correlation. Dictated by: Aristides JETER Interpreted: Carlos Flores MD on 05/19/2017 at 15:03 Approved by: Carlos Flores M.D. on 05/20/2017 at 7:43
[2017-05-20] MEDS: Multivit-Miner-Folic Acid-Iron Tablet PO SCH (08:05)
--- NOTE | 2017-05-20 08:16 | PCM.PNMED ---
Subjective Date of Service May 20, 2017 Subjective The patient is still having abdominal pain rated at 10. The pain is epigastric and radiates to the back. He is somewhat short of breath and somewhat nauseated. No emesis. He denies any cough. No palpitations. He does note intermittent hallucinations. No seizures. No overnight events noted. Exam Vital Signs Vital Sign - Last Date Time Temp Pulse Resp B/P Pulse Ox O2 Delivery O2 Flow Rate FiO2 05/20/17 07:40 36.8 102 18 122/89 97 Room Air Intake and Output 05/19/17 05/19/17 05/20/17 Cumulative From/Thru 15:00 23:00 07:00 05/18/17 22:00 - 05/20/17 06:56 Intake Total 0 ml 1500 ml 3346 ml 5699 ml Output Total 1650 ml 2600 ml 4250 ml Balance 0 ml -150 ml 746 ml 1449 ml Intake Oral 0 ml 0 ml 200 ml 200 ml IV Total 1500 ml 3146 ml 5499 ml Output Urine Total 1650 ml 2600 ml 4250 ml # Voids 0 0 # Bowel Movements 0 0 Exam Alert and oriented -3, no distress. Fluent speech Anicteric sclera. Lungs are clear with normal rate and effort Heart is regular without murmur gallop or rub Abdomen soft nontender, flat Extremities are free of edema. Skin is free of rash or lesions. IVs and Medications Medications Reviewed: Medications were reviewed in detail Lab and Diagnostics Result Diagram: 05/19/17 00405/19/17 0041 Assessment & Plan 36-year-old male with a history of alcoholic hepatitis and pancreatitis, reported mass on pancreas that was biopsied at , and history of seizures on alcohol withdrawal presents to emergency department with requesting medical clearance for detox but was found to have recurrent Pancreatitis 1. Acute alcohol-induced pancreatitis. Recurrent. Present on admission and improving. Recurrent pancreatitis due to alcohol abuse and history of pancreatic mass that was removed. Meeting [place] criteria for diagnosis - Maintenance with LR 125 mL/hr - pain control will be switched to oral hydromorphone. 2 Alcohol withdrawal syndrome; Present on admission; ongoing and improving. Patient goes on multiple week long binges with resultant pancreatitis and withdrawal history of seizure -Banana bag and thiamine 200 mg IV then Thiamine 100 mg daily -Continue CIWA protocol (Valium out will use Ativan instead). He does have some evidence of hallucinations but no seizure activity. 3 Acute alcoholic hepatitis,chronic and improving. No indications for Prednisolone based on Discriminant function score - abstinence from alcohol encouraged to halt progression of liver disease 4 Hypertension,Chronic and stable. Some elevation will likely related to alcohol withdrawal as well - continue Amlodipine - consider Clonidine PO if indicated in the short term - Bowel regimen as needed - Antiemetic as needed Patient admitted under inpatient status with expected length of stay > 2 midnights for severity of present symptoms, complexities of treatment plan and risk for adverse event . VTE Mechanical Devices: Intermittant Pneumatic CD Resuscitation Status: CPR: Attempt Resuscitation Tyree Salinas MD May 20, 2017 08:16
[2017-05-20] MEDS: HYDROmorphone 1 mg/mL Inj IVPUSH PRN ×5 (10:56→23:25)
[2017-05-20 11:55] VITALS: BP 131/86; PULSE 96; RESP 18; O2SAT 98
--- NOTE | 2017-05-20 19:09 | NUR ---
CIWA pt CIWA scores was 13, 18, 18, 12 through the day. Given 4mg of Ativan each time. Pt resting with eyes closed with reassessments. Pain not controlled with morphine. MD made aware, new order for 1mg Dilaudid q2hrs. Pt stating pain better controlled with Dilaudid. Report given to oncoming RN.
[2017-05-20] MEDS: Polyethylene Glycol (PEG) 17 Gm Powder PO PRN (19:42)
[2017-05-20 20:00] VITALS: BP 130/83; PULSE 91; RESP 16; O2SAT 94
[2017-05-20 23:44] VITALS: BP 122/87; PULSE 85; RESP 17; O2SAT 93
[2017-05-21] MEDS: Heparin 5,000 Unit/mL Inj SUBQ SCH ×3 (01:03→16:36)
[2017-05-21] MEDS: Promethazine 25 mg/mL Inj IM PRN ×2 (01:03→21:44)
[2017-05-21] MEDS: HYDROmorphone 1 mg/mL Inj IVPUSH PRN ×5 (01:37→20:11)
--- NOTE | 2017-05-21 02:18 | NUR ---
P) ETOH withdrawal/ Pancreatitis Pt.'s symptoms of withdrawn and pancreatitis, worsening, increasing nausea and vomiting, very restless, giving self a bed bath at 0215 in the am, c/o severe abdominal pain and then asks when breakfast is, attempted to explain the correlation between eating and increase abdominal cramping multiple times but he was not able to remember anything, can not add, did get date right, and knows where he is and how long he has been here. I) Meds per 's orders, cont. to monitor. E) increasing scores and activity.
[2017-05-21 04:08] VITALS: BP 147/90; PULSE 104; RESP 18; O2SAT 94
--- NOTE | 2017-05-21 04:32 | NUR ---
P) ETOH W/D CIWA reached 41, pt. cont. to hallucinate. gave date as Thursday, states abdominal pain down to 7, CIWA 33. I) Consulted with Dr. Banuelos, advised to give ativan every 20 minutes, pulse ox applied, pt. groggy and confused, SPO2 85% as he dozes off, O2 applied, increased from 2 to 4L to get SPO2 above 93%. E) Currently dozing, will recheck in 20 minutes. Addendum: 05/21/17 at 0624 by MARLON MENDEZ RN A total of 36mg of ativan given this shift, pt. dozing, SPO2 98 on 4L of O2 per N/C, still hallucinating when awake and increasingly restless, no longer knows where he is and thinks the president is Obama, can't wait for him to get out of office. Posy bed alarm on, sitter requested for day shift as he will no longer say in bed when awake and is extremely unsteady on his feet. Continuing to monitor closely.
[2017-05-21] MEDS: Lactated Ringer's 1,000 ML IV SCH ×2 (07:59→16:36)
[2017-05-21 08:37] VITALS: BP 120/80; PULSE 89; RESP 18; O2SAT 100
[2017-05-21] MEDS: Multivit-Miner-Folic Acid-Iron Tablet PO SCH (10:20)
--- NOTE | 2017-05-21 13:42 | NUR ---
Social Work: Attempted CD Assessment/Multidisciplinary Rounds D: Pt discussed in multidisciplinary rounds. The patient had an eventful night experiencing high CIWA scores with reported hallucinations. The patient's CIWA was in the high 20's and a sitter had to be placed. Attending provider has placed a CM order to see the patient for a CD assessment. STEEL ROLLER acknowledges order and attempted to meet with the patient at bedside. Sitter is still present. The patient was found to be sleeping very soundly and not able to be verbally woken. Sitter states that the patient has been appropriate for her during shift and has been ambulating to and from bathroom SBA. STEEL ROLLER will attempt to meet with the patient at a later date when his CIWA is more controlled. A: Pt who lives at home, and is I at baseline. P: STEEL ROLLER to continue to follow and attempt CD assessment with patient when he is appropriate. Anticipate patient to discharge home via POV once medically stable. VONNIE Muniz
--- NOTE | 2017-05-21 14:14 | PCM.PNMED ---
Subjective Date of Service May 21, 2017 Subjective Continues to feel active withdrawal symptoms including intermittent hallucinations and tremor. Some nausea after eating. No abdominal pain currently. He denies any nausea currently but did have this earlier. He also denies diarrhea. He continues to request a lot of pain medication for epigastric abdominal pain which has historically been presumed to be related to possible pancreatitis. No other overnight events noted. Exam Vital Signs Vital Sign - Last Date Time Temp Pulse Resp B/P Pulse Ox O2 Delivery O2 Flow Rate FiO2 05/21/17 08:37 36.8 89 18 120/80 100 Nasal Cannula 3.00 Intake and Output 05/20/17 05/20/17 05/21/17 Cumulative From/Thru 15:00 23:00 07:00 05/18/17 22:00 - 05/21/17 06:38 Intake Total 2067 ml 1908 ml 9674 ml Output Total 1175 ml 1950 ml 7375 ml Balance 892 ml -42 ml 2299 ml Intake Oral 608 ml 436 ml 1244 ml IV Total 1459 ml 1472 ml 8430 ml Output Urine Total 1175 ml 1950 ml 7375 ml # Voids 0 # Bowel Movements 0 Exam Alert and oriented -3, no distress. Fluent speech, is somewhat lethargic and unkempt. Anicteric sclera. Lungs are clear with normal rate and effort Heart is regular without murmur gallop or rub Abdomen soft nontender, flat Extremities are free of edema. Skin is free of rash or lesions. Mild tremor. IVs and Medications Medications Reviewed: Medications were reviewed in detail Lab and Diagnostics Result Diagram: 05/19/17 00405/19/17 0041 Assessment & Plan 36-year-old male with a history of alcoholic hepatitis and pancreatitis, reported mass on pancreas that was biopsied at , and history of seizures on alcohol withdrawal presents to emergency department with requesting medical clearance for detox but was found to have recurrent Pancreatitis 1. Acute alcohol-induced pancreatitis. Recurrent. Present on admission and improving. Recurrent pancreatitis due to alcohol abuse and history of pancreatic mass that was removed. Meeting [place] criteria for diagnosis - Maintenance with LR 125 mL/hr - pain control will be switched to oral hydromorphone. The patient continues to slowly improve. I told him we will be de-escalating his IV pain medications and oral medications. 2 Alcohol withdrawal syndrome; Present on admission; ongoing and improving. Patient goes on multiple week long binges with resultant pancreatitis and withdrawal history of seizure -Banana bag and thiamine 200 mg IV then Thiamine 100 mg daily -Continue CIWA protocol (Valium out will use Ativan instead). He does have some evidence of hallucinations but no seizure activity. We will again de-escalate the level of benzodiazepines. 3 Acute alcoholic hepatitis,chronic and improving. No indications for Prednisolone based on Discriminant function score - abstinence from alcohol encouraged to halt progression of liver disease No change medical plan. 4 Hypertension,Chronic and stable. Some elevation will likely related to alcohol withdrawal as well - continue Amlodipine - consider Clonidine PO if indicated in the short term - Bowel regimen as needed - Antiemetic as needed Patient admitted under inpatient status with expected length of stay > 2 midnights for severity of present symptoms, complexities of treatment plan and risk for adverse event . VTE Mechanical Devices: Intermittant Pneumatic CD Resuscitation Status: CPR: Attempt Resuscitation Tyree Salinas MD May 21, 2017 14:14
[2017-05-21] MEDS: Ondansetron 2 mg/mL 2 mL Inj IVPUSH PRN (18:29)
--- NOTE | 2017-05-21 18:32 | NUR ---
CIWA/Nausea/Pain Cardiac: pt denies CP, No tele. HR 80s Resp: pt denies SOB, SpO2 high 90s on RA. GI/: Pt reports very mild nausea, Diet upgraded to General. Pt tolerated Po intake well this afternoon, he reports mild nausea, but was not deterred from eating. Zofran given at end of shift for increase in nausea when dinner arrived. Neuro: A&Ox3, DOMINGO, pt is unsteady on feet, Sitter at bedside for safety this AM, sitter dc'd at 15:00. CIWA 17 this AM, down to 6 and then to 13 this afternoon. CIWA scores have been negative for tremor and sweats.
[2017-05-21 20:00] VITALS: BP 134/90; RESP 16; O2SAT 97
[2017-05-22] MEDS: HYDROmorphone 1 mg/mL Inj IVPUSH PRN ×4 (00:06→21:45)
[2017-05-22] MEDS: Heparin 5,000 Unit/mL Inj SUBQ SCH ×3 (00:06→16:53)
[2017-05-22] MEDS: Ondansetron 2 mg/mL 2 mL Inj IVPUSH PRN ×2 (02:27→13:11)
--- NOTE | 2017-05-22 04:41 | NUR ---
CIWA, Anxiety, pain Vs as noted. Complains of 10/10 abdominal discomforts treated with dilaudid q4h. Ativan 2mg given q4h for CIWA as high as 20 with anxiety. Up and ambulating halls twice this shift. Requesting any medications available. Dozing during brief intervals.
[2017-05-22 08:32] VITALS: BP 161/111; PULSE 87; RESP 18; O2SAT 89; O2SAT 95
[2017-05-22] MEDS: Multivit-Miner-Folic Acid-Iron Tablet PO SCH (09:50)
[2017-05-22] MEDS: Polyethylene Glycol (PEG) 17 Gm Powder PO PRN (09:50)
--- NOTE | 2017-05-22 11:42 | PCM.PNMED ---
Subjective Date of Service May 22, 2017 Subjective He is improving. No hallucinations. He still feels some abdominal pain and very anxious and has a tremor. He denies any difficulties with dyspnea, or cough. Less nauseated today. No diarrhea. No overnight events noted. Exam Vital Signs Vital Sign - Last Date Time Temp Pulse Resp B/P Pulse Ox O2 Delivery O2 Flow Rate FiO2 05/22/17 08:32 37.2 87 18 161/111 95 Room Air 05/21/17 08:37 3.00 Intake and Output 05/21/17 05/21/17 05/22/17 Cumulative From/Thru 15:00 23:00 07:00 05/18/17 22:00 - 05/22/17 05:55 Intake Total 1837 ml 1498 ml 95784 ml Output Total 1300 ml 1700 ml 98344 ml Balance 537 ml -202 ml 2634 ml Intake Oral 540 ml 576 ml 2360 ml IV Total 1297 ml 922 ml 80032 ml Output Urine Total 1300 ml 1700 ml 44507 ml # Voids 0 # Bowel Movements 0 Exam Alert and oriented -3, no distress. Fluent speech Anicteric sclera. Lungs are clear with normal rate and effort Heart is regular without murmur gallop or rub Abdomen soft nontender, flat Extremities are free of edema. Skin is free of rash or lesions. IVs and Medications Medications Reviewed: Medications were reviewed in detail Lab and Diagnostics Result Diagram: 05/19/17 00405/19/17 004 Assessment & Plan 36-year-old male with a history of alcoholic hepatitis and pancreatitis, reported mass on pancreas that was biopsied at , and history of seizures on alcohol withdrawal presents to emergency department with requesting medical clearance for detox but was found to have recurrent Pancreatitis 1. Acute alcohol-induced pancreatitis. Recurrent. Present on admission and continues to improve Recurrent pancreatitis due to alcohol abuse and history of pancreatic mass that was removed. Meeting Ivy criteria for diagnosis - Maintenance with LR 125 mL/hr - pain control will be switched to oral oxycodone. We will wean hydromorphone down to 1 mg IV every 6 hours when necessary breakthrough. The patient continues to slowly improve. I told him we will be de-escalating his IV pain medications and oral medications. 2 Alcohol withdrawal syndrome; Present on admission; ongoing and improving. No hallucinations. Patient goes on multiple week long binges with resultant pancreatitis and withdrawal history of seizure -Banana bag and thiamine 200 mg IV then Thiamine 100 mg daily -Discontinue Seroquel. We will use Ativan 1 mg every 4 hours when necessary anxiety. We will again de-escalate the level of benzodiazepines. 3 Acute alcoholic hepatitis,chronic and improving. No indications for Prednisolone based on Discriminant function score - abstinence from alcohol encouraged to halt progression of liver disease No change medical plan. Follow clinically. 4 Hypertension,Chronic and stable. Some elevation will likely related to alcohol withdrawal as well - continue Amlodipine - consider Clonidine PO if indicated in the short term - Bowel regimen as needed - Antiemetic as needed Patient admitted under inpatient status with expected length of stay > 2 midnights for severity of present symptoms, complexities of treatment plan and risk for adverse event . VTE Mechanical Devices: Intermittant Pneumatic CD Resuscitation Status: CPR: Attempt Resuscitation Tyree Salinas MD May 22, 2017 11:42
[2017-05-22 12:12] VITALS: BP 149/109; PULSE 100; RESP 18; O2SAT 94
[2017-05-22] MEDS: Promethazine 25 mg/mL Inj IM PRN (14:35)
[2017-05-22] MEDS ORDERED: Labetalol 5 mg/mL 20 mL Inj IVPUSH PRN (15:50)
[2017-05-22 16:33] VITALS: BP 154/119; PULSE 117; RESP 20; O2SAT 98
--- NOTE | 2017-05-22 16:56 | NUR ---
Abdominal Pain/Vomiting/HTN/CIWA Cardiac: pt denies CP, No tele. HR 80s. BP elevated this AM, 161/111, lisinopril given, down to 149/109, metoprolol ordered. Labetelol PRN for SBP>175. Resp: pt denies SOB, SpO2 high 90s on RA. GI/: Pt reports very mild nausea this AM, Poor appetite today, reported increased nausea around noon, zofran given, and pharmacy called for phenergan. Pt had a large amount of emesis consisting of undigested food from breakfast. No more emesis after pherergan given. Pt also reports increasing LUQ abdominal pain 06/30. NO BM since 05/16, mirilax and senna given, made aware. Mag citrate given for pt to sip on. Neuro: A&Ox3, DOMINGO, CIWA 13 this AM, Ativan given for anxiety.
[2017-05-22 22:25] VITALS: BP 147/100; PULSE 101; RESP 16; O2SAT 97
[2017-05-23] MEDS: Heparin 5,000 Unit/mL Inj SUBQ SCH ×3 (03:19→17:45)
[2017-05-23 03:30] VITALS: BP 148/101; PULSE 97; RESP 20; O2SAT 96
[2017-05-23] MEDS: HYDROmorphone 1 mg/mL Inj IVPUSH PRN ×3 (03:44→16:06)
--- NOTE | 2017-05-23 07:20 | NUR ---
CIWA/Pain/Nausea/BM Pt CIWA score was 3 this shift. Pt continues to c/o 06/30 LUQ ABD pain and has received 1mg dilaudid IVP Q6H. Pt has c/o nausea intermittently throughout the shift and anxiety along with tremors. Pt received 1mg ativan IVP Q6H for the anxiety and the nausea would go away along with the anxiety. Pt is tolerating liquid PO intake. Pt still has not had a BM and has drank 2/3 of the magnesium citrate that he was given during dayshift on 05/22/2017. Oncoming RN has been made aware.
[2017-05-23 08:52] VITALS: BP 170/117; PULSE 92; RESP 16; O2SAT 94
[2017-05-23] MEDS: Multivit-Miner-Folic Acid-Iron Tablet PO SCH (09:06)
[2017-05-23] MEDS: Polyethylene Glycol (PEG) 17 Gm Powder PO PRN (09:08)
[2017-05-23] MEDS: Promethazine 25 mg/mL Inj IM PRN ×2 (10:58→20:50)
--- NOTE | 2017-05-23 11:29 | PCM.PNMED ---
Subjective Date of Service May 23, 2017 Subjective He is doing better today. He is less confused. No hallucinations. Much less anxiety. He is still having some nausea and epigastric abdominal pain. He has been eating intermittently but has decreased appetite and more nausea today. No diarrhea. His constipation persists. Patient received MiraLAX and mag citrate as well as senna. No overnight events noted. Exam Vital Signs Vital Sign - Last Date Time Temp Pulse Resp B/P Pulse Ox O2 Delivery O2 Flow Rate FiO2 05/23/17 08:52 36.8 92 16 170/117 94 Room Air 05/21/17 08:37 3.00 Intake and Output 05/22/17 05/22/17 05/23/17 Cumulative From/Thru 15:00 23:00 07:00 05/18/17 22:00 - 05/23/17 06:04 Intake Total 215 ml 700 ml 700 ml 34416 ml Output Total 950 ml 61929 ml Balance 215 ml -250 ml 700 ml 3299 ml Intake Oral 700 ml 700 ml 3760 ml IV Total 215 ml 61734 ml Output Urine Total 950 ml 84039 ml # Voids 3 3 # Bowel Movements 0 0 Exam Alert and oriented -3, no distress. Fluent speech Anicteric sclera. Lungs are clear with normal rate and effort Heart is regular without murmur gallop or rub Abdomen soft nontender, flat Extremities are free of edema. Skin is free of rash or lesions. IVs and Medications Medications Reviewed: Medications were reviewed in detail Lab and Diagnostics Result Diagram: 05/19/17 00405/19/17 0041 Assessment & Plan 36-year-old male with a history of alcoholic hepatitis and pancreatitis, reported mass on pancreas that was biopsied at , and history of seizures on alcohol withdrawal presents to emergency department with requesting medical clearance for detox but was found to have recurrent Pancreatitis 1. Acute alcohol-induced pancreatitis. Recurrent. Present on admission and continues to improve. He also may have some element of gastritis and even pain from alcohol-induced hepatitis. Recurrent pancreatitis due to alcohol abuse and history of pancreatic mass that was removed. Meeting Ivy criteria for diagnosis - Maintenance with LR 125 mL/hr - pain control will be switched to oral oxycodone. We will wean hydromorphone down to 1 mg IV every 6 hours when necessary breakthrough. The patient continues to slowly improve. We will increase his oxycodone to 10 mg every 4 hours instead of every 6 hours. We will leave Dilaudid 1 mg every 6 hours. 2 Alcohol withdrawal syndrome; Present on admission; ongoing and much improved. No hallucinations. Patient goes on multiple week long binges with resultant pancreatitis and withdrawal history of seizure -Banana bag and thiamine 200 mg IV then Thiamine 100 mg daily -Discontinue Seroquel. We will use Ativan 1 mg every 4 hours when necessary anxiety. No change to benzodiazepines, lorazepam 1 mg every 6 hours when necessary anxiety. He is off the [facility] protocol. 3 Acute alcoholic hepatitis,chronic and improving. No indications for Prednisolone based on Discriminant function score - abstinence from alcohol encouraged to halt progression of liver disease No change medical plan. Follow clinically. 4 Hypertension,Chronic and active. -Some elevation will likely related to alcohol withdrawal as well - Yesterday we started metoprolol 12.5 twice a day and lisinopril 10 daily. Today we will increase the metoprolol to 25 by mouth twice a day and continue lisinopril. - Bowel regimen as needed - Antiemetic as needed Patient admitted under inpatient status with expected length of stay > 2 midnights for severity of present symptoms, complexities of treatment plan and risk for adverse event We will be in the hospital for one or 2 more days. The importance of alcohol cessation and abstinence was again discussed at length. . VTE Mechanical Devices: Intermittant Pneumatic CD Resuscitation Status: CPR: Attempt Resuscitation Tyree Salinas MD May 23, 2017 11:29
[2017-05-23 16:54] VITALS: BP 134/90; PULSE 93; RESP 15; O2SAT 93
--- NOTE | 2017-05-23 18:09 | NUR ---
HTN Abdominal Pain Cardiac: Pt denies CP, no tele. HTN at morning assessment. BP 170/117, lisinopril and metoprolol given. BP still elevated, one time dose of metoprolol 25mg given. BP down to 134/90. Resp: pt denies SOB. SpO2 96% on RA GI/: Pt reports nausea this AM, Promethezine given with good effect. No BM since 05/16, mirilax and senna given. Pt encouraged to walk in halls. Pt was able to have BM late in the shift. Abdominal pain exacerbated by eating lunch. q6 Dilaudid given [address] Salinas. Neuro: AOx3, DOMINGO
[2017-05-23 20:11] VITALS: BP 93/63; PULSE 87; RESP 16; O2SAT 96
[2017-05-24] MEDS: Heparin 5,000 Unit/mL Inj SUBQ SCH ×3 (03:08→16:23)
[2017-05-24 03:22] VITALS: BP 93/64; PULSE 74; RESP 16; O2SAT 99
--- NOTE | 2017-05-24 04:14 | NUR ---
BPs/Nausea/Appetite/Activity Pt's SBP has maintained in the 90s throughout the shift and pt has not c/o dizziness or weakness. Pt c/o nausea at beginning of shift and was given IM phenergan. Pt has tolerated PO fluid intake throughout the shift and was able to eat a [employer] meal at approximately 0300. Pt has not c/o nausea or vomiting since eating the meal and is currently sleeping Pt was walking the halls this evening and was able to make multiple laps around the unit with no c/o pain, weakness, or dizziness.
[2017-05-24 08:48] VITALS: BP 95/64; RESP 16; O2SAT 96
[2017-05-24] MEDS: Multivit-Miner-Folic Acid-Iron Tablet PO SCH (08:54)
--- NOTE | 2017-05-24 09:26 | PCM.PNMED ---
Subjective Date of Service May 24, 2017 Subjective She is doing better today. He feels less withdrawal symptoms including anxiety , no nausea. He is breathing better. His abdominal pain is much improved. He had a ball. He was able to walk around quite a bit yesterday. His primary concern is insomnia which is recurrent when he is not drinking. No other overnight events noted. Exam Vital Signs Vital Sign - Last Date Time Temp Pulse Resp B/P Pulse Ox O2 Delivery O2 Flow Rate FiO2 05/24/17 08:48 36.8 16 95/64 96 Room Air 05/24/17 03:22 74 05/21/17 08:37 3.00 Intake and Output 05/23/17 05/23/17 05/24/17 Cumulative From/Thru 15:00 23:00 07:00 05/18/17 22:00 - 05/24/17 06:45 Intake Total 760 ml 1120 ml 05382 ml Output Total 1000 ml 25 ml 42387 ml Balance -240 ml 1095 ml 4154 ml Intake Oral 760 ml 1120 ml 5640 ml IV Total 66839 ml Output Urine Total 1000 ml 25 ml 74463 ml # Voids 3 6 # Bowel Movements 1 1 Exam Alert and oriented -3, no distress. Fluent speech Anicteric sclera. Lungs are clear with normal rate and effort Heart is regular without murmur gallop or rub Abdomen soft nontender, flat Extremities are free of edema. Skin is free of rash or lesions. IVs and Medications Medications Reviewed: Medications were reviewed in detail Lab and Diagnostics Result Diagram: 05/19/17 0041 05/19/17 0041 Assessment & Plan 36-year-old male with a history of alcoholic hepatitis and pancreatitis, reported mass on pancreas that was biopsied at , and history of seizures on alcohol withdrawal presents to emergency department with requesting medical clearance for detox but was found to have recurrent Pancreatitis 1. Acute alcohol-induced pancreatitis. Recurrent. Present on admission and improving. He also may have some element of gastritis and even pain from alcohol-induced hepatitis. Recurrent pancreatitis due to alcohol abuse and history of pancreatic mass that was removed. Meeting Ivy criteria for diagnosis - Maintenance with LR 125 mL/hr - pain control will be switched to oral oxycodone. We will wean hydromorphone down to 1 mg IV every 6 hours when necessary breakthrough. The patient continues to improve. We will keep his oxycodone to 10 mg every 4 hours instead of every 6 hours. We will leave Dilaudid 1 mg every 6 hours. 2 Alcohol withdrawal syndrome; Present on admission; ongoing and much improved. No hallucinations. Patient goes on multiple week long binges with resultant pancreatitis and withdrawal history of seizure -Banana bag and thiamine 200 mg IV then Thiamine 100 mg daily -Discontinue Seroquel. We will use Ativan 1 mg every 4 hours when necessary anxiety. No change to benzodiazepines, lorazepam 1 mg every 6 hours when necessary anxiety. He is off the CIWA protocol. 3 Acute alcoholic hepatitis,chronic and improving. No indications for Prednisolone based on Discriminant function score - abstinence from alcohol encouraged to halt progression of liver disease No change medical plan. Follow clinically. 4 Hypertension,Chronic and active. -Some elevation will likely related to alcohol withdrawal as well - Yesterday we started metoprolol 12.5 twice a day and lisinopril 10 daily. Today we will increase the metoprolol to 25 by mouth twice a day and continue lisinopril. 5. Insomnia, new and active. We will try trazodone 100 mg at bedtime. - Bowel regimen as needed - Antiemetic as needed Patient admitted under inpatient status with expected length of stay > 2 midnights for severity of present symptoms, complexities of treatment plan and risk for adverse event We will be in the hospital for one or 2 more days. The importance of alcohol cessation and abstinence was again discussed at length. . VTE Mechanical Devices: Intermittant Pneumatic CD Resuscitation Status: CPR: Attempt Resuscitation Tyree Salinas MD May 24, 2017 09:26
[2017-05-24] MEDS ORDERED: LORazepam 1 mg Tablet PO PRN (10:15)
--- NOTE | 2017-05-24 10:32 | NUR ---
Hypotension Pt's SBP below 100 since last night. MD notified and antihypertensives were held this AM per orders.
[2017-05-24] MEDS: Polyethylene Glycol (PEG) 17 Gm Powder PO PRN (10:51)
[2017-05-24 10:58] LABS: Mean Corpuscular Hemoglobin 32.2 pg (27.0-35.0); Mean Corpuscular Volume 94.7 fL (81-100)
[2017-05-24] MEDS: Ondansetron 2 mg/mL 2 mL Inj IVPUSH PRN ×2 (11:49→17:48)
[2017-05-24 16:16] VITALS: BP 133/94; PULSE 95; RESP 16; O2SAT 98
--- NOTE | 2017-05-24 16:59 | NUR ---
Social Work: Chemical Dependency Assessment Current Situation: Pt on day 5 of stay for alcoholic pancreatitis. Pt now off of CIRI protocol. SW received case management referral for CD assessment. EMERGENCY TECHNICIAN met with pt at bedside. Pt is well known to Case Management. Pt is familiar with EMERGENCY TECHNICIAN role. Pt declined completing CD assessment, but did verify the following information pulled from pt's last CD assessment in April (please see full assessment during last visit for more information). Pt continues to drink approximately 8 12 oz cans of beer daily. Pt is not currently enrolled in any CD services. Pt endorses flu-like symptoms during withdrawal and hx of seizures. Treatment History: Pt confirms that he does not want to engage in any CD treatment at this time other than AA meetings. Pt confirmed that he has a home AA group. Recommendation/Referral: Pt confirms again that he has no interest in participating in outpatient CD treatment. Pt declined outpatient resources at bedside but agreed to contact EMERGENCY TECHNICIAN if he changes his mind. Pt states that he will resume going to AA meetings and that he intends to discharge home with his parents. VONNIE Novak
--- NOTE | 2017-05-24 17:04 | NUR ---
Social Work- Readiness for Discharge/Multidisciplinary Rounds Data: EMR reviewed. Pt is on day 5 of hospitalization. Pt discussed in multidisciplinary rounds, pt will be transitioned to PO medications. Pt has been ambulating independently. Anticipate d/c home tomorrow. SW met with pt at bedside to complete CD assessment, see additional note. Pt confirms that his parents will transport home at d/c. Pt reports he will follow up with his AA meeting/supports. Pt declined any additional needs, SW encouraged pt to contact [employer]OV[employer] PANEL INST[employer]ER should needs arise. Confirmed phone number on whiteboard. SW will continue to follow. Assessment: Pt who is independent with ADLs and self-care Plan: Pt to d/c home with parents to transport via POV. No discharge needs anticipated. SW will continue to follow. VONNIE Novak
[2017-05-24 20:19] VITALS: BP 146/100; PULSE 83; RESP 16; O2SAT 97
[2017-05-24] MEDS: LORazepam 1 mg Tablet PO PRN (20:24)
[2017-05-25] MEDS: Heparin 5,000 Unit/mL Inj SUBQ SCH ×3 (00:30→16:56)
[2017-05-25 03:26] VITALS: BP 127/78; PULSE 84; RESP 16; O2SAT 97
[2017-05-25] MEDS: LORazepam 1 mg Tablet PO PRN ×2 (03:31→14:32)
[2017-05-25] MEDS: Ondansetron 2 mg/mL 2 mL Inj IVPUSH PRN ×4 (04:28→19:41)
--- NOTE | 2017-05-25 06:40 | NUR ---
Nausea/Rest Pt only c/o one bout of nausea this shift that was relieved by 8mg IVP zofran. Pt was able to slep this evening after taking the trazadone that was prescribed.
[2017-05-25 08:59] VITALS: BP 128/84; PULSE 80; RESP 16; O2SAT 98
[2017-05-25] MEDS: Multivit-Miner-Folic Acid-Iron Tablet PO SCH (09:03)
--- NOTE | 2017-05-25 10:58 | PCM.PNMED ---
Subjective Date of Service May 25, 2017 Subjective He is improving. He has ongoing abdominal pain and it radiated at 8 or 9 out of 10. He is able to eat. He denies any cough chest pain or shortness of breath. No diarrhea. No rectal bleeding or hematemesis. No hallucinations. He is not feeling withdrawal symptoms now. Now over night events noted. Exam Vital Signs Vital Sign - Last Date Time Temp Pulse Resp B/P Pulse Ox O2 Delivery O2 Flow Rate FiO2 05/25/17 08:59 36.8 80 16 128/84 98 05/25/17 03:26 Room Air 05/21/17 08:37 3.00 Intake and Output 05/24/17 05/24/17 05/25/17 Cumulative From/Thru 15:00 23:00 07:00 05/18/17 22:00 - 05/25/17 05:45 Intake Total 840 ml 1240 ml 97610 ml Output Total 650 ml 59204 ml Balance 190 ml 1240 ml 5584 ml Intake Oral 840 ml 1240 ml 7720 ml IV Total 83614 ml Output Urine Total 650 ml 09072 ml # Voids 3 3 12 # Bowel Movements 1 Exam Alert and oriented -3, no distress. Fluent speech Anicteric sclera. Lungs are clear with normal rate and effort Heart is regular without murmur gallop or rub Abdomen soft nontender, flat. Some epigastric tenderness with palpation. Extremities are free of edema. Skin is free of rash or lesions. IVs and Medications Medications Reviewed: Medications were reviewed in detail Lab and Diagnostics Result Diagram: 05/24/17 1015 05/24/17 1015 Assessment & Plan 36-year-old male with a history of alcoholic hepatitis and pancreatitis, reported mass on pancreas that was biopsied at , and history of seizures on alcohol withdrawal presents to emergency department with requesting medical clearance for detox but was found to have recurrent Pancreatitis 1. Acute alcohol-induced pancreatitis. Recurrent. Present on admission and continues to improve. He also may have some element of gastritis and even pain from alcohol-induced hepatitis. Recurrent pancreatitis due to alcohol abuse and history of pancreatic mass that was removed. Meeting Ivy criteria for diagnosis - Maintenance with LR 125 mL/hr - pain control will be switched to oral oxycodone. We will wean hydromorphone down to 1 mg IV every 6 hours when necessary breakthrough. We will continue to treat his pain without change his medications. 2 Alcohol withdrawal syndrome; Present on admission; ongoing and resolved. No hallucinations. Patient goes on multiple week long binges with resultant pancreatitis and withdrawal history of seizure -Banana bag and thiamine 200 mg IV then Thiamine 100 mg daily -Discontinue Seroquel. We will use Ativan 1 mg every 4 hours when necessary anxiety. Ativan as needed for anxiety. 3 Acute alcoholic hepatitis,chronic and improved. No indications for Prednisolone based on Discriminant function score - abstinence from alcohol encouraged to halt progression of liver disease No change medical plan. Follow clinically. No changes for today. 4 Hypertension,Chronic and much improved. -Some elevation will likely related to alcohol withdrawal as well - We started metoprolol 12.5 twice a day and lisinopril 10 daily. Today we will increase the metoprolol to 25 by mouth twice a day and continue lisinopril. 5. Insomnia, new and active. We will try trazodone 100 mg at bedtime. This was helpful last night. - Bowel regimen as needed - Antiemetic as needed Patient admitted under inpatient status with expected length of stay > 2 midnights for severity of present symptoms, complexities of treatment plan and risk for adverse event Anticipated discharge to home on Thursday, May 26. The importance of alcohol cessation and abstinence was again discussed at length. . VTE Mechanical Devices: Intermittant Pneumatic CD Resuscitation Status: CPR: Attempt Resuscitation Tyree Salinas MD May 25, 2017 10:58
--- NOTE | 2017-05-25 11:10 | NUR ---
Transfer to [facility] Patient c/o 06/30 abd pain and nausea with eating, PRN oxycodone and zofran given with good effect. VSS, A&O x3. Ambulates independently in room. Report called to FERN Chen and patient transferred to [facility] via WC.
--- NOTE | 2017-05-25 13:53 | NUR ---
MOC arrival Pt transferred to [id number] at 1115 from [facility]. Pt is a&ox3, easily oriented to new room and call light. Pt is comfortable w/ new room, and will call w/ any needs.
[2017-05-25 18:18] VITALS: BP 123/83; PULSE 79; RESP 16; O2SAT 97
--- NOTE | 2017-05-25 18:26 | NUR ---
Pain/Anxiety Pt c/t c/o pain 10/10 in abdomen, oxycodone effective for pain relief. Pt also c/o anxiety, ativan effective and pt slept for a few hours.
[2017-05-26] MEDS: Heparin 5,000 Unit/mL Inj SUBQ SCH ×2 (00:23→07:49)
[2017-05-26 01:18] VITALS: BP 100/63; PULSE 70; RESP 16; O2SAT 93
--- NOTE | 2017-05-26 05:28 | NUR ---
Discharge Pt. is to be discharged today. VSS and he is in good spirits. C/O Lt. abdomen pain stating pancreatic area during this shift and was given pain medication which was effective. Also some nausea which he was given Zofran an effective too. No other issues this shift; WCTM
[2017-05-26] MEDS: Multivit-Miner-Folic Acid-Iron Tablet PO SCH (07:48)
[2017-05-26 07:51] VITALS: BP 102/68; PULSE 72; RESP 16; O2SAT 92
[2017-05-26] MEDS: LORazepam 1 mg Tablet PO PRN (08:38)
[2017-05-26 09:20] VITALS: BP 100/68
[2017-05-26] MEDS: Polyethylene Glycol (PEG) 17 Gm Powder PO PRN (09:33)
--- NOTE | 2017-05-26 11:00 | PCM.DC.MED ---
Discharge Summary Date of Service May 26, 2017 Dates of Hospitalization Date of Hospital Admission May 25, 2017 at 11:30 Date of Discharge: May 26, 2017 Providers: Admitting Physician: Dontrell Wilcox MD Primary Care Physician: Yahir Hay MD Attending Physician: Martinez Fuentes MD Diagnosis at Time of Discharge Diagnosis at Time of Discharge 1. Acute alcohol-induced pancreatitis. Recurrent. Present on admission and continues to improve. 2 Alcohol withdrawal syndrome; Present on admission; ongoing and resolved. 3 Acute alcoholic hepatitis,chronic and improved. 4 Hypertension,Chronic and much improved. 5. Insomnia, new and active. Procedures XRay, CTs & MRIs 05/19/2017- US ABDOMEN IMPRESSION: Increased hepatic echogenicity noted likely related to fatty infiltration of the liver but other sources of hepatocellular disease cannot be excluded. Recommend clinical correlation. Brief History Per HPI on 05/19/[address] Wilcox Guero Ling is a 36-year-old male with Alcoholic hepatitis and recurrent pancreatitis, reported mass on pancreas that was biopsied at , and history of seizures on alcohol withdrawal presents to emergency department with requesting medical clearance for detox. The patient was arranging for a bed at [facility], but requires medical clearance before being accepted. Patient has been complaining of abdominal pain , epigastric located, crampy in character with radiation to the back. Associated symptoms includes nausea and vomiting. He last consumed alcohol five hours prior to presentation He was recently admitted 04/24-04/29 for similar issues and has a episode of Alcohol induced pancreatitis as well. Unfortunately he continues to drink alcohol despite counselling Case discussed with Dr Donovan, Lipase 214. Admission planned for [facility] protocol and treatment for acute pancreatitis Hospital Course 36-year-old male with a history of alcoholic hepatitis and pancreatitis, reported mass on pancreas that was biopsied at , and history of seizures on alcohol withdrawal presents to emergency department with requesting medical clearance for detox but was found to have recurrent Pancreatitis 1. Acute alcohol-induced pancreatitis. Recurrent. Present on admission and continues to improve. He also may have some element of gastritis and even pain from alcohol-induced hepatitis. Recurrent pancreatitis due to alcohol abuse and history of pancreatic mass that was removed. Meeting [place] criteria for diagnosis - Maintenance with LR 125 mL/hr was given - pain control will be switched to oral oxycodone. We will wean hydromorphone down to 1 mg IV every 6 hours when necessary breakthrough. - Currently controlled with Oxycodone alone. 2 Alcohol withdrawal syndrome; Present on admission; ongoing and resolved. No hallucinations. Patient goes on multiple week long binges with resultant pancreatitis and withdrawal history of seizure -Banana bag and thiamine 200 mg IV then Thiamine 100 mg daily -Discontinue Seroquel. Was given Ativan 1 mg every 4 hours when necessary anxiety. -Will discharge with Ativan 1mg every 8 hours for anxiety as needed. Ativan as needed for anxiety. 3 Acute alcoholic hepatitis,chronic and improved. No indications for Prednisolone based on Discriminant function score - abstinence from alcohol encouraged to halt progression of liver disease 4 Hypertension,Chronic and much improved. -Some elevation will likely related to alcohol withdrawal as well - We started metoprolol 12.5 twice a day and lisinopril 10 daily. Increased the metoprolol to 25 by mouth twice a day. Held Lisinopril due to hypotension. 5. Insomnia, new and active. Added Trazadone nightly as needed. - Bowel regimen as needed - Antiemetic as needed Patient admitted under inpatient status with expected length of stay > 2 midnights for severity of present symptoms, complexities of treatment plan and risk for adverse event Dispo- -Will prescribe Oxycodone and Ativan 1mg every 8 hours for anxiety as needed. See your primary care doctor for refill beyond 1 week. - For nausea can take promethazine as directed. - Added Trazadone nightly as needed for insomnia. - Blood pressure medications currently Metoprolol 25mg twice daily. Stop amlodipine. - Follow up with your primary doctor within 1 week to recheck liver enzymes, determine if need further pain/anxiety medications, blood pressure check, and to further evaluate blood pressure medications. - Continue alcohol cessation and abstinence. . Exam Vital Signs (Last) Date Time Temp Pulse Resp B/P Pulse Ox O2 Delivery O2 Flow Rate FiO2 05/26/17 09:20 100/68 05/26/17 07:51 36.6 72 16 92 Room Air 05/21/17 08:37 3.00 Test 05/19/17 00:41 05/19/17 00:42 05/19/17 03:00 05/19/17 12:20 Neutrophils (%) (Auto) 63.6% (40-74) Lymphocytes (%) (Auto) 29.1% (14-46) Monocytes (%) (Auto) 5.5% (4-12) Eosinophils (%) (Auto) 1.6% (0-5) Basophils (%) (Auto) 0.1% (0-3) Prothrombin Time 10.6sec (8.1-12.5) Prothromb Time International Ratio 0.99ratio Magnesium Level 2.2mg/dL (1.6-2.6) Lipase 214U/L (13-60) Alcohols 159mg/dL (0-10) Hold Doll Top Tube Received (Received) Urine Opiates Screen Negative Urine Methadone Screen Negative Urine Barbiturates Screen Negative Urine Amphetamines Screen Negative Urine Benzodiazepines Screen Positive Urine Cocaine Metabolite Screen Negative Urine Cannabinoids Screen Negative Urine Color Yellow (YELLOW) Urine Appearance Clear (CLEAR,HAZY) Urine pH 5.5 (5.0-8.0) Urine Specific [place] 1.025 (1.003-1.035) Urine Protein Negativemg/dL (NEG,TRACE) Urine Glucose (UA) Negativemg/dL (NEGATIVE) Urine Ketones 15mg/dL (NEGATIVE) Urine Occult Blood Negative (NEGATIVE) Urine Nitrite Negative (NEGATIVE) Urine Bilirubin Negative (NEGATIVE) Urine Urobilinogen Normalmg/dL (NORMAL) Urine Leukocyte Esterase Negative (NEGATIVE) Urine RBC 0-2/hpf (0-2) Urine WBC 0-5/hpf (0-5) Urine Epithelial Cells Occasional/hpf (NONE-MOD) Urine Crystals None seen (NONE SEEN) Urine Bacteria None/hpf (NONE-FEW) Urine Hyaline Casts None/lpf (NONE) Urine Granular Casts Occasional (NONE SEEN) Urine Waxy Casts None seen (NONE SEEN) Urine Red Blood Cell Casts None seen (NONE SEEN) Urine White Blood Cell Casts None seen (NONE SEEN) Urine Mucus None seen (None Seen) Urine Trichomonas None seen (NONE SEEN) Urine Yeast None (NONE SEEN) Urinalysis Comment None Urine Culture Reflexed Not indicated Test 05/24/17 10:15 05/26/17 08:00 White Blood Count 7.4th/mm3 (3.8-10.1) Red Blood Count 4.57mil/mm3 (4.40-5.80) Hemoglobin 14.7g/dL (13.8-17.2) Hematocrit 43.3% (41.0-50.0) Mean Corpuscular Volume 94.7fL (81-100) Mean Corpuscular Hemoglobin 32.2pg (27.0-35.0) Mean Corpuscular Hemoglobin Concent 33.9% (32.0-37.0) Red Cell Distribution Width 12.9% (12.3-15.4) Platelet Count 229bil/L (150-400) Sodium Level 139mEq/L (134-144) Potassium Level 4.0mEq/L (3.5-5.2) Chloride Level 99mEq/L (97-108) Carbon Dioxide Level 25mmol/L (18-29) Blood Urea Nitrogen 10mg/dL (6-20) Creatinine 0.90mg/dL (0.76-1.27) Estimat Glomerular Filtration Rate 101mL/min (>59) Glucose Level 133mg/dL (60-99) Calcium Level 9.0mg/dL (8.5-10.1) Total Bilirubin 0.4mg/dL (0.0-1.2) Aspartate Amino Transf (AST/SGOT) 113U/L (0-50) Alanine Aminotransferase (ALT/SGPT) 109U/L (0-44) Alkaline Phosphatase 83U/L (25-150) Total Protein 7.4g/dL (6.4-8.4) Albumin 3.9g/dL (3.4-5.0) Microbiology Results Laboratory Tests Test 05/26/17 08:00 Sodium Level 139mEq/L (134-144) Potassium Level 4.0mEq/L (3.5-5.2) Chloride Level 99mEq/L (97-108) Carbon Dioxide Level 25mmol/L (18-29) Blood Urea Nitrogen 10mg/dL (6-20) Creatinine 0.90mg/dL (0.76-1.27) Estimat Glomerular Filtration Rate 101mL/min (>59) Glucose Level 133mg/dL (60-99) Calcium Level 9.0mg/dL (8.5-10.1) Total Bilirubin 0.4mg/dL (0.0-1.2) Aspartate Amino Transf (AST/SGOT) 113U/L (0-50) Alanine Aminotransferase (ALT/SGPT) 109U/L (0-44) Alkaline Phosphatase 83U/L (25-150) Total Protein 7.4g/dL (6.4-8.4) Albumin 3.9g/dL (3.4-5.0) Discharge Medications Discharge Medications Amlodipine (Amlodipine) 5 Mg Tablet 5 MG PO DAILY Prescribed by: NGA ARTEAGA MD Additional med instructions -Will prescribe Oxycodone and Ativan 1mg every 8 hours for anxiety as needed. See your primary care doctor for refill beyond 1 week. - For nausea can take promethazine as directed. - Added Trazadone nightly as needed for insomnia. - Blood pressure medications currently Metoprolol 25mg twice daily. Stop amlodipine. Followup Plan Disposition: Home Follow-up plan - Blood pressure medications currently Metoprolol 25mg twice daily. Stop amlodipine. - Follow up with your primary doctor within 1 week to recheck liver enzymes, determine if need further pain/anxiety medications, blood pressure check, and to further evaluate blood pressure medications. . Discharge Diet: No restrictions Discharge Activity: No restrictions Patient Instructions - Continue alcohol cessation and abstinence. If continue to drink you will likely have another episode of pancreatitis. Follow-up Provider: Yahir Hay MD Follow-up with PCP in: 1 week Time spent Greater than 30 minutes was spent in discharge of patient including going over plan, counselling, and arranging follow up care. Martinez Fuentes MD May 26, 2017 11:00
[2017-05-26] MEDS ORDERED: Thiamine PO (11:13)
[2017-05-26] MEDS ORDERED: SENN-133 PO (11:13)
[2017-05-26] MEDS ORDERED: METO25TA6 PO (11:13)
[2017-05-26] MEDS ORDERED: ZOF8 PO (11:13)
[2017-05-26] MEDS ORDERED: OXYC-530 PO ×2 (11:13→11:14)
[2017-05-26] MEDS ORDERED: TRAZ-115 PO (11:13)
[2017-05-26] MEDS ORDERED: FAMO20T PO (11:13)
[2017-05-26] MEDS ORDERED: LORA-303 PO (11:13)
--- NOTE | 2017-05-26 11:14 | PCM.DIMED ---
Discharge Instructions Date of Service May 26, 2017 Dates of Hospitalization May 25, 2017 at 11:30 Discharge Diagnosis Discharge Diagnosis 1. Acute alcohol-induced pancreatitis. Recurrent. Present on admission and continues to improve. 2 Alcohol withdrawal syndrome; Present on admission; ongoing and resolved. 3 Acute alcoholic hepatitis,chronic and improved. 4 Hypertension,Chronic and much improved. 5. Insomnia, new and active. Medication Instructions Additional med instructions -Will prescribe Oxycodone and Ativan 1mg every 8 hours for anxiety as needed. See your primary care doctor for refill beyond 1 week. - For nausea can take promethazine as directed. - Added Trazadone nightly as needed for insomnia. - Blood pressure medications currently Metoprolol 25mg twice daily. Stop amlodipine. Diet Discharge Diet: No restrictions Activity Discharge Activity: No restrictions Patient Instructions Patient Instructions - Continue alcohol cessation and abstinence. If continue to drink you will likely have another episode of pancreatitis. Follow-up plan - Blood pressure medications currently Metoprolol 25mg twice daily. Stop amlodipine. - Follow up with your primary doctor within 1 week to recheck liver enzymes, determine if need further pain/anxiety medications, blood pressure check, and to further evaluate blood pressure medications. . Follow-up Provider: Yahir Hay MD Follow-up with PCP in: 1 week Martinez Fuentes MD May 26, 2017 11:14
--- NOTE | 2017-05-26 11:35 | NUR ---
POST HOSPITAL FOLLOW UP : Scheduled hospital at [facility] 05/28/17 check in at 215PM for 230PM appointment with Updated [facility]
--- NOTE | 2017-05-26 12:30 | NUR ---
Discharge Note Pt discharged, IV catheter x 1 removed. Discharge instructions medications discussed & understood. Prescriptions to be hand carried to pharmacy. Education on keeping log of BP x 1 week & bringing log to PCP to decide if BP med is needed, stated his BP is likely high d/t drinking. Discussed patients post discharge plan w/ drinking/support group. All items gathered, nothing left behind. Mentation at baseline, no c/o pain. Patient walked out by RN.
--- NOTE | 2017-05-26 17:58 | NUR ---
Social Work Note: Discharge Data& Assessment: Per MD in multidisciplinary rounds, pt is medically ready to discharge home via POV. Guero Ling is a 36 year old male admitted on 05/25/2017 for alcoholic pancreatitis. Pt was offered CD resources. Follow up appointment at [facility] scheduled for 05/28/17 check in at 215PM for 230PM appointment with . No other MD orders identified. All updated and agreeable to plan. Discharge: Per MD pt is medically improved and ready to discharge home via POV with a follow up apt on 05/28/2017. No other MD orders or pt needs identified. All updated and agreeable to plan. VONNIE Ferrara
== END 2017-05-26 12:15 | disposition home or self-care (01) | DRG 439 ==
LOC: SED 21:33 → UNDOADMIN 05-19 03:14 → MOC 05-19 03:14 → PCC 05-19 03:14 → UNDOADMIN 05-25 11:30 → MOC 05-25 11:30
PROVIDERS: ADMIT Hospitalist; ATTEND Internal Medicine
DX: K85.20 Alcohol induced acute pancreatitis without necrosis or infection (principal); F10.232 Alcohol dependence with withdrawal with perceptual disturbance; K70.10 Alcoholic hepatitis without ascites; I10 Essential (primary) hypertension; T51.0X1A Toxic effect of ethanol, accidental (unintentional), initial encounter; Y90.6 Blood alcohol level of 120-199 mg/100 ml; G47.00 Insomnia, unspecified

== ENCOUNTER 2017-05-31 14:50 | Emergency (ER) | payer OTHER ==
[~2017-05-31] VITALS: Ht 175.3 cm; Wt 84.1 kg
[~2017-05-31 14:50] MED LIST changes: -AMLO5TAB2 PO; -DIAZ5TAB PO; +FAMO20T PO; -GABA600T2 PO; -IBUP1CAP11 PO; +LORA-303 PO; +METO25TA6 PO; -OXYC-474 PO; +OXYC-530 PO; +SENN-133 PO; +TRAZ-115 PO; +Thiamine PO; +ZOF8 PO
[2017-05-31 15:04] VITALS: BP 131/85; PULSE 103; RESP 18; O2SAT 97
--- NOTE | 2017-05-31 15:44 | ED.REPORT ---
HPI-Overdose/Alcohol Toxicity Date of Service May 31, 2017 ED Provider: Dr. Del Rosario Pt is a 36 y/o male w/ a hx of recurrent alcoholic pancreatitis, alcohol abuse, alcoholic seizures, HTN, presenting to the ED c/o abdominal pain. The patient has had multiple prior episodes of alcoholic pancreatitis and states he is experiencing abdominal pain today which is similar to those episodes. His last alcoholic beverage was 37 hours ago and he is also requesting help getting into a detox facility. He called [facility] yesterday but there was no bed available. He walked 3 hours to get here from [place] and is therefore feeling fatigued. Breathalyzer: 0 Nursing Notes Stated Complaint: ALCOHOL WITHDRAWL, PANCREATITIS PAIN Chief Complaint: Substance Abuse Nursing Notes Reviewed: Yes Allergies: Coded Allergies: No Known Allergies (Verified Allergy, Unknown, 05/31/17) Scheduled ([Thiamine]) 100 MG TABLET 100 MG PO DAILY Famotidine (Pepcid) 20 Mg Tablet 20 MG PO BID Metoprolol Tartrate (Metoprolol Tartrate) 25 Mg Tablet 25 MG PO BID Trazodone (Trazodone) 50 Mg Tablet 100 MG PO HS Scheduled PRN Lorazepam (Ativan) 1 Mg Tablet 1 MG PO Q8H PRN PRN For Anxiety or Agitation Ondansetron (Zofran) 8 Mg Tablet 8 MG PO Q4H PRN PRN For Nausea Sennosides (Senna) 8.6 Mg Tablet 17.2 MG PO BID PRN PRN For Constipation oxyCODONE (oxyCODONE) 5 Mg Tablet 10 MG PO Q4 PRN PRN For Moderate Pain General Time Seen by Provider: 15:49 Chief Complaint Other (alcohol detox) Hx Obtained From: Patient Arrived By: Walk-in Onset Occurred: 9 - 12 hours ago Symptom Duration: Since onset Progression Since Onset: Gradually worsening Location: : Abdomen Quality: Painful Severity: Current: Moderate Severity: Maximum: Moderate Recent Healthcare: Previous diagnosis Similar Sx Previous: Yes Past Medical History Past Medical History Multiple episodes of pancreatitis secondary to alcohol use Alcohol dependence and abuse Prior history of withdrawal with withdrawal seizure Chronic mild left hydronephrosis, persistent since February 2012. Hypertension Depression Past Surgical History Pancreatic mass removal Family History Father and brother with alcohol use disorder Smoking History Never Smoker Social History Alcohol Use: >5 per day Drug Use: Denies drug use Other Social History: Good social support, Frequent ED visitor, Lives alone, Local resident Occupation lives with parents, no work or school 12/30/2016 Ambulatory Status Independent Review of Systems Constitutional: Reports: Fatigue GI: Reports: Abdominal pain Neurologic: Reports: Shaking Complete sys rev & neg: except as marked. Physical Exam Initial Vital Signs Vital Signs (First) Date Time Temp Pulse Resp B/P Pulse Ox O2 Delivery O2 Flow Rate FiO2 05/31/17 15:04 36.5 103 18 131/85 97 Room Air Initial VS: Reviewed, Vital signs abnormal Head / Eyes: Atraumatic, Normocephalic ENT: Mucous membranes moist, Conjunctiva normal Neck: Full range of motion Extremities: Vascular intact, Neuro intact, No swelling Skin: Warm, Dry, No cyanosis General/Constitutional: Awake, Alert, No acute distress, Cooperative, Not toxic appearing No significant objective signs of withdrawal Respiratory / Chest: Breath sounds NL, Breath sounds = bilat, No respiratory distress, No rales, No rhonchi, No wheezing Cardiovascular: Heart rate NL, Regular rhythm, Heart sounds NL, No gallop, No murmurs, No rubs Abdomen: Soft, Non-tender, No guarding, No rebound, No distention Neurologic: Oriented X3, Speech NL, No motor deficits, No sensory deficits, CN II - XII intact, Cerebellar NL, Memory NL Psychiatric: Affect NL, Mood NL Interpretation & Diagnostics Lab Results Interpretation Result Diagram: 05/31/17 1630 05/31/17 1630 Test 05/31/17 15:44 05/31/17 16:30 05/31/17 16:31 Hold Urine Received (Received) White Blood Count 6.8th/mm3 (3.8-10.1) Red Blood Count 4.20mil/mm3 (4.40-5.80) Hemoglobin 13.6g/dL (13.8-17.2) Hematocrit 39.2% (41.0-50.0) Mean Corpuscular Volume 93.3fL (81-100) Mean Corpuscular Hemoglobin 32.4pg (27.0-35.0) Mean Corpuscular Hemoglobin Concent 34.7% (32.0-37.0) Red Cell Distribution Width 11.8% (12.3-15.4) Platelet Count 305bil/L (150-400) Neutrophils (%) (Auto) 75.4% (40-74) Lymphocytes (%) (Auto) 17.1% (14-46) Monocytes (%) (Auto) 6.4% (4-12) Eosinophils (%) (Auto) 0.9% (0-5) Basophils (%) (Auto) 0.1% (0-3) Sodium Level 138mEq/L (134-144) Potassium Level 4.0mEq/L (3.5-5.2) Chloride Level 99mEq/L (97-108) Carbon Dioxide Level 21mmol/L (18-29) Blood Urea Nitrogen 9mg/dL (6-20) Creatinine 0.92mg/dL (0.76-1.27) Estimat Glomerular Filtration Rate 98mL/min (>59) Glucose Level 115mg/dL (60-99) Calcium Level 9.1mg/dL (8.5-10.1) Total Bilirubin 0.6mg/dL (0.0-1.2) Aspartate Amino Transf (AST/SGOT) 99U/L (0-50) Alanine Aminotransferase (ALT/SGPT) 122U/L (0-44) Alkaline Phosphatase 77U/L (25-150) Total Protein 7.9g/dL (6.4-8.4) Albumin 4.0g/dL (3.4-5.0) Lipase 27U/L (13-60) Hold Doll Top Tube Received (Received) Re-Eval/Medical Decision Med Decision/Clinical Course Patient is a good candidate for outpatient detox. [facility]red to [facility] with an Ativan taper. Source of Hx: Old records Re-Evaluation/Progress : Time of Eval: 18:02 Re-Evaluation/Progress Note: Plan to send to Crisis at 19:30. Consultation : Consulted With: bed worker Call Returned at: 17:00 Log Data Technician: Will see patient, Agrees with eval, Agrees with plan Counseled Regarding: Diagnosis, Lab results, Need for follow-up, When/why to return to ED Discharge & Departure Impression: Primary Impression: Alcohol withdrawal Complication of substance-induced condition: uncomplicated Qualified Code: F10.230 - Alcohol dependence with withdrawal, uncomplicated Additional Impressions: Transaminitis Abdominal pain Abdominal location: epigastric Qualified Code: R10.13 - Epigastric pain )( Condition at Discharge: No danger to self, No danger to others, Clear for alcohol rehab Disposition: Home (alc rehab) Discharge Condition All VS Reviewed: Yes Condition: Stable Patient Instructions: Alcohol Withdrawal (ED) Additional Instructions: Labs today are reassuring. You do not have pancreatitis. Go directly to [facility] and use Ativan as prescribed. Return to the ED if you experience any withdrawal symptoms that they cannot handle or for other concerning symptoms. Good luck with rehab! Referrals: Yahir Hay MD (PCP) Scribe Attestation Portions of this note were transcribed by Aden Price. I, Dr. Del Rosario personally performed the history, physical exam and medical decision-making; I reviewed and confirmed the accuracy of the information in the transcribed note. copies to: Yahir Hay MD, Timothy S DO May 31, 2017 15:44 ADEN PRICE May 31, 2017 15:54
[2017-05-31 16:39] LABS: BASOPHILS % (AUTO) 0.1 % (0-3); EOSINOPHILS % (AUTO) 0.9 % (0-5); MONOCYTES % (AUTO) 6.4 % (4-12); Mean Corpuscular Hemoglobin 32.4 pg (27.0-35.0); Mean Corpuscular Volume 93.3 fL (81-100); NEUTROPHILS % (AUTO) 75.4 % (40-74); Platelet Count 305 bil/L (150-400)
[2017-05-31 16:42] VITALS: BP 121/84; PULSE 79; O2SAT 95
[2017-05-31] MEDS ORDERED: LORazepam 2 mg Tablet PO ONE (17:45)
[2017-05-31] MEDS ORDERED: _LORazepam 2 MG Tablet PO SCH (17:45)
[2017-05-31 18:37] VITALS: BP 120/80; PULSE 76; O2SAT 96
[2017-05-31 19:33] VITALS: BP 122/79; PULSE 96; O2SAT 97
== END 2017-05-31 19:34 | disposition home or self-care (01) ==
LOC: SED 14:50
DX: F10.230 Alcohol dependence with withdrawal, uncomplicated (principal); R74.0 Nonspecific elevation of levels of transaminase and lactic acid dehydrogenase [LDH]; R10.13 Epigastric pain; I10 Essential (primary) hypertension

== ENCOUNTER 2017-06-12 13:17 | Emergency (ER) | payer OTHER ==
[~2017-06-12] VITALS: Ht 175.3 cm; Wt 81.8 kg
--- NOTE | 2017-06-12 13:24 | ED.REPORT ---
HPI-Overdose/Alcohol Toxicity Date of Service Jun 12, 2017 ED Provider: Deep Camargo MD Patient is a 36 year old male with a history of alcoholic pancreatitis, alcohol abuse, seizures with alcohol withdrawal and hypertension who presents to the ED via EMS due to alcohol withdrawal. Associated symptoms include blurry vision, generalized weakness, abdominal pain, nausea, chills and vomiting. The patient reports that he was walking home prior to arrival when he began having blurred vision and difficulty walking secondary to weakness. He [place] the [place] fire [place] for help because he didn't think he would be able to walk home. The patient was seen at [facility] yesterday for alcohol withdrawal but had not started taking the prescriptions he was given (tramadol and lorazepam). Patient reports that his last drink was 24 hours ago. Nursing Notes Stated Complaint: ALCOHOL WITHDRAWAL Chief Complaint: Substance Abuse Nursing Notes Reviewed: Yes Allergies: Coded Allergies: No Known Allergies (Verified Allergy, Unknown, 05/31/17) Scheduled ([Thiamine]) 100 MG TABLET 100 MG PO DAILY Famotidine (Pepcid) 20 Mg Tablet 20 MG PO BID Metoprolol Tartrate (Metoprolol Tartrate) 25 Mg Tablet 25 MG PO BID Trazodone (Trazodone) 50 Mg Tablet 100 MG PO HS Scheduled PRN Lorazepam (Ativan) 1 Mg Tablet 1 MG PO Q8H PRN PRN For Anxiety or Agitation Ondansetron (Zofran) 8 Mg Tablet 8 MG PO Q4H PRN PRN For Nausea Sennosides (Senna) 8.6 Mg Tablet 17.2 MG PO BID PRN PRN For Constipation oxyCODONE (oxyCODONE) 5 Mg Tablet 10 MG PO Q4 PRN PRN For Moderate Pain General Time Seen by Provider: 13:32 Chief Complaint Other (alcohol withdrawal) Hx Obtained From: Patient Arrived By: Ambulance Onset Occurred: Yesterday Recent Healthcare: Recent doctor visit, Recent hospitalization Similar Sx Previous: Yes Past Medical History Past Medical History Multiple episodes of pancreatitis secondary to alcohol use Alcohol dependence and abuse Prior history of withdrawal with withdrawal seizure Chronic mild left hydronephrosis, persistent since February 2012. Hypertension Depression Past Surgical History Pancreatic mass removal Family History Father and brother with alcohol use disorder Smoking History Never Smoker Social History Alcohol Use: >5 per day Drug Use: Denies drug use Other Social History: Frequent ED visitor, Lives alone, Local resident Occupation lives with parents, no work or school 12/30/2016 Ambulatory Status Independent Review of Systems Constitutional: Reports: Chills, Weakness - generalized, Denies: Fever Eyes: Reports: Blurred bilateral GI: Reports: Abdominal pain, Nausea, Vomiting Neurologic: Reports: Problem walking Complete sys rev & neg: except as marked. Physical Exam Initial Vital Signs Vital Signs (First) Date Time Temp Pulse Resp B/P Pulse Ox O2 Delivery O2 Flow Rate FiO2 06/12/17 13:27 36.6 80 20 134/87 98 Room Air Initial VS: Reviewed General/Constitutional: Awake, Alert Respiratory / Chest: Atraumatic, Breath sounds NL, Breath sounds = bilat, No respiratory distress Cardiovascular: Heart rate NL, Regular rhythm, Heart sounds NL Abdomen: Atraumatic, Soft Tenderness/Guarding/Rebound: Positive: Tender diffuse Neurologic: Oriented X3, Speech NL Psychiatric: Not suicidal, Not homicidal, No hallucinations Head / Eyes: Atraumatic, Normocephalic Skin: Atraumatic, No rash Interpretation & Diagnostics Lab Results Interpretation Result Diagram: 06/12/17 1332 06/12/17 1332 Test 06/12/17 13:32 06/12/17 14:10 White Blood Count 6.0th/mm3 (3.8-10.1) Red Blood Count 4.45mil/mm3 (4.40-5.80) Hemoglobin 14.3g/dL (13.8-17.2) Hematocrit 40.8% (41.0-50.0) Mean Corpuscular Volume 91.7fL (81-100) Mean Corpuscular Hemoglobin 32.1pg (27.0-35.0) Mean Corpuscular Hemoglobin Concent 35.0% (32.0-37.0) Red Cell Distribution Width 12.0% (12.3-15.4) Platelet Count 239bil/L (150-400) Neutrophils (%) (Auto) 74.6% (40-74) Lymphocytes (%) (Auto) 18.5% (14-46) Monocytes (%) (Auto) 5.2% (4-12) Eosinophils (%) (Auto) 1.3% (0-5) Basophils (%) (Auto) 0.2% (0-3) Sodium Level 142mEq/L (134-144) Potassium Level 3.9mEq/L (3.5-5.2) Chloride Level 102mEq/L (97-108) Carbon Dioxide Level 20mmol/L (18-29) Blood Urea Nitrogen 7mg/dL (6-20) Creatinine 0.75mg/dL (0.76-1.27) Estimat Glomerular Filtration Rate 125mL/min (>59) Glucose Level 92mg/dL (60-99) Calcium Level 9.1mg/dL (8.5-10.1) Total Bilirubin 0.8mg/dL (0.0-1.2) Aspartate Amino Transf (AST/SGOT) 82U/L (0-50) Alanine Aminotransferase (ALT/SGPT) 63U/L (0-44) Alkaline Phosphatase 67U/L (25-150) Total Protein 7.9g/dL (6.4-8.4) Albumin 4.2g/dL (3.4-5.0) Lipase 45U/L (13-60) Alcohols < 10mg/dL (0-10) Hold Doll Top Tube Received (Received) Re-Eval/Medical Decision Re-Evaluation/Progress #1: Time of Eval: 13:34 Re-Evaluation/Progress Note: [facility] does not have any male beds available at this time Re-Evaluation/Progress #2: Time of Eval: 15:05 Re-Evaluation/Progress Note: Discussed patient's labs and plan for discharge. Patient understands and agrees to plan. All questions were addressed. Counseled Regarding: Diagnosis, Lab results, Need for follow-up, When/why to return to ED Discharge & Departure Impression: Primary Impression: Alcohol withdrawal Complication of substance-induced condition: uncomplicated Qualified Code: F10.230 - Alcohol dependence with withdrawal, uncomplicated )( Condition at Discharge: No danger to others, No suicidal ideation Disposition: Home Discharge Condition All VS Reviewed: Yes Condition: Stable Patient Instructions: Alcohol Withdrawal (ED) Additional Instructions: Your symptoms are likely due to alcohol withdrawal. Lipase (pancreatic enzyme) is normal as are other blood tests. Continue to take your medications as prescribed. Follow up with your primary care physician next week. Return to the emergency department if you develop any new or concerning symptoms including hallucinations, seizure like activity, fevers or worsening symptoms. Continue not to drink any alcohol. Call crisis respite a couple of times a day to see when you can get in. Referrals: Yahir Hay MD (PCP) Sharminibtammy Attestation Portions of this note were transcribed by Nelida Huff. I, Dr. Camargo personally performed the history, physical exam and medical decision-making; I reviewed and confirmed the accuracy of the information in the transcribed note. Signed by: Loc Gallagher, 06/12/17 copies to: Yahir Hay MD, Kirk H MD Jun 12, 2017 13:24 Franchesca Huff Jun 12, 2017 13:31
[2017-06-12 13:27] VITALS: BP 134/87; PULSE 80; RESP 20; O2SAT 98
[2017-06-12] MEDS ORDERED: LORazepam 2 mg Tablet PO ONE ×2 (13:35→15:05)
[2017-06-12] MEDS ORDERED: Ondansetron 8 mg ODT Tablet PO ONE (13:35)
[2017-06-12 13:53] LABS: BASOPHILS % (AUTO) 0.2 % (0-3); EOSINOPHILS % (AUTO) 1.3 % (0-5); MONOCYTES % (AUTO) 5.2 % (4-12); Mean Corpuscular Hemoglobin 32.1 pg (27.0-35.0); Mean Corpuscular Volume 91.7 fL (81-100); NEUTROPHILS % (AUTO) 74.6 % (40-74); Platelet Count 239 bil/L (150-400)
[2017-06-12 15:19] VITALS: BP 133/87; PULSE 94; RESP 16; O2SAT 98
[2017-06-12 15:54] VITALS: BP 133/87; PULSE 94; RESP 16; O2SAT 98
== END 2017-06-12 15:54 | disposition home or self-care (01) ==
LOC: EDBD 13:17 → SED 13:17
DX: F10.230 Alcohol dependence with withdrawal, uncomplicated (principal); I10 Essential (primary) hypertension; Z87.19 Personal history of other diseases of the digestive system
CPT/HCPCS: 36415; 80053; 83690; 85025; 99284; G0480